=== PATIENT | male | born 1930 | race Caucasian/White ===

== ENCOUNTER 2019-09-17 13:14 | Inpatient (IN) | payer MEDICARE, MEDICAID ==
[~2019-09-17] VITALS: Ht 175.3 cm; Wt 72.9 kg
[2019-09-17] MEDS ORDERED: NS 500 ML IV ONE ×2 (13:30→17:30)
[2019-09-17 13:58] LABS: BASO % 0.1 % (0.0-1.0); EOS % 0.2 % (0.0-3.0); HEMATOCRIT 42.9 % (42.0-52.0); HEMOGLOBIN 14.1 g/dl (13.5-17.5); LYMPH # 0.8 10^3/uL (1.5-5.0); LYMPH % 8.7 % (24.0-44.0); MEAN CORPUSCULAR HEMOGLOBIN 31.3 pg (27.0-33.0); MEAN CORPUSCULAR HGB CONC 32.9 g/dl (32.0-36.5); MEAN CORPUSCULAR VOLUME 95.1 fl (80.0-96.0); MONO # 0.6 10^3/uL (0.0-0.8); MONO % 6.8 % (0.0-5.0); NEUTROPHILS # 7.6 10^3/uL (1.5-8.5); NEUTROPHILS % 83.8 % (36.0-66.0); PLATELET COUNT, AUTOMATED 207 10^3/uL (150-450); RED BLOOD COUNT 4.51 10^6/uL (4.30-6.10); WHITE BLOOD COUNT 9.1 10^3/uL (4.0-10.0)
[2019-09-17 14:28] LABS: OSMOLALITY SERUM 278 MOSM/KG (280-301)
--- NOTE | 2019-09-17 14:34 | REP ---
REASON: Altered mental status. The technique utilized in obtaining the radiograph has magnified the cardiac silhouette and accentuated the interstitial markings. There is cardiomegaly accentuated by technique. The lung pang are clear and the pleural angles are sharp. The osseous structures are within normal limits. IMPRESSION: Cardiomegaly without evidence of acute cardiopulmonary disease. Electronically Signed by Alexandre Ruiz DO 09/17/2019 03:09 P
--- NOTE | 2019-09-17 14:36 | REP ---
REASON: Altered mental status. Possible trauma. AP pelvis shows bilateral SI joint and hip degenerative changes. Two views of the right hip shows no evidence of an acute fracture. Two views of the left hip show no evidence of an acute fracture. IMPRESSION: Chronic changes. Electronically Signed by Alexandre Ruiz DO 09/17/2019 03:10 P
[2019-09-17 14:41] LABS: ACETAMINOPHEN LEVEL < 2.0 UG/ML (10.0-30.0); ALBUMIN 3.2 GM/DL (3.2-5.2); ALT/SGPT 70 U/L (12-78); BILIRUBIN,DIRECT 0.5 MG/DL (0.0-0.2); BILIRUBIN,TOTAL 1.2 MG/DL (0.2-1.0); BLOOD UREA NITROGEN 37 MG/DL (7-18); CALCIUM LEVEL 8.9 MG/DL (8.8-10.2); CARBON DIOXIDE LEVEL 27 MEQ/L (21-32); CHLORIDE LEVEL 106 MEQ/L (98-107); CK-MB VALUE MASS 95.2 NG/ML (<3.6); CPK CREATINE PHOSPHOKINASE 4366 U/L (39-308); CREATININE FOR GFR 1.11 MG/DL (0.70-1.30); ETHYL ALCOHOL (ETHANOL) < 0.003 % (0.000-0.010); GLOMERULAR FILTRATION RATE > 60.0 (>35); GLUCOSE, FASTING 74 MG/DL (70-100); MAGNESIUM LEVEL 1.7 MG/DL (1.8-2.4); MB/CK RELATIVE INDEX 2.18 (< OR =4); NT-PRO BNP 4031 PG/ML (<450); POTASSIUM SERUM 4.2 MEQ/L (3.5-5.1); SALICYLATE LEVEL < 1.7 MG/DL (5.0-30.0); SODIUM LEVEL 139 MEQ/L (136-145); TROPONIN I 0.19 NG/ML (< 0.10)
--- NOTE | 2019-09-17 16:55 | REP ---
CT BRAIN WITHOUT CONTRAST: CT brain performed without IV contrast. Coronal reconstruction images are performed. There is moderate atrophy. There is no midline shift or mass effect. Moderate periventricular small vessel ischemic changes are likely chronic in nature. There is no acute hemorrhage. There is no extra-axial fluid collection. There are vascular calcifications of the carotid siphons. There is mild fluid in the right maxillary sinus as well as mild mucosal thickening compatible with sinusitis. IMPRESSION: Atrophy and periventricular small vessel ischemic changes likely chronic in nature. No acute hemorrhage, midline shift or mass effect. Mild right maxillary sinusitis. Electronically Signed by Javi Barfield MD 09/17/2019 06:23 P
--- NOTE | 2019-09-17 17:23 | REP ---
CT CHEST WITHOUT IV CONTRAST: CT chest performed without IV contrast. Sagittal and coronal reconstruction images are performed. Scattered fibrotic changes are seen in both lungs. There is no acute infiltrate or pneumothorax. I see no evidence of axillary or mediastinal adenopathy. There is moderate cardiomegaly. There is no pleural or pericardial effusion. There is atherosclerotic calcification of the thoracic aorta without aneurysm. There is diffuse degenerative changes of the thoracic spine without compression deformity. No rib fracture is visualized. Visualized upper abdominal structures are grossly unremarkable. IMPRESSION: Fibroatelectatic changes of the lungs with no acute infiltrate or pneumothorax. No pleural effusion. No evidence of fracture of the visualized osseous structures. Electronically Signed by Javi Barfield MD 09/17/2019 06:23 P
[2019-09-17] MEDS ORDERED: MOM 30ML SUSPENSION UDC PO PRN (17:30)
[2019-09-17] MEDS ORDERED: amLODIPine 10 MG TAB PO ONE (17:30)
[2019-09-17] MEDS ORDERED: MAG SULF 1GM/100ML (MAG RUN) 1 GM in IV 1 EA IV ONE (17:45)
[2019-09-17] MEDS ORDERED: VITA50005 PO (18:02)
[2019-09-17] MEDS ORDERED: ASPI-1 PO (18:02)
[2019-09-17] MEDS ORDERED: ATEN50TA2 PO (18:02)
[2019-09-17] MEDS ORDERED: LISI40TA PO (18:02)
[2019-09-17] MEDS ORDERED: OMEG10002 PO (18:02)
[2019-09-17] MEDS ORDERED: AMLO10TA5 PO (18:02)
[2019-09-17] MEDS ORDERED: SYNT25TA PO (18:02)
[2019-09-17] MEDS ORDERED: COMMENTS (18:03)
[2019-09-17 19:32] VITALS: BP 132/95
[2019-09-17] MEDS: NS 1,000 ML IV SCH (20:12)
[2019-09-17] MEDS: atenoloL 50 MG TAB PO SCH (20:21)
[2019-09-17] MEDS: OMEGA-3 1000MG CAPSULE PO SCH (20:21)
[2019-09-17] MEDS: ACETAMINOPHEN TAB 650MG DOSE (2X325MG) PO PRN (20:22)
--- NOTE | 2019-09-17 20:44 | HPE ---
DATE OF ADMISSION: 09/17/2019 CHIEF COMPLAINT: Confusion and hypothermia with a temperature of 92 on arrival. HISTORY OF PRESENT ILLNESS: This is an 89-year-old male who lives alone, has a sister who calls him three to four times a day, was brought to the emergency room after being found down on the floor, unsure for how many days, by welfare check that was prompted by the niece who was unable to reach him. The patient was brought into the emergency room confused, disoriented, only able to state his name. His blood pressure was 183 systolic, recheck was 206 systolic but he was severely hypothermic and unable to provide much of a history. His temperature on arrival was 92.8, with Allan hugger up to 96.1 with improvement in mentation. The patient denies any abdominal pain, dysuria, urgency, frequency. He said that he has been feeling very weak, unable to get up and has not eaten in [address] of the head showed no acute CVA. Chest CT showed no acute infiltrate, fibroatelectasis was found, no pleural effusion. The patient had normal white count. He was found to have acute rhabdomyolysis with total CK of 4366, negative urinalysis for infection and abnormal liver function tests with total bilirubin of 1.2, direct bilirubin 0.5 and elevated AST at 228. Denied any history of alcohol abuse in the past. The patient is admitted to the hospitalist service for evaluation of acute encephalopathy, hypothermia, rule out sepsis and acute encephalopathy. The patient also complained of increased urinary frequency and severe weakness, unable to get up and pain from the back of his neck and all the way down to his legs with history of spinal stenosis. [place] Coma Scale was 15. He was disoriented, but answering commands. THe patient's niece is Miriam Cooley, . PAST MEDICAL HISTORY: 1. Prostate cancer, status post radiation in 2001. 2. Hypertension. 3. Vitamin D deficiency. 4. Hypercholesterolemia. 5. Hypothyroidism. PAST SURGICAL HISTORY: Unknown as the patient is confused. SOCIAL HISTORY: Lives alone. Smoked pipes for several years. No history of alcohol abuse. No recreational drug use. 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 Has a sister and a niece. FAMILY HISTORY: Unknown. REVIEW OF SYSTEMS: Could not be completed as the patient has periods of disorientation. PHYSICAL EXAMINATION: VITAL SIGNS: 92.8 rectally, pulse 83, respiratory rate 19, blood pressure 170/77, 100% on 2 liters nasal cannula. GENERAL: The patient is awake, alert and oriented to himself and location. Able to stay that he is at the [facility] [place]. He has garbled speech, disheveled, face is symmetric. Tongue is midline, very dry. He is edentulous with chapped lips. No jugular venous distention (JVD). No thyromegaly. He appears his stated age. Follows commands. Rambling about the service and being a . No respiratory distress. The patient has multiple excoriations on bilateral hands and lower extremities, as well as some erythema on bilateral knuckles, swelling of the bilateral upper and lower extremities, nonpitting edema. LUNGS: Clear to auscultation. No wheezing or rales. HEART: S1, S2. Sinus rhythm. ABDOMEN: Soft, nontender, nondistended. Positive bowel sounds times four quadrants. No rebound or guarding. No hepatosplenomegaly. No abdominal bruits. EXTREMITIES: No cyanosis or clubbing. Cool to touch. [place] in color. LABORATORY DATA: White count 9.1, hemoglobin 14, hematocrit 42, platelet count 207, 83% neutrophils, 8% lymphocytes, no bandemia, sed rate is 13, C-reactive protein is 6.4, sodium 139, potassium 4.2, chloride 103, bicarbonate 27, BUN 37, creatinine 1.11, glucose 74, lactic acid 1.4, magnesium 1.7, total bilirubin 1.2, direct bilirubin 0.5, AST 228, total CK 4366, MB fraction 95.2, troponin 0.19, C-reactive protein 6.4, BNP 4831, total protein 6.1, albumin 3.2, TSH 2.82, procalcitonin is pending. Lactic acid is 1.4. Urinalysis showed 1+ bacteria, 1 WBC, negative leukocyte esterase, 3+ blood, 1+ ketones, 1+ protein. Urine salicylate less than 1.7, acetaminophen less than 2, ethyl alcohol less than 0.003. Respiratory panel negative. Blood culture pending. IMAGING STUDIES: CT of the head showed atrophy, chronic in nature, with chronic small vessel ischemic disease, no acute hemorrhage, midline shift or mass effect. Hip x-ray showed chronic changes. No evidence of acute fracture. Chest x-ray showed cardiomegaly without cardiopulmonary disease. Chest CT showed fibroatelectasis. No infiltrate, pneumothorax or effusion, evidence of fracture of visualized osseous structures. No adenopathy. ASSESSMENT AND PLAN: 89-year-old male with a history of prostate cancer, status post radiation, hypertension, hyperlipidemia, vitamin D deficiency, who presents to the emergency room with acute encephalopathy after being found down, unsure for how many days, along with severe hypothermia. IMPRESSION: 1. Acute hypothermia, rule out sepsis. UA, chest x-ray and CT of the chest are all negative. The patient has abnormal liver function tests. We will check an ultrasound of the abdomen in the morning. Nothing by mouth after midnight. The patient will be given empiric antibiotics with Zosyn renally dosed this evening. Discontinue if negative clinical findings in the morning, along with negative ultrasound for acute cholecystitis. The patient has been warmed with the Allan hugger, currently stable and improvement in mental status. 2. Acute encephalopathy due to severe hypothermia. TSH level within normal. THe patient is being empirically treated with antibiotics with Zosyn for intraabdominal possible sepsis, however, only C-reactive protein is elevated. Discontinue antibiotics in the morning if negative findings on ultrasound. UA appears to be negative and chest x-ray is also negative. The patient has been warmed to 96 degrees with a Allan hugger. Continue with standard of care, vitals for monitoring. Continue on telemetry. 3. Uncontrolled hypertension. The patient may be resumed back on his home dose of Lisinopril, Norvasc and beta blockers. 4. Vitamin D deficiency. Continue on vitamin D. 5. Generalized malaise. The patient's respiratory panel was negative. Infectious workup so far has been unrevealing. We will consult acute rehabilitation unit in the morning. Activity as tolerated. Fall precautions. 6. Acute rhabdomyolysis due to a fall and unable to get up. The patient is currently on fall precautions. He is on intravenous fluids to monitor for any respiratory distress overnight. 7. Cardiomegaly. Obtain a 2-D echocardiogram due to a fall with questionable syncopal episode. The patient has no recollection of the events. Telemetry to rule out arrhythmia as cause for the patient's fall. 8. Back pain status post fall. The patient apparently had a history of prostate cancer and questionable history of spinal stenosis. He complains of severe pain in the back, but due to mental status we will only give acetaminophen. We will obtain MRI of the lumbar spine regarding pain in the back and MRI of the brain to rule out cerebellar CVA due to a fall and loss of memory. For possible syncope, 2-D echo will also be added. 9. abnormal card carcamo. most likely due to recent traumatic injury from fall. no acute ischemic symptoms. continue tele, echo, and cycle serial card carcamo. already on ASA, beta matt. Deep vein thrombosis (DVT) prophylaxis with compression stockings. DISPOSITION: Acute rehabilitation unit, potential screening. MTDD
[2019-09-17] MEDS ORDERED: lisinopriL 40 MG TAB PO SCH (21:00)
[2019-09-17] MEDS: PIPERACILLIN/TAZOBACTAM SOD 2.25 GM in D5W MINI-BAG PLUS 50 ML IV SCH (22:46)
[2019-09-18 00:59] LABS: CK-MB VALUE MASS 56.1 NG/ML (<3.6); MB/CK RELATIVE INDEX 1.86 (< OR =4); TROPONIN I 0.28 NG/ML (< 0.10)
--- NOTE | 2019-09-18 01:16 | ECGEPIP ---
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
[2019-09-18] MEDS: PIPERACILLIN/TAZOBACTAM SOD 2.25 GM in D5W MINI-BAG PLUS 50 ML IV SCH ×3 (02:34→15:19)
[2019-09-18] MEDS: LEVOTHYROXINE 25MCG TABLET (0.025MG) PO SCH (05:27)
[2019-09-18 06:00] VITALS: BP 119/66
[2019-09-18 06:04] LABS: BASO % 0.1 % (0.0-1.0); EOS # 0.1 10^3/uL (0.0-0.5); EOS % 1.1 % (0.0-3.0); HEMATOCRIT 37.5 % (42.0-52.0); HEMOGLOBIN 12.4 g/dl (13.5-17.5); LYMPH # 1.2 10^3/uL (1.5-5.0); LYMPH % 16.2 % (24.0-44.0); MEAN CORPUSCULAR HEMOGLOBIN 31.2 pg (27.0-33.0); MEAN CORPUSCULAR HGB CONC 33.1 g/dl (32.0-36.5); MEAN CORPUSCULAR VOLUME 94.5 fl (80.0-96.0); MONO # 0.6 10^3/uL (0.0-0.8); MONO % 8.6 % (0.0-5.0); NEUTROPHILS # 5.5 10^3/uL (1.5-8.5); NEUTROPHILS % 73.6 % (36.0-66.0); PLATELET COUNT, AUTOMATED 208 10^3/uL (150-450); RED BLOOD COUNT 3.97 10^6/uL (4.30-6.10); WHITE BLOOD COUNT 7.4 10^3/uL (4.0-10.0)
[2019-09-18 06:41] LABS: ALBUMIN 2.6 GM/DL (3.2-5.2); CALCIUM LEVEL 8.2 MG/DL (8.8-10.2); CK-MB VALUE MASS 36.4 NG/ML (<3.6); CREATININE FOR GFR 1.3 MG/DL (0.70-1.30); GLOMERULAR FILTRATION RATE 55.3 (>35); MAGNESIUM LEVEL 1.9 MG/DL (1.8-2.4); MB/CK RELATIVE INDEX 1.41 (< OR =4); POTASSIUM SERUM 4.1 MEQ/L (3.5-5.1); TOTAL PROTEIN 5.8 GM/DL (6.4-8.2); TROPONIN I 0.76 NG/ML (< 0.10)
--- NOTE | 2019-09-18 08:20 | IPN ---
DATE: 09/18/2019 The patient continues to be confused and disoriented. The patient denies any nausea or vomiting. He says that he had a little bit of pain on the right upper quadrant after eating yesterday, but liver functions are improving. The patient denies any chest pain, pressure, tightness, or shortness of breath. No fevers overnight. After Allan hugger, the patient has been with normal temperature. Sed rate is normal. C-reactive protein is slightly elevated 6.4. Troponin is 0.76 from 0.19 yesterday. Still with no complaints of chest pain. PHYSICAL EXAMINATION: VITAL SIGNS: Temperature 98.1, pulse 66, respiratory rate 18, blood pressure 119/66, 99% on room air. GENERAL: The patient looks older than his stated age. Disheveled appearing. Confused. He is currently babbling at the bedside with garbled speech. Edentulous. No jugular venous distention (JVD) or thyromegaly. Anicteric without jaundice. LUNGS: Clear to auscultation. No wheezing, rales or rhonchi. HEART: S1, S2. Sinus tachycardia. ABDOMEN: Soft, slightly tender in the right upper quadrant without rebound or guarding. Positive bowel sounds. EXTREMITIES: No pitting edema in the lower extremities. The patient has abrasions in the upper and lower extremities from recent fall. LABORATORY DATA: White count 7.4, hemoglobin 12.4, hematocrit 37, platelet count 208. Sodium 141, potassium 4.1, chloride 109, bicarbonate 24, BUN 43, creatinine 1.3, glucose 77. Troponin 0.76, increased from 0.8. Total CK 2586, AST 193, ALT 68, total bilirubin 1.9, direct bilirubin 1. C-reactive protein yesterday was 6.4. Respiratory panel was negative. Blood cultures pending. Chest CT on 09/17/2019 showed fibroatelectasis. No acute infiltrate or pneumothorax. No pleural effusion. No evidence of fracture of the visualized osseous structures. CT of the head showed chronic small vessel ischemic disease. No acute CVA. Atrophy. No acute hemorrhage, midline shift or mass effect. Right maxillary sinusitis. ASSESSMENT AND PLAN: This is an 89-year-old male who lives alone who was brought in after a well check that the niece had called since the patient could not be reached. The patient was found to be severely hypothermic with a temperature of 92. He had fallen and had been on the ground for 2 days. According to the patient, he has not been eating due to severe fatigue. After the fall, he was unable to get up. He was admitted for acute rhabdomyolysis and workup for hypothermia. CURRENT ISSUES: 1. Hypothermia, resolved. No signs of acute infectious process. THe patient is sent to ultrasound to rule out acute cholecystitis due to complaints of pain in the right upper quadrant and abnormal liver function tests. He is currently nothing by mouth, we will resume a diet if negative, and we will discontinue empiric antibiotics with Zosyn. 2. Acute encephalopathy. No acute infectious process at this time. May be in the background of chronic dementia. Awaiting MRI of the brain. Family will need to be contacted for the MRI checklist to make sure that he does not have any metal implants. 3. History of prostate cancer. No signs of metastases in the brain. The patient had a complete treatment with radiation in 2001. 4. Hemodilutional anemia secondary to intravenous fluids given yesterday. 5. Acute rhabdomyolysis secondary to fall. The patient's total CK is 2586, creatinine is still within normal limits. Continue with IV fluid hydration for now. Avoid nephrotoxins. We will need to hold the patient's Lisinopril if worsening creatinine. Continue with fluid hydration. 6. Abnormal cardiac markers, currently without any acute ischemic symptoms. Most likely secondary to traumatic fall. We will continue to cycle the patient's cardiac markers and obtain a 2-D echo, as well as an EKG. He is currently on aspirin 325 mg daily and atenolol 50 mg twice a day. 7. Hypothyroidism. Continue on Levothyroxine 25 mcg daily. 8. Atrial Fibrillation, new onset. Echo pending. pt started on renally dosed eliquis. on atenolol with hold parameters. Tele: sánchez in 50's at times. pt may have sick sinus syndrome and may need pacer . Patient and family services (PFS) consulted for placement, as the patient lives alone and is unable to manage at this time. Acute rehabilitation unit has also been consulted. FROYLAN
--- NOTE | 2019-09-18 08:20 | REP ---
Right upper quadrant sonography: History: Abnormal liver function studies. Comparison study: No comparison study. Findings: Can quality was inhibited slightly by patient's inability to breath hold and position decubitus. Scanning through the right upper quadrant of the abdomen demonstrates a normal sized, thin-walled gallbladder without evidence of stone or polyp. Common bile duct is normal measuring 0.4 cm in greatest diameter. There is a 2.2 x 1.5 x 1.6 cm hyperechoic area in the left lobe of the liver which may reflect a small hemangioma. This is not visible on noncontrast CT study from the previous day. No other focal liver lesion is seen. Liver size is normal. No pancreatic abnormality is observed. No right renal abnormality is seen. There is no evidence of ascites. The right kidney measures 10.2 x 5.2 x 5.1 cm. Impression: Small left lobe hepatic hemangioma noted incidentally. Otherwise negative right upper quadrant sonography. Electronically Signed by Thony Wilson MD 09/18/2019 08:12 A
[2019-09-18] MEDS: ASPIRIN 325 MG TAB PO SCH (08:29)
[2019-09-18] MEDS: OMEGA-3 1000MG CAPSULE PO SCH ×3 (08:30→20:11)
[2019-09-18] MEDS: atenoloL 50 MG TAB PO SCH ×2 (08:32→20:15)
[2019-09-18] MEDS: amLODIPine 10 MG TAB PO SCH (08:33)
[2019-09-18] MEDS ORDERED: VITAMIN D 50,000 UNITS CAPSULE (ERGOCALCIFEROL 1.25MG) PO SCH (09:00)
[2019-09-18] MEDS: APIXABAN 5 MG TAB (ELIQUIS) PO SCH ×2 (10:41→20:11)
[2019-09-18 11:56] LABS: HEPATITIS A ANTIBODY IGM NEGATIVE (NEGATIVE); HEPATITIS B CORE ANTIBODY IGM NEGATIVE (NEGATIVE); HEPATITIS B SURFACE ANTIGEN NEGATIVE (NEGATIVE); HEPATITIS C VIRUS ABY INDEX 0.1 INDEX (<0.8)
[2019-09-18 12:57] LABS: CK-MB VALUE MASS 23.7 NG/ML (<3.6); MB/CK RELATIVE INDEX 1.12 (< OR =4); TROPONIN I 0.66 NG/ML (< 0.10)
--- NOTE | 2019-09-18 14:29 | ECGEPIP ---
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
--- NOTE | 2019-09-18 14:37 | ECGEPIP ---
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
[2019-09-18] MEDS: NS 1,000 ML IV SCH (15:19)
[2019-09-18] MEDS ORDERED: PROHANCE 279.3MG/ML 5ML VIAL (A9576) As Ordered ONE (16:35)
--- NOTE | 2019-09-18 17:31 | REPVR ---
PROCEDURE INFORMATION: Exam: MR Lumbar Spine Without and With Contrast. Exam date and time: 09/18/2019 4:55 PM Age: 89 years old Clinical indication: Patient HX: H/o prostate CA current unbalanced gait, frequent falls, low back pain, PT was AMS but has since subsided; Additional info: H/o prostate CA. Gait imbalance back pain TECHNIQUE: Imaging protocol: Multiplanar magnetic resonance images of the lumbar spine without and with intravenous contrast. Contrast material: PROHANCE; Contrast volume: 8 ml; Contrast route: 20G; COMPARISON: SR - CT Chest without contrast 09/17/2019 3:52:41 PM FINDINGS: Vertebrae: The lowest full sized lumbar vertebral body is labeled as L5 for the purposes of this dictation. The lumbar vertebral bodies are normal in height, without abnormal subluxation. Mild anterolisthesis of T12 on L1. Mild heterogeneous signal intensity of the visualized bone marrow of the lumbar spine, without a well-defined enhancing osseous mass. Spinal cord: The distal end of the conus medullaris ends at L2, which is low lying. Multilevel findings: Degenerative disc disease is noted diffusely within the lumbar and visualized lower thoracic spine, with a decrease in the T2 signal intensity of the discs as well as disc bulge/osteophyte complexes. A diffuse decrease in lumbar disc height is identified, most significant at L1-L2, L3-L4, L4-L5, and L5-S1. T12-L1: At T12-L1, there is moderate narrowing of the thecal sac. Disc bulging identified. Mild left and severe right neural foraminal narrowing. L1-L2: A broad-based disc bulge is identified, with mild narrowing of the thecal sac. Bilateral facet arthropathy with hypertrophy of the ligamentum flavum. There is narrowing of the left lateral recess. Mild left neural foraminal narrowing. No significant narrowing of the right neural foramen. L2-L3: Bilateral facet arthropathy with hypertrophy of the ligamentum flavum. Disc bulging visualized, without significant narrowing of the thecal sac. Moderate left neural foraminal narrowing. Mild right neural foraminal narrowing. L3-L4: Bilateral facet arthropathy with hypertrophy of the ligamentum flavum. A broad-based disc bulge is identified, with severe narrowing of the thecal sac. The AP dimension of the thecal sac measures 0.7 cm. There is narrowing of both lateral recesses. Severe left and [id number] right neural foraminal narrowing. L4-L5: Bilateral facet arthropathy with hypertrophy of the ligamentum flavum. There is a broad-based disc bulge with central protrusion causing moderate narrowing of the thecal sac. Narrowing of both lateral recesses identified. Moderate left and severe right neural foraminal narrowing identified, with encroachment on the exiting right L4 nerve root. L5-S1: Bilateral facet arthropathy with hypertrophy of the ligamentum flavum. There is a central protrusion with mild narrowing of the thecal sac. Narrowing of both lateral recesses identified. Severe left and moderate right neural foraminal narrowing identified. Soft tissues: Soft tissue swelling identified posterior to the lumbosacral spine. Impression IMPRESSION: 1. Mild anterolisthesis of T12 on L1. 2. Degenerative changes are noted diffusely within the lumbar and visualized lower thoracic spine, as described above. 3. At L4-L5, there is a broad-based disc bulge with central protrusion causing moderate narrowing of the thecal sac. 4. A central protrusion at L5-S1 is visualized, with mild narrowing of the thecal sac. 5. Severe narrowing of the thecal sac at L3-L4, with mild narrowing of the thecal sac at L1-L2. 6. Neural foraminal narrowing identified diffusely within the lumbar spine, as detailed above. 7. Mild heterogeneous signal intensity of the visualized bone marrow of the lumbar spine, without a well-defined enhancing osseous mass. Electronically signed by: Anup Wood On 09/18/2019 17:30:47 PM
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
[2019-09-18 18:46] LABS: CK-MB VALUE MASS 16.5 NG/ML (<3.6); MB/CK RELATIVE INDEX 0.98 (< OR =4); TROPONIN I 0.5 NG/ML (< 0.10)
[2019-09-18 22:00] VITALS: BP 144/73
[2019-09-19 00:58] LABS: CK-MB VALUE MASS 12.8 NG/ML (<3.6); MB/CK RELATIVE INDEX 0.85 (< OR =4); TROPONIN I 0.43 NG/ML (< 0.10)
[2019-09-19] MEDS: NS 1,000 ML IV SCH (04:24)
[2019-09-19] MEDS: LEVOTHYROXINE 25MCG TABLET (0.025MG) PO SCH (05:37)
[2019-09-19 05:47] LABS: BASO % 0.4 % (0.0-1.0); EOS # 0.2 10^3/uL (0.0-0.5); EOS % 2.3 % (0.0-3.0); HEMATOCRIT 36.8 % (42.0-52.0); LYMPH # 1.7 10^3/uL (1.5-5.0); LYMPH % 23.9 % (24.0-44.0); MEAN CORPUSCULAR HEMOGLOBIN 31.3 pg (27.0-33.0); MEAN CORPUSCULAR HGB CONC 32.6 g/dl (32.0-36.5); MEAN CORPUSCULAR VOLUME 95.8 fl (80.0-96.0); MONO # 0.6 10^3/uL (0.0-0.8); NEUTROPHILS # 4.5 10^3/uL (1.5-8.5); NEUTROPHILS % 64.1 % (36.0-66.0); PLATELET COUNT, AUTOMATED 178 10^3/uL (150-450); RED BLOOD COUNT 3.84 10^6/uL (4.30-6.10)
[2019-09-19 06:00] VITALS: BP 156/72
[2019-09-19 06:18] LABS: ALBUMIN 2.7 GM/DL (3.2-5.2); ALT/SGPT 66 U/L (12-78); BILIRUBIN,TOTAL 1.1 MG/DL (0.2-1.0); BLOOD UREA NITROGEN 31 MG/DL (7-18); CALCIUM LEVEL 8.3 MG/DL (8.8-10.2); CARBON DIOXIDE LEVEL 26 MEQ/L (21-32); CHLORIDE LEVEL 109 MEQ/L (98-107); GLOMERULAR FILTRATION RATE > 60.0 (>35); GLUCOSE, FASTING 69 MG/DL (70-100); LIPASE 84 U/L (73-393); MAGNESIUM LEVEL 1.8 MG/DL (1.8-2.4); POTASSIUM SERUM 4.1 MEQ/L (3.5-5.1); SODIUM LEVEL 140 MEQ/L (136-145); TOTAL PROTEIN 5.3 GM/DL (6.4-8.2)
[2019-09-19] MEDS ORDERED: D5W/0.45% SODIUM CHLORIDE 1,000 ML IV SCH (08:00)
[2019-09-19] MEDS: ASPIRIN 325 MG TAB PO SCH (08:05)
[2019-09-19] MEDS: atenoloL 50 MG TAB PO SCH ×2 (08:05→21:02)
[2019-09-19] MEDS: amLODIPine 10 MG TAB PO SCH (08:05)
[2019-09-19] MEDS: APIXABAN 5 MG TAB (ELIQUIS) PO SCH ×2 (08:06→21:01)
[2019-09-19] MEDS: OMEGA-3 1000MG CAPSULE PO SCH ×3 (08:06→21:01)
[2019-09-19 08:44] LABS: CK-MB VALUE MASS 9.9 NG/ML (<3.6); MB/CK RELATIVE INDEX 0.85 (< OR =4); TROPONIN I 0.35 NG/ML (< 0.10)
--- NOTE | 2019-09-19 09:35 | IPN ---
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 He says that he just wants to go home. He otherwise denies any back pain. He says that he is very weak, unable to get up from a sitting position on a chair and requires a lot of help, "I was doing okay on my own." No other issues per nursing overnight. The patient's mentation is improving. PHYSICAL EXAMINATION: VITAL SIGNS: Temperature 98.6, pulse 64, respiratory rate 18, blood pressure 156/72, 96% on room air. GENERAL: Awake, alert, oriented to himself. Answers questions appropriately with directed inquiry, however, the patient does ramble on about the war and appears to have garbled speech, at times difficult to understand. No respiratory distress. Speaks in full sentences. Face is symmetric. Tongue is midline. Edentulous. Dry mucous membranes with chapped lips. No jugular venous distention (JVD) or thyromegaly. No cervical lymphadenopathy. LUNGS: Clear to auscultation. No wheezing, rales or rhonchi. HEART: S1, S2. Irregularly irregular. ABDOMEN: Soft, nontender, nondistended. EXTREMITIES: No cyanosis or clubbing. LABORATORY DATA: Imaging studies have been reviewed. Notable for MRI showing old bilateral small cerebellar infarct, old lacunar infarct, right parietal lobe, no acute intracranial abnormality. Lumbar spine MRI shows disc bulging of L4-L5, central protrusion of L5-S1, severe narrowing at L1-L2. ASSESSMENT AND PLAN: 89-year-old FULL CODE, lives alone, no children, no . He has two sisters who are younger than him and a niece that are helping him manage at home. He was brought in after a welfare check prompted by the niece who was unable to reach him for 2 days, starting Monday. The patient was found to be hypothermic with a temperature of 92 and had been on the ground for 2 days and has not eaten since Monday. The patient was unable to get up due to severe fatigue. The patient was admitted for acute rhabdomyolysis and evaluation for hypothermia to rule out acute infection. ACTIVE ISSUES: 1. Rhabdomyolysis, improving on intravenous fluids. Encouraged to drink orally but per nursing barely drinks two cups of liquids daily. 2. Hypothermia. The patient has had no acute infectious process. UA and CT of the chest are both negative. Ultrasound of the liver due to abnormal liver function tests is negative for acute cholecystitis. Zosyn has been discontinued. 3. Acute metabolic encephalopathy secondary to severe hyponatremia and rhabdomyolysis, resolved. 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 4. Lumbar disc bulges limiting his ability to ambulate. 5. History of prostate cancer, no metastatic lesions on MRI. THe patient completed radiation treatment in 2001. 6. Hemodilutional anemia, no acute indication for transfusion. 7. Abnormal cardiac markers. No acute ischemic symptoms. Most likely secondary to recent traumatic fall. Echo is pending official report. 8. 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 no new infarct on MRI Brain. already on asa, statin for AFib. ARU screen. 9. AFib, new onset. on eliquis renally dosed, and rate controlled on beta matt. episodes of bradycardia while sleeping without hemodynamic compromise 55-58 bpm. may need to adjust dose of beta matt if hr<50. discussed with pt's sister yesterday that if the pt demonstrates recurrent falls, he is at increased risk ICH. DISPOSITION: The patient will need continued rehabilitation, jail placement. Sister agrees that the patient cannot live alone anymore. MTDD
[2019-09-19 14:00] VITALS: BP 152/80
--- NOTE | 2019-09-19 17:03 | ECHO ---
DATE OF PROCEDURE: 09/18/2019 REFERRING PHYSICIAN: Dr. Linda Rdz INDICATION: Syncope. HEIGHT: 175 cm WEIGHT: 82 kg 2D MEASUREMENTS: Aortic root: 3.6 cm Aortic annulus: 2.2 cm Left atrium: 4.1 cm Ventricular septum: 1.22 cm Posterior wall: 1.21 cm Left ventricle diastole: 4.7 cm Inferior vena cava: 2.0 cm DOPPLER MEASUREMENTS: Mild aortic stenosis. Moderate aortic regurgitation. Aortic regurgitation pressure half time: 334 ms Peak aortic valve velocity: 269 cm/s Aortic valve VTI: 57.5 cm Peak aortic valve gradient: 29 mmHg Mean aortic valve gradient: 16 mmHg LVOT velocity: 106 cm/s LVOT VTI: 20.6 cm Moderate mitral regurgitation. No mitral stenosis. Mitral E velocity: 76.5 cm/s Mitral A velocity: 99.7 cm/s Mitral deceleration time: 275 ms Mild tricuspid regurgitation. Estimated right ventricle systolic pressure: 34 mmHg assuming a pressure of 5 mmHg. No pulmonic regurgitation. Pulmonary artery systolic pressure: 33 mmHg. MITRAL ANNULAR TISSUE DOPPLER: E prime septal: 5.2 cm/s E prime lateral: 6.1 cm/s DESCRIPTION: Rhythm was sinus. This was a moderately technically difficult echocardiogram. This was a 2D, M-mode, color flow Doppler and pulse wave Doppler examination and included mitral annular tissue Doppler. CONCLUSIONS: 1. Very mild concentric left ventricle hypertrophy. Normal regional left ventricular (LV) wall motion and wall thickening. Normal LV systolic function. Left ventricular ejection fraction (LVEF) 60% by visual estimate. Grade 1 LV diastolic dysfunction (impaired relaxation filling pattern). 2. Severe focal thickening and focal calcific deposits of a 3-cusp aortic valve. Mild reduction in aortic cusp mobility. Mild aortic stenosis. Moderate aortic regurgitation. 3. Severe mitral annular calcification. Moderate mitral regurgitation. No mitral stenosis. 4. Suggestive of mild elevation of pulmonary artery systolic pressure and estimated right ventricle systolic pressure. Mild tricuspid regurgitation. 5. No pericardial effusion.
[2019-09-19] MEDS: ACETAMINOPHEN TAB 650MG DOSE (2X325MG) PO PRN (17:43)
[2019-09-19 22:00] VITALS: BP 147/86
[2019-09-20 05:31] LABS: BASO % 0.1 % (0.0-1.0); EOS # 0.2 10^3/uL (0.0-0.5); EOS % 2.3 % (0.0-3.0); HEMATOCRIT 36.3 % (42.0-52.0); LYMPH # 1.8 10^3/uL (1.5-5.0); LYMPH % 24.2 % (24.0-44.0); MEAN CORPUSCULAR HEMOGLOBIN 31.7 pg (27.0-33.0); MEAN CORPUSCULAR HGB CONC 33.1 g/dl (32.0-36.5); MONO # 0.6 10^3/uL (0.0-0.8); MONO % 8.8 % (0.0-5.0); NEUTROPHILS # 4.7 10^3/uL (1.5-8.5); NEUTROPHILS % 64.2 % (36.0-66.0); PLATELET COUNT, AUTOMATED 179 10^3/uL (150-450); RED BLOOD COUNT 3.78 10^6/uL (4.30-6.10); WHITE BLOOD COUNT 7.3 10^3/uL (4.0-10.0)
[2019-09-20 05:48] LABS: ALBUMIN 2.5 GM/DL (3.2-5.2); ALT/SGPT 64 U/L (12-78); BILIRUBIN,TOTAL 0.6 MG/DL (0.2-1.0); BLOOD UREA NITROGEN 30 MG/DL (7-18); CALCIUM LEVEL 7.9 MG/DL (8.8-10.2); CARBON DIOXIDE LEVEL 28 MEQ/L (21-32); CHLORIDE LEVEL 108 MEQ/L (98-107); CREATININE FOR GFR 1.05 MG/DL (0.70-1.30); GLOMERULAR FILTRATION RATE > 60.0 (>35); GLUCOSE, FASTING 115 MG/DL (70-100); LIPASE 112 U/L (73-393); MAGNESIUM LEVEL 1.6 MG/DL (1.8-2.4); POTASSIUM SERUM 4.2 MEQ/L (3.5-5.1); SODIUM LEVEL 141 MEQ/L (136-145); TOTAL PROTEIN 5.3 GM/DL (6.4-8.2)
[2019-09-20] MEDS: LEVOTHYROXINE 25MCG TABLET (0.025MG) PO SCH (05:49)
[2019-09-20 06:00] VITALS: BP 134/55
[2019-09-20] MEDS: amLODIPine 10 MG TAB PO SCH (08:39)
[2019-09-20 08:41] VITALS: BP 134/55
[2019-09-20] MEDS: APIXABAN 5 MG TAB (ELIQUIS) PO SCH (08:41)
[2019-09-20] MEDS: ASPIRIN 325 MG TAB PO SCH (08:41)
[2019-09-20] MEDS: OMEGA-3 1000MG CAPSULE PO SCH (08:41)
[2019-09-20] MEDS: ACETAMINOPHEN TAB 650MG DOSE (2X325MG) PO PRN (08:41)
[2019-09-20] MEDS: atenoloL 50 MG TAB PO SCH (08:41)
[2019-09-20] MEDS ORDERED: ELIQ5TAB PO (10:02)
[2019-09-20] MEDS ORDERED: MAGNESIUM OXIDE 400 MG TAB (MAG-OX) PO ONE (11:00)
--- NOTE | 2019-09-20 11:50 | DSES ---
DATE OF ADMISSION: 09/17/2019 DATE OF DISCHARGE: 09/20/2019 PRIMARY DISCHARGE DIAGNOSES: 1. Acute rhabdomyolysis secondary to mechanical fall. 2. Old cerebellar CVA and lacunar infarct. No new infarct on MRI. 3. New onset atrial fibrillation. 4. Hypothermia secondary to inability to ambulate and a fall. 5. Acute metabolic encephalopathy. 6. Lumbar disc bulges, chronic. 7. History of prostate cancer. 8. Hemodilutional anemia. 9. Abnormal troponin most likely secondary to recent traumatic fall. 10. Grade 1 left ventricular diastolic dysfunction. 11. Moderate aortic regurgitation. 12. Moderate mitral regurgitation. 13. Mild tricuspid regurgitation. DISCHARGE MEDICATIONS: - apixaban 5 mg twice a day - Norvasc 10 mg daily - aspirin 325 mg daily - atenolol 50 mg twice a day - vitamin D 50,000 units daily - levothyroxine 25 mcg daily - omega 3 fish oil one capsule three times a day HISTORY OF PRESENT ILLNESS: This is an 89-year-old male who lives alone, FULL CODE, has a sister who calls him 3-4 times a day, was brought into the emergency room after a welfare check was initiated by the niece who was unable to talk to him for the past two days. According to the sister who lives in [place], they last spoke on Monday and she could not reach him on Monday and Monday. The patient had no recollection of the events. He was found down at home and has not been eating for two days and was unable to get up. He complained of pain from head to toe, unable to get up with severe weakness and fatigue. He was found to be severely hypothermic with a temperature of 92.8. He was given a Allan Hugger with temperature in the ER going up to 96.1. CBC, metabolic panel were within normal. Total bilirubin was slightly elevated at 1.2 and there was a troponin leak. The patient was admitted for empiric antibiotics with Zosyn until ultrasound of the gallbladder cold be performed the following day, which was negative for acute cholecystitis. The patient's Hensley coma scale was [address] of the head was negative for acute hemorrhage. Chest x-ray was negative. Chest CT showed fibroatelectasis, no acute fracture, infiltrate or pneumothorax. The patient's mentation improved over the next two days after antibiotics and IV fluids were given. He did not have any aspiration, everything was resumed, on a 2 gram sodium diet. Liver ultrasound was negative for acute cholecystitis. Due to severe weakness of the lower extremities and confusion, the patient was kept on telemetry to rule out arrhythmias as the cause for his fall and an MRI of the brain was done. Patient was found to have new onset atrial fibrillation on telemetry with his heart rate reaching 120. He was subsequently given apixaban with fall precautions, renally dosed at 5 mg twice a day and kept on his atenolol 50 mg twice a day with episodes of bradycardia with heart rate of 56, therefore holding parameters were kept with heart rate less than 60, atenolol is to beheld. Patient remained afebrile. Infectious workup was negative. Respiratory panel and blood cultures were negative. Zosyn was discontinued. Patient failed a home safety evaluation, was not a good candidate to be discharged home alone. The family was in agreement. Patient is therefore transferred the skilled nursing facility at [facility]. PHYSICAL EXAMINATION ON DISCHARGE: Temperature 99.3, pulse 56, respiratory rate 17, blood pressure 134/55, 97% on room air. Generally, patient is awake, alert and oriented to himself. He has garbled speech. He does answer appropriately and follow commands. He is edentulous, appears his stated age. No JVD, thyromegaly or lymphadenopathy. Lungs are clear to auscultation. No wheezing, rales or rhonchi. Heart S1, S2 irregularly irregular. Episodes of bradycardia. Abdomen is soft, nontender, nondistended. Positive bowel sounds time four quadrants. Extremities no cyanosis or clubbing. Positive 1+ edema. LABORATORY DATA: White count 7.3, hemoglobin 12, hematocrit 36, platelet count 179, sodium 141, potassium 42, chloride 108, bicarb 28, BUN 30, creatinine 1.05, glucose of 115, magnesium was 1.6. Microbiology: 09/16 blood culture negative after 48 hours. Respiratory panel negative. IMAGING STUDIES: Lumbar spine MRI central canal stenosis and disc bulging with T12 on L1 mild anterolisthesis, degenerative disc disease within the lumbar and lower thoracic spine, L4-L5 disc bulge with central protrusion causing moderate narrowing of the thecal sac, central protrusion of L5-S1 with mild narrowing of the thecal sac. Severe narrowing of the thecal sac at L3-L4 with mild narrowing of the thecal sac at L1-L2. Brain MRI shows old bilateral small cerebellar infarct, extensive small vessel changes. Old lacunar infarct in the right parietal lobe. Periventricular white matter no acute intracranial abnormality. Time spent on discharge 30 minutes. MTDD
== END 2019-09-20 11:23 | DRG 947 ==
LOC: M ED 13:14 → EDBD 13:14 → M ED INP 17:22 → ENRESERV 17:55 → M MSPAV 19:58
PROVIDERS: ADMIT General Practice; ATTEND General Practice
DX: R68.0 Hypothermia, not associated with low environmental temperature (principal); G93.41 Metabolic encephalopathy; M62.82 Rhabdomyolysis; R35.0 Frequency of micturition; R53.1 Weakness; I10 Essential (primary) hypertension; E55.9 Vitamin D deficiency, unspecified; E78.00 Pure hypercholesterolemia, unspecified; E03.9 Hypothyroidism, unspecified; I08.3 Combined rheumatic disorders of mitral, aortic and tricuspid valves; I48.91 Unspecified atrial fibrillation; D64.9 Anemia, unspecified; R53.81 Other malaise; Z86.73 Personal history of transient ischemic attack (TIA), and cerebral infarction without residual deficits; M48.061 Spinal stenosis, lumbar region without neurogenic claudication; M51.26 Other intervertebral disc displacement, lumbar region; Z92.3 Personal history of irradiation; Z87.891 Personal history of nicotine dependence; Z85.46 Personal history of malignant neoplasm of prostate

== ENCOUNTER → 2019-09-25 | Outpatient (REF) ==
[~2019-09-25] MED LIST: AMLO10TA5 PO; ASPI-1 PO; ATEN50TA2 PO; COMMENTS; ELIQ5TAB PO; LISI40TA PO; OMEG10002 PO; SYNT25TA PO; VITA50005 PO
[2019-09-25 13:20] LABS: HEMATOCRIT 40.8 % (42.0-52.0); MEAN CORPUSCULAR HEMOGLOBIN 31.2 pg (27.0-33.0); MEAN CORPUSCULAR HGB CONC 31.9 g/dl (32.0-36.5); MEAN CORPUSCULAR VOLUME 97.8 fl (80.0-96.0); PLATELET COUNT, AUTOMATED 328 10^3/uL (150-450); RED BLOOD COUNT 4.17 10^6/uL (4.30-6.10); WHITE BLOOD COUNT 8.2 10^3/uL (4.0-10.0)
[2019-09-25 13:53] LABS: CALCIUM LEVEL 8.8 MG/DL (8.8-10.2); CREATININE FOR GFR 1.22 MG/DL (0.70-1.30); GLOMERULAR FILTRATION RATE 59.5 (>35); POTASSIUM SERUM 5.2 MEQ/L (3.5-5.1)
== END ==
PROVIDERS: ATTEND Internal Medicine
DX: I10 Essential (primary) hypertension (principal)

== ENCOUNTER → 2019-09-26 | Outpatient (REF) ==
[~2019-09-26] MED LIST changes: +ACET-908 PO; +ACET1TAB55 PO; +BISA10SU4 PR; +CEFT1INJ5 IM; +CYMB1CAP5 PO; +DULC5TAB PO; +ENEMENE4 PR; +ENSU1LIQ50 PO; +MAGN1TAB26 PO; +MILKSUS3 PO; +PROC5TA PO; +THERTAB52 PO; +VALS80TA PO; +VITAD1000T PO
[2019-09-26 13:15] LABS: HEMATOCRIT 37.4 % (42.0-52.0); HEMOGLOBIN 12.1 g/dl (13.5-17.5); MEAN CORPUSCULAR HEMOGLOBIN 31.2 pg (27.0-33.0); MEAN CORPUSCULAR HGB CONC 32.4 g/dl (32.0-36.5); MEAN CORPUSCULAR VOLUME 96.4 fl (80.0-96.0); PLATELET COUNT, AUTOMATED 237 10^3/uL (150-450); RED BLOOD COUNT 3.88 10^6/uL (4.30-6.10); WHITE BLOOD COUNT 10.6 10^3/uL (4.0-10.0)
[2019-09-26 13:43] LABS: CALCIUM LEVEL 8.7 MG/DL (8.8-10.2); CREATININE FOR GFR 1.53 MG/DL (0.70-1.30); GLOMERULAR FILTRATION RATE 45.9 (>35); POTASSIUM SERUM 5.2 MEQ/L (3.5-5.1)
[2019-09-26 14:58] LABS: APPEARANCE, URINE HAZY (CLEAR); BACTERIA, URINE AUTO 1+ (NEGATIVE); BILIRUBIN, URINE AUTO NEGATIVE (NEGATIVE); BLOOD, URINE BLOOD 2+ (NEGATIVE); COLOR, URINE YELLOW (YELLOW); GLUCOSE, URINE (UA) AUTO NEGATIVE (NEGATIVE); KETONE, URINE AUTO NEGATIVE (NEGATIVE); LEUKOCYTE ESTERASE, URINE AUTO 1+ (NEGATIVE); NITRITE, URINE AUTO NEGATIVE (NEGATIVE); PROTEIN, URINE AUTO NEGATIVE (NEGATIVE); RBC, URINE AUTO 9 /HPF (0-3); SPECIFIC GRAVITY URINE AUTO 1.013 (1.002-1.035); SQUAMOUS EPITHELIAL CELL UR AU 0 /HPF (0-6); UROBILINOGEN, URINE AUTO 0.2 mg/dL (0.0-2.0); WBC, URINE AUTO 42 /HPF (0-3)
== END ==
PROVIDERS: ATTEND Internal Medicine
DX: R50.9 Fever, unspecified (principal)

== ENCOUNTER 2019-09-27 15:33 | Inpatient (IN) | payer MEDICARE, MEDICAID ==
[~2019-09-27] VITALS: Ht 172.7 cm; Wt 81.8 kg
[~2019-09-27 15:33] MED LIST changes: -ACET-908 PO; -ACET1TAB55 PO; -BISA10SU4 PR; -CEFT1INJ5 IM; -CYMB1CAP5 PO; -DULC5TAB PO; -ENEMENE4 PR; -ENSU1LIQ50 PO; -MAGN1TAB26 PO; -MILKSUS3 PO; -PROC5TA PO; -THERTAB52 PO; -VALS80TA PO; -VITAD1000T PO
[2019-09-27 16:15] LABS: ABG BASE EXCESS 1.5 (-2.0-2.0); ABG HCO3 24.6 MEQ/L (22.0-26.0); ABG PARTIAL PRESSURE CO2 33.3 mmHg (35.0-45.0); ABG PARTIAL PRESSURE O2 102.7 mmHg (75.0-100.0); ABG STANDARD HCO3 25.9 MEQ/L (22.0-26.0); ABG TOTAL CO2 25.6 MEQ/L (23.0-31.0); ABG pH (ARTERIAL) 7.486 UNITS (7.350-7.450)
[2019-09-27 16:33] LABS: HEMATOCRIT 32.9 % (42.0-52.0); HEMOGLOBIN 10.7 g/dl (13.5-17.5); MEAN CORPUSCULAR HEMOGLOBIN 30.9 pg (27.0-33.0); MEAN CORPUSCULAR HGB CONC 32.5 g/dl (32.0-36.5); MEAN CORPUSCULAR VOLUME 95.1 fl (80.0-96.0); PLATELET COUNT, AUTOMATED 205 10^3/uL (150-450); RED BLOOD COUNT 3.46 10^6/uL (4.30-6.10); WHITE BLOOD COUNT 25.5 10^3/uL (4.0-10.0)
[2019-09-27 16:47] LABS: EOSINOPHILS 1 % (0-3); LYMPHOCYTES 6 % (16-44); METAMYELOCYTES 6 % (0-0); MONOCYTES 7 % (0-5); NEUTROPHILS 72 % (28-66)
[2019-09-27 16:50] LABS: PLATELET ESTIMATE NORMAL (NORMAL); TOXIC VACUOLATION 2+
[2019-09-27 16:56] LABS: ALBUMIN 2.2 GM/DL (3.2-5.2); BILIRUBIN,DIRECT 0.2 MG/DL (0.0-0.2); BILIRUBIN,TOTAL 0.6 MG/DL (0.2-1.0); CALCIUM LEVEL 8.1 MG/DL (8.8-10.2); CREATININE FOR GFR 1.57 MG/DL (0.70-1.30); GLOMERULAR FILTRATION RATE 44.5 (>35); POTASSIUM SERUM 4.4 MEQ/L (3.5-5.1); TOTAL PROTEIN 5.8 GM/DL (6.4-8.2)
[2019-09-27] MEDS ORDERED: VALS80TA PO (17:04)
[2019-09-27] MEDS ORDERED: ACET1TAB55 PO (17:04)
[2019-09-27] MEDS ORDERED: ACET-908 PO (17:04)
[2019-09-27] MEDS ORDERED: DULC5TAB PO (17:04)
[2019-09-27] MEDS ORDERED: BISA10SU4 PR (17:04)
[2019-09-27] MEDS ORDERED: CEFT1INJ5 IM (17:04)
[2019-09-27] MEDS ORDERED: PROC5TA PO (17:04)
[2019-09-27] MEDS ORDERED: ENSU1LIQ50 PO (17:04)
[2019-09-27] MEDS ORDERED: ELIQ5TAB PO (17:04)
[2019-09-27] MEDS ORDERED: MILKSUS3 PO (17:04)
--- NOTE | 2019-09-27 17:06 | REP ---
HISTORY: Fever. COMPARISON: The latest prior for comparison 09/17/2019. The technique utilized in obtaining the radiograph has magnified the cardiac silhouette and accentuated the interstitial markings. Once again, there is cardiomegaly accentuated by technique. The lung pang are clear and stable. There is no change in the osseous structures. IMPRESSION: Cardiomegaly without evidence of acute cardiopulmonary disease or significant change compared to the prior exam, other than technique. Electronically Signed by Alexandre Ruiz DO 09/27/2019 05:24 P
[2019-09-27] MEDS ORDERED: ENEMENE4 PR (17:07)
[2019-09-27] MEDS ORDERED: CYMB1CAP5 PO (17:07)
[2019-09-27] MEDS ORDERED: THERTAB52 PO (17:07)
[2019-09-27] MEDS ORDERED: MAGN1TAB26 PO (17:07)
[2019-09-27] MEDS ORDERED: VITAD1000T PO (17:13)
[2019-09-27] MEDS: NS 1,000 ML IV SCH ×2 (17:29→21:29)
[2019-09-27] MEDS ORDERED: PROCHLORPERAZINE 5 MG TAB (S0183) PO PRN (17:30)
[2019-09-27] MEDS ORDERED: BISACODYL 10 MG SUPP PR PRN (17:30)
[2019-09-27] MEDS ORDERED: MOM 30ML SUSPENSION UDC PO PRN (17:30)
--- NOTE | 2019-09-27 17:44 | HPEPDOC ---
[facility] Medical History & Physical Date of Admission Sep 27, 2019 Date of Service: Sep 27, 2019 Attending Physician: RANJIT FERNANDO MD History and Physical CHIEF COMPLAINT: Sent to the hospital for positive blood cultures HISTORY OF PRESENT ILLNESS: 89-year-old male with past medical history of CVA, atrial fibrillation, prostate cancer, aortic regurgitation and hypertension was sent from [facility] for bacteremia. Patient had blood cultures drawn yesterday as he was febrile, which are preliminarily growing gram-negative rods. Patient is comfortable in bed, without any complaints at this time, other than fatigue, which she reports is chronic in nature. He denies any short of br eath, chest pain, nausea, vomiting, abdominal pain, diarrhea or constipation. He does report mild dysuria. Patient is overall a poor historian. 10 point review of system is negative except for above PAST MEDICAL HISTORY: 1. CVA. 2. Atrial fibrillation. 3. Prostate cancer. 4. Hypertension. 5. Aortic regurgitation PAST SURGICAL HISTORY: 1. Reports that he has had no surgeries. SOCIAL HISTORY: Previous smoker. Denies alcohol use. Denies drug use FAMILY HISTORY: Positive for heart disease ALLERGIES: Please see below. PHYSICAL EXAMINATION: VITAL SIGNS: Please see below. GENERAL: No distress HEENT: Normocephalic, atraumatic, moist mucous membranes NECK: Supple CARDIOVASCULAR EXAMINATION: Irregular, bradycardic RESPIRATORY EXAMINATION: Scattered rhonchi, no wheezing ABDOMINAL EXAMINATION: Soft, nontender, nondistended, positive bowel sounds EXTREMITIES: Trace lower extremity edema NEUROLOGICAL EXAMINATION: Alert and oriented 3, minimal strength in bilateral lower extremities (2/5), diminished strength in the upper extremities (4/5), no sensory deficits appreciated PSYCHIATRIC EXAMINATION: Calm and cooperative HOME MEDICATIONS: Please see below. LABORATORY DATA: See below. IMAGING: Chest x-ray without acute pathology MICROBIOLOGY: Please see below. ASSESSMENT: 89-year-old male with multiple medical comorbidities, is being admitted for gram-negative bacteremia. PLAN: 1. Bacteremia. Cultures drawn yesterday are preliminarily growing gram-negative rods, empiric cefepime, unknown etiology, possible urinary source, UA/CS pending. 2. Atrial fibrillation. continue Eliquis & Atenolol with hold parameters. 3. Hypertension Continue atenolol, hydrochlorothiazide and valsartan 4. Acute kidney injury. Normal saline 100 ml/hour, will monitor. 5. Hypothyroidism. Continue levothyroxine DVT prophylaxis: Eliquis GI prophylaxis: not needed Vital Signs Vital Signs Date Time Temp Pulse Resp B/P (MAP) Pulse Ox O2 Delivery O2 Flow Rate FiO2 09/27/19 15:36 18 Room Air Laboratory Data Labs 24H Laboratory Tests 2 09/27/19 15:54: Blood Gas Bicarbonate Standard 25.9, Arterial Blood pH 7.486H, Arterial Blood Partial Pressure CO2 33.3L, Arterial Blood Partial Pressure O2 102.7H, Arterial Blood Total CO2 25.6, Arterial Blood HCO3 24.6, Arterial Blood Base Excess 1.5, Arterial Blood Oxygen Saturation 98.0 09/27/19 16:19: Immature Granulocyte % (Auto) , Neutrophils (%) (Auto) , Nucleated Red Blood Cells % (auto) 0.0, Neutrophils 72H, Band Neutrophils 8, Lymphocytes (Manual) 6L, Monocytes (Manual) 7H, Eosinophils (Manual) 1, Metamyelocytes 6H, Toxic Vacuolation 2+, Platelet Estimate NORMAL, Anion Gap 4L, Glomerular Filtration Ra te 44.5, Lactic Acid Level 1.2, Calcium Level 8.1L, Total Bilirubin 0.6, Direct Bilirubin 0.2, Aspartate Amino Transf (AST/SGOT) 77H, Alanine Aminotransferase (ALT/SGPT) 87H, Alkaline Phosphatase 117, Total Protein 5.8L, Albumin 2.2L, Albumin/Globulin Ratio 0.61L CBC/BMP Laboratory Tests 09/27/19 16:19 Home Medications Scheduled Acetaminophen (Acetaminophen) 325 Mg Tablet, 650 MG PO Q4H Apixaban (Eliquis) 5 Mg Tablet, 5 MG PO BID Aspirin (Aspirin) 325 Mg Tablet, 325 MG PO DAILY Atenolol (Atenolol) 50 Mg Tablet, 50 MG PO BID Ceftriaxone Sodium (Ceftriaxone) 1 Gm Vial, 1 GM IM DAILY started 09/26/19 for 7 days Duloxetine Hcl (Cymbalta) 30 Mg Capsule.dr, 30 MG PO QHS Ergocalciferol (Vitamin D2) (Vitamin D2) 50,000 Units Cap, 50,000 UNITS PO DAILY Levothyroxine Sodium (Synthroid) 25 Mcg Tablet, 25 MCG PO DAILY Magnesium Oxide (Magnesium Oxide) 400 Mg Tablet, 400 MG PO QHS Multivitamin,Therapeutic (Thera-Tabs) 1 Each Tablet, 1 TAB PO DAILY Nut.tx.impaired Digest Fxn (Ensure Clear) 237 Ml Liquid, 237 ML PO TID [place]-3/Dha/Epa/Fish Oil (Fish Oil 1,000 mg Softgel) 1 Each Capsule, 1 CAP PO TID Valsartan/Hydrochlorothiazide (Valsartan-Hctz 80-12.5 mg Tab) 1 Each Tablet, 1 TAB PO QPM Scheduled PRN Acetaminophen (Acetaminophen) 325 Mg Tablet, 650 MG PO Q4H PRN for PAIN / FEVER Bisacodyl (Bisacodyl) 10 Mg Supp.rect, 10 MG WI DAILY PRN for CONSTIPATION Magnesium Hydroxide (Milk of Magnesia) 400 Mg/5 Ml Oral.susp, 30 ML PO DAILY PRN for CONSTIPATION Prochlorperazine (Prochlorperazine Maleate) 5 Mg Tablet, 5 MG PO Q6H PRN for NAUSEA OR VOMITING Sodium Phosphate,Latimer-Dibasic (Enema Mjfxr-Xx-Pdl) 399 Ml Enema, 1 JOO WI DAILY PRN for CONSTIPATION Allergies Coded Allergies: prednisone (Verified Allergy, Intermediate, rash, 09/17/19) A-FIB/CHADSVASC A-FIB History Current/History of A-Fib/PAF?: Yes Current PO Anticoag Therapy: Yes RANJIT FERNANDO MD Sep 27, 2019 17:44
[2019-09-27] MEDS ORDERED: APIXABAN 5 MG TAB (ELIQUIS) PO SCH (21:00)
[2019-09-27] MEDS: atenoloL 50 MG TAB PO SCH (21:00)
[2019-09-27] MEDS: ACETAMINOPHEN TAB 650MG DOSE (2X325MG) PO SCH (21:18)
[2019-09-27] MEDS: CEFEPIME HCL 1 GM in D5W MINI-BAG PLUS 50 ML IV SCH (21:18)
[2019-09-27] MEDS: OMEGA-3 1000MG CAPSULE PO SCH (21:19)
[2019-09-27] MEDS: DULoxetine 30 MG CAP (CYMBALTA) PO SCH (21:30)
[2019-09-27] MEDS: APIXABAN 2.5 MG TAB (ELIQUIS) PO SCH (21:30)
[2019-09-27 21:31] VITALS: BP 94/56
[2019-09-28] MEDS: ACETAMINOPHEN TAB 650MG DOSE (2X325MG) PO SCH ×3 (01:00→08:11)
[2019-09-28 06:00] VITALS: BP 124/62
[2019-09-28 06:12] LABS: ALBUMIN 2.2 GM/DL (3.2-5.2); BILIRUBIN,TOTAL 0.6 MG/DL (0.2-1.0); CALCIUM LEVEL 7.9 MG/DL (8.8-10.2); CREATININE FOR GFR 1.35 MG/DL (0.70-1.30); MAGNESIUM LEVEL 1.8 MG/DL (1.8-2.4); POTASSIUM SERUM 4.4 MEQ/L (3.5-5.1); TOTAL PROTEIN 5.1 GM/DL (6.4-8.2)
[2019-09-28] MEDS: CEFEPIME HCL 1 GM in D5W MINI-BAG PLUS 50 ML IV SCH (06:31)
[2019-09-28] MEDS: LEVOTHYROXINE 25MCG TABLET (0.025MG) PO SCH (06:31)
[2019-09-28 08:00] VITALS: BP 138/62
[2019-09-28] MEDS: OMEGA-3 1000MG CAPSULE PO SCH ×3 (08:09→20:40)
[2019-09-28] MEDS: ASPIRIN 81 MG CHEW TABLET PO SCH (08:09)
[2019-09-28] MEDS: VITAMIN D 1,000 INTERNATIONAL UNITS TABLET PO SCH (08:09)
[2019-09-28] MEDS: APIXABAN 2.5 MG TAB (ELIQUIS) PO SCH ×2 (08:09→20:40)
[2019-09-28] MEDS: VALSARTAN 80 MG TAB (DIOVAN) PO SCH (08:11)
[2019-09-28] MEDS: atenoloL 50 MG TAB PO SCH ×2 (08:11→20:40)
[2019-09-28] MEDS ORDERED: hydroCHLOROthiazide 12.5 MG CAPSULE PO SCH (09:00)
[2019-09-28 09:10] LABS: HEMATOCRIT 32.3 % (42.0-52.0); HEMOGLOBIN 10.8 g/dl (13.5-17.5); MEAN CORPUSCULAR HEMOGLOBIN 31.8 pg (27.0-33.0); MEAN CORPUSCULAR HGB CONC 33.4 g/dl (32.0-36.5); PLATELET COUNT, AUTOMATED 194 10^3/uL (150-450); WHITE BLOOD COUNT 22.6 10^3/uL (4.0-10.0)
[2019-09-28 12:00] VITALS: BP 110/62
[2019-09-28] MEDS: NS 1,000 ML IV SCH ×2 (14:55→20:48)
--- NOTE | 2019-09-28 15:32 | IPNPDOC ---
Date Seen The patient was seen on 09/28/19. Progress Note SUBJECTIVE: 89-year-old male with past medical history of CVA, atrial fibrillation, prostate cancer, aortic regurgitation and hypertension who was admitted for bacteremia. Source of bacteremia is unknown, cultures are growing pansensitive Escherichia coli, patient comfortable in bed without any complaints at this time. No acute events overnight, denies any shortness of breath, chest pain, nausea, vomiting, abdominal pain or diarrhea. 10 point review of system is negative except for above PHYSICAL EXAMINATION: VITAL SIGNS: Please see below. GENERAL: No distress HEENT: Normocephalic, atraumatic, moist mucous membranes NECK: Supple CARDIOVASCULAR EXAMINATION: Irregular, bradycardic RESPIRATORY EXAMINATION: Scattered rhonchi, no wheezing ABDOMINAL EXAMINATION: Soft, nontender, nondistended, positive bowel sounds EXTREMITIES: Trace lower extremity edema NEUROLOGICAL EXAMINATION: Alert and oriented 3, minimal strength in bilateral lower extremities (2/5), diminished strength in the upper extremities (4/5), no sensory deficits appreciated PSYCHIATRIC EXAMINATION: Calm and cooperative HOME MEDICATIONS: Please see below. LABORATORY DATA: See below. MICROBIOLOGY: Please see below. ASSESSMENT: 89-year-old male with multiple medical comorbidities, is being admitted for gram-negative bacteremia. PLAN: 1. Bacteremia. Grew pansensitive Escherichia coli, source unknown, repeat cultures pending, switch antibiotics to ceftriaxone. Severely elevated pro-calcitonin, will repeat tomorrow to assess the efficacy of antibiotics. 2. Atrial fibrillation. continue Eliquis & Atenolol with hold parameters. 3. Hypertension Continue atenolol, hydrochlorothiazide and valsartan 4. Acute kidney injury. Improving, continue gentle IV hydration. 5. Hypothyroidism. Continue levothyroxine DVT prophylaxis: Eliquis GI prophylaxis: not needed VS, [facility] Sign[facility]/I&O Vital Signs Date Time Temp Pulse Resp B/P (MAP) Pulse Ox O2 Delivery O2 Flow Rate FiO2 09/28/19 12:00 96.7 53 18 110/62 (78) 100 Room Air I&O- Last 24 Hours up to 6 AM 09/28/19 06:00 Intake Total 970 ml Output Total 700 ml Balance 270 ml Laboratory Data 24H LABS Laboratory Tests 2 09/27/19 15:54: Blood Gas Bicarbonate Standard 25.9, Arterial Blood pH 7.486H, Arterial Blood Partial Pressure CO2 33.3L, Arterial Blood Partial Pressure O2 102.7H, Arterial Blood Total CO2 25.6, Arterial Blood HCO3 24.6, Arterial Blood Base Excess 1.5, Arterial Blood Oxygen Saturation 98.0 09/27/19 16:19: Immature Granulocyte % (Auto) , Neutrophils (%) (Auto) , Nucleated Red Blood Cells % (auto) 0.0, Neutrophils 72H, Band Neutrophils 8, Lymphocytes (Manual) 6L, Monocytes (Manual) 7H, Eosinophils (Manual) 1, Metamyelocytes 6H, Toxic Vacuolation 2+, Platelet Estimate NORMAL, Anion Gap 4L, Glomerular Filtration Rate 44.5, Lactic Acid Level 1.2, Calcium Level 8.1L, Total Bilirubin 0.6, Direct Bilirubin 0.2, Aspartate Amino Transf (AST/SGOT) 77H, Alanine Aminotransferase (ALT/SGPT) 87H, Alkaline Phosphatase 117, Total Protein 5.8L, Albumin 2.2L, Albumin/Globulin Ratio 0.61L, Procalcitonin 46.41 09/28/19 05:19: Anion Gap 7L, Glomerular Filtration Rate 53.0, Calcium Level 7.9L, Total Bilirubin 0.6, Aspartate Amino Transf (AST/SGOT) 97H, Alanine Aminotransferase (ALT/SGPT) 81H, Alkaline Phosphatase 108, Total Protein 5.1L, Albumin 2.2L, Albumin/Globulin Ratio 0.76L, Magnesium Level 1.8 09/28/19 08:51: Nucleated Red Blood Cells % (auto) 0.0 CBC/BMP Laboratory Tests 09/27/19 16:19 09/28/19 05:19 09/28/19 08:51 Microbiology Microbiology 09/28/19 Blood Culture, Received Pending 09/28/19 Blood Culture, Received Pending RANJIT FRENANDO MD Sep 28, 2019 15:32
[2019-09-28] MEDS: cefTRIAXone SOD 1 GM in D5W MINI-BAG PLUS 50 ML IV SCH (16:27)
[2019-09-28 17:08] VITALS: BP 155/60
[2019-09-28] MEDS: DULoxetine 30 MG CAP (CYMBALTA) PO SCH (20:40)
[2019-09-28 22:00] VITALS: BP 134/48
[2019-09-29] MEDS: LEVOTHYROXINE 25MCG TABLET (0.025MG) PO SCH (05:32)
[2019-09-29 06:00] VITALS: BP 170/60
[2019-09-29 06:04] LABS: HEMATOCRIT 32.4 % (42.0-52.0); HEMOGLOBIN 10.8 g/dl (13.5-17.5); MEAN CORPUSCULAR HEMOGLOBIN 31.7 pg (27.0-33.0); MEAN CORPUSCULAR HGB CONC 33.3 g/dl (32.0-36.5); PLATELET COUNT, AUTOMATED 198 10^3/uL (150-450); RED BLOOD COUNT 3.41 10^6/uL (4.30-6.10); WHITE BLOOD COUNT 17.6 10^3/uL (4.0-10.0)
[2019-09-29 06:28] LABS: BLOOD UREA NITROGEN 37 MG/DL (7-18); CALCIUM LEVEL 8.3 MG/DL (8.8-10.2); CARBON DIOXIDE LEVEL 27 MEQ/L (21-32); CHLORIDE LEVEL 104 MEQ/L (98-107); CREATININE FOR GFR 1.21 MG/DL (0.70-1.30); GLOMERULAR FILTRATION RATE > 60.0 (>35); GLUCOSE, FASTING 76 MG/DL (70-100); MAGNESIUM LEVEL 1.8 MG/DL (1.8-2.4); PHOSPHORUS LEVEL 2.8 MG/DL (2.5-4.9); POTASSIUM SERUM 4.5 MEQ/L (3.5-5.1); SODIUM LEVEL 136 MEQ/L (136-145)
[2019-09-29] MEDS ORDERED: PREVNAR 13 VACCINE SYRINGE (CPT CODE:90670) IM ONE (09:00)
[2019-09-29] MEDS: atenoloL 50 MG TAB PO SCH ×2 (09:00→21:00)
[2019-09-29] MEDS: OMEGA-3 1000MG CAPSULE PO SCH ×3 (09:06→21:18)
[2019-09-29] MEDS: VITAMIN D 1,000 INTERNATIONAL UNITS TABLET PO SCH (09:06)
[2019-09-29] MEDS: APIXABAN 2.5 MG TAB (ELIQUIS) PO SCH ×2 (09:06→21:18)
[2019-09-29] MEDS: ASPIRIN 81 MG CHEW TABLET PO SCH (09:06)
[2019-09-29] MEDS: VALSARTAN 80 MG TAB (DIOVAN) PO SCH (09:09)
--- NOTE | 2019-09-29 11:33 | ECGEPIP ---
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
[2019-09-29 14:00] VITALS: BP_SYST 142; BP_SYST 154; BP_DIAS 63; BP_DIAS 86
[2019-09-29] MEDS: cefTRIAXone SOD 1 GM in D5W MINI-BAG PLUS 50 ML IV SCH (15:22)
[2019-09-29] MEDS: DULoxetine 30 MG CAP (CYMBALTA) PO SCH (21:18)
[2019-09-29 22:00] VITALS: BP 150/77
--- NOTE | 2019-09-29 22:31 | IPNPDOC ---
Date Seen The patient was seen on 09/29/19. Progress Note SUBJECTIVE: 89-year-old male with past medical history of CVA, atrial fibrillation, prostate cancer, aortic regurgitation and hypertension is admitted for E. coli/Klebsiella bacteremia. He has been clinically stable throughout hospitalization, no complaints at this, comfortable. 10 point review of system is negative except for above PHYSICAL EXAMINATION: VITAL SIGNS: Please see below. GENERAL: No distress HEENT: Normocephalic, atraumatic, moist mucous membranes NECK: Supple CARDIOVASCULAR EXAMINATION: Irregular, bradycardic RESPIRATORY EXAMINATION: Scattered rhonchi, no wheezing ABDOMINAL EXAMINATION: Soft, nontender, nondistended, positive bowel sounds EXTREMITIES: Trace lower extremity edema NEUROLOGICAL EXAMINATION: Alert and oriented 3, minimal strength in bilateral lower extremities (2/5), diminished strength in the upper extremities (4/5), no sensory deficits appreciated PSYCHIATRIC EXAMINATION: Calm and cooperative HOME MEDICATIONS: Please see below. LABORATORY DATA: See below. MICROBIOLOGY: Please see below. ASSESSMENT: 89-year-old male with multiple medical comorbidities, is being admitted for gram-negative bacteremia. PLAN: 1. Bacteremia. Grew alston-sensitive Escherichia coli & Klebsiella, source unknown, repeat cultures negative, continue ceftriaxone. Procalcitonin downtrending, plan for d/c tomorrow. 2. Atrial fibrillation. continue Eliquis & Atenolol with hold parameters. 3. Hypertension Continue atenolol, hydrochlorothiazide and valsartan 4. Acute kidney injury. resolved, discontinue IV fluids 5. Hypothyroidism. Continue levothyroxine DVT prophylaxis: Eliquis GI prophylaxis: not needed VS, I&O, 24H, Fishbone Vital Signs/I&O Vital Signs Date Time Temp Pulse Resp B/P (MAP) Pulse Ox O2 Delivery O2 Flow Rate FiO2 09/29/19 21:00 58 130/78 09/29/19 14:00 98.8 19 94 Room Air I&O- Last 24 Hours up to 6 AM 09/29/19 06:00 Intake Total 2710 ml Output Total 2450 ml Balance 260 ml Laboratory Data 24H LABS Laboratory Tests 2 09/29/19 05:45: Nucleated Red Blood Cells % (auto) 0.0, Anion Gap 5L, Glomerular Filtration Rate > 60.0, Calcium Level 8.3L, Phosphorus Level 2.8, Magnesium Level 1.8, Procalcitonin 17.46 CBC/BMP Laboratory Tests 09/29/19 05:45 Microbiology Microbiology 09/28/19 Blood Culture - Preliminary, Resulted No growth after 24 hours . All specim... 09/28/19 Blood Culture - Preliminary, Resulted No growth after 24 hours . All specim... RANJIT FERNANDO MD Sep 29, 2019 22:31
[2019-09-30] MEDS: LEVOTHYROXINE 25MCG TABLET (0.025MG) PO SCH (05:34)
[2019-09-30 06:00] VITALS: BP_SYST 166; BP_SYST 172; BP_DIAS 60; BP_DIAS 88
[2019-09-30 07:16] LABS: HEMOGLOBIN 11.4 g/dl (13.5-17.5); MEAN CORPUSCULAR HGB CONC 32.6 g/dl (32.0-36.5); MEAN CORPUSCULAR VOLUME 95.1 fl (80.0-96.0); PLATELET COUNT, AUTOMATED 212 10^3/uL (150-450); RED BLOOD COUNT 3.68 10^6/uL (4.30-6.10); WHITE BLOOD COUNT 12.1 10^3/uL (4.0-10.0)
[2019-09-30 07:24] LABS: BLOOD UREA NITROGEN 29 MG/DL (7-18); CALCIUM LEVEL 8.5 MG/DL (8.8-10.2); CARBON DIOXIDE LEVEL 28 MEQ/L (21-32); CHLORIDE LEVEL 104 MEQ/L (98-107); CREATININE FOR GFR 1.13 MG/DL (0.70-1.30); GLOMERULAR FILTRATION RATE > 60.0 (>35); GLUCOSE, FASTING 75 MG/DL (70-100); POTASSIUM SERUM 4.5 MEQ/L (3.5-5.1); SODIUM LEVEL 136 MEQ/L (136-145)
[2019-09-30] MEDS: APIXABAN 2.5 MG TAB (ELIQUIS) PO SCH ×2 (09:57→20:04)
[2019-09-30] MEDS: VITAMIN D 1,000 INTERNATIONAL UNITS TABLET PO SCH (09:57)
[2019-09-30] MEDS: ASPIRIN 81 MG CHEW TABLET PO SCH (09:57)
[2019-09-30] MEDS: atenoloL 50 MG TAB PO SCH ×2 (09:58→20:04)
[2019-09-30] MEDS: VALSARTAN 80 MG TAB (DIOVAN) PO SCH (09:58)
[2019-09-30] MEDS: OMEGA-3 1000MG CAPSULE PO SCH ×3 (09:58→20:03)
[2019-09-30 14:00] VITALS: BP 134/64
[2019-09-30] MEDS: cefTRIAXone SOD 1 GM in D5W MINI-BAG PLUS 50 ML IV SCH (15:08)
[2019-09-30 20:04] VITALS: BP 138/67
[2019-09-30] MEDS: ACETAMINOPHEN TAB 650MG DOSE (2X325MG) PO PRN (20:04)
[2019-09-30] MEDS: DULoxetine 30 MG CAP (CYMBALTA) PO SCH (20:04)
--- NOTE | 2019-09-30 20:47 | IPNPDOC ---
Date Seen The patient was seen on 09/30/19. Progress Note SUBJECTIVE: 89-year-old male with past medical history of CVA, atrial fibrillation, prostate cancer, aortic regurgitation and hypertension is admitted for E. coli/Klebsiella bacteremia. No acute events overnight, no complaints at this time, comfortable, plan for d/c tomorrow. 10 point review of system is negative except for above PHYSICAL EXAMINATION: VITAL SIGNS: Please see below. GENERAL: No distress HEENT: Normocephalic, atraumatic, moist mucous membranes NECK: Supple CARDIOVASCULAR EXAMINATION: Irregular, bradycardic RESPIRATORY EXAMINATION: Scattered rhonchi, no wheezing ABDOMINAL EXAMINATION: Soft, nontender, nondistended, positive bowel sounds EXTREMITIES: Trace lower extremity edema NEUROLOGICAL EXAMINATION: Alert and oriented 3, minimal strength in bilateral lower extremities (2/5), diminished strength in the upper extremities (4/5), no sensory deficits appreciated PSYCHIATRIC EXAMINATION: Calm and cooperative HOME MEDICATIONS: Please see below. LABORATORY DATA: See below. MICROBIOLOGY: Please see below. ASSESSMENT: 89-year-old male with multiple medical comorbidities, is being admitted for gram-negative bacteremia. PLAN: 1. Bacteremia. Grew alston-sensitive Escherichia coli & Klebsiella, source unknown, repeat cultures negative, continue ceftriaxone. Procalcitonin downtrending, plan for d/c tomorrow. 2. Atrial fibrillation. continue Eliquis & Atenolol with hold parameters. 3. Hypertension Continue atenolol, hydrochlorothiazide and valsartan 4. Acute kidney injury. resolved, discontinue IV fluids 5. Hypothyroidism. Continue levothyroxine DVT prophylaxis: Eliquis GI prophylaxis: not needed VS, I&O, 24H, Fishbone Vital Signs/I&O Vital Signs Date Time Temp Pulse Resp B/P (MAP) Pulse Ox O2 Delivery O2 Flow Rate FiO2 09/30/19 20:04 61 138/67 09/30/19 14:00 98.7 16 98 Room Air I&O- Last 24 Hours up to 6 AM 09/30/19 06:00 Intake Total 1110 ml Output Total 1525 ml Balance -415 ml Laboratory Data 24H LABS Laboratory Tests 2 09/30/19 06:16: Nucleated Red Blood Cells % (auto) 0.0, Anion Gap 4L, Glomerular Filtration Rate > 60.0, Calcium Level 8.5L CBC/BMP Laboratory Tests 09/30/19 06:16 Microbiology Microbiology 09/28/19 Blood Culture - Preliminary, Resulted No Growth after 48 hours. All Specime... 09/28/19 Blood Culture - Preliminary, Resulted No Growth after 48 hours. All Specime... RANJIT FERNANDO MD Sep 30, 2019 20:47
[2019-09-30 22:00] VITALS: BP 138/67
[2019-10-01] MEDS: LEVOTHYROXINE 25MCG TABLET (0.025MG) PO SCH (05:45)
[2019-10-01 06:00] VITALS: BP 131/65
[2019-10-01] MEDS: ACETAMINOPHEN TAB 650MG DOSE (2X325MG) PO PRN (06:03)
[2019-10-01] MEDS: APIXABAN 2.5 MG TAB (ELIQUIS) PO SCH (09:29)
[2019-10-01] MEDS: OMEGA-3 1000MG CAPSULE PO SCH (09:29)
[2019-10-01] MEDS: VALSARTAN 80 MG TAB (DIOVAN) PO SCH (09:29)
[2019-10-01] MEDS: atenoloL 50 MG TAB PO SCH (09:29)
[2019-10-01] MEDS: ASPIRIN 81 MG CHEW TABLET PO SCH (09:30)
[2019-10-01] MEDS: VITAMIN D 1,000 INTERNATIONAL UNITS TABLET PO SCH (09:30)
[2019-10-01] MEDS ORDERED: LEVA750T7 PO (11:18)
--- NOTE | 2019-10-01 17:38 | DS.PDOC ---
Discharge Summary General Date of Admission Sep 27, 2019 at 16:56 Date of Discharge 10/01/19 Attending Physician: RANJIT FERNANDO MD Discharge Summary PROCEDURES PERFORMED DURING STAY: None. ADMITTING DIAGNOSES: 1. Klebsiella/Escherichia coli bacteremia. DISCHARGE DIAGNOSES: 1. Klebsiella/Escherichia coli bacteremia. COMPLICATIONS/CHIEF COMPLAINT: AFIB. HISTORY OF PRESENT ILLNESS: 89-year-old male with an extensive past medical history including CVA, atrial fibrillation, hypertension and arthritis, was admitted for Klebsiella/Escherichia coli bacteremia. The etiology of bacteremia has remained unknown, UA/SX are negative, patient asymptomatic, hemodynamically stable throughout hospitalization, no signs of disseminated infection. Escherichia coli/Klebsiella are sensitive to Levaquin, which patient will be discharged on to complete his antibiotic course. Patient has significant only elevated pro-calcitonin at the time of presentation, which has trended down as expected with antibiotics. Patient is hemodynamically stable for discharge and outpatient follow-up at this time. HOSPITAL COURSE: As above. DISCHARGE MEDICATIONS: Please see below. ALLERGIES: Please see below. PHYSICAL EXAMINATION: VITAL SIGNS: Please see below. GENERAL: No distress HEENT: Normocephalic, atraumatic, moist mucous membranes NECK: Supple CARDIOVASCULAR EXAMINATION: Irregular, bradycardic RESPIRATORY EXAMINATION: Scattered rhonchi, no wheezing ABDOMINAL EXAMINATION: Soft, nontender, nondistended, positive bowel sounds EXTREMITIES: Trace lower extremity edema NEUROLOGICAL EXAMINATION: Alert and oriented 3, minimal strength in bilateral lower extremities (2/5), diminished strength in the upper extremities (4/5), no sensory deficits appreciated PSYCHIATRIC EXAMINATION: Calm and cooperative LABORATORY DATA: Please see below. IMAGING: Chest x-ray negative for acute pathology PROGNOSIS: Fair ACTIVITY: As tolerated. DIET: Cardiac DISCHARGE PLAN: Follow with PCP in 1-2 weeks DISPOSITION: 01 Home, Self-Care. DISCHARGE INSTRUCTIONS: 1. As above. DISCHARGE CONDITION: Stable. TIME SPENT ON DISCHARGE: Greater than 32 minutes. Vital Signs/I&Os Vital Signs Date Time Temp Pulse Resp B/P (MAP) Pulse Ox O2 Delivery O2 Flow Rate FiO2 10/01/19 06:00 98.0 64 17 131/65 (87) 97 Room Air I&O- Last 24 Hours up to 6 AM 10/01/19 06:00 Intake Total 1420 ml Output Total 925 ml Balance 495 ml Microbiology Microbiology 09/28/19 Blood Culture - Preliminary, Resulted No Growth after 72 hours. All specime... 09/28/19 Blood Culture - Preliminary, Resulted No Growth after 72 hours. All specime... Discharge Medications Scheduled Apixaban (Eliquis) 5 Mg Tablet, 5 MG PO BID, (Reported) Aspirin (Aspirin) 325 Mg Tablet, 325 MG PO DAILY, (Reported) Atenolol (Atenolol) 50 Mg Tablet, 50 MG PO BID, (Reported) Cholecalciferol (Vitamin D3) (Vitamin D3) 1,000 Unit Tablet, 1,000 UNITS PO DAILY, (Reported) Duloxetine Hcl (Cymbalta) 30 Mg Capsule.dr, 30 MG PO QHS, (Reported) Levofloxacin (Levaquin) 750 Mg Tablet, 1 TAB PO DAILY Levothyroxine Sodium (Synthroid) 25 Mcg Tablet, 25 MCG PO DAILY, (Reported) Magnesium Oxide (Magnesium Oxide) 400 Mg Tablet, 400 MG PO QHS, (Reported) Multivitamin,Therapeutic (Thera-Tabs) 1 Each Tablet, 1 TAB PO DAILY, (Reported) Nut.tx.impaired Digest Fxn (Ensure Clear) 237 Ml Liquid, 237 ML PO TID, (Reported) [place]-3/Dha/Epa/Fish Oil (Fish Oil 1,000 mg Softgel) 1 Each Capsule, 1 CAP PO TID, (Reported) Valsartan/Hydrochlorothiazide (Valsartan-Hctz 80-12.5 mg Tab) 1 Each Tablet, 1 TAB PO QHS, (Reported) Scheduled PRN Acetaminophen (Acetaminophen) 325 Mg Tablet, 650 MG PO Q4H PRN for PAIN / FEVER, (Reported) Bisacodyl (Bisacodyl) 10 Mg Supp.rect, 10 MG [place] DAILY PRN for CONSTIPATION, (Reported) Magnesium Hydroxide (Milk of Magnesia) 400 Mg/5 Ml Oral.susp, 30 ML PO DAILY PRN for CONSTIPATION, (Reported) Prochlorperazine (Prochlorperazine Maleate) 5 Mg Tablet, 5 MG PO Q6H PRN for NAUSEA OR VOMITING, (Reported) Sodium Phosphate,[place]-Dibasic (Enema Dsovr-At-Qea) 399 Ml Enema, 1 JOO [place] DAILY PRN for CONSTIPATION, (Reported) Allergies Coded Allergies: prednisone (Verified Allergy, Intermediate, rash, 09/17/19) RANJIT FERNANDO MD Oct 01, 2019 17:38
== END 2019-10-01 13:05 | DRG 872 ==
LOC: M ED 15:33 → M MSPAV 16:56 → ENRESERV 17:13 → ENRESERVTM 18:18 → ENRESERVDT 18:18 → M PCU 18:18 → M ICU 09-28 13:17 → M MSPAV 09-28 17:05
PROVIDERS: ADMIT Internal Medicine; ATTEND Internal Medicine
DX: R78.81 Bacteremia (principal); N17.9 Acute kidney failure, unspecified; I48.91 Unspecified atrial fibrillation; I35.1 Nonrheumatic aortic (valve) insufficiency; I10 Essential (primary) hypertension; B96.20 Unspecified Escherichia coli [E. coli] as the cause of diseases classified elsewhere; E03.9 Hypothyroidism, unspecified; Z86.73 Personal history of transient ischemic attack (TIA), and cerebral infarction without residual deficits; Z87.891 Personal history of nicotine dependence; Z85.46 Personal history of malignant neoplasm of prostate; Z79.01 Long term (current) use of anticoagulants; Z79.82 Long term (current) use of aspirin; Z79.899 Other long term (current) drug therapy; Z88.8 Allergy status to other drugs, medicaments and biological substances; B96.1 Klebsiella pneumoniae [K. pneumoniae] as the cause of diseases classified elsewhere

== ENCOUNTER → 2019-09-27 | Outpatient (REF) ==
[2019-09-27 12:51] LABS: HEMATOCRIT 33.7 % (42.0-52.0); MEAN CORPUSCULAR HEMOGLOBIN 31.4 pg (27.0-33.0); MEAN CORPUSCULAR HGB CONC 32.6 g/dl (32.0-36.5); MEAN CORPUSCULAR VOLUME 96.3 fl (80.0-96.0); PLATELET COUNT, AUTOMATED 210 10^3/uL (150-450); WHITE BLOOD COUNT 28.1 10^3/uL (4.0-10.0)
[2019-09-27 13:11] LABS: CALCIUM LEVEL 8.1 MG/DL (8.8-10.2); CREATININE FOR GFR 1.46 MG/DL (0.70-1.30); GLOMERULAR FILTRATION RATE 48.4 (>35)
== END ==
PROVIDERS: ATTEND Internal Medicine
DX: R50.9 Fever, unspecified (principal)

== ENCOUNTER → 2019-10-02 | Outpatient (REF) ==
[~2019-10-02] MED LIST changes: +ACET-908 PO; +ACET1TAB55 PO; +BISA10SU4 PR; +CEFT1INJ5 IM; +CYMB1CAP5 PO; +DULC5TAB PO; +ENEMENE4 PR; +ENSU1LIQ50 PO; +LEVA750T7 PO; +MAGN1TAB26 PO; +MILKSUS3 PO; +PROC5TA PO; +THERTAB52 PO; +VALS80TA PO; +VITAD1000T PO
[2019-10-02 12:49] LABS: HEMATOCRIT 38.8 % (42.0-52.0); HEMOGLOBIN 12.4 g/dl (13.5-17.5); MEAN CORPUSCULAR HEMOGLOBIN 30.8 pg (27.0-33.0); MEAN CORPUSCULAR VOLUME 96.3 fl (80.0-96.0); PLATELET COUNT, AUTOMATED 297 10^3/uL (150-450); RED BLOOD COUNT 4.03 10^6/uL (4.30-6.10); WHITE BLOOD COUNT 10.9 10^3/uL (4.0-10.0)
[2019-10-02 13:22] LABS: CALCIUM LEVEL 8.6 MG/DL (8.8-10.2); CREATININE FOR GFR 1.23 MG/DL (0.70-1.30)
== END ==
PROVIDERS: ATTEND Internal Medicine
DX: I10 Essential (primary) hypertension (principal)

== ENCOUNTER → 2019-10-09 | Outpatient (REF) ==
[2019-10-09 11:06] LABS: CALCIUM LEVEL 8.5 MG/DL (8.8-10.2); CREATININE FOR GFR 2.14 MG/DL (0.70-1.30); GLOMERULAR FILTRATION RATE 31.1 (>35); POTASSIUM SERUM 5.3 MEQ/L (3.5-5.1)
[2019-10-09 11:14] LABS: HEMOGLOBIN 12.3 g/dl (13.5-17.5); MEAN CORPUSCULAR HEMOGLOBIN 30.9 pg (27.0-33.0); MEAN CORPUSCULAR HGB CONC 32.4 g/dl (32.0-36.5); MEAN CORPUSCULAR VOLUME 95.5 fl (80.0-96.0); PLATELET COUNT, AUTOMATED 491 10^3/uL (150-450); RED BLOOD COUNT 3.98 10^6/uL (4.30-6.10)
== END ==
PROVIDERS: ATTEND Internal Medicine
DX: I10 Essential (primary) hypertension (principal)

== ENCOUNTER → 2019-10-11 | Outpatient (REF) | payer MEDICARE, MEDICAID ==
[2019-10-11 10:20] LABS: HEMATOCRIT 33.7 % (42.0-52.0); HEMOGLOBIN 10.7 g/dl (13.5-17.5); MEAN CORPUSCULAR HEMOGLOBIN 30.5 pg (27.0-33.0); MEAN CORPUSCULAR HGB CONC 31.8 g/dl (32.0-36.5); PLATELET COUNT, AUTOMATED 414 10^3/uL (150-450); RED BLOOD COUNT 3.51 10^6/uL (4.30-6.10); WHITE BLOOD COUNT 7.5 10^3/uL (4.0-10.0)
[2019-10-11 10:48] LABS: CALCIUM LEVEL 8.5 MG/DL (8.8-10.2); CREATININE FOR GFR 1.57 MG/DL (0.70-1.30); GLOMERULAR FILTRATION RATE 44.5 (>35)
== END ==
PROVIDERS: ATTEND Physician Assistant
DX: N18.9 Chronic kidney disease, unspecified (principal)

== ENCOUNTER → 2019-10-14 | Outpatient (REF) ==
[2019-10-14 17:36] LABS: HEMATOCRIT 37.7 % (42.0-52.0); MEAN CORPUSCULAR HEMOGLOBIN 30.7 pg (27.0-33.0); MEAN CORPUSCULAR HGB CONC 31.8 g/dl (32.0-36.5); MEAN CORPUSCULAR VOLUME 96.4 fl (80.0-96.0); PLATELET COUNT, AUTOMATED 474 10^3/uL (150-450); RED BLOOD COUNT 3.91 10^6/uL (4.30-6.10); WHITE BLOOD COUNT 8.8 10^3/uL (4.0-10.0)
[2019-10-14 18:03] LABS: CALCIUM LEVEL 8.6 MG/DL (8.8-10.2); CREATININE FOR GFR 1.49 MG/DL (0.70-1.30); GLOMERULAR FILTRATION RATE 47.3 (>35); POTASSIUM SERUM 5.5 MEQ/L (3.5-5.1)
== END ==
PROVIDERS: ATTEND Internal Medicine
DX: I10 Essential (primary) hypertension (principal)

== ENCOUNTER → 2019-10-17 | Outpatient (REF) ==
[2019-10-17 11:24] LABS: POTASSIUM SERUM 5.2 MEQ/L (3.5-5.1); THYROID STIMULATING HORMONE 9.64 uIU/ML (0.358-3.740)
[2019-10-18 09:03] LABS: CA19-9 TUMOR MARKER,CARBOHYDRA 11.6 U/ML (<35.0)
== END ==
PROVIDERS: ATTEND Internal Medicine
DX: E87.5 Hyperkalemia (principal)

== ENCOUNTER → 2019-11-04 | Outpatient (REF) | PROVIDERS: ATTEND Internal Medicine | DX: Z03.818 Encounter for observation for suspected exposure to other biological agents ruled out (principal) ==

== ENCOUNTER → 2019-11-12 | Outpatient (REF) ==
[2019-11-12 12:02] LABS: HEMATOCRIT 39.2 % (42.0-52.0); HEMOGLOBIN 12.3 g/dl (13.5-17.5); MEAN CORPUSCULAR HEMOGLOBIN 31.3 pg (27.0-33.0); MEAN CORPUSCULAR HGB CONC 31.4 g/dl (32.0-36.5); MEAN CORPUSCULAR VOLUME 99.7 fl (80.0-96.0); PLATELET COUNT, AUTOMATED 268 10^3/uL (150-450); RED BLOOD COUNT 3.93 10^6/uL (4.30-6.10); WHITE BLOOD COUNT 7.6 10^3/uL (4.0-10.0)
[2019-11-12 12:33] LABS: BLOOD UREA NITROGEN 46 MG/DL (7-18); CALCIUM LEVEL 8.5 MG/DL (8.8-10.2); CARBON DIOXIDE LEVEL 30 MEQ/L (21-32); CHLORIDE LEVEL 102 MEQ/L (98-107); CREATININE FOR GFR 1.05 MG/DL (0.70-1.30); GLOMERULAR FILTRATION RATE > 60.0 (>35); GLUCOSE, FASTING 113 MG/DL (70-100); POTASSIUM SERUM 4.6 MEQ/L (3.5-5.1); SODIUM LEVEL 137 MEQ/L (136-145)
== END ==
PROVIDERS: ATTEND Internal Medicine
DX: I10 Essential (primary) hypertension (principal)

== ENCOUNTER → 2019-11-27 | Outpatient (CLI) | payer MEDICARE, MEDICAID ==
--- NOTE | 2019-11-27 12:38 | REP ---
LEFT LOWER EXTREMITY DUPLEX DOPPLER ARTERIAL ULTRASOUND: Real-time sonographic evaluation and duplex Doppler interrogation of the left lower extremity arterial system is performed. Moderate plaquing is seen throughout the common femoral, superficial femoral, and popliteal arteries. There is marked calcific plaque throughout the calf arteries. Anterior tibial artery is occluded. Triphasic waveforms are seen in the common femoral artery and profunda, biphasic waveforms in the proximal to mid superficial femoral artery, with mild phasic waveforms more distally. There are normal flow velocities. Right Peak Systolic Velocity Common femoral artery 81 cm/s Profunda 82 cm/s Proximal SFA 73 cm/s Mid SFA 61 cm/s Distal SFA 113 cm/s Popliteal 41 cm/s Tibial peroneal trunk 35 cm/s Proximal SHEET METAL SUPERINTENDENT 84 cm/s Distal SHEET METAL SUPERINTENDENT 68 cm/s Distal ALEJANDRO occluded Electronically Signed by Javi Barfield MD 11/28/2019 11:17 A
== END ==
LOC: M RAD 10:48
PROVIDERS: ATTEND Physician Assistant
DX: L89.623 Pressure ulcer of left heel, stage 3 (principal); I70.244 Atherosclerosis of native arteries of left leg with ulceration of heel and midfoot

== ENCOUNTER → 2019-12-03 | Outpatient (POV) | payer MEDICARE, MEDICAID ==
--- NOTE | 2019-12-04 11:22 | IRCOV ---
[facility] IR Consult Office Visit IR Consult Office Visit DATE: Dec 03, 2019 Consent was obtained from patient for this telephone call. Length of call was 20 minutes. REASON FOR CONSULTATION/CHIEF COMPLAINT: Non healing left lower extremity wounds and pain HISTORY OF PRESENT ILLNESS: 89 year old non diabetic male with long history of left lower extremity pain, which he states, keeps him up at night. He reports getting up at night multiple time and walking around to get pain relief. He does not walk much. He is referred by wound care for two non healing ulcers on his left foot, one on the dorsum of his foot and and one on the left heel. He states it is exquisitely tender when he puts pressure on his left heel. He complains of left leg swelling. Denies chest pain, shortness of breath, orthopnea or paroxysmal noctural dyspnea. No prior MA or stroke. ALLERGIES: Please see below. HOME MEDICATIONS: Please see below. PAST MEDICAL HISTORY: Anxiety OA Afib CKD Hypothyroid Vit D defficiency hyperlipidemia spinal stenosis prostate neoplasm PAST SURGICAL HISTORY: none FAMILY HISTORY: none contributory SOCIAL HISTORY: Ex smoker, denies alcohol or drugs. REVIEW OF SYSTEMS: Otherwise negative PHYSICAL EXAMINATION: no video on patient side LABORATORY DATA: 11/12/19 Hgb 12.3 HCT 39.2 WBC 7.6 PLT 268 Na 137 K 4.6 BUN 46 Creatinine 1.05 FSG 113 Imaging: I personally reviewed the US arterial study of the left lower extremity performed 11/27/19. There is diffuse atherosclerotic disease with SFA narrowing and below knee AT occlusion. ASSESSMENT/PLAN: 89 non diabetic ex smoker male with left lower extremity rest pain and now non healing wounds. A left lower extremity angiogram and intervention as necessary is therefore indicated. We discussed the risks and benefits of the procedure and patient wishes to discuss this with his family. I discussed the plan with the caregiver at the home and patient/family will call us to schedule the procedure if they decide to have it. I spent 20 minutes in consultation with the patient. Thank you for this referral. cc Aby Gonsales Allergies Coded Allergies: prednisone (Verified Allergy, Intermediate, rash, 09/17/19) Home Medications Scheduled Apixaban (Eliquis), 5 MG PO BID, (Reported) Aspirin (Aspirin), 325 MG PO DAILY, (Reported) Atenolol (Atenolol), 50 MG PO BID, (Reported) Cholecalciferol (Vitamin D3) (Vitamin D3), 1,000 UNITS PO DAILY, (Reported) Duloxetine Hcl (Cymbalta), 30 MG PO QHS, (Reported) Levofloxacin (Levaquin), 1 TAB PO DAILY Levothyroxine Sodium (Synthroid), 25 MCG PO DAILY, (Reported) Magnesium Oxide (Magnesium Oxide), 400 MG PO QHS, (Reported) Multivitamin,Therapeutic (Thera-Tabs), 1 TAB PO DAILY, (Reported) Nut.tx.impaired Digest Fxn (Ensure Clear), 237 ML PO TID, (Reported) [place]-3/Dha/Epa/Fish Oil (Fish Oil 1,000 mg Softgel), 1 CAP PO TID, (Reported) Valsartan/Hydrochlorothiazide (Valsartan-Hctz 80-12.5 mg Tab), 1 TAB PO QHS, (Reported) Scheduled PRN Acetaminophen (Acetaminophen), 650 MG PO Q4H PRN for PAIN / FEVER, (Reported) Bisacodyl (Bisacodyl), 10 MG [place] DAILY PRN for CONSTIPATION, (Reported) Magnesium Hydroxide (Milk of Magnesia), 30 ML PO DAILY PRN for CONSTIPATION, (Reported) Prochlorperazine (Prochlorperazine Maleate), 5 MG PO Q6H PRN for NAUSEA OR VOMITING, (Reported) Sodium Phosphate,[place]-Dibasic (Enema Sutjg-Bb-Hyj), 1 JOO [place] DAILY PRN for CONSTIPATION, (Reported) OSVALDO CROW MD Dec 04, 2019 11:22
== END ==
LOC: M TMIRPOV 09:55
PROVIDERS: ATTEND Radiology Diagnostic Radiology
DX: I70.222 Atherosclerosis of native arteries of extremities with rest pain, left leg (principal); I70.249 Atherosclerosis of native arteries of left leg with ulceration of unspecified site; Z79.82 Long term (current) use of aspirin; Z79.899 Other long term (current) drug therapy

== ENCOUNTER → 2019-12-11 | Outpatient (REF) ==
[~2019-12-11] MED LIST changes: +ACET-907 PO; +ACET650T15 PO; -AMLO10TA5 PO; +AMLO1TAB25 PO; +ASPI1CHW3 PO; +ASPI81TAEC PO; +ATEN25TA PO; +AUGM500T34 PO; +BACITAB PO; +BUSP5TA PO; +CEFA2SOL IV; +CEPH500C PO; +CHLO1.4S2 PO; +COLC0.6T47 PO; +D31000TA2 PO; +DOXY100C PO; +ELIQ2.5T PO; +ICYCRE EXT; +ICYOIN TOP; +JUVEPOW3 PO; +LEVO-86 PO; -LISI40TA PO; +LISI40TA4 PO; +METO25TA PO; +OXYC1TAB23 PO; +PRAM118L3 TOP; -PROC5TA PO; +PROC5TAB57 PO; +TRIA1OI TOP; -VITAD1000T PO; +VITMTA PO
[2019-12-11 11:24] LABS: HEMATOCRIT 35.5 % (42.0-52.0); HEMOGLOBIN 11.4 g/dl (13.5-17.5); MEAN CORPUSCULAR HEMOGLOBIN 31.3 pg (27.0-33.0); MEAN CORPUSCULAR HGB CONC 32.1 g/dl (32.0-36.5); MEAN CORPUSCULAR VOLUME 97.5 fl (80.0-96.0); PLATELET COUNT, AUTOMATED 213 10^3/uL (150-450); RED BLOOD COUNT 3.64 10^6/uL (4.30-6.10); WHITE BLOOD COUNT 7.2 10^3/uL (4.0-10.0)
[2019-12-11 12:01] LABS: CALCIUM LEVEL 8.9 MG/DL (8.8-10.2); CREATININE FOR GFR 1.27 MG/DL (0.70-1.30); GLOMERULAR FILTRATION RATE 56.8 (>35); POTASSIUM SERUM 4.5 MEQ/L (3.5-5.1)
== END ==
PROVIDERS: ATTEND Internal Medicine
DX: E03.9 Hypothyroidism, unspecified (principal)

== ENCOUNTER → 2019-12-12 | Outpatient (REF) ==
[2019-12-12 10:34] LABS: HEMATOCRIT 37.9 % (42.0-52.0); HEMOGLOBIN 11.8 g/dl (13.5-17.5); MEAN CORPUSCULAR HEMOGLOBIN 30.4 pg (27.0-33.0); MEAN CORPUSCULAR HGB CONC 31.1 g/dl (32.0-36.5); MEAN CORPUSCULAR VOLUME 97.7 fl (80.0-96.0); PLATELET COUNT, AUTOMATED 231 10^3/uL (150-450); RED BLOOD COUNT 3.88 10^6/uL (4.30-6.10)
[2019-12-12 10:59] LABS: BLOOD UREA NITROGEN 44 MG/DL (7-18); CARBON DIOXIDE LEVEL 30 MEQ/L (21-32); CHLORIDE LEVEL 104 MEQ/L (98-107); CREATININE FOR GFR 1.11 MG/DL (0.70-1.30); GLOMERULAR FILTRATION RATE > 60.0 (>35); GLUCOSE, FASTING 74 MG/DL (70-100); NT-PRO BNP 2528 PG/ML (<450); POTASSIUM SERUM 4.7 MEQ/L (3.5-5.1); SODIUM LEVEL 139 MEQ/L (136-145)
== END ==
PROVIDERS: ATTEND Internal Medicine
DX: R22.42 Localized swelling, mass and lump, left lower limb (principal); R63.5 Abnormal weight gain

== ENCOUNTER → 2019-12-18 | Outpatient (REF) ==
[~2019-12-18] MED LIST changes: -ACET-907 PO; -ACET650T15 PO; +AMLO10TA5 PO; -AMLO1TAB25 PO; -ASPI1CHW3 PO; -ASPI81TAEC PO; -ATEN25TA PO; -AUGM500T34 PO; -BACITAB PO; -BUSP5TA PO; -CEFA2SOL IV; -CEPH500C PO; -CHLO1.4S2 PO; -COLC0.6T47 PO; -D31000TA2 PO; -DOXY100C PO; -ELIQ2.5T PO; -ICYCRE EXT; -ICYOIN TOP; -JUVEPOW3 PO; -LEVO-86 PO; +LISI40TA PO; -LISI40TA4 PO; -METO25TA PO; -OXYC1TAB23 PO; -PRAM118L3 TOP; +PROC5TA PO; -PROC5TAB57 PO; -TRIA1OI TOP; +VITAD1000T PO; -VITMTA PO
[2019-12-18 10:02] LABS: HEMATOCRIT 39.7 % (42.0-52.0); HEMOGLOBIN 12.4 g/dl (13.5-17.5); MEAN CORPUSCULAR HEMOGLOBIN 30.1 pg (27.0-33.0); MEAN CORPUSCULAR HGB CONC 31.2 g/dl (32.0-36.5); MEAN CORPUSCULAR VOLUME 96.4 fl (80.0-96.0); PLATELET COUNT, AUTOMATED 243 10^3/uL (150-450); RED BLOOD COUNT 4.12 10^6/uL (4.30-6.10); WHITE BLOOD COUNT 8.2 10^3/uL (4.0-10.0)
[2019-12-18 10:31] LABS: CALCIUM LEVEL 9.2 MG/DL (8.8-10.2); CREATININE FOR GFR 1.46 MG/DL (0.70-1.30); GLOMERULAR FILTRATION RATE 48.4 (>35); THYROID STIMULATING HORMONE 5.46 uIU/ML (0.358-3.740)
== END ==
PROVIDERS: ATTEND Internal Medicine
DX: R60.9 Edema, unspecified (principal)

== ENCOUNTER → 2019-12-24 | Outpatient (REF) ==
[2019-12-24 16:59] LABS: CALCIUM LEVEL 8.9 MG/DL (8.8-10.2); CREATININE FOR GFR 1.63 MG/DL (0.70-1.30); GLOMERULAR FILTRATION RATE 42.6 (>35)
== END ==
PROVIDERS: ATTEND Physician Assistant
DX: R60.9 Edema, unspecified (principal)

== ENCOUNTER → 2019-12-26 | Outpatient (REF) ==
[2019-12-26 10:22] LABS: CREATININE FOR GFR 1.56 MG/DL (0.70-1.30); GLOMERULAR FILTRATION RATE 44.8 (>35); POTASSIUM SERUM 3.7 MEQ/L (3.5-5.1)
== END ==
PROVIDERS: ATTEND Internal Medicine
DX: I10 Essential (primary) hypertension (principal)

== ENCOUNTER → 2019-12-30 | Outpatient (REF) ==
[2019-12-30 09:30] LABS: CREATININE FOR GFR 1.24 MG/DL (0.70-1.30); GLOMERULAR FILTRATION RATE 58.4 (>35); POTASSIUM SERUM 3.9 MEQ/L (3.5-5.1)
== END ==
PROVIDERS: ATTEND Internal Medicine
DX: R60.9 Edema, unspecified (principal)

== ENCOUNTER → 2020-01-03 | Outpatient (CLI) | payer MEDICARE, MEDICAID ==
[~2020-01-03] MED LIST changes: -AMLO10TA5 PO; +AMLO1TAB25 PO; +BUSP5TA PO; +D31000TA2 PO; +ISOVUE-300 61% 50ML VIAL As Ordered ONE; +LEVO-86 PO; +LIDOCAINE 1% MDV 20ML VIAL As Ordered ONE; +METO25TA PO; +MIDAZOLAM INJ 2MG/2ML VIAL (J2250 PER 1MG) As Ordered ONE; -PROC5TA PO; +PROC5TAB57 PO; +PROMETHAZINE INJ 25 MG/ML VIAL (J2550) As Ordered ONE; -VITAD1000T PO; +diphenhydrAMINE 50MG/ML VIAL (J1200) As Ordered ONE; +fentaNYL 100 MCG/2 ML INJECTION (J3010) As Ordered ONE
--- NOTE | 2020-01-03 12:30 | IRHP ---
[facility] IR Pre-Procedure H & P General Date of Service: Jan 03, 2020 Procedure: Same Day Surgery Interval History and Physical I have seen the patient and reviewed last H & P performed within 30 days. There is no significant interval change. History of Present Illness Chief Complaint The patient is a 89-year-old male admitted with a reason for visit of PAD. PRE-PROCEDURE DIAGNOSIS:PAD HEART: normal rate. LUNGS: normal breathing at rest. ASA Classification ASA Classification: III-Severe systemic dis. Mallampati Score: II NPO: Yes Problems with prior sedation: No Obstructive Sleep Apnea: No Plan moderate sedation Allergies Coded Allergies: prednisone (Verified Allergy, Intermediate, rash, 09/17/19) Home Medications Scheduled Apixaban (Eliquis), 5 MG PO BID, (Reported) Aspirin (Aspirin), 325 MG PO DAILY, (Reported) Atenolol (Atenolol), 50 MG PO BID, (Reported) Buspirone HCl (Buspirone HCl), 5 MG PO BID, (Reported) Cholecalciferol (Vitamin D3) (Vitamin D3), 1,000 UNITS PO DAILY, (Reported) Duloxetine Hcl (Cymbalta), 30 MG PO QHS, (Reported) Levothyroxine Sodium (Levo-T), 75 MCG PO DAILY, (Reported) Magnesium Oxide (Magnesium Oxide), 400 MG PO QHS, (Reported) Metolazone (Metolazone), 2.5 MG PO DAILY, (Reported) Multivitamin,Therapeutic (Thera-Tabs), 1 TAB PO DAILY, (Reported) Nut.tx.impaired Digest Fxn (Ensure Clear), 237 ML PO TID, (Reported) [place]-3/Dha/Epa/Fish Oil (Fish Oil 1,000 mg Softgel), 1 CAP PO TID, (Reported) Scheduled PRN Acetaminophen (Acetaminophen), 650 MG PO Q4H PRN for PAIN / FEVER, (Reported) Bisacodyl (Bisacodyl), 10 MG [place] DAILY PRN for CONSTIPATION, (Reported) Magnesium Hydroxide (Milk of Magnesia), 30 ML PO DAILY PRN for CONSTIPATION, (Reported) Prochlorperazine (Prochlorperazine Maleate), 5 MG PO Q6H PRN for NAUSEA OR VOMITING, (Reported) Sodium Phosphate,[place]-Dibasic (Enema Jyidt-Fy-Zmx), 1 JOO [place] DAILY PRN for CONSTIPATION, (Reported) Discontinued Medications Levofloxacin (Levaquin), 1 TAB PO DAILY Discontinued Reason: Pt states not taking Levothyroxine Sodium (Synthroid), 25 MCG PO DAILY, (Reported) Discontinued Reason: Pt states not taking Valsartan/Hydrochlorothiazide (Valsartan-Hctz 80-12.5 mg Tab), 1 TAB PO QHS, (Reported) Discontinued Reason: Pt states not taking VS, I&O, 24H, Fishbone Vital Signs/I&O Vital Signs Date Time Temp Pulse Resp B/P (MAP) Pulse Ox O2 Delivery O2 Flow Rate FiO2 01/03/20 12:10 66 18 100 Nasal Cannula 2 01/03/20 08:49 97.9 OSVALDO CROW MD Jan 03, 2020 12:30
--- NOTE | 2020-01-03 12:33 | POST-OPPD ---
Postoperative Procedure Note Date Of Procedure: Jan 03, 2020 Time Of Procedure: 12:30 PREOPERATIVE DIAGNOSIS: PAd POSTOPERATIVE DIAGNOSIS: same FINDINGS: left lower extremity run off disease with severe , multifocal stenosis and occlusion of peroneal and posterior tibial artery. compete occlusion of anterior tibial artery PROCEDURE: leg leg angiogram, posterior tibial and peroneal angioplasty with improved 2 vessel run off to the left foot. SURGEON: Ajay ANESTHESIA: mod sed ESTIMATED BLOOD LOSS: < 5 ml COMPLICATIONS: none POSTOPERATIVE CONDITION: stable OSVALDO CROW MD Jan 03, 2020 12:33
[2020-01-03 16:30] VITALS: BP 159/77
--- NOTE | 2020-01-08 11:55 | REP ---
IR Left leg angiogram. IR Selective left iliac artery catheterization. IR Selective left common femoral artery catheterization. IR Super selective below-knee arterial catheterization. IR Posterior tibial artery catheterization, arteriogram and angioplasty. IR Peroneal artery catheterization, arteriogram and angioplasty. IR Ultrasound guided right common femoral artery access. IR Moderate sedation. Clinical Information: Left lower extremity rest pain. Physician: Dr Moss.Procedure: The patient was advised of the benefits, risks, and alternatives of the procedure and informed consent was obtained.A time out was performed with verification of the patient's name, MRN, site of procedure, and type of procedure to be performed. The patient was positioned in the supine position on the angiographic table. The site was prepped and draped in the usual sterile fashion.Moderate sedation was performed by the physician including the presence of an independent trained observer who assisted in monitoring the patient's level of consciousness and physiological status. Following the administration of Fentanyl and Versed, the physician spent 120 minutes of continuous [id number] time with the patient. The right common femoral artery was accessed with a micropuncture kit, under ultrasound guidance. A Pumpic wire was advanced into the aorta. The micropuncture sheath was exchanged over the wire for a a 6-Uzbek vascular sheath. A flush catheter was advanced over the wire and used to catheterize the abdominal aorta. A pelvic arteriogram was performed. This demonstrates patent left common iliac, external iliac, internal iliac and common femoral arteries. Patent proximal superficial femoral and profunda femoris. A Glidewire was advanced through the flush catheter and under fluoroscopy guidance was used to gain up and over access into the left common iliac artery. The flush catheter was exchanged over the wire for a glide cath. The glide cath in conjunction with a Glidewire was used to catheterize the left superficial femoral artery. A left leg angiogram was performed from this location. This demonstrates patent left superficial femoral artery. Reflux into patent branch of the profunda femoris. There is atherosclerotic disease within the superficial femoral artery without areas of greater than 50% stenosis. Angiography further down the leg demonstrates patent mid and distal superficial femoral artery. Patent popliteal artery. A below-knee runoff arteriogram was performed and this demonstrates below-knee arterial disease with complete occlusion of the anterior tibial artery and multifocal stenosis within the posterior tibial and peroneal artery. A Glidewire in conjunction with the catheter was used under fluoroscopy guidance to catheterize the popliteal artery. A below-knee runoff arteriogram was performed from this location and this demonstrates occlusion of the anterior tibial artery. Atherosclerotic disease of the tibioperoneal trunk. Multifocal segmental stenosis in the posterior tibial artery and peroneal artery. The catheter in conjunction with a wire was used under fluoroscopy guidance to sub selectively catheterize the posterior tibial artery. Injection of contrast confirmed intraluminal location. A 3 x 200 mm Sterling angioplasty balloon was used to angioplasty the tibioperoneal trunk, proximal and mid posterior tibial artery. Heparin was administered. The balloon was deflated and removed over the wire. A 2.5 x 200 mm angioplasty balloon was then advanced over the wire, under fluoroscopy guidance and positioned in the distal posterior tibial artery. This was used to angioplasty the distal left posterior tibial artery. A follow-up left foot arteriogram was performed from the distal left posterior tibial artery which demonstrates good forward flow in the calcaneal and plantar branches of the left posterior tibial artery. The catheter was retracted and an arteriogram was performed. This demonstrates good forward flow in the proximal, mid and distal left posterior tibial artery with no residual areas of focal stenosis. No extravasation or distal emboli. The catheter in conjunction with a wire was used to catheterize the peroneal artery. An arteriogram was performed and this demonstrates multifocal stenosis in the peroneal artery. The catheter in conjunction with a wire was used to catheterize the distal peroneal artery. Injection of contrast confirms intraluminal location. A 3 x 200 mm Sterling balloon was then advanced over the wire and used to angioplasty the peroneal artery. The balloon was deflated. The catheter was retracted and a follow-up arteriogram was performed. This demonstrates good forward flow in the distal peroneal artery without distal emboli or vessel cutoff. The catheter was retracted back further in the proximal peroneal artery and an arteriogram was performed. This demonstrates good forward flow in the proximal, mid and distal peroneal artery with no distal emboli. A final runoff angiogram to the left foot was performed and this demonstrates patent peroneal artery and patent left posterior tibial artery, coursing into the foot, supplying calcaneal and plantar branches. The catheter was removed. A 6-Uzbek Mynx device was used to close the groin arteriotomy and the sheath was removed. Hemostasis achieved. A sterile dressing was applied to the site. Patient tolerated the procedure well and was transferred to [facility] in stable condition. Complications: None. Estimated blood loss: Less than 5 ml. Impression: 1. Left leg angiogram demonstrates patent inflow but below-knee arterial disease with complete occlusion of the anterior tibial artery and multifocal segmental stenosis in the posterior tibial artery and peroneal artery. 2. Successful posterior tibial artery and peroneal artery angioplasty with two-vessel runoff to the left foot. Thank you for this referral. CC Aby Gonsales Electronically Signed by Antoinette Moss MD 01/08/2020 11:54 A
== END ==
LOC: M IRPRO 08:27
PROVIDERS: ATTEND Radiology Diagnostic Radiology
DX: I70.222 Atherosclerosis of native arteries of extremities with rest pain, left leg (principal); I70.92 Chronic total occlusion of artery of the extremities; Z79.899 Other long term (current) drug therapy; Z88.8 Allergy status to other drugs, medicaments and biological substances
CPT/HCPCS: 37228; 37232; 75710; 75774; 99152; 99153; C1725; C1729; C1760; C1769; C1887; C1894; J1200; J1644; J2250; J3010; Q9967

== ENCOUNTER → 2020-01-08 | Outpatient (REF) ==
[~2020-01-08] MED LIST changes: -ISOVUE-300 61% 50ML VIAL As Ordered ONE; -LIDOCAINE 1% MDV 20ML VIAL As Ordered ONE; -MIDAZOLAM INJ 2MG/2ML VIAL (J2250 PER 1MG) As Ordered ONE; -PROMETHAZINE INJ 25 MG/ML VIAL (J2550) As Ordered ONE; -diphenhydrAMINE 50MG/ML VIAL (J1200) As Ordered ONE; -fentaNYL 100 MCG/2 ML INJECTION (J3010) As Ordered ONE
[2020-01-08 10:29] LABS: CALCIUM LEVEL 8.7 MG/DL (8.8-10.2); CREATININE FOR GFR 1.28 MG/DL (0.70-1.30); GLOMERULAR FILTRATION RATE 56.3 (>35); POTASSIUM SERUM 4.3 MEQ/L (3.5-5.1)
== END ==
PROVIDERS: ATTEND Internal Medicine
DX: R60.9 Edema, unspecified (principal)

== ENCOUNTER → 2020-01-14 | Outpatient (REF) | payer MEDICARE, MEDICAID ==
[2020-02-29 19:44] LABS: CALCIUM LEVEL 8.7 MG/DL (8.8-10.2); CREATININE FOR GFR 1.4 MG/DL (0.70-1.30); GLOMERULAR FILTRATION RATE 50.8 (>35); POTASSIUM SERUM 3.9 MEQ/L (3.5-5.1)
[2020-02-29 20:20] LABS: HEMATOCRIT 38.5 % (42.0-52.0); HEMOGLOBIN 12.2 g/dl (13.5-17.5); MEAN CORPUSCULAR HEMOGLOBIN 30.7 pg (27.0-33.0); MEAN CORPUSCULAR HGB CONC 31.7 g/dl (32.0-36.5); MEAN CORPUSCULAR VOLUME 96.7 fl (80.0-96.0); PLATELET COUNT, AUTOMATED 284 10^3/uL (150-450); RED BLOOD COUNT 3.98 10^6/uL (4.30-6.10); WHITE BLOOD COUNT 8.7 10^3/uL (4.0-10.0)
== END ==
PROVIDERS: ATTEND Internal Medicine
DX: I10 Essential (primary) hypertension (principal)

== ENCOUNTER → 2020-01-23 | Outpatient (REF) | payer MEDICARE, MEDICAID ==
[2020-04-13 16:16] LABS: CREATININE FOR GFR 1.43 MG/DL (0.70-1.30); GLOMERULAR FILTRATION RATE 49.6 (>35)
== END ==
PROVIDERS: ATTEND Internal Medicine
DX: R60.9 Edema, unspecified (principal)

== ENCOUNTER → 2020-02-10 | Outpatient (REF) ==
[2020-02-10 14:26] LABS: HEMATOCRIT 41.8 % (42.0-52.0); HEMOGLOBIN 12.9 g/dl (13.5-17.5); MEAN CORPUSCULAR HEMOGLOBIN 30.2 pg (27.0-33.0); MEAN CORPUSCULAR HGB CONC 30.9 g/dl (32.0-36.5); MEAN CORPUSCULAR VOLUME 97.9 fl (80.0-96.0); PLATELET COUNT, AUTOMATED 261 10^3/uL (150-450); RED BLOOD COUNT 4.27 10^6/uL (4.30-6.10); WHITE BLOOD COUNT 9.1 10^3/uL (4.0-10.0)
[2020-02-10 15:04] LABS: CALCIUM LEVEL 9.3 MG/DL (8.8-10.2); CREATININE FOR GFR 1.45 MG/DL (0.70-1.30); GLOMERULAR FILTRATION RATE 48.8 (>35); POTASSIUM SERUM 3.9 MEQ/L (3.5-5.1); THYROID STIMULATING HORMONE 4.46 uIU/ML (0.358-3.740)
== END ==
PROVIDERS: ATTEND Internal Medicine
DX: R60.9 Edema, unspecified (principal)

== ENCOUNTER → 2020-03-05 | Outpatient (REF) ==
[2020-03-05 17:09] LABS: HEMOGLOBIN 12.6 g/dl (13.5-17.5); MEAN CORPUSCULAR HEMOGLOBIN 30.7 pg (27.0-33.0); MEAN CORPUSCULAR HGB CONC 32.3 g/dl (32.0-36.5); MEAN CORPUSCULAR VOLUME 94.9 fl (80.0-96.0); PLATELET COUNT, AUTOMATED 272 10^3/uL (150-450); RED BLOOD COUNT 4.11 10^6/uL (4.30-6.10); WHITE BLOOD COUNT 7.4 10^3/uL (4.0-10.0)
[2020-03-05 17:39] LABS: ALBUMIN 3.2 GM/DL (3.2-5.2); BILIRUBIN,DIRECT 0.2 MG/DL (0.0-0.2); BILIRUBIN,TOTAL 0.5 MG/DL (0.2-1.0); CALCIUM LEVEL 8.8 MG/DL (8.8-10.2); CREATININE FOR GFR 1.61 MG/DL (0.70-1.30); GLOMERULAR FILTRATION RATE 43.2 (>35); MAGNESIUM LEVEL 2.2 MG/DL (1.8-2.4); POTASSIUM SERUM 4.1 MEQ/L (3.5-5.1); THYROID STIMULATING HORMONE 3.86 uIU/ML (0.358-3.740)
[2020-03-06 05:20] LABS: APPEARANCE, URINE TURBID (CLEAR); BACTERIA, URINE AUTO 1+ (NEGATIVE); BILIRUBIN, URINE AUTO NEGATIVE (NEGATIVE); BLOOD, URINE BLOOD NEGATIVE (NEGATIVE); COLOR, URINE YELLOW (YELLOW); GLUCOSE, URINE (UA) AUTO NEGATIVE (NEGATIVE); KETONE, URINE AUTO NEGATIVE (NEGATIVE); LEUKOCYTE ESTERASE, URINE AUTO 3+ (NEGATIVE); NITRITE, URINE AUTO NEGATIVE (NEGATIVE); PROTEIN, URINE AUTO NEGATIVE (NEGATIVE); RBC, URINE AUTO 16 /HPF (0-3); SPECIFIC GRAVITY URINE AUTO 1.016 (1.002-1.035); SQUAMOUS EPITHELIAL CELL UR AU 1 /HPF (0-6); UROBILINOGEN, URINE AUTO 0.2 mg/dL (0.0-2.0); WBC, URINE AUTO TNTC /HPF (0-3)
== END ==
PROVIDERS: ATTEND Physician Assistant
DX: R44.3 Hallucinations, unspecified (principal)

== ENCOUNTER → 2020-03-12 | Outpatient (REF) ==
[2020-03-12 10:47] LABS: HEMATOCRIT 40.7 % (42.0-52.0); HEMOGLOBIN 12.9 g/dl (13.5-17.5); MEAN CORPUSCULAR HEMOGLOBIN 29.9 pg (27.0-33.0); MEAN CORPUSCULAR HGB CONC 31.7 g/dl (32.0-36.5); MEAN CORPUSCULAR VOLUME 94.4 fl (80.0-96.0); PLATELET COUNT, AUTOMATED 285 10^3/uL (150-450); RED BLOOD COUNT 4.31 10^6/uL (4.30-6.10); WHITE BLOOD COUNT 8.8 10^3/uL (4.0-10.0)
[2020-03-12 11:06] LABS: CALCIUM LEVEL 9.1 MG/DL (8.8-10.2); CREATININE FOR GFR 1.62 MG/DL (0.70-1.30); GLOMERULAR FILTRATION RATE 42.9 (>35)
[2020-03-12 11:50] LABS: MAGNESIUM LEVEL 2.4 MG/DL (1.8-2.4); THYROID STIMULATING HORMONE 4.84 uIU/ML (0.358-3.740)
== END ==
PROVIDERS: ATTEND Internal Medicine
DX: R60.9 Edema, unspecified (principal)

== ENCOUNTER → 2020-03-17 | Outpatient (REF) | payer MEDICARE, MEDICAID ==
[2020-03-17 10:47] LABS: HEMATOCRIT 40.5 % (42.0-52.0); HEMOGLOBIN 12.8 g/dl (13.5-17.5); MEAN CORPUSCULAR HGB CONC 31.6 g/dl (32.0-36.5); MEAN CORPUSCULAR VOLUME 95.1 fl (80.0-96.0); PLATELET COUNT, AUTOMATED 280 10^3/uL (150-450); RED BLOOD COUNT 4.26 10^6/uL (4.30-6.10); WHITE BLOOD COUNT 9.2 10^3/uL (4.0-10.0)
[2020-03-17 10:59] LABS: CALCIUM LEVEL 8.8 MG/DL (8.8-10.2); CREATININE FOR GFR 1.4 MG/DL (0.70-1.30); GLOMERULAR FILTRATION RATE 50.8 (>35); POTASSIUM SERUM 4.1 MEQ/L (3.5-5.1)
== END ==
PROVIDERS: ATTEND Internal Medicine
DX: R60.9 Edema, unspecified (principal)

== ENCOUNTER → 2020-04-15 | Outpatient (REF) ==
[2020-04-15 10:07] LABS: HEMATOCRIT 38.1 % (42.0-52.0); HEMOGLOBIN 11.9 g/dl (13.5-17.5); MEAN CORPUSCULAR HEMOGLOBIN 30.1 pg (27.0-33.0); MEAN CORPUSCULAR HGB CONC 31.2 g/dl (32.0-36.5); MEAN CORPUSCULAR VOLUME 96.2 fl (80.0-96.0); PLATELET COUNT, AUTOMATED 273 10^3/uL (150-450); RED BLOOD COUNT 3.96 10^6/uL (4.30-6.10); WHITE BLOOD COUNT 8.8 10^3/uL (4.0-10.0)
[2020-04-15 10:26] LABS: CALCIUM LEVEL 8.6 MG/DL (8.8-10.2); CREATININE FOR GFR 1.53 MG/DL (0.70-1.30); GLOMERULAR FILTRATION RATE 45.9 (>35); POTASSIUM SERUM 4.3 MEQ/L (3.5-5.1)
== END ==
PROVIDERS: ATTEND Internal Medicine
DX: I10 Essential (primary) hypertension (principal)

== ENCOUNTER → 2020-04-30 | Outpatient (REF) | PROVIDERS: ATTEND Internal Medicine | DX: Z20.828 Contact with and (suspected) exposure to other viral communicable diseases (principal) ==

== ENCOUNTER → 2020-05-07 | Outpatient (REF) ==
[~2020-05-07] MED LIST changes: +ACET-907 PO; +ACET650T15 PO; +CHLO1.4S2 PO; +ELIQ2.5T PO; +ICYCRE EXT; +JUVEPOW3 PO; +PRAM118L3 TOP; +VITMTA PO
== END ==
PROVIDERS: ATTEND Physician Assistant
DX: J02.9 Acute pharyngitis, unspecified (principal)

== ENCOUNTER → 2020-05-07 | Outpatient (REF) | payer MEDICARE, MEDICAID ==
[~2020-05-07] MED LIST changes: +ASPI1CHW3 PO; +ASPI81TAEC PO; +CEFA2SOL IV; +COLC0.6T47 PO; +OXYC1TAB23 PO
== END ==
LOC: EDSTATUS 06-16 12:56
PROVIDERS: ATTEND Internal Medicine
DX: Z20.828 Contact with and (suspected) exposure to other viral communicable diseases (principal)

== ENCOUNTER 2020-05-08 04:07 | Inpatient (IN) | payer MEDICARE, MEDICAID ==
[~2020-05-08] VITALS: Ht 172.7 cm; Wt 85.5 kg
[~2020-05-08 04:07] MED LIST changes: -ACET-907 PO; -ACET650T15 PO; -ASPI1CHW3 PO; -ASPI81TAEC PO; -CEFA2SOL IV; -CHLO1.4S2 PO; -COLC0.6T47 PO; -ELIQ2.5T PO; -ICYCRE EXT; -JUVEPOW3 PO; -OXYC1TAB23 PO; -PRAM118L3 TOP; -VITMTA PO
[2020-05-08] MEDS ORDERED: COMBIVENT RESPIMAT 100-20MCG INHALER 4GM INH ONE (05:00)
[2020-05-08 06:09] LABS: HEMATOCRIT 35.1 % (42.0-52.0); HEMOGLOBIN 11.2 g/dl (13.5-17.5); MEAN CORPUSCULAR HEMOGLOBIN 29.9 pg (27.0-33.0); MEAN CORPUSCULAR HGB CONC 31.9 g/dl (32.0-36.5); MEAN CORPUSCULAR VOLUME 93.6 fl (80.0-96.0); PLATELET COUNT, AUTOMATED 274 10^3/uL (150-450); RED BLOOD COUNT 3.75 10^6/uL (4.30-6.10); WHITE BLOOD COUNT 25.2 10^3/uL (4.0-10.0)
[2020-05-08 06:26] LABS: LYMPHOCYTES 4 % (16-44); METAMYELOCYTES 2 % (0-0); MONOCYTES 4 % (0-5); MYELOCYTES 1 % (0-0); NEUTROPHILS 85 % (28-66)
[2020-05-08 06:27] LABS: PLATELET ESTIMATE NORMAL (NORMAL)
[2020-05-08 06:44] LABS: ALBUMIN 2.5 GM/DL (3.2-5.2); BILIRUBIN,DIRECT 0.3 MG/DL (0.0-0.2); BILIRUBIN,TOTAL 0.8 MG/DL (0.2-1.0); CALCIUM LEVEL 8.6 MG/DL (8.8-10.2); CK-MB VALUE MASS 2.7 NG/ML (<3.6); CREATININE FOR GFR 1.5 MG/DL (0.70-1.30); GLOMERULAR FILTRATION RATE 46.9 (>35); MB/CK RELATIVE INDEX 2.14 (< OR =4); POTASSIUM SERUM 3.9 MEQ/L (3.5-5.1); TOTAL PROTEIN 6.5 GM/DL (6.4-8.2); TROPONIN I 0.47 NG/ML (< 0.10)
[2020-05-08] MEDS ORDERED: PRAM118L3 TOP (06:46)
--- NOTE | 2020-05-08 06:56 | REPVR ---
PROCEDURE INFORMATION: Exam: XR Chest, 1 View Exam date and time: 05/08/2020 6:50 AM Age: 89 years old Clinical indication: Other: Cough; Additional info: Dyspnea/cough TECHNIQUE: Imaging protocol: XR of the chest Views: 1 view. COMPARISON: [place] Chest, 1 view 09/27/2019 4:18 PM FINDINGS: Lungs: Unremarkable. No consolidation. Pleural space: Unremarkable. No pleural effusion. No pneumothorax. Heart/Mediastinum: The heart is enlarged. Vasculature: The thoracic aorta is tortuous/unfolded. Bones/joints: There are bilateral shoulder joints DJD. IMPRESSION: No focal lung consolidation. Electronically signed by: Jose L Jerez On 05/08/2020 06:55:58 AM
[2020-05-08] MEDS ORDERED: FUROSEMIDE 40MG/4ML VIAL (J1940) IV ONE (07:00)
[2020-05-08] MEDS ORDERED: CHLO1.4S2 PO (07:02)
[2020-05-08] MEDS ORDERED: JUVEPOW3 PO (07:02)
[2020-05-08] MEDS ORDERED: METO25TA PO (07:02)
[2020-05-08] MEDS ORDERED: ACET-907 PO (07:02)
[2020-05-08] MEDS ORDERED: ACET650T15 PO (07:02)
[2020-05-08] MEDS ORDERED: ELIQ2.5T PO (07:02)
[2020-05-08] MEDS ORDERED: VITMTA PO (07:02)
[2020-05-08] MEDS ORDERED: ICYCRE EXT (07:02)
--- NOTE | 2020-05-08 08:05 | REPVR ---
PROCEDURE INFORMATION: Exam: CT Chest Without Contrast; Diagnostic Exam date and time: 05/08/2020 7:12 AM Age: 89 years old Clinical indication: Shortness of breath; Additional info: Hypoxia/sob/leukocytosis TECHNIQUE: Imaging protocol: Diagnostic computed tomography of the chest without contrast. 3D rendering (Not supervised by radiologist): MIP and/or 3D reconstructed images were created by the technologist. Radiation optimization: All CT scans at this facility use at least one of these dose optimization techniques: automated exposure control; mA and/or kV adjustment per patient size (includes targeted exams where dose is matched to clinical indication); or iterative reconstruction. COMPARISON: CT Chest without contrast 09/17/2019 3:52 PM FINDINGS: Lungs: The lung apices are not included on this exam. There is bilateral posterior and basilar atelectatic changes. There is a nonspecific opacity in the right upper lobe measuring around 1.4 cm on axial images 3-6. Pleural space: Unremarkable. No pneumothorax. No pleural effusion. Heart: The heart is enlarged. There is severe coronary vascular calcifications versus stent. There is coarse calcification of the mitral annulus and aortic root. There is no pericardial effusion. Pulmonary arteries: Pulmonary trunk is dilated at 3.7 centimetres. Aorta: See "Heart" finding. Lymph nodes: Unremarkable. No enlarged lymph nodes. Bones/joints: There is diffuse thoracic spine anterior osteophytosis. Soft tissues: Unremarkable. IMPRESSION: 1. No focal lung consolidation. 2. Nonspecific bilateral posterior dependent and basilar atelectatic changes. 3. Dilated pulmonary trunk suggestive of an element of pulmonary hypertension. 4. Cardiomegaly with severe coronary vascular calcifications versus stent in addition to calcification of the mitral annulus and aortic root. PROCEDURE INFORMATION: Exam: CT Abdomen Without Contrast Exam date and time: 05/08/2020 7:12 AM Age: 89 years old Clinical indication: Shortness of breath; Additional info: Hypoxia/sob/leukocytosis TECHNIQUE: Imaging protocol: Computed tomography images of the abdomen without contrast. COMPARISON: CT Chest without contrast 09/17/2019 3:52 PM FINDINGS: Liver: Normal. No mass. Gallbladder and bile ducts: Normal. No calcified stones. No ductal dilation. Pancreas: Normal. No ductal dilation. Spleen: Normal. No splenomegaly. Adrenals: Normal. No mass. Kidneys and ureters: There is bilateral renal caliceal fullness with perinephric stranding and haziness. Stomach and bowel: Visualized stomach and bowel are unremarkable. No obstruction. No mucosal thickening. Intraperitoneal space: Unremarkable. No free air. No significant fluid collection. Lymph nodes: Unremarkable. No enlarged lymph nodes. Vasculature: There is moderate aortic mural calcifications. There is significant calcification of the branches the celiac trunk. No abdominal aortic aneurysm. Bones/joints: There is bulky anterior lumbar spine osteophytosis. Soft tissues: Unremarkable. IMPRESSION: Bilateral renal caliceal fullness /mildly hydronephrosis with perinephric stranding and edema. Correlate clinically for bladder outlet obstruction. Ultrasound of the kidneys and urinary bladder may be obtained for further evaluation. Electronically signed by: Jose L Jerez On 05/08/2020 08:05:13 AM
[2020-05-08] MEDS ORDERED: ACETAMINOPHEN 650 MG SUPP PR ONE ×2 (08:30→12:30)
[2020-05-08] MEDS ORDERED: cefTRIAXone SOD 2 GM in D5W MINI-BAG PLUS 50 ML IV ONE (08:30)
[2020-05-08 08:47] LABS: INR 1.3; PROTHROMBIN TIME 16.5 SECONDS (12.5-14.3)
[2020-05-08] MEDS ORDERED: NITROGLYCERIN 2% OINT 1 GM *U/D* PKT TOP ONE (10:45)
[2020-05-08] MEDS: COMBIVENT RESPIMAT 100-20MCG INHALER 4GM INH SCH ×3 (11:00→11:45)
--- NOTE | 2020-05-08 11:44 | REP ---
INDICATION: shortness of breath. COMPARISON: Portable exam the same day 6:51 a.m.. TECHNIQUE: SINGLE PORTABLE AP VIEW OF THE CHEST WAS PERFORMED. FINDINGS: Cardiomegaly is again noted. There is mild calcification and tortuosity of thoracic aorta. There is mild bibasilar fibro atelectatic change without consolidative infiltrate. There are degenerative changes of the spine. IMPRESSION: Cardiomegaly with mild bibasilar fibro atelectatic change. <Electronically signed by Javi Barfield > 05/08/20 [id number]
[2020-05-08] MEDS ORDERED: NS 500 ML IV ONE (11:45)
[2020-05-08] MEDS ORDERED: VANCOMYCIN HCL 1,000 MG, VIAL MATE ADAPTER 1 EACH in D5W 250 ML IV ONE (13:00)
[2020-05-08 13:10] LABS: CK-MB VALUE MASS 3.3 NG/ML (<3.6); MB/CK RELATIVE INDEX 2.21 (< OR =4); TROPONIN I 0.59 NG/ML (< 0.10)
[2020-05-08] MEDS ORDERED: LEVALBUTEROL 1.25 MG/0.5 ML CONCENTRATE NEB NEB PRN (13:15)
[2020-05-08] MEDS ORDERED: ACETAMINOPHEN 650 MG SUPP PR PRN (13:15)
--- NOTE | 2020-05-08 13:49 | REP ---
INDICATION: ? OSTEO/NECROTIC 2ND TOE ON LEFT FOOT. COMPARISON: None. TECHNIQUE: Four portable views FINDINGS: The technologist has indicated in the patient's power jacket that the images provided for interpretation with the best obtainable. This limited exam shows marked superimposition of all digital osseous structures. This is to such a degree that a fracture cannot be ruled out. Degenerative changes are seen throughout the foot and imaged portion of the ankle. This limited examination shows no evidence of a gross fracture. There is a large plantar calcaneal heel spur and a small retrocalcaneal heel spur. IMPRESSION: Chronic changes and limitations as described above. This examination cannot rule out osteomyelitis. Plain radiographic evaluation is insensitive in detecting acute osteomyelitis compared to MRI. <Electronically signed by Alexandre Ruiz > 05/08/20 [id number]
[2020-05-08] MEDS ORDERED: HEPARIN SOD (PORCINE) 5000UNITS/ML 1ML VIAL/SYRINGE SC SCH (14:00)
--- NOTE | 2020-05-08 14:00 | HPEPDOC ---
[facility] Medical History & Physical Date of Admission May 08, 2020 Date of Service: May 08, 2020 Attending Physician: Sonam Dutton MD History and Physical CHIEF COMPLAINT: Increased shortness of breath HISTORY OF PRESENT ILLNESS: Yasir is an 89 y/o M with PMH of atrial fibrillation, CVA, HTN, aortic regurgitation, CKD, hypomagnesemia, hypothyroidism, mild cognitive impairment/dementia presented from [facility] with the chief complaint of increased illness of breath and sore throat for the past 24 hours. Patient was an unreliable historian due to his mod-severe respiratory distress. According to notes there was no documented chest pain, fevers, chills, nausea, vomiting, change in medications, sick contacts, abdominal pain, decreased appetite at the shelter. The patient was brought to the emergency room for further evaluation. In the ER the patient was found to be in mildmoderate respiratory distress. BNP was elevated at 17,846, troponin 0.47. ECG showed atrial fibrillation with no ST or T-wave changes. He was given a dose of Lasix as he was thought to be in heart failure. Chest x-ray was unremarkable, CT of the chest: 1. No focal lung consolidation, 2. Nonspecific bilateral posterior dependent and basilar atelectatic changes., 3. Dilated pulmonary trunk suggestive of an element of pulmonary hypertension., 4. Cardiomegaly with severe coronary vascular ca lcifications versus stent in addition to calcification of the mitral annulus and aortic root. CTA was unable to be done due to Cr elevated at 1.5. Patient appeared dry. Lactic acid was originally normal; however, on repeat, this increased to 2.6. WBC 25.2, patient was febrile with temp 101.5. UA neg, BCx x 2 sets were drawn. COVID neg. He was given Ceftriaxone and later Vancomycin for empiric abx coverage. Patient's left second toe appeared blue/purple, poorly perfused and slightly cool. The rest of the foot appeared well perfused and warm. XR of the foot done at bedside could not r/o fx. ABG showed: pH 7.45/pO2 57/pCO2 35.9 --> later pH 7.396/pO2 95/pCO2 43.5. Dr. Gonzalez, pulmonary was con sulted. Patient was started on HiFlow Vapotherm and decision was made to admit to the ICU for acute hypoxic respiratory failure, acute on chronic HFpEF with exacerbation, SIRS + with no identifiable infection cause as of yet. Patient did not complain of chest pain, nausea, chills, abdominal pain but he was an unreliable source due to his respiratory distress. REVIEW OF SYSTEMS: Unable to provide due to respiratory distress PAST MEDICAL HISTORY: CVA. Atrial fibrillation. Prostate cancer. Hypertension. Aortic regurgitation Hypomagnesemia Hypothyroidism Mild cognitive impairment Hx of E. coli/Klebsiella bacteremia 09/2019 Anxiety HTN CKD PAST SURGICAL HISTORY: Unable to provide due to respiratory distress FAMILY HISTORY: Unable to provide due to respiratory distress SOCIAL HISTORY: Unable to provide due to respiratory distress ALLERGIES: Please see below. HOME MEDICATIONS: Please see below. PHYSICAL EXAMINATION: VS: atrial fib with RVR at 121, BP 188/78, RR 44-45, HiFlow Vapotherm FiO2 40% CONSTITUTIONAL: Lethargic, Mod respiratory distress, laying in bed, AAO x 2 EYES: PERRLA, EOM intact HENT, MOUTH: Normocephalic, atraumatic, dry mucous membranes, NC in place NECK: SUPPLE, no JVD, no lymphadenopathy, no carotid bruit CV: irregularly irregular rhythm, S1S2 normal, no murmurs/rubs/gallops RESPIRATORY: Rhonchi bilaterally, no rales/wheezing GI: BS positive in 4 quadrants, soft, nontender, nondistended, no rebound or guarding, no organomegaly : Deferred MUSCULOSKELETAL: Normal ROM. No cyanosis, clubbing, swelling, joint deformity, extremity edema INTEGUMENTARY: Left calcaneal Stage III ulcer appears clean, nonsuppurative. Left second foot digit is blue in color, ulcerated on the inside next to the large toe, slightly cooler to touch.Multiple scabs on the bilateral lower ext, non look infected NEUROLOGIC: Cranial Nerves II-XII are intact, no focal deficits PSYCHIATRIC: Mood and affect are normal LABORATORY DATA: Please see below MICROBIOLOGY: BCx x 2 sets :pending UA: neg Resp panel: NEG, including for COVID IMAGING: CT chest: No focal lung consolidation. Nonspecific bilateral posterior dependent and basilar atelectatic changes. Dilated pulmonary trunk suggestive of an element of pulmonary hypertension. Cardiomegaly with severe coronary vascular calcifications versus stent in addition to calcification of the mitral annulus and aortic root. Bilateral renal caliceal fullness /mildly hydronephrosis with perinephric stranding and edema. Correlate clinically for bladder outlet obstruction. Ultrasound of the kidneys and urinary bladder may be obtained for further evaluation. XR left foot: This limited exam shows marked superimposition of all digital osseous structures. This is to such a degree that a fracture cannot be ruled out. Degenerative changes are seen throughout the foot and imaged portion of the ankl e. This limited examination shows no evidence of a gross fracture. There is a large plantar calcaneal heel spur and a small retrocalcaneal heel spur. Last echo 09/2019: 1. Very mild concentric left ventricle hypertrophy. Normal regional left ventricular (LV) wall motion and wall thickening. Normal LV systolic function. Left ventricular ejection fraction (LVEF) 60% by visual estimate. Grade 1 LV diastolic dysfunction (impaired relaxation filling pattern). 2. Severe focal thickening and focal calcific deposits of a 3-cusp aortic valve. Mild reduction in aortic cusp mobility. Mild aortic stenosis. Moderate aortic regurgitation. 3. Severe mitral annular calcification. Moderate mitral regurgitation. No mitral stenosis. 4. Suggestive of mild elevation of pulmonary artery systolic pressure and estimated right ventricle systolic pressure. Mild tricuspid regurgitation. 5. No pericardial effusion. ASSESSMENT: 89 y/o M with PMH atrial fibrilliation, CVA, HTN, AR, CKD, hypomagnesemia, hypothyroidism, mild cognitive impairment/dementia PLAN: #Acute hypoxic respiratory failure 2/2 to unknown cause -Currently HiFlow FiO2 40-50%, saturating 94%, RR 44-45 -ABG mentioned above -CT chest above. -Cannot r/o PE with elevated Cr. -Micro above -Levalbuterol ATC, PRN, c/w HiFlow O2. May want to consider methylprednisolone but would need to see what "prednisone" allergy is -Pulmonary consulted #SIRS -WBC 25K, LA elevated at 2.6, RR 44-45, HR 120 -Micro above -Cannot r/o abdominal pathology- do CT abdomen when patient is stable enough to go there for it -Cannot also r/o 2nd left toe as necrotic/possible source of infection for sepsis. Consider podiatry consult -Holding off on aggressive fluid hydration due to heart failure exacerbation. Hydrate intermittently or if BP drops -Started on Cefepime, Vancomycin, tylenol PRN -F/u repeat LA, labs #Acute on chronic HFpEF with exacerbation / pulmonary HTN -BNP 17K, chronically elevated at 4361-2043. -No s/s of pulmonary congestion/edema on CT chest;however. -LE edema is chronic -Discussed case with Dr. Ricketts, Cardiology: Due to concomitant diagnosis of SIRS, with unknown source of infection, do not diurese. He received dose of lasix in ER earlier today. Recommending supportive therapy with oxygen, Tx of SIRS above. -At this point hold off on new echocardiogram per cardiology. Prior from 09/2019 above. -Overall poor prognosis per cardiology #Ischemic demand likely 2/2 to sepsis, r/o ACS -ECG did not show T wave, ST changes -Troponin incr from 0.47 --> 0.59. Will f/u third set in 4 hours -Discussed case with Cardiology, Dr. Ricketts. At this time, trend troponin but this patient would not be candidate for intervention in his current state. -Monitor on tele #Atrial fibrillation with RVR likely 2/2 to SIRS -HR 120 -c/w treatment above for infection -Lopressor PRN for rate control, Lovenox 80 MG BID -Consider official cardiology consult if this becomes uncontrolled # HTN -Uncontrolled in the ER, systolic ER -Holding all PO meds, not on IVFs -Hydralazine PRN #CKD Stage III -Baseline Cr 1.2-1.6 -Current Cr within this range -Monitor with daily labs #CVA -No new focal deficits -Resume ASA, statin when taking PO #Hypothyroidism -F/u TSH -Holding PO meds # Hypomagnesemia -F/u mag level -Replace PRN # GI px -PPI IV # DVT px -Required therapeutic dosing, lovenox 80 mg PO BID DISPOSITION: Currently admitted to ICU for further treatment. Contacted patient's sister Tiara and updated her. Prognosis guarded. TOTAL AMOUNT OF ICU TIME SPENT CARING FOR PATIENT (not procedural) 65 mins Vital Signs Vital Signs Date Time Temp Pulse Resp B/P (MAP) Pulse Ox O2 Delivery O2 Flow Rate FiO2 05/08/20 13:35 101.4 45 25.0 05/08/20 13:32 94 HVNI-Vapotherm 40 05/08/20 13:07 121 05/08/20 12:45 188/78 (114) Laboratory Data Labs 24H Laboratory Tests 2 05/08/20 04:57: Neutrophils (%) (Auto) , Nucleated Red Blood Cells % (auto) 0.0, Neutrophils 85H, Band Neutrophils 4, Lymphocytes (Manual) 4L, Monocytes (Manual) 4, Metamyelocytes 2H, Myelocytes 1H, Red Blood Cell Morphology NORMAL, Platelet Estimate NORMAL, Anion Gap 8, Glomerular Filtration Rate 46.9, Lactic Acid Level 1.7, Calcium Level 8.6L, Total Bilirubin 0.8, Direct Bilirubin 0.3H, Aspartate A solo Transf (AST/SGOT) 24, Alanine Aminotransferase (ALT/SGPT) 19, Alkaline Phosphatase 91, Total Creatine Kinase 126, Creatine Kinase MB 2.7, Creatine Kinase MB Relative Index 2.14, Troponin I 0.47H, WT-Pap-S-Type Natriuretic Peptide 02292D, Total Protein 6.5, Albumin 2.5L, Albumin/Globulin Ratio 0.6 05/08/20 05:21: POC pH (Misc Panel) 7.429, POC Base Excess (Misc Panel) 3.0, POC Saturated Percent O2 (Misc) 99H, POC pO2 (Misc Panel) 116.0H, POC pCO2 (Misc Panel) 40.7, POC HCO3 (Misc Panel) 26.9H, POC Total CO2 (Misc Panel) 28.0H 05/08/20 05:55: Prothrombin Time 16.5H, Prothromb Time International Ratio 1.30, Activated Partial Thromboplast Time 52.0H 05/08/20 08:25: Urine Color YELLOW, Urine Appearance CLEAR, Urine pH 5.0, Urine Specific [place] 1.011, Urine Protein NEGATIVE, Urine Glucose (UA) NEGATIVE, Urine Ketones NEGA TIVE, Urine Blood NEGATIVE, Urine Nitrite NEGATIVE, Urine Bilirubin NEGATIVE, Urine Urobilinogen 0.2, Urine Leukocyte Esterase NEGATIVE, Urine WBC (Auto) 1, Urine RBC (Auto) 0, Urine Hyaline Casts (Auto) 0, Urine Bacteria (Auto) 1+H, Urine Squamous Epithelial Cells 0, Urine Mucus (Auto) SMALL, Urine Sperm (Auto) 05/08/20 11:00: POC pH (Misc Panel) 7.459H, POC Base Excess (Misc Panel) 2.0, POC Saturated Percent O2 (Misc) 91L, POC pO2 (Misc Panel) 57.0L, POC pCO2 (Misc Panel) 35.9, POC HCO3 (Misc Panel) 25.5, POC Total CO2 (Misc Panel) 27.0 05/08/20 12:09: Lactic Acid Level 2.6*H, Total Creatine Kinase 149, Creatine Kinase MB 3.3, Creatine Kinase MB Relative Index 2.21, Troponin I 0.59#H 05/08/20 12:59: POC pH (Misc Panel) 7.396, POC Base Excess (Misc Panel) 2.0, POC Saturated Percent O2 (Misc) 95, POC pO2 (Misc Panel) 75.0L, POC pCO2 (Misc Panel) 43.5, POC HCO3 (Misc Panel) 26.7H, POC Total CO2 (Misc Panel) 28.0H CBC/BMP Laboratory Tests 05/08/20 04:57 Microbiology Microbiology 05/08/20 Blood Culture, Received Pending 05/08/20 Respiratory Virus Panel (PCR) (LINA) - Final, Complete 05/08/20 Blood Culture, Received Pending Home Medications Scheduled Acetaminophen (Acetaminophen ER) 650 Mg Tablet.er, 650 MG PO Q8H 0600, 1400, 2200 Apixaban (Eliquis) 2.5 Mg Tablet, 2.5 MG PO BID Arginine/Glutamine/Calcium Bmb (Justice Packet) 1 Each Powd.pack, 1 POW PO BID WITH 8OZ OF LIQUID Aspirin (Aspirin) 325 Mg Tablet, 325 MG PO DAILY Atenolol (Atenolol) 50 Mg Tablet, 50 MG PO BID Duloxetine Hcl (Cymbalta) 30 Mg Capsule.dr, 30 MG PO QHS Levothyroxine Sodium (Levo-T) 75 Mcg Tablet, 75 MCG PO DAILY Magnesium Oxide (Magnesium Oxide) 400 Mg Tablet, 400 MG PO QHS Metolazone (Metolazone) 2.5 Mg Tablet, 2.5 MG PO 3XW MONDAY, MONDAY AND MONDAY AT 0800 Multivitamins (Thera M Plus Tablet) 1 Each Tablet, 1 TAB PO DAILY Grant-3/Dha/Epa/Fish Oil (Fish Oil 1,000 mg Softgel) 1 Each Capsule, 1 CAP PO TID 0800, 1300, 1900 Phenol (Chloraseptic) 20 Ml [place], 2 SPRAYS PO TID 0900, 1300, 1900 Pramoxine HCl/Calamine (Aveeno Anti-Itch Lotion) 118 Ml Lotion, 1 DOSE TOP BID APPLY TO BOTH LEGS Scheduled PRN Acetaminophen (Tylenol) 325 Mg Tablet, 650 MG PO Q4H PRN for PAIN / FEVER Bisacodyl (Bisacodyl) 10 Mg Supp.rect, 10 MG OH DAILY PRN for CONSTIPATION Magnesium Hydroxide (Milk of Magnesia) 400 Mg/5 Ml Oral.susp, 30 ML PO DAILY PRN for CONSTIPATION Methyl Salicylate/Menthol (Icy Hot Cream) 35.4 Gm Cream..g., 1 DOSE EXT BID PRN for PAIN APPLY TO LEFT SHOULDER Sodium Phosphate,[place]-Dibasic (Enema Wrltu-Bm-Czp) 399 Ml Enema, 1 JOO [place] DAILY PRN for CONSTIPATION Allergies Coded Allergies: prednisone (Verified Allergy, Intermediate, rash, 09/17/19) A-FIB/CHADSVASC A-FIB History Current/History of A-Fib/PAF?: Yes Current PO Anticoag Therapy: Yes Age/Risk Factor Scoring CHADSVASC: CHADSVASC Response (Comments) Value Age Risk Factor Age >/= 75 years old 2 Gender Risk Factor Male 0 Hx of CHF Yes 1 Hx of HTN Yes 1 Hx of Stroke/TIA/or VTE Yes 2 Hx of Diabetes No 0 Hx of Vascular Disease Yes 1 Total 7 Treatment Treatment ordered: Other Other anticoagulant ordered: Sonam Ragland MD May 08, 2020 14:00
[2020-05-08 15:05] VITALS: BP 130/64
[2020-05-08] MEDS: LEVALBUTEROL 1.25 MG/0.5 ML CONCENTRATE NEB NEB SCH ×2 (15:16→19:34)
[2020-05-08 16:00] VITALS: BP 139/77
[2020-05-08] MEDS: PANTOPRAZOLE 40MG VIAL (C9113 PER 1) IV SCH (16:53)
[2020-05-08] MEDS: CEFEPIME HCL 2 GM in D5W MINI-BAG PLUS 50 ML IV SCH (17:28)
[2020-05-08] MEDS: NS 1,000 ML IV SCH (18:00)
[2020-05-08 20:00] VITALS: BP 127/58
[2020-05-08] MEDS: CHLORHEXIDINE GLUCONATE 0.12 % 15ML UDC (PERIDEX ORAL RINSE) MT SCH (21:23)
[2020-05-08] MEDS: ENOXAPARIN 80MG/0.8ML SYRINGE (J1650 PER 10MG) SC SCH (21:24)
[2020-05-08] MEDS: ACETAMINOPHEN 650 MG SUPP PR PRN (21:31)
--- NOTE | 2020-05-08 21:36 | ECGEPIP ---
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
[2020-05-08 22:00] VITALS: BP 100/55
[2020-05-09] VITALS (10 sets, daily range): BP systolic 85–110; BP diastolic 50–77
[2020-05-09] MEDS: LEVALBUTEROL 1.25 MG/0.5 ML CONCENTRATE NEB NEB SCH ×7 (00:01→23:58)
[2020-05-09] MEDS: NS 1,000 ML IV SCH ×3 (04:35→23:35)
[2020-05-09 05:09] LABS: HEMATOCRIT 35.6 % (42.0-52.0); HEMOGLOBIN 11.1 g/dl (13.5-17.5); MEAN CORPUSCULAR HGB CONC 31.2 g/dl (32.0-36.5); PLATELET COUNT, AUTOMATED 243 10^3/uL (150-450); RED BLOOD COUNT 3.83 10^6/uL (4.30-6.10); WHITE BLOOD COUNT 21.1 10^3/uL (4.0-10.0)
[2020-05-09 05:50] LABS: ABG BASE EXCESS 2.4 (-2.0-2.0); ABG HCO3 26.1 MEQ/L (22.0-26.0); ABG O2 SATURATION 98.9 % (95.0-99.0); ABG PARTIAL PRESSURE CO2 37.6 mmHg (35.0-45.0); ABG PARTIAL PRESSURE O2 143.5 mmHg (75.0-100.0); ABG STANDARD HCO3 26.6 MEQ/L (22.0-26.0); ABG TOTAL CO2 27.3 MEQ/L (23.0-31.0)
[2020-05-09 05:51] LABS: BILIRUBIN,TOTAL 0.5 MG/DL (0.2-1.0); CALCIUM LEVEL 8.3 MG/DL (8.8-10.2); CREATININE FOR GFR 1.73 MG/DL (0.70-1.30); GLOMERULAR FILTRATION RATE 39.8 (>35); POTASSIUM SERUM 3.9 MEQ/L (3.5-5.1); TOTAL PROTEIN 5.6 GM/DL (6.4-8.2)
[2020-05-09] MEDS: CEFEPIME HCL 2 GM in D5W MINI-BAG PLUS 50 ML IV SCH ×2 (06:25→17:26)
--- NOTE | 2020-05-09 08:15 | REP ---
INDICATION: r/o infiltrate, hypoxemia COMPARISON: 05/08/2020 TECHNIQUE: Portable AP view of the chest FINDINGS: The mediastinum and cardiac silhouette are stable and grossly within normal limits for portable technique. Left lower lobe/retrocardiac atelectasis has increased from prior examination. No further consolidation, obvious effusion, or pneumothorax. Skeletal structures demonstrate stable degenerative changes. IMPRESSION: Increasing retrocardiac left lower lobe atelectasis <Electronically signed by Erik Mckenna > 05/09/20 0812
[2020-05-09] MEDS: PANTOPRAZOLE 40MG VIAL (C9113 PER 1) IV SCH (08:39)
[2020-05-09] MEDS: CHLORHEXIDINE GLUCONATE 0.12 % 15ML UDC (PERIDEX ORAL RINSE) MT SCH ×2 (08:39→20:31)
[2020-05-09] MEDS: ENOXAPARIN 80MG/0.8ML SYRINGE (J1650 PER 10MG) SC SCH ×2 (08:40→20:30)
[2020-05-09] MEDS ORDERED: VANCOMYCIN HCL 1,000 MG, VIAL MATE ADAPTER 1 EACH in D5W 250 ML IV SCH (09:00)
[2020-05-09] MEDS ORDERED: NS 500 ML IV SCH (10:30)
--- NOTE | 2020-05-09 12:44 | IPNPDOC ---
Date Seen The patient was seen on 05/09/20. Progress Note SUBJECTIVE: Hypotensive overnight and this AM, poor U/O despite beginning IVFs last evening. Given small bolus, will continue to monitor I&O's closely. Appears more awake and alert this AM. RR improved, Still on Vapotherm FiO2 40%. Denies increased SOB, chest pain, n/v/d, fevers or chills OBJECTIVE: PHYSICAL EXAMINATION: VS: atrial fib with RVR at 121, BP 188/78, RR 44-45, HiFlow Vapotherm FiO2 40% CONSTITUTIONAL: More awake and alert today, laying in bed, O x 2- not to what brought him in. Very difficult to understand EYES: PERRLA, EOM intact HENT, MOUTH: Normocephalic, atraumatic, moist mucous membranes, cannula in place NECK: SUPPLE, no JVD, no lymphadenopathy, no carotid bruit CV: irregularly irregular rhythm, S1S2 normal, no murmurs/rubs/gallops RESPIRATORY: Rhonchi bilaterally, no rales/wheezing GI: BS positive in 4 quadrants, soft, nontender, nondistended, no rebound or guarding, no organomegaly : Deferred MUSCULOSKELETAL: Normal ROM. No cyanosis, clubbing, swelling, joint deformity, extremity edema INTEGUMENTARY: Left calcaneal Stage III ulcer appears clean, nonsuppurative. Left second foot digit is blue in color, ulcerated on the inside next to the large toe, slightly cooler to touch. Multiple scabs on the bilateral lower ext, non look infected NEUROLOGIC: Cranial Nerves II-XII are intact, no focal deficits PSYCHIATRIC: Mood and affect are normal LABORATORY DATA: Please see below MICROBIOLOGY: BCx x 2 sets : Gram pos cocci 4/4 bottles, sensitivities pending UA: neg Resp panel: NEG, including for COVID Sputum Cx: pending IMAGING: Repeat CXR 05/10/20: Increasing retrocardiac left lower lobe atelectasis CT chest: No focal lung consolidation. Nonspecific bilateral posterior dependent and basilar atelectatic changes. Dilated pulmonary trunk suggestive of an element of pulmonary hypertension. Cardiomegaly with severe coronary vascular calcifications versus stent in addition to calcification of the mitral annulus and aortic root. Bilateral renal caliceal fullness /mildly hydronephrosis with perinephric stranding and edema. Correlate clinically for bladder outlet obstruction. Ultrasound of the kidneys and urinary bladder may be obtained for further evaluation. XR left foot: This limited exam shows marked superimposition of all digital osseous structures. This is to such a degree that a fracture cannot be ruled out. Degenerative changes are seen throughout the foot and imaged portion of the ankle. This limited examination shows no evidence of a gross fracture. There is a large plantar calcaneal heel spur and a small retrocalcaneal heel spur. Last echo 09/2019: 1. Very mild concentric left ventricle hypertrophy. Normal regional left ventricular (LV) wall motion and wall thickening. Normal LV systolic function. Left ventricular ejection fraction (LVEF) 60% by visual estimate. Grade 1 LV diastolic dysfunction (impaired relaxation filling pattern). 2. Severe focal thickening and focal calcific deposits of a 3-cusp aortic valve. Mild reduction in aortic cusp mobility. Mild aortic stenosis. Moderate aortic regurgitation. 3. Severe mitral annular calcification. Moderate mitral regurgitation. No mitral stenosis. 4. Suggestive of mild elevation of pulmonary artery systolic pressure and estimated right ventricle systolic pressure. Mild tricuspid regurgitation. 5. No pericardial effusion. 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 PLAN: #Acute hypoxic respiratory failure 2/2 to unknown cause -Remains on HiFlow Vapotherm FiO2 40%, saturating 97%, RR 44-45 on admission --> 22-26 this AM -ABG this AM: primary respiratory alkalosis, chronic with secondary metabolic alkalosis. Causes could be/can't r/o: PE, atelectasis, hyperventilation. Received diuretics in ER yesterday (possible cause of met alkalosis?) -Repeat CXR above, no infiltrate but possible atelectasis worsened. -Cannot r/o PE with elevated Cr. Consider V/Q scan -Sputum cx pending. -Added Incentive spirometer Q2H while awake, Levalbuterol ATC, PRN, O2 support -Pulmonary following #Gram pos cocci bacteremia, sepsis. R/o endocarditis. Source: possibly LLE wound? -WBC 25K--> 21K, afebrile, tachycardia and RR improved slightly -4/4 bottles of BCx + for gram pos cocci in clusters -Echo: prelim from bedside, suspicious for endocarditis. F/u official reading -F/u official blood culture sensitivities -On Vancomycin IV, cefepime ( stop if only gram pos cocci isolated on final cultures) -Daily labs, tylenol PRN #Right second carpometacarpal joint tenderness/swelling -Warm to touch, tender -If concern for endocarditis continues with existing bacteremia, cannot r/o septic joint at this time. -Ruling out gout with uric acid, esr, crp -Outlining this joint to see if erythema increases, watch for similar swelling of joints on body -If gout, can consider colchicine, methylprednisolone- but will need to check what allergy to prednisone was/is to see if can tolerated. Preferably not start NSAIDs with CKD. #Hypotension likely 2/2 to dehydration vs. developing septic shock with Gram + cocci bacteremia -Hx of HTN -On NSS at 100 cc/hr, given 500 mL bolus this AM for poor U/o -100/70 after bolus, access is two 18G IV -C/w NSS at 100 cc/hr, can bolus again if needed. Central line would be helpful to measure CVP -C/w treatment for Gram + cocci bacteremia, ? endocarditis #2nd left toe necrosis. -Per podiatry, not likely cause of sepsis -Podiatry to follow over next several days to see if needs to be amputated -C/w abx, tylenol PRN -F/u repeat LA, labs #Acute on chronic HFpEF with exacerbation / pulmonary HTN -BNP 17K, chronically elevated at 9821-1599. -No s/s of pulmonary congestion/edema on CT chest -LE edema is chronic -Discussed case with Dr. Ricketts, Cardiology: Due to concomitant diagnosis of sepsis, with unknown source of infection, do not diurese at this time if can help. He received dose of lasix in ER earlier today. Recommending supportive therapy with oxygen, Tx of sepsis above. -F/u echo -Overall poor prognosis per cardiology #Ischemic demand likely 2/2 to sepsis -Tele overnight, no new events -ECG did not show T wave, ST changes -Troponin peaked at 0.96. -Discussed case with Cardiology, Dr. Ricketts. At this time, trend troponin but this patient would not be candidate for intervention in his current state. -Monitor on tele #Atrial fibrillation with RVR likely 2/2 to sepsis -HR 90's, slightly improved -C/w treatment above for infection -Hold off on lopressor due to hypotension, Lovenox 80 MG BID #CKD Stage III -Baseline Cr 1.2-1.6, currently 1.75 -C/w hydration continuous and intermittently if needed -Monitor with daily labs #CVA -No new focal deficits -Resume ASA, statin when taking PO #Hypothyroidism -F/u TSH -Holding PO meds # Hypomagnesemia -F/u mag level -Replace PRN # GI px -PPI IV # DVT px -Lovenox 80 mg PO BID DISPOSITION: Currently admitted to ICU for further treatment. Prognosis guarded. Podiatry, Pulmonary consulted and following. TOTAL AMOUNT OF ICU TIME SPENT CARING FOR PATIENT (not procedural) 65 mins VS, I&O, 24H, Fishbone Vital Signs/I&O Vital Signs Date Time Temp Pulse Resp B/P (MAP) Pulse Ox O2 Delivery O2 Flow Rate FiO2 05/09/20 12:00 99.3 101 35 96/53 (67) 98 HVNI-Vapotherm 16.0 40 I&O- Last 24 Hours up to 6 AM 05/09/20 06:00 Intake Total 2080 ml Output Total 1555 ml Balance 525 ml Laboratory Data 24H LABS Laboratory Tests 2 05/08/20 12:59: POC pH (Misc Panel) 7.396, POC Base Excess (Misc Panel) 2.0, POC Saturated Percent O2 (Misc) 95, POC pO2 (Misc Panel) 75.0L, POC pCO2 (Misc Panel) 43.5, POC HCO3 (Misc Panel) 26.7H, POC Total CO2 (Misc Panel) 28.0H 05/08/20 15:10: Methicillin-Resist S.aureus DNA PCR NOT DETECTED 05/08/20 16:03: Troponin I 0.74#H 05/08/20 16:24: Lactic Acid Followup at 4 Hours 3.1*H 05/08/20 22:27: Lactic Acid Level 3.0*H, Troponin I 0.96#H 05/09/20 02:43: Lactic Acid Followup at 4 Hours 2.1*H 05/09/20 04:59: Troponin I 0.88H, Nucleated Red Blood Cells % (auto) 0.0, Anion Gap 10, Glomerular Filtration Rate 39.8, Calcium Level 8.3L, Total Bilirubin 0.5, Aspartate Amino Transf (AST/SGOT) 50H, Alanine Aminotransferase (ALT/SGPT) 20, Alkaline Phosphatase 77, Total Protein 5.6L, Albumin 2.0L, Albumin/Globulin Ratio 0.6 05/09/20 05:43: Blood Gas Bicarbonate Standard 26.6H, Arterial Blood pH 7.460H, Arterial Blood Partial Pressure CO2 37.6, Arterial Blood Partial Pressure O2 143.5H, Arterial Blood Total CO2 27.3, Arterial Blood HCO3 26.1H, Arterial Blood Base Excess 2.4H, Arterial Blood Oxygen Saturation 98.9 CBC/BMP Laboratory Tests 05/09/20 04:59 Microbiology Microbiology 05/08/20 Gram Stain, Received Pending 05/08/20 Sputum Culture, Received Pending 05/08/20 Blood Culture - Preliminary, Resulted 05/08/20 Respiratory Virus Panel (PCR) ([facility]) - Final, Complete 05/08/20 Blood Culture - Preliminary, Resulted Current Medications Current Medications Medications (Trade) Dose Ordered Sig/Isac Route PRN Reason Start Time Stop Time Status Last Admin Dose Admin Acetaminophen (Tylenol Suppository) 650 mg Q4HP PRN [place] PAIN / FEVER 05/08/20 14:00 05/08/20 21:31 Acetaminophen (Tylenol Suppository) 650 mg Q6HP PRN [place] PAIN / FEVER 05/08/20 13:15 05/08/20 13:59 DC Albuterol/ Ipratropium (Combivent Respimat 100-20mcg) 4 puff Q20M INH 05/08/20 10:45 05/08/20 11:26 DC 05/08/20 11:45 Cefepime HCl 2 gm/ Dextrose 50 ml @ 100 mls/hr Q12H IV 05/08/20 18:00 05/09/20 06:25 Chlorhexidine Gluconate (Peridex Oral Rinse) SWAB/BRUSH ORAL CAVITY BID MT 05/08/20 21:00 05/09/20 08:39 Enoxaparin Sodium (Lovenox) 80 mg Q12H SC 05/08/20 21:00 05/09/20 08:40 Heparin Sodium (Porcine) (Heparin) 5,000 units Q8H SC 05/08/20 14:00 05/08/20 15:11 DC Home Med (Med Rec Complete!) ASDIRECTED XX 05/08/20 07:15 05/08/20 07:08 DC Levalbuterol HCl (Xopenex Neb) 1.25 mg Q2HP PRN NEB SOB/WHEEZING 05/08/20 13:15 Levalbuterol HCl (Xopenex Neb) 1.25 mg RQ4H NEB 05/08/20 16:00 05/09/20 11:24 Pantoprazole Sodium (Protonix) 40 mg DAILY IV 05/08/20 09:00 05/09/20 08:39 Sodium Chloride 500 ml @ 250 mls/hr Q2H IV 05/09/20 10:30 05/09/20 12:29 DC 05/09/20 10:42 Sodium Chloride 1,000 ml @ 100 mls/hr Q10H IV 05/08/20 18:00 05/09/20 12:42 Vancomycin HCl 1000 mg/IV Miscellaneous Supplies 1 each/ Dextrose 270 ml @ 270 mls/hr Q18H IV 05/09/20 09:00 05/09/20 11:47 DC 05/09/20 08:43 Vancomycin HCl 1000 mg/IV Miscellaneous Supplies 1 each/ Dextrose 270 ml @ 270 mls/hr Q24H IV 05/10/20 09:00 Allergies Coded Allergies: prednisone (Verified Allergy, Intermediate, rash, 09/17/19) Sonam Dutton MD May 09, 2020 12:44
[2020-05-09 14:23] LABS: MAGNESIUM LEVEL 1.9 MG/DL (1.8-2.4); THYROID STIMULATING HORMONE 3.14 uIU/ML (0.358-3.740); URIC ACID 8.7 MG/DL (3.5-7.2)
[2020-05-09 18:24] LABS: ALBUMIN 1.9 GM/DL (3.2-5.2); CALCIUM LEVEL 7.7 MG/DL (8.8-10.2); CREATININE FOR GFR 1.73 MG/DL (0.70-1.30); GLOMERULAR FILTRATION RATE 39.8 (>35); PHOSPHORUS LEVEL 2.7 MG/DL (2.5-4.9); POTASSIUM SERUM 3.9 MEQ/L (3.5-5.1)
[2020-05-10] VITALS (13 sets, daily range): BP systolic 101–141; BP diastolic 55–75; O2SAT 95–98
[2020-05-10] MEDS: ACETAMINOPHEN 650 MG SUPP PR PRN (00:07)
[2020-05-10] MEDS: LEVALBUTEROL 1.25 MG/0.5 ML CONCENTRATE NEB NEB SCH ×5 (04:10→20:07)
[2020-05-10] MEDS: CEFEPIME HCL 2 GM in D5W MINI-BAG PLUS 50 ML IV SCH ×2 (06:20→17:05)
[2020-05-10] MEDS: PANTOPRAZOLE 40MG VIAL (C9113 PER 1) IV SCH (08:01)
[2020-05-10] MEDS: CHLORHEXIDINE GLUCONATE 0.12 % 15ML UDC (PERIDEX ORAL RINSE) MT SCH ×2 (08:01→20:17)
[2020-05-10] MEDS: ENOXAPARIN 80MG/0.8ML SYRINGE (J1650 PER 10MG) SC SCH ×2 (08:01→20:16)
[2020-05-10 08:28] LABS: HEMATOCRIT 31.6 % (42.0-52.0); HEMOGLOBIN 10.2 g/dl (13.5-17.5); MEAN CORPUSCULAR HEMOGLOBIN 29.9 pg (27.0-33.0); MEAN CORPUSCULAR HGB CONC 32.3 g/dl (32.0-36.5); MEAN CORPUSCULAR VOLUME 92.7 fl (80.0-96.0); PLATELET COUNT, AUTOMATED 221 10^3/uL (150-450); RED BLOOD COUNT 3.41 10^6/uL (4.30-6.10); WHITE BLOOD COUNT 19.8 10^3/uL (4.0-10.0)
[2020-05-10 08:52] LABS: ALBUMIN 1.8 GM/DL (3.2-5.2); BILIRUBIN,TOTAL 0.6 MG/DL (0.2-1.0); CREATININE FOR GFR 1.56 MG/DL (0.70-1.30); GLOMERULAR FILTRATION RATE 44.8 (>35); POTASSIUM SERUM 3.2 MEQ/L (3.5-5.1); TOTAL PROTEIN 5.1 GM/DL (6.4-8.2); VANCOMYCIN LEVEL TROUGH 9.8 UG/ML (10.0-20.0)
[2020-05-10] MEDS ORDERED: VANCOMYCIN HCL 1,000 MG, VIAL MATE ADAPTER 1 EACH in D5W 250 ML IV SCH ×2 (09:00→21:00)
[2020-05-10] MEDS: NS 1,000 ML IV SCH (09:02)
--- NOTE | 2020-05-10 10:41 | REP ---
INDICATION: pain, tenderness COMPARISON: None. TECHNIQUE: AP, lateral views of the left forearm. FINDINGS: Age-related degenerative changes at the wrist and elbow joint noted. No obvious acute fracture or dislocation. No subcutaneous emphysema or foreign body. Vascular calcifications noted. IMPRESSION: Significant degenerative changes at the wrist and elbow. No acute fracture or dislocation appreciated. <Electronically signed by Erik Mckenna > 05/10/20 1037
[2020-05-10] MEDS ORDERED: ACETAMINOPHEN 650 MG SUPP PR PRN (10:45)
[2020-05-10 10:47] LABS: C REACTIVE PROTEIN QUANTITATIV 30.4 MG/DL (0.00-0.30)
[2020-05-10] MEDS: methylPREDNISolone 40MG 1ML VIAL IV SCH (10:48)
--- NOTE | 2020-05-10 10:48 | REP ---
INDICATION: pain, tenderness COMPARISON: None. TECHNIQUE: AP, lateral views of the left humerus. FINDINGS: Osteopenia and age-related degenerative changes to the shoulder and elbow. No obvious acute fracture or dislocation. No subcutaneous emphysema or foreign body. IMPRESSION: Degenerative changes.. No acute fracture or dislocation. <Electronically signed by Erik Mckenna > 05/10/20 1042
[2020-05-10] MEDS: MORPHINE 2 MG/ML 1ML VIAL (J2270) IV PRN ×2 (10:49→21:34)
[2020-05-10 10:54] LABS: ERYTHROCYTE SEDIMENTATION RATE 106 mm/hr (0-20)
--- NOTE | 2020-05-10 10:58 | REP ---
INDICATION: pain, tenderness COMPARISON: None. TECHNIQUE: Single neutral view of the left shoulder. FINDINGS: Age-related osteopenia and moderate to significant arthritic degenerative changes are appreciated. No obvious acute fracture or dislocation. IMPRESSION: Osteopenia and degenerative changes.. No acute fracture or dislocation. <Electronically signed by Erik Mckenna > 05/10/20 1050
--- NOTE | 2020-05-10 11:00 | REP ---
INDICATION: pain, tenderness COMPARISON: None. TECHNIQUE: AP, lateral, bilateral oblique views left hand. FINDINGS: Advanced osteopenia and osteoarthritic degenerative changes through the hand and wrist noted. No obvious acute fracture or dislocation identified. 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 No obvious acute fracture or dislocation. <Electronically signed by Erik Mckenna > 05/10/20 1050
[2020-05-10] MEDS ORDERED: LORazepam 2 MG/ML VIAL IV ONE (11:45)
--- NOTE | 2020-05-10 12:24 | IPNPDOC ---
Date Seen The patient was seen on 05/10/20. Progress Note SUBJECTIVE: Decreased O2 need overnight, currently on 2 L NC saturating at 98%. Swallowing evaluation this AM and hoping to advance diet. Right second joint on hand appears increasingly erythematous- uric acid, crp and ESR all high. Starting methylprednisolone daily, monitoring for rash due to prednisone allergy. BP still soft, required extra fluid overnight per nursing. More awake and alert this AM but also tearful at times, in pain. Xrays for LUE neg for acute issues. Hypotensive overnight and this AM, poor U/O despite beginning IVFs last evening. Given small bolus, will continue to monitor I&O's closely. Denies chest pain, n/v/d, fevers or chills. OBJECTIVE: PHYSICAL EXAMINATION: VS: Please see below CONSTITUTIONAL: More awake and alert today, laying in bed, difficult to un derstand and tearful EYES: PERRLA, EOM intact HENT, MOUTH: Normocephalic, atraumatic, dry mucous membranes, cannula in place NECK: SUPPLE, no JVD, no lymphadenopathy, no carotid bruit CV: irregularly irregular rhythm, rate controlled, S1S2 normal, no murmurs/rubs/gallops RESPIRATORY: Rhonchi bilaterally in the upper airway only- sounds improved, no rales/wheezing GI: BS positive in 4 quadrants, soft, nontender, nondistended, no rebound or guarding, no organomegaly : Deferred MUSCULOSKELETAL: Normal ROM. No cyanosis, clubbing, swelling, joint deformity, extremity edema. Decreased ROM of left and right hand, cannot close or completely open to fist. Decreased ROM of left shoulder, left elbow. INTEGUMENTARY: Left calcaneal Stage III ulcer appears clean, nonsuppurative. Left second foot digit is blue in color, ulcerated on the inside next to the large toe. Multiple scabs on the bilateral lower ext, trunk and upper ext b/l, non look infected . Right hand second carpometacarpal joint tenderness/swelling appears worse today with extending erythema and tenderness past marked area from 05/09/20. NEUROLOGIC: Cranial Nerves II-XII are intact, no focal deficits PSYCHIATRIC: Depressed mood LABORATORY DATA: Please see below MICROBIOLOGY: BCx x 2 sets : Staph aureus, strep pyogenes UA: neg Resp panel: NEG, including for COVID Sputum Cx: pending IMAGING: Pending XR of left shoulder, left forearm, left elbow, left hand Repeat CXR 05/10/20: Increasing retrocardiac left lower lobe atelectasis CT chest: No focal lung consolidation. Nonspecific bilateral posterior dependent and basilar atelectatic changes. Dilated pulmonary trunk suggestive of an element of pulmonary hypertension. Cardiomegaly with severe coronary vascular calcifications versus stent in addition to calcification of the mitral annulus and aortic root. Bilateral renal caliceal fullness /mildly hydronephrosis with perinephric stranding and edema. Correlate clinically for bladder outlet obstruction. Ultrasound of the kidneys and urinary bladder may be obtained for further evaluation. XR left foot: This limited exam shows marked superimposition of all digital osseous structures. This is to such a degree that a fracture cannot be ruled out. Degenerative changes are seen throughout the foot and imaged portion of the ankle. This limited examination shows no evidence of a gross fracture. There is a large plantar calcaneal heel spur and a small retrocalcaneal heel spur. Last echo 09/2019: 1. Very mild concentric left ventricle hypertrophy. Normal regional left ventricular (LV) wall motion and wall thickening. Normal LV systolic function. Left ventricular ejection fraction (LVEF) 60% by visual estimate. Grade 1 LV diastolic dysfunction (impaired relaxation filling pattern). 2. Severe focal thickening and focal calcific deposits of a 3-cusp aortic valve. Mild reduction in aortic cusp mobility. Mild aortic stenosis. Moderate aortic regurgitation. 3. Severe mitral annular calcification. Moderate mitral regurgitation. No mitral stenosis. 4. Suggestive of mild elevation of pulmonary artery systolic pressure and estimated right ventricle systolic pressure. Mild tricuspid regurgitation. 5. No pericardial effusion. 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 PLAN: #Acute hypoxic respiratory failure 2/2 to unknown cause- improving greatly -Transitioned from HiFlow Vapotherm --> NC currently saturating 98% on 2 L NC -Causes that could not be/can't r/o: PE, atelectasis, hyperventilation. Received diuretics in ER yesterday (possible cause of met alkalosis?) -Repeat CXR above, no infiltrate but possible atelectasis worsened. Incentive spirometer added 05/09/29 -Sputum cx pending. -C/w Levalbuterol ATC, PRN, O2 support -Pulmonary following #Gram pos cocci bacteremia, sepsis. R/o endocarditis. Source: possibly LLE wound?, ? septic arthritis -WBC 21K--> 19K, afebrile. tachycardia and RR improved slightly -4/4 bottles of BCx + for staph aureus, strep pyogenes -Echo: prelim from bedside, suspicious for endocarditis. F/u official reading -F/u official blood culture sensitivities -On Vancomycin IV, cefepime (stop if only gram pos cocci isolated on final cultures) -Daily labs, tylenol PRN -Will consult Infectious disease in the AM #Right second carpometacarpal joint tenderness/swelling, r/o gout flare vs. septic arthritis -Erythema, swelling and tenderness -Uric acid, ESR, CRP -Starting methylprednisolone 40 mg IV daily, patient has allergy to prednisone that is "rash" so will watch for reactions closely. Avoiding NSAIDS due to [place] -Morphine IV PRN for pain, watch with lower than normal BP present -Consider consult for orthopedic surgery to evaluate. #Hypotension likely 2/2 to dehydration vs. ? septic shock with Gram + cocci bacteremia- improving -Hx of HTN -On NSS at 100 cc/hr, given additional fluid overnight. -141/68 this AM, fluctuates -C/w NSS at 100 cc/hr -C/w treatment for Gram + cocci bacteremia, ? endocarditis, ? septic arthritis #2nd left toe necrosis. -Per podiatry, not likely cause of sepsis -Podiatry to follow over next several days to see if needs to be amputated -C/w abx, tylenol PRN -F/u repeat LA, labs #Left upper extremity pain -No noted trauma, XR of LUE neg for acute fracture or dislocation. -Will discuss with orthopedic surgery #Acute on chronic HFpEF with exacerbation / pulmonary HTN -BNP 17K, chronically elevated at [id number]. Awaiting repeat today -No s/s of pulmonary congestion/edema on CT chest -LE edema is chronic -Discussed case with Dr. Ricketts, Cardiology: Due to concomitant diagnosis of sepsis, with unknown source of infection, do not diurese at this time if can help. He received dose of lasix in ER earlier today. Recommending supportive therapy with oxygen, Tx of sepsis above. -F/u echo, tele #Ischemic demand likely 2/2 to sepsis -Tele overnight, no new events -ECG did not show T wave, ST changes -Troponin peaked at 0.96. and trended down -Discussed case with Cardiology, Dr. Ricketts. At this time, trend troponin but this patient would not be candidate for intervention in his current state. -Monitor on tele #Atrial fibrillation with RVR likely 2/2 to sepsis- resolved -HR improved, remains in atrial fib -C/w treatment above for infection -Hold off on lopressor due to hypotension, Lovenox 80 MG BID #CKD Stage III -Baseline Cr 1.2-1.6, currently 1.56 -C/w hydration continuous and intermittently if needed -Monitor with daily labs #CVA -No new focal deficits -Resume ASA, statin when taking PO #Hypothyroidism -F/u TSH -Holding PO meds # Hypomagnesemia -Mag wnl -Replace PRN # GI px -PPI IV # DVT px -Lovenox 80 mg PO BID DISPOSITION: Currently admitted to ICU for further treatment. Prognosis guarded. Podiatry, Pulmonary consulted and following. Consulting orthopedic surgery to evaluate TOTAL AMOUNT OF ICU TIME SPENT CARING FOR PATIENT (not procedural) 60 mins VS, I&O, 24H, Fishbone Vital Signs/I&O Vital Signs Date Time Temp Pulse Resp B/P (MAP) Pulse Ox O2 Delivery O2 Flow Rate FiO2 05/10/20 10:59 27 05/10/20 10:49 98 Nasal Cannula 2.0 05/10/20 10:00 98.8 05/10/20 08:00 89 141/68 (92) 05/09/20 19:19 21 I&O- Last 24 Hours up to 6 AM 05/10/20 06:00 Intake Total 2850 ml Output Total 880 ml Balance 1970 ml Laboratory Data 24H LABS Laboratory Tests 2 05/09/20 13:28: Lactic Acid Level 2.0 05/09/20 13:29: Uric Acid 8.7H, Magnesium Level 1.9, Thyroid Stimulating Hormone (TSH) 3.140 05/09/20 17:48: Anion Gap 7L, Glomerular Filtration Rate 39.8, Calcium Level 7.7L, Phosphorus Level 2.7, Albumin 1.9L 05/10/20 08:07: Anion Gap 8, Glomerular Filtration Rate 44.8, Calcium Level 8.0L, Albumin 1.8L, Nucleated Red Blood Cells % (auto) 0.0, Erythrocyte Sedimentation Rate 106H, Total Bilirubin 0.6, Aspartate Amino Transf (AST/SGOT) 46H, Alanine Aminotransferase (ALT/SGPT) 24, Alkaline Phosphatase 65, C-Reactive Protein, Quantitative 30.40H, Total Protein 5.1L, Albumin/Globulin Ratio 0.5, Vancomycin Level Trough 9.8L CBC/BMP Laboratory Tests 05/09/20 17:48 05/10/20 08:07 Microbiology Microbiology 05/08/20 Gram Stain - Final, Resulted 05/08/20 Sputum Culture, Resulted Pending 05/08/20 Blood Culture - Preliminary, Resulted Staphylococcus Aureus Streptococcus Pyogenes Grp A 05/08/20 Respiratory Virus Panel (PCR) ([facility]) - Final, Complete 05/08/20 Blood Culture - Preliminary, Resulted Staphylococcus Aureus Current Medications Current Medications Medications (Trade) Dose Ordered Sig/Isac Route PRN Reason Start Time Stop Time Status Last Admin Dose Admin Acetaminophen (Tylenol Suppository) 650 mg Q4HP PRN [place] PAIN / FEVER 05/08/20 14:00 05/10/20 10:38 DC 05/10/20 00:07 Acetaminophen (Tylenol Suppository) 650 mg Q4HP PRN [place] FEVER, MILD TO MODERATE PAIN 05/10/20 10:45 Acetaminophen (Tylenol Suppository) 650 mg Q6HP PRN [place] PAIN / FEVER 05/08/20 13:15 05/08/20 13:59 DC Albuterol/ Ipratropium (Combivent Respimat 100-20mcg) 4 puff Q20M INH 05/08/20 10:45 05/08/20 11:26 DC 05/08/20 11:45 Cefepime HCl 2 gm/ Dextrose 50 ml @ 100 mls/hr Q12H IV 05/08/20 18:00 05/10/20 06:20 Chlorhexidine Gluconate (Peridex Oral Rinse) SWAB/BRUSH ORAL CAVITY BID MT 05/08/20 21:00 05/10/20 08:01 Enoxaparin Sodium (Lovenox) 80 mg Q12H SC 05/08/20 21:00 05/10/20 08:01 Heparin Sodium (Porcine) (Heparin) 5,000 units Q8H SC 05/08/20 14:00 05/08/20 15:11 DC Home Med (Med Rec Complete!) ASDIRECTED XX 05/08/20 07:15 05/08/20 07:08 DC Levalbuterol HCl (Xopenex Neb) 1.25 mg Q2HP PRN NEB SOB/WHEEZING 05/08/20 13:15 Levalbuterol HCl (Xopenex Neb) 1.25 mg RQ4H NEB 05/08/20 16:00 05/10/20 11:19 Methylprednisolone (SOLU medrol) 40 mg Q24H IV 05/10/20 10:00 05/10/20 10:48 Morphine Sulfate (Morphine Sulfate Inj) 1 mg Q6HP PRN IV SEVERE PAIN (PS 8-10) 05/10/20 10:15 05/10/20 10:49 Pantoprazole Sodium (Protonix) 40 mg DAILY IV 05/08/20 09:00 05/10/20 08:01 Sodium Chloride 500 ml @ 250 mls/hr Q2H IV 05/09/20 10:30 05/09/20 12:29 DC 05/09/20 10:42 Sodium Chloride 1,000 ml @ 100 mls/hr Q10H IV 05/08/20 18:00 05/10/20 09:02 Vancomycin HCl 1000 mg/IV Miscellaneous Supplies 1 each/ Dextrose 270 ml @ 270 mls/hr Q18H IV 05/09/20 09:00 05/09/20 11:47 DC 05/09/20 08:43 Vancomycin HCl 1000 mg/IV Miscellaneous Supplies 1 each/ Dextrose 270 ml @ 270 mls/hr Q18H IV 05/10/20 21:00 Vancomycin HCl 1000 mg/IV Miscellaneous Supplies 1 each/ Dextrose 270 ml @ 270 mls/hr Q24H IV 05/10/20 09:00 05/10/20 09:24 DC 05/10/20 09:02 Allergies Coded Allergies: prednisone (Verified Allergy, Intermediate, rash, 09/17/19) Sonam Dutton MD May 10, 2020 12:24
[2020-05-10] MEDS: D5W/0.9% SODIUM CHLORIDE 1,000 ML IV SCH (17:05)
[2020-05-10] MEDS: KCL 10MEQ/100ML SWI (KRUN) 10 MEQ in IV 1 EA IV SCH ×5 (17:05→21:34)
[2020-05-11] VITALS (9 sets, daily range): BP systolic 114–193; BP diastolic 63–147
[2020-05-11] MEDS: LEVALBUTEROL 1.25 MG/0.5 ML CONCENTRATE NEB NEB SCH ×6 (00:21→19:44)
[2020-05-11] MEDS: MORPHINE 2 MG/ML 1ML VIAL (J2270) IV PRN ×6 (01:45→23:09)
[2020-05-11] MEDS: D5W/0.9% SODIUM CHLORIDE 1,000 ML IV SCH ×3 (03:30→18:24)
[2020-05-11] MEDS: CEFEPIME HCL 2 GM in D5W MINI-BAG PLUS 50 ML IV SCH (06:01)
[2020-05-11 08:05] LABS: HEMATOCRIT 32.5 % (42.0-52.0); HEMOGLOBIN 10.6 g/dl (13.5-17.5); MEAN CORPUSCULAR HEMOGLOBIN 29.8 pg (27.0-33.0); MEAN CORPUSCULAR HGB CONC 32.6 g/dl (32.0-36.5); MEAN CORPUSCULAR VOLUME 91.3 fl (80.0-96.0); PLATELET COUNT, AUTOMATED 206 10^3/uL (150-450); RED BLOOD COUNT 3.56 10^6/uL (4.30-6.10); WHITE BLOOD COUNT 16.8 10^3/uL (4.0-10.0)
[2020-05-11 09:15] LABS: ERYTHROCYTE SEDIMENTATION RATE 106 mm/hr (0-20)
[2020-05-11 09:22] LABS: ALBUMIN 1.8 GM/DL (3.2-5.2); BILIRUBIN,TOTAL 0.6 MG/DL (0.2-1.0); C REACTIVE PROTEIN QUANTITATIV 24.4 MG/DL (0.00-0.30); CALCIUM LEVEL 8.4 MG/DL (8.8-10.2); CREATININE FOR GFR 1.35 MG/DL (0.70-1.30); POTASSIUM SERUM 3.7 MEQ/L (3.5-5.1); TOTAL PROTEIN 5.5 GM/DL (6.4-8.2)
[2020-05-11] MEDS: PANTOPRAZOLE 40MG VIAL (C9113 PER 1) IV SCH (09:29)
[2020-05-11] MEDS: methylPREDNISolone 40MG 1ML VIAL IV SCH (09:29)
[2020-05-11] MEDS: CHLORHEXIDINE GLUCONATE 0.12 % 15ML UDC (PERIDEX ORAL RINSE) MT SCH ×2 (09:29→20:05)
[2020-05-11] MEDS: ENOXAPARIN 80MG/0.8ML SYRINGE (J1650 PER 10MG) SC SCH ×2 (09:29→20:06)
[2020-05-11] MEDS: LIDOCAINE 5% (LIDODERM) PATCH TD SCH (09:30)
[2020-05-11] MEDS: ceFAZolin SOD 2 GM in IV 1 EA IV SCH ×2 (09:30→18:04)
--- NOTE | 2020-05-11 09:46 | CR ---
DATE OF CONSULTATION: 05/08/2020 I was called to see this 89-year-old male in the intensive care unit (ICU) with hypoxemia. He presented with increasing dyspnea from [facility]. In the emergency department he was tachypneic. Diagnostic studies were conflicting. He has had extensive past medical history of atrial fibrillation, aortic regurgitation, hypertension, cerebrovascular accidents, chronic kidney disease, prostate cancer. He has been at the [facility] in extended care for some time. At bedside, he is ill appearing. His temperature is 106 maximum temperature, for the past several hours 101.5. Pulse rate is 100. Monitoring showing atrial fibrillation. Respiratory rate is about 30. Blood pressure 130/64. HEENT: He does respond to voice. He is very [id number]. His pupils are midplane. They do appear to react to light. Extraocular motions intact. Mucosa is very dry. His neck is somewhat rigid. Jugular veins are full. There are large airway sounds over the upper airway. Secretion clearance is impaired. His heart sound are irregularly irregular. Breath sounds are difficult to assess. He has scattered large airway rhonchi throughout. Abdomen is soft with bowel sounds appreciable in the right lower quadrant. There is no palpable mass. Extremities show pressure ulcers. There is an ischemic left toe. It appears necrotic. DIAGNOSTIC STUDIES: His white cell count is 25.2, hemoglobin 11.2, hematocrit 35.1, platelet count 274,000. Differential white cell count shows 85% neutrophils and 4 bands. His electrolytes are sodium 137, potassium 3.9, chloride 101, CO2 of 28, BUN 67, creatinine 1.5, glucose 102. The lactic acid was 1.7 and is now up to 2.6. Calcium 8.6. The AST is 24, ALT 19. CPK 126. The troponin is 0.47. ProBNP 69140. Albumin 2.5. Repeat troponin is slightly further elevated at 0.59. Coagulation studies show a PT of 16, PTT of 52. Chest imaging shows no obvious infiltrate. There is some hazy atelectasis in the bases. The primary problem requiring critical attention is acute hypoxic respiratory failure. We will change his oxygen delivery device to VapoTherm to match is minute ventilation and follow arterial blood gases. Sepsis, systemic inflammatory response syndrome (SIRS). The source of infection is unclear, probably related to soft tissue, possibly his necrotic toe. I agree with broad-spectrum antibiotics, and I understand he is to be seen by podiatry shortly. Fluid volume. The patient appears to be dehydrated at this point from physical exam. Cautious intravenous (IV) fluid hydration would seem appropriate. Deep venous thrombosis (DVT) prophylaxis is being addressed with Lovenox. Ulcer prophylaxis is being addressed with Protonix. The patient's condition is critical. Prognosis is quite guarded. Intensive care unit (ICU) care is appropriate. One hour and 24 minutes was spent in the provision of bedside critical care and coordination, excluding procedure time. FROYLAN
--- NOTE | 2020-05-11 09:48 | CCN ---
DATE: 05/09/2020 The patient is seen in the intensive care unit. This is hospital day #2, intensive care unit (ICU) day #2. He is in less respiratory distress this morning. His temperature is 99.8. Maximum temperature for the past 24 hours 100.7. Pulse rate 97, respirations 26, blood pressure 92/50. Intake and output for past 24 hours: 970 in, 1225 out, since midnight 1160 in, 330 out. At bedside he is ill appearing, somnolent. His mucosae are dry. Jugular veins are not clearly distended. Carotid upstrokes sluggish. Heart sounds are regular at the moment. Monitor shows sinus rhythm, intermittent atrial fibrillation. Breath sounds are coarse with large airway sounds. No rales. Abdomen is soft. Bowel sounds are appreciated in the right lower quadrant. Extremities are cool. The index finger of the right hand is swollen, and the toe on the left foot is quite necrotic. There are multiple skin lesions and decubitus ulcers. DIAGNOSTIC STUDIES: Sodium is 140, potassium 3.9, chloride 103, CO2 of 27, BUN 79, creatinine up to 1.73, glucose 73. White cell count is down to 21.1, hemoglobin 11.1, hematocrit 35.4, platelet count 243,000. Arterial blood gases show a pH of 7.46, pCO2 of 37, pO2 of 143. Imaging studies were reviewed, and his chest x-ray shows good inflation bilaterally. I see no clear evidence of infiltrate. Blood cultures are showing gram-positive cocci. On medications review, this is day #2 of cefepime, day #2 of vancomycin, dose adjusted. The primary problem requiring critical attention is hypoxemia. His oxygen requirement has improved slightly. Will continue with comfort-flow oxygen via nasal cannula. The patient is septic with gram-positive cocci in the blood. I suspect a skin and soft tissue infection. He is responding to cefepime and vancomycin. Cultures are pending. I agree with obtaining an echocardiogram to rule out valvular involvement. Swollen right index finger, proximal interphalangeal joint. I agree with checking uric acid. Could be related to the sepsis. The patient's fluid volume appears to be intravascularly dry. I will discuss the addition of a fluid bolus. Deep venous thrombosis (DVT) prophylaxis is being addressed with Eliquis. Ulcer prophylaxis is being addressed with Protonix. One hour and 12 minutes was spent in the provision of bedside critical care and coordination, exclusive of any procedure time. FROYLAN
--- NOTE | 2020-05-11 09:54 | CCN ---
DATE: 05/10/2020 SUBJECTIVE: The patient is seen in the Intensive Care Unit hypoxemic. This is hospital day number three, ICU day number two. He is complaining of pain intermittently but overall appears a bit more comfortable today. He is receiving Morphine as needed. OBJECTIVE: Temperature 98.8, maximum temperature (T-max) for the past 24 hours 101.1, pulse rate 90, respirations 25, blood pressure 141/68, saturation 98%. Input and output for the past 24 hours 3360 in, 850 out, since midnight 600 in, 635 out. At bedside he is ill-appearing and cachectic. His mucosa remains dry. Neck is supple. No jugular venous distention. Heart sounds are irregularly irregular at this point. Monitor showing atrial fibrillation. Breath sounds coarse, mildly diminished in the left base. No dullness. Scattered rhonchi but less so than yesterday. Abdomen is soft. Extremities show necrotic left toe, multiple skin soft tissue pressure ulcers and swelling of the proximal interphalangeal joint of his right hand. DIAGNOSTIC STUDIES: His sodium is 142, potassium 3.2, chloride 108, CO2 26, BUN 86, creatinine 1.56, glucose 83, white cell count is down to 19.8, hemoglobin is down to 10.2, hematocrit 31.6, platelet count 221,000. The sed rate was 106, CRP 30.4. Uric acid level was 8.7, AST 46, ALT 24, albumin 1.8. In review of diagnostic imaging studies, his chest x-ray shows some atelectasis in the left base, little change from yesterday. Formal report is pending. X- rays of his hands, upper and lower arm and shoulder were all showing arthritis but otherwise negative. A verbal report from echocardiography showed vegetation on the heart valves. Microbiology studies were reviewed. His blood cultures are showing Staph aureus and Strep pyogenes on two cultures. The sensitivities are pending. Nasal swab for methicillin-resistant Staphylococcus aureus was negative. MEDICATIONS: On medications review, this is day number three of cefepime, day number three of Vancomycin. He is receiving Solu-Medrol 40 mg every 12 hours, Lovenox and Protonix. ASSESSMENT AND PLAN: 1. The primary problem requiring critical attention is hypoxemia. The patient's saturation has improved and we will continue to wean his oxygen so long as his saturations are acceptable. Respiratory status does appear to be responding. 2. Sepsis based on cultures. I suspect a skin and soft tissue infection. He is growing gram-positive cocci. I would continue broad spectrum antibiotics pending formal culture and sensitivity results. 3. 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 I would consider placing a PICC line to facilitate long-term IV antibiotic therapy. 4. Swollen proximal interphalangeal joint of the right hand likely secondary to infection as well. 5. Fluid volume status is better today. His creatinine is down. He does respond to hydration. 6. Case was discussed with the hospitalist service. They will attempt to initiate some nutritional support today and we have discussed possible transfer of the patient out of ICU. I believe his condition is stable sufficiently for transfer to the step-down unit. Forty seven minutes were spent in the provision of bedside critical care and coordination excluding any procedure time. FROYLAN
--- NOTE | 2020-05-11 11:04 | CR ---
REASON FOR CONSULTATION: Toe ulcerations. Hiren Taylor is an 89-year-old male who is admitted with shortness of breath. He is currently in the intensive care unit (ICU) under respiratory distress. He is unable to answer any questions. He has history of ulcerations per chart review he has been going to the wound care center for. MEDICAL HISTORY: 1. Cerebrovascular accident (CVA). 2. Atrial fibrillation. 3. Prostate cancer. 4. Hypertension. 5. Aortic regurgitation. 6. Hypomagnesemia. 7. Hypotension. 8. Cognitive impairment. 9. Anxiety. 10. Hypertension. 11. Chronic kidney disease. Surgical history, family history, social history unable to obtain due to respiratory distress. ALLERGIES: PREDNISONE. Vital signs: Maximum temperature is 100.6. Labs are reviewed. White blood cell count is 25.2, hemoglobin is 11.2. Lactic acid 2.6. X-rays were taken, which did not show soft tissue air or other obvious pathology. Lower extremity examination: Pedal pulses are nonpalpable and tracely Dopplerable. On the left foot there is a gangrenous toe. There are gangrenous changes similar to the medial hallux. There is no erythema more proximally. There is no malodor. There is no soft tissue crepitus appreciated. The gangrene appears to be vascular in nature. There is an ulceration on the heel with some necrotic tissue but largely a granular base. ASSESSMENT: An 89-year-old male with peripheral vascular disease and toe ulcerations. PLAN: It does not appear that these ulcers are the primary source of his infection. Start Betadine dressings to them. Offload the heel. If further gangrenous changes, may plan amputation of the toe if no other obvious source of infection can be identified. Will follow. [facility] HOSPITALCandelario
--- NOTE | 2020-05-11 12:01 | ECHO ---
DATE OF PROCEDURE: 05/09/2020 Age: 89 Gender: Male Height: 173 cm Weight: 87 kg REFERRING PHYSICIAN: Dr. Sonam Dutton. INDICATION: Endocarditis, bacteremia. MEASUREMENTS: 2D Measurements: Left atrium 3.1 cm Aortic root 3.7 cm Intraventricular septum 1.34 cm Posterior wall 1.23 cm Left ventricle diastole 4.9 cm Aortic annulus 1.9 cm Proximal ascending aorta 3.6 cm Inferior vena cava 1.9 cm Doppler Measurements: Mild aortic stenosis Mild aortic regurgitation Peak aortic valve velocity 268 cm/s Peak aortic valve gradient 29 mmHg Mean aortic valve gradient 18 mmHg Aortic valve VTI 41.5 cm Aortic valve velocity 99.9 cm/s LVOT VTI 16.1 cm Very mild mitral regurgitation No mitral stenosis Mild tricuspid regurgitation Estimated right ventricle systolic pressure 35-40 mmHg No pulmonic regurgitation Pulmonary artery acceleration time 98 msec DESCRIPTION: Rhythm appeared to be atrial fibrillation with mildly rapid ventricular response. Image quality was fair. This was a 2D, M-mode, color flow Doppler, and pulsed wave Doppler examination including mitral annular tissue Doppler. CONCLUSIONS: 1. Severe focal thickening and focal calcific deposits of a 3-cuspid aortic valve. Mild aortic stenosis. Mild aortic regurgitation. 2. Large vegetation involving the right aortic cusp, which measured 1.8 cm x 0.5 cm. 3. Severe mitral annular calcification. Very mild mitral regurgitation. No mitral stenosis. 4. Mild concentric left ventricular hypertrophy. Normal regional left ventricular (LV) wall motion and wall thickening. Normal left ventricular (LV) systolic function. Left ventricular ejection fraction (LVEF) 65% by visual estimate. 5. Suggestive of mild elevation of estimated right ventricle systolic pressure. 6. Trace amount of pericardial effusion. MTDD
--- NOTE | 2020-05-11 12:18 | IPNPDOC ---
Date Seen The patient was seen on 05/11/20. Progress Note SUBJECTIVE: Echo showing large vegetation involving the right aortic cusp, ID consulted and abx changed. Saturating well on RA. On D5W0.9 NS, swallowing eval to be done today to see if can start diet. Right hand swelling appears slightly improved; however, patient still having significant left arm pain. Consulted ortho for their input. BP stable. Downgrading to PCU today. No complaints of chest pain, n/v/d, fevers or chills. OBJECTIVE: PHYSICAL EXAMINATION: VS: Please see below CONSTITUTIONAL: Awake and alert today, laying in bed, difficult to understand and in pain at times EYES: PERRLA, EOM intact HENT, MOUTH: Normocephalic, atraumatic, dry mucous membranes, cannula in place NECK: SUPPLE, no JVD, no lymphadenopathy, no carotid bruit CV: irregularly irregular rhythm, rate controlled, S1S2 normal, no murmurs/rubs/gallops RESPIRATORY: Rhonchi bilaterally in the upper airway only- sounds improved, no rales/wheezing GI: BS positive in 4 quadrants, soft, nontender, nondistended, no rebound or guarding, no organomegaly : Deferred MUSCULOSKELETAL: No cyanosis, clubbing, swelling, joint deformity, extremity edema. Decreased ROM of left and right hand, cannot close or completely open to fist. Decreased ROM of left shoulder, left elbow with pain on palpation of anywhere on the left arm. INTEGUMENTARY: Left calcaneal Stage III ulcer appears clean, nonsuppurative. Left second foot digit is black/purp.e in color, ulcerated on the inside next to the large toe. Many scabs on the bilateral lower ext, trunk and upper ext b/l, non look infected- appear to be bug bites? . Right hand second carpometacarpal joint tenderness/swelling appears less swollen, less erythematous. NEUROLOGIC: Cranial Nerves II-XII are intact, no focal deficits PSYCHIATRIC: Depressed mood LABORATORY DATA: Please see below MICROBIOLOGY: BCx x 2 sets : Staph aureus, strep pyogenes UA: neg Resp panel: NEG, including for COVID Sputum Cx: Staph aureus Wound Cx: pending IMAGING: Echocardiogram: 1. Severe focal thickening and focal calcific deposits of a 3-cuspid aortic valve. Mild aortic stenosis. Mild aortic regurgitation. 2. Large vegetation involving the right aortic cusp, which measured 1.8 cm x 0.5 cm. 3. Severe mitral annular calcification. Very mild mitral regurgitation. No mitral stenosis. 4. Mild concentric left ventricular hypertrophy. Normal regional left ventricular (LV) wall motion and wall thickening. Normal left ventricular (LV) systolic function. Left ventricular ejection fraction (LVEF) 65% by visual estimate. 5. Suggestive of mild elevation of estimated right ventricle systolic pressure. 6. Trace amount of pericardial effusion. XR of left shoulder, left forearm, left elbow, left hand- neg for fracture, acute findings Repeat CXR 05/10/20: Increasing retrocardiac left lower lobe atelectasis CT chest: No focal lung consolidation. Nonspecific bilateral posterior dependent and basilar atelectatic changes. Dilated pulmonary trunk suggestive of an element of pulmonary hypertension. Cardiomegaly with severe coronary vascular calcifications versus stent in addition to calcification of the mitral annulus and aortic root. Bilateral renal caliceal fullness /mildly hydronephrosis with perinephric stranding and edema. Correlate clinically for bladder outlet obstruction. Ultrasound of the kidneys and urinary bladder may be obtained for further evaluation. XR left foot: This limited exam shows marked superimposition of all digital osseous structures. This is to such a degree that a fracture cannot be ruled out. Degenerative changes are seen throughout the foot and imaged portion of the ankle. This limited examination shows no evidence of a gross fracture. There is a large plantar calcaneal heel spur and a small retrocalcaneal heel spur. Last echo 09/2019: 1. Very mild concentric left ventricle hypertrophy. Normal regional left ventricular (LV) wall motion and wall thickening. Normal LV systolic function. Left ventricular ejection fraction (LVEF) 60% by visual estimate. Grade 1 LV diastolic dysfunction (impaired relaxation filling pattern). 2. Severe focal thickening and focal calcific deposits of a 3-cusp aortic valve. Mild reduction in aortic cusp mobility. Mild aortic stenosis. Moderate aortic regurgitation. 3. Severe mitral annular calcification. Moderate mitral regurgitation. No mitral stenosis. 4. Suggestive of mild elevation of pulmonary artery systolic pressure and estimated right ventricle systolic pressure. Mild tricuspid regurgitation. 5. No pericardial effusion. 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 PLAN: #MSSA bacteremia, aortic valve endocarditis. Cannot r/o septic arthritis or PNA as source as well. Resolved sepsis. -WBC 19-->16K, afebrile. -4/4 bottles of BCx + for MSSA, strep pyogenes -Echo: above -D/davon Vancomycin IV, started on cefazolin IV. -Daily labs, tylenol PRN -Repeat BCx today -ID consulted #Left upper extremity pain -No noted trauma, XR of LUE neg for acute fracture or dislocation. -No incr swelling of LUE >RUE -Lidocaine patch ordered for left shoulder -Ortho consulted and appreciate input #Right second carpometacarpal joint tenderness/swelling 2/2 to gout flare but cannot r/o septic arthritis also. -Erythema, swelling and tenderness -Uric acid, ESR, CRP incr. -C/w methylprednisolone 40 mg IV daily, patient has allergy to prednisone that is "rash" so will watch for reactions closely. Avoiding NSAIDS due to [place] -Morphine IV PRN for pain -Ortho consulted #2nd left toe necrosis. -Per podiatry, not likely cause of sepsis -Podiatry (Dr. Deal) to follow to see if needs to be amputated -C/w abx, tylenol PRN #Acute on chronic HFpEF with exacerbation / pulmonary HTN -BNP 17K on admission, repeat has not increased by much. Chronically elevated at [id number]. -No s/s of pulmonary congestion/edema on CT chest so not believed to have respiratory distress on admission. -LE edema is chronic -Discussed case with Dr. Ricketts, Cardiology: Due to recent diagnosis of sepsis with hypotension, do not diurese at this time if can help. Recommending supportive therapy , tx of infection above -Echo above -Will hold off on duresis and BB due to patient not eating, being first day blo od pressures have remained high. Reincorporate when able. #Acute hypoxic respiratory failure 2/2 to unknown cause, ? PNA- improved -Currently saturating well on RA -No PNA on any imaging but isolated staph aureus from sputum -Repeat CXR above, no infiltrate but possible atelectasis worsened. Incentive spirometer added 05/09/29 -C/w Levalbuterol ATC, PRN, cefazolin -Pulmonary following #Ischemic demand likely 2/2 to sepsis- resolved -Tele overnight, no new events -ECG did not show T wave, ST changes -Troponin peaked at 0.96. and trended down -Discussed case with Cardiology, Dr. Ricketts. At this time, patient would not be candidate for intervention in his current state. #Atrial fibrillation, new onset -HR controlled -C/w treatment above for infection -Hold off on lopressor due to recent hypotension, Lovenox 80 MG BID for now. #? dysphagia -Swallowing evaluation to be done today -On D5 0.9 NS at 100 cc/hr -Holding all PO meds until passes #CKD Stage III -Baseline Cr 1.2-1.6, currently 1.35 -C/w hydration continuous and intermittently if needed -Monitor with daily labs #CVA -No new focal deficits -Resume ASA, statin when taking PO #Hypothyroidism -TSH wnl -Holding PO meds # GI px -PPI IV # DVT px -Lovenox 80 mg PO BID Resolved issues: #Hypotension likely 2/2 to dehydration vs. septic shock # Hypomagnesemia DISPOSITION: Downgrading from ICU to PCU today. Ortho, ID and Pulmonary consulted. Plan is likely return to [facility] at discharge. TOTAL AMOUNT OF ICU TIME SPENT CARING FOR PATIENT (not procedural) 50 mins VS, I&O, 24H, Fishbone Vital Signs/I&O Vital Signs Date Time Temp Pulse Resp B/P (MAP) Pulse Ox O2 Delivery O2 Flow Rate FiO2 05/11/20 09:43 20 05/11/20 06:00 84 136/76 (96) 92 Room Air 05/11/20 00:00 97.7 05/10/20 20:00 2.0 05/09/20 19:19 21 I&O- Last 24 Hours up to 6 AM 05/11/20 06:00 Intake Total 3090 ml Output Total 1535 ml Balance 1555 ml Laboratory Data 24H LABS Laboratory Tests 2 05/10/20 17:42: Bedside Glucose (Misc Panel) 92 05/10/20 23:59: Bedside Glucose (Misc Panel) 144H 05/11/20 07:38: Nucleated Red Blood Cells % (auto) 0.0, Erythrocyte Sedimentation Rate 106H, Anion Gap 7L, Glomerular Filtration Rate 53.0, Calcium Level 8.4L, Total Bilirubin 0.6, Aspartate Amino Transf (AST/SGOT) 32, Alanine Aminotransferase (ALT/SGPT) 28, Alkaline Phosphatase 69, C-Reactive Protein, Quantitative 24.40H, Total Protein 5.5L, Albumin 1.8L, Albumin/Globulin Ratio 0.5 CBC/BMP Laboratory Tests 05/11/20 07:38 Microbiology Microbiology 05/11/20 Blood Culture, Received Pending 05/11/20 Gram Stain - Final, Resulted 05/11/20 Wound Culture, Resulted Pending 05/08/20 Gram Stain - Final, Complete 05/08/20 Sputum Culture - Final, Complete Staphylococcus Aureus 05/08/20 Blood Culture - Final, Complete Staphylococcus Aureus Streptococcus Pyogenes Grp A 05/08/20 Respiratory Virus Panel (PCR) (LINA) - Final, Complete 05/08/20 Blood Culture - Final, Complete Staphylococcus Aureus Current Medications Current Medications Medications (Trade) Dose Ordered Sig/Isac Route PRN Reason Start Time Stop Time Status Last Admin Dose Admin Acetaminophen (Tylenol Suppository) 650 mg Q4HP PRN AR PAIN / FEVER 05/08/20 14:00 05/10/20 10:38 DC 05/10/20 00:07 Acetaminophen (Tylenol Suppository) 650 mg Q4HP PRN AR FEVER, MILD TO MODERATE PAIN 05/10/20 10:45 05/11/20 01:45 Acetaminophen (Tylenol Suppository) 650 mg Q6HP PRN AR PAIN / FEVER 05/08/20 13:15 05/08/20 13:59 DC Albuterol/ Ipratropium (Combivent Respimat 100-20mcg) 4 puff Q20M INH 05/08/20 10:45 05/08/20 11:26 DC 05/08/20 11:45 Cefazolin Sodium/ Dextrose 2 gm/IV Miscellaneous Supplies 50 ml @ 75 mls/hr Q8H IV 05/11/20 09:00 05/11/20 09:30 Cefepime HCl 2 gm/ Dextrose 50 ml @ 100 mls/hr Q12H IV 05/08/20 18:00 05/11/20 07:33 DC 05/11/20 06:01 Chlorhexidine Gluconate (Peridex Oral Rinse) SWAB/BRUSH ORAL CAVITY BID MT 05/08/20 21:00 05/11/20 09:29 Dextrose/Sodium Chloride 1,000 ml @ 100 mls/hr Q10H IV 05/10/20 17:00 05/11/20 03:30 Enoxaparin Sodium (Lovenox) 80 mg Q12H SC 05/08/20 21:00 05/11/20 09:29 Heparin Sodium (Porcine) (Heparin) 5,000 units Q8H SC 05/08/20 14:00 05/08/20 15:11 DC Home Med (Med Rec Complete!) ASDIRECTED XX 05/08/20 07:15 05/08/20 07:08 DC Levalbuterol HCl (Xopenex Neb) 1.25 mg Q2HP PRN NEB SOB/WHEEZING 05/08/20 13:15 Levalbuterol HCl (Xopenex Neb) 1.25 mg RQ4H NEB 05/08/20 16:00 05/11/20 07:13 Lidocaine (Lidoderm Patch) 1 patch DAILY TD 05/11/20 09:00 05/11/20 09:30 Methylprednisolone (SOLU medrol) 40 mg Q24H IV 05/10/20 10:00 05/11/20 09:29 Morphine Sulfate (Morphine Sulfate Inj) 1 mg Q6HP PRN IV SEVERE PAIN (PS 8-10) 05/10/20 10:15 05/11/20 01:33 DC 05/10/20 21:34 Morphine Sulfate (Morphine Sulfate Inj) 2 mg Q3HP PRN IV PAIN 05/11/20 01:45 05/11/20 09:43 Non-Formulary Medication ( See Comment Field Below ) 12 hours on REMOVE LIDOD... DAILY@2100 XX 05/11/20 21:00 Pantoprazole Sodium (Protonix) 40 mg DAILY IV 05/08/20 09:00 05/11/20 09:29 Potassium Chloride 10 meq/ IV Miscellaneous Supplies 100 ml @ 100 mls/hr Q1H IV 05/10/20 17:00 05/10/20 21:59 DC 05/10/20 21:34 Sodium Chloride 500 ml @ 250 mls/hr Q2H IV 05/09/20 10:30 05/09/20 12:29 DC 05/09/20 10:42 Sodium Chloride 1,000 ml @ 100 mls/hr Q10H IV 05/08/20 18:00 05/10/20 16:24 DC 05/10/20 09:02 Vancomycin HCl 1000 mg/IV Miscellaneous Supplies 1 each/ Dextrose 270 ml @ 270 mls/hr Q18H IV 05/09/20 09:00 05/09/20 11:47 DC 05/09/20 08:43 Vancomycin HCl 1000 mg/IV Miscellaneous Supplies 1 each/ Dextrose 270 ml @ 270 mls/hr Q18H IV 05/10/20 21:00 05/11/20 07:41 DC 05/10/20 21:24 Vancomycin HCl 1000 mg/IV Miscellaneous Supplies 1 each/ Dextrose 270 ml @ 270 mls/hr Q24H IV 05/10/20 09:00 05/10/20 09:24 DC 05/10/20 09:02 Allergies Coded Allergies: prednisone (Verified Allergy, Intermediate, rash, 09/17/19) Sonam Dutton MD May 11, 2020 12:18
--- NOTE | 2020-05-11 14:41 | REPVR ---
PROCEDURE INFORMATION: Exam: CT Head Without Contrast Exam date and time: 05/11/2020 2:31 PM Age: 89 years old Clinical indication: Other: Dysphagia; Additional info: Dysphagia, R/O CVA TECHNIQUE: Imaging protocol: Computed tomography of the head without contrast. Radiation optimization: All CT scans at this facility use at least one of these dose optimization techniques: automated exposure control; mA and/or kV adjustment per patient size (includes targeted exams where dose is matched to clinical indication); or iterative reconstruction. COMPARISON: CT Head without contrast 09/17/2019 3:52 PM FINDINGS: Brain: There is no acute intracranial hemorrhage, cerebral edema, or midline shift. Chronic microvascular ischemic changes are seen in the periventricular white matter. Age-related cerebral and cerebellar volume loss is present. Small areas of chronic encephalomalacia are noted in both cerebellar hemispheres. Cerebral ventricles: Moderate ex vacuo dilation of the lateral and third ventricles is noted. Bones/joints: No acute fracture. Paranasal sinuses: There is no acute sinusitis. Mastoid air cells: The mastoid air cells are clear. Orbital cavity: The included orbital structures are unremarkable. Vasculature: Atherosclerotic calcifications are seen involving the cavernous carotid arteries. Soft tissues: Unremarkable. IMPRESSION: 1. No acute intracranial abnormality. 2. Atrophy and chronic deep white matter ischemic changes. 3. Tyra Stroke Program Early CT Score (ASPECTS) = 10 Electronically signed by: Rodrigo Colunga On 05/11/2020 14:41:43 PM
[2020-05-11] MEDS: diphenhydrAMINE CREAM 30GM TOP PRN ×2 (15:11→20:12)
[2020-05-11] MEDS ORDERED: LORazepam 2 MG/ML VIAL IV ONE (17:15)
[2020-05-11] MEDS: **NOTE PATIENT COMMENT** MISC XX SCH (20:12)
[2020-05-12] VITALS: BP 134/87
[2020-05-12] MEDS ORDERED: diphenhydrAMINE 50MG/ML VIAL (J1200) IV ONE (00:15)
[2020-05-12] MEDS: ceFAZolin SOD 2 GM in IV 1 EA IV SCH ×3 (00:43→17:27)
[2020-05-12] MEDS: MORPHINE 2 MG/ML 1ML VIAL (J2270) IV PRN ×4 (02:09→20:59)
[2020-05-12 04:00] VITALS: BP 144/105
[2020-05-12] MEDS: LEVALBUTEROL 1.25 MG/0.5 ML CONCENTRATE NEB NEB SCH ×6 (04:00→19:32)
[2020-05-12 05:01] LABS: HEMOGLOBIN 10.7 g/dl (13.5-17.5); MEAN CORPUSCULAR HEMOGLOBIN 29.6 pg (27.0-33.0); MEAN CORPUSCULAR HGB CONC 32.4 g/dl (32.0-36.5); MEAN CORPUSCULAR VOLUME 91.4 fl (80.0-96.0); PLATELET COUNT, AUTOMATED 209 10^3/uL (150-450); RED BLOOD COUNT 3.61 10^6/uL (4.30-6.10); WHITE BLOOD COUNT 11.9 10^3/uL (4.0-10.0)
[2020-05-12 05:22] LABS: ERYTHROCYTE SEDIMENTATION RATE 89 mm/hr (0-20)
[2020-05-12 05:23] LABS: ALBUMIN 1.7 GM/DL (3.2-5.2); BILIRUBIN,TOTAL 0.4 MG/DL (0.2-1.0); C REACTIVE PROTEIN QUANTITATIV 13.4 MG/DL (0.00-0.30); CALCIUM LEVEL 8.1 MG/DL (8.8-10.2); CREATININE FOR GFR 1.42 MG/DL (0.70-1.30); POTASSIUM SERUM 3.7 MEQ/L (3.5-5.1); TOTAL PROTEIN 5.7 GM/DL (6.4-8.2)
[2020-05-12] MEDS: CHLORHEXIDINE GLUCONATE 0.12 % 15ML UDC (PERIDEX ORAL RINSE) MT SCH ×2 (08:03→20:14)
[2020-05-12] MEDS: ENOXAPARIN 80MG/0.8ML SYRINGE (J1650 PER 10MG) SC SCH ×2 (08:04→20:13)
[2020-05-12] MEDS: D5W/0.9% SODIUM CHLORIDE 1,000 ML IV SCH (08:04)
[2020-05-12] MEDS: LIDOCAINE 5% (LIDODERM) PATCH TD SCH (08:04)
[2020-05-12] MEDS: PANTOPRAZOLE 40MG VIAL (C9113 PER 1) IV SCH (08:04)
[2020-05-12] MEDS: D5W/0.45% SODIUM CHLORIDE 1,000 ML IV SCH ×2 (08:16→20:59)
[2020-05-12 08:24] VITALS: BP 154/75
[2020-05-12] MEDS: methylPREDNISolone 40MG 1ML VIAL IV SCH (09:58)
--- NOTE | 2020-05-12 13:44 | CR ---
DATE OF CONSULTATION: 05/10/2020 REASON FOR CONSULTATION: Asked to see Mr. Jara at the request of the hospitalist. CHIEF COMPLAINT: Shoulder pain, right hand swelling at the second metacarpophalangeal joint, history of bacteremia. HISTORY OF PRESENT ILLNESS: This 89-year-old has been having trouble with bacteremia. He is non-participatory in terms of his history and physical. He was noted to have pain with any motion of the left shoulder and swelling over the right hand. He has been bacteremic. He has cardiac vegetations. He is being managed for that. He has a pending infectious disease consultation. I reviewed his medical record and written reports within the chart according to hospitalists note. CLINICAL EXAMINATION: He is confused. Left shoulder: He has some discomfort and guarding with manipulation of the left shoulder in the room today; it is not dislocated however. There does not seem to be erythema or swelling or effusion of the left shoulder. Left upper extremity no edema. Right upper extremity: There is some swelling at the second metacarpophalangeal joint. I do not believe there is a drainable fluid collection there. The patient was not short of breath. His abdomen is not distended. IMPRESSION: Second metacarpophalangeal joint pain, left shoulder pain, history of bacteremia. RECOMENDATIONS: Additional clarification of whether or not there could be a joint effusion in the left shoulder to be accomplished with an MRI of the left shoulder. Continue antibiotics. Recommend infectious disease consult. [facility] CENTERCandelario
[2020-05-12 14:19] VITALS: BP 169/82
[2020-05-12] MEDS ORDERED: LORazepam 2 MG/ML VIAL IV ONE (14:45)
[2020-05-12] MEDS ORDERED: LORazepam 2 MG/ML VIAL As Ordered ONE (14:47)
--- NOTE | 2020-05-12 14:56 | IPN ---
DATE: 05/11/2020 SUBJECTIVE: The patient is seen and examined. He appears more alert compared to three days ago. He is currently working with nursing with swallowing. Vitals are reviewed. He has remained afebrile for 48 hours. Current temperature is 97.7. LABS: White blood cell count is trending down 16.8, ESR 106. CRP is 24.4 which is improved. PHYSICAL EXAMINATION: Lower extremity examination: Some further dysvascular changes of the second toe. No purulence or necrosis. No malodor or extending erythema from this wound or other wounds from the feet. ASSESSMENT: This is an 89-year-old male with peripheral vascular disease, toe gangrene and pressure ulcerations. PLAN: No urgent amputation of this toe is necessary, this could be done once he is more stable or even on an outpatient basis. Wound care orders were written. He was seen as an outpatient by Dr. Escobedo, may benefit from teleconsult with him once he is further stabilized. FROYLAN
--- NOTE | 2020-05-12 16:30 | REP ---
INDICATION: follow up. COMPARISON: None. TECHNIQUE: Coronal oblique T1, T2 fat sat, sagittal oblique T2 fat sat, axial T2 fat sat, gradient echo. Study is limited due to patient motion. FINDINGS: Rotator cuff: There are complete tears of the supraspinatus and infraspinatus tendons with retraction and atrophy. There is a fairly high-grade partial tear of the subscapularis tendon. Teres minor appears intact. Acromioclavicular joint: There are moderate hypertrophic degenerative changes of the acromioclavicular joint with mild fluid in the joint. Acromion: Type 1 Biceps Tendon: Biceps tendon is within the bicipital groove with scattered somewhat increased signal T2 weighted images suggesting tendinitis, with an apparent complete tear more proximally.. Hill Sach's deformity: None. Deltoid muscle: No abnormal signal. Biceps labral complex: The biceps does not insert onto the superior labrum. Labrum: Diffuse slap tear is noted. There is a diffuse posterior labral tear. There is diffuse fraying of the anterior and inferior labrum. Cartilage: There is diffuse moderate chondromalacia at the glenohumeral joint. Bone marrow: Mild subcortical cystic changes seen in the humeral head. There is no occult fracture. Joint fluid: There is a moderate to large joint effusion, with diffuse fluid and edema in the surrounding soft tissues and subacromial/subdeltoid bursae. IMPRESSION: Complete tears of supraspinatus and infraspinatus tendons. High-grade partial tear subscapularis tendon. Moderate hypertrophic degenerative changes acromioclavicular joint. Moderate chondromalacia of the glenohumeral joint. The proximal biceps tendon appears completely torn and does not insert onto the superior labrum. There is diffuse SLAP tear. There is diffuse posterior labral tear. There is diffuse fraying of the anterior and inferior labrum. Moderate to large joint effusion, with diffuse fluid and edema in the surrounding soft tissues and subacromial /subdeltoid bursae. <Electronically signed by Javi Barfield > 05/12/20 [id number]
--- NOTE | 2020-05-12 16:37 | IPNPDOC ---
Date Seen The patient was seen on 05/12/20. Progress Note Progress Note SUBJECTIVE: -No acute events overnight. -Now on room air -pending swallow eval OBJECTIVE: PHYSICAL EXAMINATION: VS: HDS, afebrile, see below for details CONSTITUTIONAL: Awake and alert, NAD EYES: PERRLA, EOMI, anicteric, no injection HENT, MOUTH: Normocephalic, atraumatic, on room air, MMM NECK: SUPPLE, no JVD, no palpable lymphadenopathy CV: irregularly irregular rhythm, normal rate, S1S2 normal, systolic murmur RESPIRATORY: some scattered rhonchi, no crackles or wheezing GI: Normoactive bowel sounds in 4 quadrants, soft, nontender, nondistended, no rebound or guarding, no organomegaly EXTREMITIES: No cyanosis, clubbing, swelling, joint deformity, extremity edema. Decreased ROM of left and right hand without complete closure of fists as previously noted. Decreased ROM of left shoulder, left elbow with pain on palpation as previously noted SKIN: Left calcaneal Stage III ulcer appears clean, no purulent drainage. Left second foot digit is black in color, ulcerated next to great toe. Numerous scabs on bilateral lower ext, trunk and upper ext b/l Right hand second carpometacarpal joint with mild tenderness. NEUROLOGIC: Cranial Nerves II-XII are intact, no focal deficits LABORATORY DATA: reviewed. Please see below MICROBIOLOGY: BCx x 2 sets : MSSA, strep pyogenes UA: neg Resp panel: NEG, including for COVID Sputum Cx: Staph aureus Wound Cx: pending IMAGING: Echocardiogram: 1. Severe focal thickening and focal calcific deposits of a 3-cuspid aortic valve. Mild aortic stenosis. Mild aortic regurgitation. 2. Large vegetation involving the right aortic cusp, which measured 1.8 cm x 0.5 cm. 3. Severe mitral annular calcification. Very mild mitral regurgitation. No mitral stenosis. 4. Mild concentric left ventricular hypertrophy. Normal regional left ventricular (LV) wall motion and wall thickening. Normal left ventricular (LV) systolic function. Left ventricular ejection fraction (LVEF) 65% by visual estimate. 5. Suggestive of mild elevation of estimated right ventricle systolic pressure. 6. Trace amount of pericardial effusion. XR of left shoulder, left forearm, left elbow, left hand- neg for fracture, acute findings Repeat CXR 05/10/20: Increasing retrocardiac left lower lobe atelectasis CT chest: No focal lung consolidation. Nonspecific bilateral posterior dependent and basilar atelectatic changes. Dilated pulmonary trunk suggestive of an element of pulmonary hypertension. Cardiomegaly with severe coronary vascular calcifications versus stent in addition to calcification of the mitral annulus and aortic root. Bilateral renal caliceal fullness /mildly hydronephrosis with perinephric stranding and edema. Correlate clinically for bladder outlet obstruction. Ultrasound of the kidneys and urinary bladder may be obtained for further evaluation. XR left foot: This limited exam shows marked superimposition of all digital osseous structures. This is to such a degree that a fracture cannot be ruled out. Degenerative changes are seen throughout the foot and imaged portion of the ankle. This limited examination shows no evidence of a gross fracture. There is a large plantar calcaneal heel spur and a small retrocalcaneal heel spur. Last echo 09/2019: 1. Very mild concentric left ventricle hypertrophy. Normal regional left ventricular (LV) wall motion and wall thickening. Normal LV systolic function. Left ventricular ejection fraction (LVEF) 60% by visual estimate. Grade 1 LV diastolic dysfunction (impaired relaxation filling pattern). 2. Severe focal thickening and focal calcific deposits of a 3-cusp aortic valve. Mild reduction in aortic cusp mobility. Mild aortic stenosis. Moderate aortic regurgitation. 3. Severe mitral annular calcification. Moderate mitral regurgitation. No mitral stenosis. 4. Suggestive of mild elevation of pulmonary artery systolic pressure and estima veronica right ventricle systolic pressure. Mild tricuspid regurgitation. 5. No pericardial effusion. 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 PLAN: #Sepsis with MSSA and GAS bacteremia, aortic valve endocarditis. Cannot r/o septic arthritis with painful L shoulder with pending joint MRI. Resolved sepsis. -09/20 bottles of BCx + for MSSA, strep pyogenes -Echo: with aortic valve veg -Previously on Vancomycin, day 2 of cefazolin IV, per ID consult -Acetaminophen PRN -f/u repeat blood cultures #Left upper extremity pain -Cannot r/o septic arthritis with painful L shoulder with pending joint MRI. -No noted trauma, XR of LUE neg for acute fracture or dislocation. -No incr swelling of LUE >RUE -Lidocaine patch ordered for left shoulder -Ortho consulted with pending imaging and recs #Right second carpometacarpal joint tenderness/swelling 2/2 to gout flare but cannot r/o septic arthritis also. -Erythema, swelling and tenderness, reportedly improved. -Uric acid, ESR, CRP elevated -C/w methylprednisolone 40 mg IV daily, patient has allergy to prednisone that is "rash" so will watch for reactions closely. Avoiding NSAIDS due to DAK[place] -Morphine IV PRN for pain -Ortho consulted as mentioned above #2nd left toe necrosis. -Per podiatry, not likely cause of sepsis -Podiatry (Dr. Deal) to follow to see if needs to be amputated -C/w abx, tylenol PRN #Acute on chronic HFpEF with exacerbation and pulmonary HTN -BNP 17K on admission, chronically elevated at 2986-3434. -Has chronic LE edema, otherwise now on room air -IM discussed case with Dr. Ricketts, Cardiology: No diuresis given recent sepsis. -Echo as noted above -Will hold off on duresis and BB. Will restart as hemodynamics improve #Acute hypoxic respiratory failure 2/2 sepsis with suspicion of PNA on admission. Resolved -Now saturating well on RA -No PNA on any imaging but isolated staph aureus from sputum -Repeat CXR above, no infiltrate but possible atelectasis worsened. Incentive spirometer added 05/09/29 -C/w Levalbuterol ATC, PRN, cefazolin -Pulmonary consulted #Type 2 NSTEMI with troponinemia 2/2 demand in the setting of sepsis - resolved -Tele has been stable without new events -ECG did not show T wave, ST changes -Troponin peaked at 0.96. and trended down -Discussed case with Cardiology, Dr. Ricketts. Patient would not be candidate for intervention in his current state and most likely type 2. #Atrial fibrillation, new onset in the setting of aortic valve endocarditis and sepsis -HR controlled -C/w treatment above for infection -Hold off on BB due to recent hypotension -Lovenox 80 MG BID for now. #? dysphagia -Swallowing evaluation to be done today -Switched to D5 0.45 NS at 75 cc/hr -Holding all PO meds until swallow eval #Acute DAKOTA on CKD Stage III 2/2 sepsis. Improved. -Baseline Cr 1.2-1.6 -C/w hydration until he can take PO -Monitor with daily labs #CVA -No new focal deficits -Resume ASA, statin when taking PO #Hypothyroidism -TSH wnl -Holding PO meds # GI px -PPI IV # DVT px -Lovenox 80 mg PO BID Resolved issues: #Hypotension likely 2/2 to dehydration and septic shock # Hypomagnesemia DISPOSITION: PCU. Plan is likely return to [facility] at discharge. Ongoing PT/OT VS, I&O, 24H, Fishbone Vital Signs/I&O Vital Signs Date Time Temp Pulse Resp B/P (MAP) Pulse Ox O2 Delivery O2 Flow Rate FiO2 05/12/20 05:30 20 Room Air 05/12/20 04:00 98.2 85 144/105 (118) 99 05/10/20 20:00 2.0 05/09/20 19:19 21 I&O- Last 24 Hours up to 6 AM 05/12/20 06:00 Intake Total 1766 ml Output Total 1375 ml Balance 391 ml Laboratory Data 24H LABS Laboratory Tests 2 05/11/20 12:46: Bedside Glucose (Misc Panel) 165H 05/11/20 12:49: Lab Scanned Report Miscellaneous Lab 05/11/20 17:56: Bedside Glucose (Misc Panel) 204H 05/12/20 04:44: Nucleated Red Blood Cells % (auto) 0.2H, Erythrocyte Sedimentation Rate 89H, Anion Gap 6L, Glomerular Filtration Rate 50.0, Calcium Level 8.1L, Total Bilirubin 0.4, Aspartate Amino Transf (AST/SGOT) 18, Alanine Aminotransferase (ALT/SGPT) 21, Alkaline Phosphatase 65, C-Reactive Protein, Quantitative 13.40H, Total Protein 5.7L, Albumin 1.7L, Albumin/Globulin Ratio 0.4 05/12/20 05:24: Bedside Glucose (Misc Panel) 146H CBC/BMP Laboratory Tests 05/12/20 04:44 Microbiology Microbiology 05/12/20 Blood Culture, Received Pending 05/11/20 Blood Culture - Preliminary, Resulted No growth after 24 hours . All specim... 05/11/20 Gram Stain - Final, Resulted 05/11/20 Wound Culture, Resulted Pending 05/08/20 Gram Stain - Final, Complete 05/08/20 Sputum Culture - Final, Complete Staphylococcus Aureus 05/08/20 Blood Culture - Final, Complete Staphylococcus Aureus Streptococcus Pyogenes Grp A 05/08/20 Respiratory Virus Panel (PCR) ([facility]) - Final, Complete 05/08/20 Blood Culture - Final, Complete Staphylococcus Aureus VIJI DE LEON MD May 12, 2020 08:28
[2020-05-12 17:00] VITALS: BP 143/77
[2020-05-12 20:00] VITALS: BP 157/90
[2020-05-12] MEDS: **NOTE PATIENT COMMENT** MISC XX SCH (20:14)
[2020-05-12] MEDS: diphenhydrAMINE CREAM 30GM TOP PRN (20:15)
[2020-05-13] VITALS (7 sets, daily range): BP systolic 161–190; BP diastolic 72–97
[2020-05-13] MEDS: MORPHINE 2 MG/ML 1ML VIAL (J2270) IV PRN ×4 (00:30→20:08)
[2020-05-13] MEDS: ceFAZolin SOD 2 GM in IV 1 EA IV SCH ×3 (00:31→17:15)
[2020-05-13] MEDS ORDERED: MORPHINE 2 MG/ML 1ML VIAL (J2270) IV ONE ×2 (01:45→15:00)
[2020-05-13] MEDS: LEVALBUTEROL 1.25 MG/0.5 ML CONCENTRATE NEB NEB SCH ×7 (04:00→23:49)
[2020-05-13 05:00] LABS: HEMATOCRIT 33.2 % (42.0-52.0); HEMOGLOBIN 10.7 g/dl (13.5-17.5); MEAN CORPUSCULAR HEMOGLOBIN 29.9 pg (27.0-33.0); MEAN CORPUSCULAR HGB CONC 32.2 g/dl (32.0-36.5); MEAN CORPUSCULAR VOLUME 92.7 fl (80.0-96.0); PLATELET COUNT, AUTOMATED 223 10^3/uL (150-450); RED BLOOD COUNT 3.58 10^6/uL (4.30-6.10); WHITE BLOOD COUNT 10.5 10^3/uL (4.0-10.0)
[2020-05-13] MEDS ORDERED: LORazepam 2 MG/ML VIAL IM STA (05:08)
[2020-05-13 05:19] LABS: ERYTHROCYTE SEDIMENTATION RATE 106 mm/hr (0-20)
[2020-05-13 05:31] LABS: C REACTIVE PROTEIN QUANTITATIV 8.47 MG/DL (0.00-0.30); CALCIUM LEVEL 8.2 MG/DL (8.8-10.2); CREATININE FOR GFR 1.45 MG/DL (0.70-1.30); GLOMERULAR FILTRATION RATE 48.8 (>35); POTASSIUM SERUM 4.3 MEQ/L (3.5-5.1)
[2020-05-13 08:37] LABS: ABG HCO3 23.2 MEQ/L (22.0-26.0); ABG O2 SATURATION 95.3 % (95.0-99.0); ABG PARTIAL PRESSURE CO2 41.4 mmHg (35.0-45.0); ABG PARTIAL PRESSURE O2 80.5 mmHg (75.0-100.0); ABG STANDARD HCO3 22.8 MEQ/L (22.0-26.0); ABG TOTAL CO2 24.5 MEQ/L (23.0-31.0); ABG pH (ARTERIAL) 7.367 UNITS (7.350-7.450)
[2020-05-13] MEDS: CHLORHEXIDINE GLUCONATE 0.12 % 15ML UDC (PERIDEX ORAL RINSE) MT SCH ×2 (09:11→21:55)
[2020-05-13] MEDS: methylPREDNISolone 40MG 1ML VIAL IV SCH (09:12)
[2020-05-13] MEDS: PANTOPRAZOLE 40MG VIAL (C9113 PER 1) IV SCH (09:12)
[2020-05-13] MEDS: LIDOCAINE 5% (LIDODERM) PATCH TD SCH (09:12)
[2020-05-13] MEDS: ENOXAPARIN 80MG/0.8ML SYRINGE (J1650 PER 10MG) SC SCH ×2 (09:12→20:08)
[2020-05-13] MEDS: D5W/0.45% SODIUM CHLORIDE 1,000 ML IV SCH (09:16)
--- NOTE | 2020-05-13 09:20 | IPN ---
DATE: 05/12/2020 HISTORY OF PRESENT ILLNESS: The patient had the MRI of the left shoulder. MRI of the left shoulder reflects chronic changes including severe AP joint arthritis, chronic appearing rotator cuff and biceps tendon tears, chronic appearing effusion, cannot rule out septic joint based on this MRI. The patient continues to have some irritability of the shoulder consistent with this injury. 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 RECOMMENDATIONS: Would recommend interventional radiology/ultrasound guided aspiration of the left shoulder and microbiology cultures to evaluate for septic joint. FROYLAN
[2020-05-13] MEDS ORDERED: SODIUM BICARBONATE 8.4% INJ 50MEQ 50 ML VIAL As Ordered ONE (10:51)
[2020-05-13] MEDS ORDERED: LIDOCAINE 1% MDV 20ML VIAL As Ordered ONE (10:51)
--- NOTE | 2020-05-13 18:03 | IPNPDOC ---
Text Note Date of Service The patient was seen on 05/13/20. NOTE Progress Note SUBJECTIVE: -Had significant L shoulder pain overnight for which he received morphine and later ativan--> this morning he was obtunded with a normal ABG and saturating well on room air and was placed on 2L NC for comfort. OBJECTIVE: PHYSICAL EXAMINATION: VS: HDS, afebrile, see below for details CONSTITUTIONAL: NAD, asleep, difficult to arouse EYES: PERRLA, EOMI, anicteric, no injection HENT, MOUTH: Normocephalic, atraumatic, on room air, MMM NECK: SUPPLE, no JVD, no palpable lymphadenopathy CV: irregularly irregular rhythm, normal rate, S1S2 normal, systolic murmur RESPIRATORY: some scattered rhonchi anteriorly, no crackles or wheezing GI: Normoactive bowel sounds in 4 quadrants, soft, nontender, nondistended, no rebound or guarding, no organomegaly EXTREMITIES: No cyanosis, clubbing, swelling, joint deformity, extremity edema. Decreased ROM of left and right hand without complete closure of fists as previously noted. Decreased ROM of left shoulder, left elbow with pain on palpation as previously noted SKIN: Left calcaneal Stage III ulcer appears clean, no purulent drainage. Left second foot digit is black in color, ulcerated next to great toe. Numerous scabs on bilateral lower ext, trunk and upper ext b/l Right hand second carpome tacarpal joint with mild tenderness. NEUROLOGIC: Cranial Nerves II-XII are intact, no focal deficits LABORATORY DATA: reviewed. Stable ABG - 7.36//80 Please see below MICROBIOLOGY: BCx x 2 sets : MSSA, strep pyogenes UA: neg Resp panel: NEG, including for COVID Sputum Cx: Staph aureus Wound Cx: pending IMAGING: Echocardiogram: 1. Severe focal thickening and focal calcific deposits of a 3-cuspid aortic valve. Mild aortic stenosis. Mild aortic regurgitation. 2. Large vegetation involving the right aortic cusp, which measured 1.8 cm x 0.5 cm. 3. Severe mitral annular calcification. Very mild mitral regurgitation. No mitral stenosis. 4. Mild concentric left ventricular hypertrophy. Normal regional left ventricular (LV) wall motion and wall thickening. Normal left ventricular (LV) systolic function. Left ventricular ejection fraction (LVEF) 65% by visual estimate. 5. Suggestive of mild elevation of estimated right ventricle systolic pressure. 6. Trace amount of pericardial effusion. XR of left shoulder, left forearm, left elbow, left hand- neg for fracture, acut e findings Repeat CXR 05/10/20: Increasing retrocardiac left lower lobe atelectasis CT chest: No focal lung consolidation. Nonspecific bilateral posterior dependent and basilar atelectatic changes. Dilated pulmonary trunk suggestive of an element of pulmonary hypertension. Cardiomegaly with severe coronary vascular calcifications versus stent in addition to calcification of the mitral annulus and aortic root. Bilateral renal caliceal fullness /mildly hydronephrosis with perinephric stranding and edema. Correlate clinically for bladder outlet obstruction. Ultrasound of the kidneys and urinary bladder may be obtained for further evaluation. XR left foot: This limited exam shows marked superimposition of all digital osseous structures. This is to such a degree that a fracture cannot be ruled out. Degenerative changes are seen throughout the foot and imaged portion of the an kle. This limited examination shows no evidence of a gross fracture. There is a large plantar calcaneal heel spur and a small retrocalcaneal heel spur. Last echo 09/2019: 1. Very mild concentric left ventricle hypertrophy. Normal regional left ventricular (LV) wall motion and wall thickening. Normal LV systolic function. Left ventricular ejection fraction (LVEF) 60% by visual estimate. Grade 1 LV diastolic dysfunction (impaired relaxation filling pattern). 2. Severe focal thickening and focal calcific deposits of a 3-cusp aortic valve. Mild reduction in aortic cusp mobility. Mild aortic stenosis. Moderate aortic regurgitation. 3. Severe mitral annular calcification. Moderate mitral regurgitation. No mitral stenosis. 4. Suggestive of mild elevation of pulmonary artery systolic pressure and estimated right ventricle systolic pressure. Mild tricuspid regurgitation. 5. No pericardial effusion. L shoulder MRI: Rotator cuff: There are complete tears of the supraspinatus and infraspinatus tendons with retraction and atrophy. There is a fairly high-grade partial tear of the subscapularis tendon. Teres minor appears intact. Acromioclavicular joint: There are moderate hypertrophic degenerative changes of the acromioclavicular joint with mild fluid in the joint. Acromion: Type 1 Biceps Tendon: Biceps tendon is within the bicipital groove with scattered somewhat increased signal T2 weighted images suggesting tendinitis, with an apparent complete tear more proximally.. Hill Sach's deformity: None. Deltoid muscle: No abnormal signal. Biceps labral complex: The biceps does not insert onto the superior labrum. Labrum: Diffuse slap tear is noted. There is a diffuse posterior labral tear. There is diffuse fraying of the anterior and inferior labrum. Cartilage: There is diffuse moderate chondromalacia at the glenohumeral joint. Bone marrow: Mild subcortical cystic changes seen in the humeral head. There is no occult fracture. Joint fluid: There is a moderate to large joint effusion, with diffuse fluid and edema in the surrounding soft tissues and subacromial/subdeltoid bursae. IMPRESSION: Complete tears of supraspinatus and infraspinatus tendons. High-grade partial tear subscapularis tendon. Moderate hypertrophic degenerative changes acromioclavicular joint. Moderate chondromalacia of the glenohumeral joint. The proximal biceps tendon appears completely torn and does not insert onto the superior labrum. There is diffuse SLAP tear. There is diffuse posterior labral tear. There is diffuse fraying of the anterior and inferior labrum. Moderate to large joint effusion, with diffuse fluid and edema in the surrounding soft tissues and subacromial /subdeltoid bursae. 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 PLAN: #Sepsis with MSSA and GAS bacteremia, aortic valve endocarditis. Cannot r/o septic arthritis with painful L shoulder with pending joint MRI. Resolved sepsis. -4/4 bottles of BCx + for MSSA, strep pyogenes -Echo: with aortic valve veg -Previously on Vancomycin, day 3 of cefazolin IV, per ID consult -Acetaminophen PRN -f/u repeat blood cultures #Left upper extremity pain with torn rotator cuff -Cannot r/o septic arthritis with effusion though possibly trauma reaction -No noted trauma, XR of LUE neg for acute fracture or dislocation. -No incr swelling of LUE >RUE -Lidocaine patch ordered for left shoulder -Ortho consulted, plan is for tapping the L shoulder effusion this afternoon. #Right second carpometacarpal joint tenderness/swelling 2/2 to gout flare but cannot r/o septic arthritis also. -Erythema, swelling and tenderness, improved. -Uric acid, ESR, CRP elevated -C/w methylprednisolone 40 mg IV daily, patient has allergy to prednisone that is "rash" so will watch for reactions closely. Avoiding NSAIDS due to [place] -Morphine IV PRN for pain -Ortho consulted as mentioned above #2nd left toe necrosis. -Per podiatry, not likely cause of sepsis -Podiatry (Dr. Deal) to follow to see if needs to be amputated -C/w abx, tylenol PRN #Acute on chronic HFpEF with exacerbation and pulmonary HTN -BNP 17K on admission, chronically elevated at 0190-9062. -Has chronic LE edema, otherwise now on room air -IM discussed case with Dr. Ricketts, Cardiology: No diuresis given recent sepsis. -Echo as noted above -Will hold off on duresis and BB. Will restart as hemodynamics improve #Acute hypoxic respiratory failure 2/2 sepsis with suspicion of PNA on admission. Resolved -Now saturating well, was on 2L this morning, but without true evidence of hypoxemia -No PNA on any imaging but isolated staph aureus from sputum -Repeat CXR above, no infiltrate but possible atelectasis worsened. Incentive spirometer added 05/09/29 -C/w Levalbuterol ATC, PRN, cefazolin -Pulmonary consulted #Type 2 NSTEMI with troponinemia 2/2 demand in the setting of sepsis - resolved -Tele has been stable without new events -ECG did not show T wave, ST changes -Troponin peaked at 0.96. and trended down -Discussed case with Cardiology, Dr. Ricketts. Patient would not be candidate for intervention in his current state and most likely type 2. #Atrial fibrillation, new onset in the setting of aortic valve endocarditis and sepsis -HR controlled -C/w treatment above for infection -Hold off on BB due to recent hypotension -Lovenox 80 MG BID for now. #? dysphagia -Swallowing evaluation completed, NPO for now with poor mental status currently -Continue D5 0.45 NS at 75 cc/hr -Holding all PO meds until swallow eval #Acute DAK[place] on CKD Stage III 2/2 sepsis. Improved. -Baseline Cr 1.2-1.6 -C/w hydration until he can take PO -Monitor with daily labs #CVA -No new focal deficits -Resume ASA, statin when taking PO #Hypothyroidism -TSH wnl -Holding PO meds # GI px -PPI IV # DVT px -Lovenox 80 mg PO BID Resolved issues: #Hypotension likely 2/2 to dehydration and septic shock # Hypomagnesemia DISPOSITION: PCU status in the ICU. Updated his sister. PT/OT consulted but mental status has complicated getting started. VS,Fishbone, I+O VS, Fishbone, I+O Laboratory Tests 05/13/20 04:45 Vital Signs Date Time Temp Pulse Resp B/P (MAP) Pulse Ox O2 Delivery O2 Flow Rate FiO2 05/13/20 08:00 97.3 70 18 167/78 (107) 96 Room Air 05/13/20 00:00 0.5 05/09/20 19:19 21 I&O- Last 24 Hours up to 6 AM 05/13/20 05:59 Intake Total 425 ml Output Total 1530 ml Balance -1105 ml VIJI DE LEON MD May 13, 2020 09:20
[2020-05-13] MEDS: **NOTE PATIENT COMMENT** MISC XX SCH (20:09)
[2020-05-14] VITALS (10 sets, daily range): BP systolic 134–206; BP diastolic 60–100
[2020-05-14] MEDS: ceFAZolin SOD 2 GM in IV 1 EA IV SCH ×3 (00:35→16:33)
[2020-05-14] MEDS: D5W/0.45% SODIUM CHLORIDE 1,000 ML IV SCH ×2 (00:35→15:12)
[2020-05-14] MEDS: MORPHINE 2 MG/ML 1ML VIAL (J2270) IV PRN ×5 (02:23→20:08)
[2020-05-14] MEDS ORDERED: SALIVA SUBSTITUTE(MOUTHKOTE) BTL MT PRN (03:00)
[2020-05-14] MEDS ORDERED: LORazepam 2 MG/ML VIAL IM STA (03:04)
[2020-05-14] MEDS ORDERED: LORazepam 2 MG/ML VIAL IV STA (03:13)
[2020-05-14] MEDS: LEVALBUTEROL 1.25 MG/0.5 ML CONCENTRATE NEB NEB SCH ×5 (04:00→19:13)
[2020-05-14 04:22] LABS: HEMATOCRIT 30.8 % (42.0-52.0); HEMOGLOBIN 9.5 g/dl (13.5-17.5); MEAN CORPUSCULAR HEMOGLOBIN 28.6 pg (27.0-33.0); MEAN CORPUSCULAR HGB CONC 30.8 g/dl (32.0-36.5); MEAN CORPUSCULAR VOLUME 92.8 fl (80.0-96.0); PLATELET COUNT, AUTOMATED 216 10^3/uL (150-450); RED BLOOD COUNT 3.32 10^6/uL (4.30-6.10)
[2020-05-14 04:42] LABS: C REACTIVE PROTEIN QUANTITATIV 4.95 MG/DL (0.00-0.30); CALCIUM LEVEL 7.9 MG/DL (8.8-10.2); CREATININE FOR GFR 1.32 MG/DL (0.70-1.30); GLOMERULAR FILTRATION RATE 54.4 (>35); POTASSIUM SERUM 3.7 MEQ/L (3.5-5.1)
[2020-05-14 04:47] LABS: ERYTHROCYTE SEDIMENTATION RATE 70 mm/hr (0-20)
[2020-05-14] MEDS: ENOXAPARIN 80MG/0.8ML SYRINGE (J1650 PER 10MG) SC SCH ×2 (09:24→20:08)
[2020-05-14] MEDS: methylPREDNISolone 40MG 1ML VIAL IV SCH (09:24)
[2020-05-14] MEDS: CHLORHEXIDINE GLUCONATE 0.12 % 15ML UDC (PERIDEX ORAL RINSE) MT SCH ×2 (09:25→20:09)
[2020-05-14] MEDS: PANTOPRAZOLE 40MG VIAL (C9113 PER 1) IV SCH (09:25)
[2020-05-14] MEDS: LIDOCAINE 5% (LIDODERM) PATCH TD SCH (09:25)
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
[2020-05-14] MEDS: LABETALOL 100MG/20ML VIAL IV SCH ×2 (11:42→18:05)
[2020-05-14] MEDS ORDERED: LABETALOL 100MG/20ML VIAL IV STA (13:33)
[2020-05-14] MEDS ORDERED: hydrALAZINE 20MG/ML 1ML VIAL (J0360 PER 20MG) IV STA (14:35)
[2020-05-14] MEDS: **NOTE PATIENT COMMENT** MISC XX SCH (21:00)
[2020-05-15] VITALS: BP 150/90
[2020-05-15] MEDS: LABETALOL 100MG/20ML VIAL IV SCH ×2 (00:16→05:04)
[2020-05-15] MEDS: MORPHINE 2 MG/ML 1ML VIAL (J2270) IV PRN ×2 (00:16→17:31)
[2020-05-15] MEDS: ceFAZolin SOD 2 GM in IV 1 EA IV SCH ×3 (03:00→17:31)
[2020-05-15 04:00] VITALS: BP 160/80
[2020-05-15] MEDS: LEVALBUTEROL 1.25 MG/0.5 ML CONCENTRATE NEB NEB SCH ×6 (04:00→19:53)
[2020-05-15] MEDS: D5W/0.45% SODIUM CHLORIDE 1,000 ML IV SCH ×2 (05:04→17:35)
[2020-05-15 05:21] LABS: HEMATOCRIT 32.8 % (42.0-52.0); HEMOGLOBIN 10.3 g/dl (13.5-17.5); MEAN CORPUSCULAR HEMOGLOBIN 29.4 pg (27.0-33.0); MEAN CORPUSCULAR HGB CONC 31.4 g/dl (32.0-36.5); MEAN CORPUSCULAR VOLUME 93.7 fl (80.0-96.0); PLATELET COUNT, AUTOMATED 225 10^3/uL (150-450); WHITE BLOOD COUNT 11.6 10^3/uL (4.0-10.0)
[2020-05-15 05:54] LABS: BLOOD UREA NITROGEN 23 MG/DL (7-18); CALCIUM LEVEL 7.7 MG/DL (8.8-10.2); CARBON DIOXIDE LEVEL 28 MEQ/L (21-32); CHLORIDE LEVEL 116 MEQ/L (98-107); CREATININE FOR GFR 1.08 MG/DL (0.70-1.30); GLOMERULAR FILTRATION RATE > 60.0 (>35); GLUCOSE, FASTING 103 MG/DL (70-100); POTASSIUM SERUM 3.8 MEQ/L (3.5-5.1); SODIUM LEVEL 149 MEQ/L (136-145)
[2020-05-15 08:00] VITALS: BP 162/72
[2020-05-15] MEDS: PANTOPRAZOLE 40MG VIAL (C9113 PER 1) IV SCH (09:36)
[2020-05-15] MEDS: methylPREDNISolone 40MG 1ML VIAL IV SCH (09:37)
[2020-05-15] MEDS: ENOXAPARIN 80MG/0.8ML SYRINGE (J1650 PER 10MG) SC SCH (09:37)
[2020-05-15] MEDS: CHLORHEXIDINE GLUCONATE 0.12 % 15ML UDC (PERIDEX ORAL RINSE) MT SCH ×2 (09:37→21:06)
[2020-05-15] MEDS: LIDOCAINE 5% (LIDODERM) PATCH TD SCH (09:37)
[2020-05-15 11:55] VITALS: BP 143/71
[2020-05-15] MEDS: ASPIRIN 325 MG TAB PO SCH (13:15)
[2020-05-15] MEDS: atenoloL 50 MG TAB PO SCH ×2 (13:16→21:08)
[2020-05-15] MEDS: APIXABAN 2.5 MG TAB (ELIQUIS) PO SCH ×2 (13:16→21:06)
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
[2020-05-15] MEDS ORDERED: hydrALAZINE 20MG/ML 1ML VIAL (J0360 PER 20MG) IV SCH (14:00)
[2020-05-15 16:00] VITALS: BP 146/77
[2020-05-15 20:00] VITALS: BP 142/64
[2020-05-15] MEDS: DULoxetine 30 MG CAP (CYMBALTA) PO SCH (21:06)
[2020-05-15] MEDS: **NOTE PATIENT COMMENT** MISC XX SCH (21:08)
[2020-05-16] VITALS (8 sets, daily range): BP systolic 140–192; BP diastolic 66–90
[2020-05-16] MEDS: ceFAZolin SOD 2 GM in IV 1 EA IV SCH ×3 (00:08→17:34)
[2020-05-16] MEDS: LEVALBUTEROL 1.25 MG/0.5 ML CONCENTRATE NEB NEB SCH ×6 (04:00→20:27)
[2020-05-16 04:32] LABS: HEMATOCRIT 34.8 % (42.0-52.0); HEMOGLOBIN 10.8 g/dl (13.5-17.5); MEAN CORPUSCULAR VOLUME 93.3 fl (80.0-96.0); PLATELET COUNT, AUTOMATED 244 10^3/uL (150-450); RED BLOOD COUNT 3.73 10^6/uL (4.30-6.10); WHITE BLOOD COUNT 13.6 10^3/uL (4.0-10.0)
[2020-05-16] MEDS: atenoloL 50 MG TAB PO SCH ×2 (04:41→09:30)
[2020-05-16 04:56] LABS: BLOOD UREA NITROGEN 39 MG/DL (7-18); CALCIUM LEVEL 7.8 MG/DL (8.8-10.2); CARBON DIOXIDE LEVEL 27 MEQ/L (21-32); CHLORIDE LEVEL 115 MEQ/L (98-107); CREATININE FOR GFR 1.01 MG/DL (0.70-1.30); GLOMERULAR FILTRATION RATE > 60.0 (>35); GLUCOSE, FASTING 120 MG/DL (70-100); POTASSIUM SERUM 3.6 MEQ/L (3.5-5.1); SODIUM LEVEL 147 MEQ/L (136-145)
[2020-05-16] MEDS: LEVOTHYROXINE 75MCG TABLET (0.075MG) PO SCH (05:12)
[2020-05-16] MEDS: D5W/0.45% SODIUM CHLORIDE 1,000 ML IV SCH ×2 (05:25→18:45)
[2020-05-16] MEDS: CHLORHEXIDINE GLUCONATE 0.12 % 15ML UDC (PERIDEX ORAL RINSE) MT SCH ×2 (09:00→20:42)
[2020-05-16] MEDS: methylPREDNISolone 40MG 1ML VIAL IV SCH (09:29)
[2020-05-16] MEDS: PANTOPRAZOLE 40MG VIAL (C9113 PER 1) IV SCH (09:29)
[2020-05-16] MEDS: APIXABAN 2.5 MG TAB (ELIQUIS) PO SCH ×2 (09:30→20:41)
[2020-05-16] MEDS: ASPIRIN 325 MG TAB PO SCH (09:30)
[2020-05-16] MEDS: LIDOCAINE 5% (LIDODERM) PATCH TD SCH (09:31)
--- NOTE | 2020-05-16 13:44 | IPNPDOC ---
Text Note Date of Service The patient was seen on 05/16/20. NOTE SUBJECTIVE: -No acute issues overnight OBJECTIVE: PHYSICAL EXAMINATION: VS: Hypertensive to [id number] this morning, afebrile, see below for details CONSTITUTIONAL: NAD, ill appearing, awake EYES: PERRLA, EOMI, anicteric, no injection HENT, MOUTH: Normocephalic, atraumatic, on room air, MMM NECK: SUPPLE, no JVD, no palpable lymphadenopathy CV: irregularly irregular rhythm, normal rate, S1S2 normal, systolic murmur RESPIRATORY: CTAB with some scattered rhonchi, no crackles and no wheezing GI: Normoactive bowel sounds in 4 quadrants, soft, nontender, nondistended, no rebound or guarding, no organomegaly EXTREMITIES: R hand remains with swollen joint, slightly better. Decreased ROM of left shoulder, left elbow, limited by pain. Otherwise no LE edema SKIN: Left calcaneal Stage III ulcer appears clean, no purulent drainage. Left second foot digit is black in color, ulcerated on border with great toe. Numerous scabs on bilateral lower ext, trunk and upper ext b/l Right hand second carpometacarpal joint with mild tenderness. NEUROLOGIC: Cranial Nerves II-XII are intact, no focal deficits LABORATORY DATA: reviewed. WBC 13.6 hgb 10.8 platelets 244 na 147 K 3.6 Cr 1.01 MICROBIOLOGY: BCx x 2 sets : MSSA, strep pyogenes UA: neg Resp panel: NEG, including for COVID Sputum Cx: Staph aureus Wound Cx: pending IMAGING: Echocardiogram: 1. Severe focal thickening and focal calcific deposits of a 3-cuspid aortic valve. Mild aortic stenosis. Mild aortic regurgitation. 2. Large vegetation involving the right aortic cusp, which measured 1.8 cm x 0.5 cm. 3. Severe mitral annular calcification. Very mild mitral regurgitation. No mitral stenosis. 4. Mild concentric left ventricular hypertrophy. Normal regional left ventricular (LV) wall motion and wall thickening. Normal left ventricular (LV) systolic function. Left ventricular ejection fraction (LVEF) 65% by visual estimate. 5. Suggestive of mild elevation of estimated right ventricle systolic pressure. 6. Trace amount of pericardial effusion. XR of left shoulder, left forearm, left elbow, left hand- neg for fracture, acute findings Repeat CXR 05/10/20: Increasing retrocardiac left lower lobe atelectasis CT chest: No focal lung consolidation. Nonspecific bilateral posterior dependent and basilar atelectatic changes. Dilated pulmonary trunk suggestive of an element of pulmonary hypertension. Cardiomegaly with severe coronary vascular calcifications versus stent in addition to calcification of the mitral annulus and aortic root. Bilateral renal caliceal fullness /mildly hydronephrosis with perinephric stranding and edema. Correlate clinically for bladder outlet obstruction. Ultrasound of the kidneys and urinary bladder may be obtained for further evaluation. XR left foot: This limited exam shows marked superimposition of all digital osseous structures. This is to such a degree that a fracture cannot be ruled out. Degenerative changes are seen throughout the foot and imaged portion of the ankle. This limited examination shows no evidence of a gross fracture. There is a large plantar calcaneal heel spur and a small retrocalcaneal heel spur. Last echo 09/2019: 1. Very mild concentric left ventricle hypertrophy. Normal regional left ventricular (LV) wall motion and wall thickening. Normal LV systolic function. Left ventricular ejection fraction (LVEF) 60% by visual estimate. Grade 1 LV diastolic dysfunction (impaired relaxation filling pattern). 2. Severe focal thickening and focal calcific deposits of a 3-cusp aortic valve. Mild reduction in aortic cusp mobility. Mild aortic stenosis. Moderate aortic regurgitation. 3. Severe mitral annular calcification. Moderate mitral regurgitation. No mitral stenosis. 4. Suggestive of mild elevation of pulmonary artery systolic pressure and estimated right ventricle systolic pressure. Mild tricuspid regurgitation. 5. No pericardial effusion. L shoulder MRI: Rotator cuff: There are complete tears of the supraspinatus and infraspinatus tendons with retraction and atrophy. There is a fairly high-grade partial tear of the subscapularis tendon. Teres minor appears intact. Acromioclavicular joint: There are moderate hypertrophic degenerative changes of the acromioclavicular joint with mild fluid in the joint. Acromion: Type 1 Biceps Tendon: Biceps tendon is within the bicipital groove with scattered somewhat increased signal T2 weighted images suggesting tendinitis, with an apparent complete tear more proximally.. Hill Sach's deformity: None. Deltoid muscle: No abnormal signal. Biceps labral complex: The biceps does not insert onto the superior labrum. Labrum: Diffuse slap tear is noted. There is a diffuse posterior labral tear. There is diffuse fraying of the anterior and inferior labrum. Cartilage: There is diffuse moderate chondromalacia at the glenohumeral joint. Bone marrow: Mild subcortical cystic changes seen in the humeral head. There is no occult fracture. Joint fluid: There is a moderate to large joint effusion, with diffuse fluid and edema in the surrounding soft tissues and subacromial/subdeltoid bursae. IMPRESSION: Complete tears of supraspinatus and infraspinatus tendons. High-grade partial tear subscapularis tendon. Moderate hypertrophic degenerative changes acromioclavicular joint. Moderate chondromalacia of the glenohumeral joint. The proximal biceps tendon appears completely torn and does not insert onto the superior labrum. There is diffuse SLAP tear. There is diffuse posterior labral tear. There is diffuse fraying of the anterior and inferior labrum. Moderate to large joint effusion, with diffuse fluid and edema in the surroundin g soft tissues and subacromial /subdeltoid bursae. 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 PLAN: #Sepsis with MSSA and GAS bacteremia, aortic valve endocarditis. Cannot r/o septic arthritis with painful L shoulder with pending joint MRI. Resolved sep sis. -4/4 bottles of BCx + for MSSA, strep pyogenes -Echo: with aortic valve veg -Previously on Vancomycin, day 6 of cefazolin IV, per ID consult -Acetaminophen PRN -repeat BC NGTD #Left upper extremity pain with torn rotator cuff -Spoke with PFS and my PD about the degree of trauma and damage of his shoulder in an elderly gentleman who is bed bound without much known physical activity. I am concerned about how and when this injury occurred. Will investigate recent record of trauma. For now, the sister did tell me about a fall in August. -No noted trauma, XR of LUE neg for acute fracture or dislocation. -No incr swelling of LUE >RUE -Lidocaine patch ordered for left shoulder -Ortho consulted, s/p arthrocentesis. -morphine PRN for severe pain #Right second carpometacarpal joint tenderness/swelling 2/2 to gout flare -Erythema, swelling and tenderness, mildly improved. -Uric acid, ESR, CRP elevated -Continue methylprednisolone 40 mg IV daily, will dc after today's dose and monitor -Morphine IV PRN for pain #2nd left toe necrosis. -Per podiatry, not likely cause of sepsis -Podiatry (Dr. Deal) to follow to see if needs to be amputated. -C/w abx, tylenol PRN #Acute on chronic HFpEF with exacerbation and pulmonary HTN -BNP 17K on admission, chronically elevated at [id number]. -Has chronic LE edema, otherwise now on room air -IM discussed case with Dr. Ricketts, Cardiology: No diuresis given recent sepsis. -Echo as noted above #Acute hypoxic respiratory failure 2/2 sepsis with suspicion of PNA on admission. Resolved -on room air -No PNA on any imaging but isolated staph aureus from sputum -Repeat CXR above, no infiltrate but possible atelectasis worsened. Incentive s pirometer added 05/09/29 -C/w Levalbuterol ATC, PRN, cefazolin -Pulmonary consulted at presentation, appreciate recs #Type 2 NSTEMI with troponinemia 2/2 demand in the setting of sepsis - resolved -Tele has been stable without new events -ECG did not show T wave, ST changes -Troponin peaked at 0.96. and trended down -Discussed case with Cardiology, Dr. Ricketts. Patient would not be candidate for intervention in his current state and most likely type 2. #Atrial fibrillation, new onset in the setting of aortic valve endocarditis and sepsis -HR controlled -C/w treatment above for infection -c/w2.5mg eliquis BID #? dysphagia -Swallowing evaluation completed, now advanced to pureed diet -Continue D5 0.45 NS at 75 cc/hr until taking diet well, then DC #Acute DAK[place] on CKD Stage III 2/2 sepsis. Resolved. -Baseline Cr 1.2-1.6 -C/w hydration until he can take PO -Monitor with daily labs #CVA -No new focal deficits -Resume ASA, statin when taking PO #Hypothyroidism -TSH wnl -Holding PO meds # GI px -PPI IV # DVT px -c/w 2.5mg eliquis Resolved issues: #Hypotension likely 2/2 to dehydration and septic shock # Hypomagnesemia DISPOSITION: PT/OT consulted. PFS consulted. Updated his sister on 05/13. VS,Melissa, I+O VS, Caseybone, I+O Laboratory Tests 05/16/20 04:11 Vital Signs Date Time Temp Pulse Resp B/P (MAP) Pulse Ox O2 Delivery O2 Flow Rate FiO2 05/16/20 07:32 96.9 70 18 166/70 (102) 100 Room Air 05/15/20 00:26 0.5 21 I&O- Last 24 Hours up to 6 AM 05/16/20 06:00 Intake Total 1250 ml Output Total 1850 ml Balance -600 ml VIJI DE LEON MD May 16, 2020 07:51
[2020-05-16] MEDS ORDERED: hydrALAZINE 20MG/ML 1ML VIAL (J0360 PER 20MG) IV ONE (14:00)
[2020-05-16] MEDS: amLODIPine 10 MG TAB PO SCH (14:08)
[2020-05-16] MEDS: DULoxetine 30 MG CAP (CYMBALTA) PO SCH (20:41)
[2020-05-16] MEDS: **NOTE PATIENT COMMENT** MISC XX SCH (21:00)
[2020-05-17] VITALS: BP 138/76
[2020-05-17] MEDS: ceFAZolin SOD 2 GM in IV 1 EA IV SCH ×3 (00:38→17:50)
[2020-05-17] MEDS: LEVALBUTEROL 1.25 MG/0.5 ML CONCENTRATE NEB NEB SCH ×7 (01:34→23:04)
[2020-05-17 04:00] VITALS: BP 120/64
[2020-05-17 05:19] LABS: HEMATOCRIT 34.6 % (42.0-52.0); MEAN CORPUSCULAR HEMOGLOBIN 29.3 pg (27.0-33.0); MEAN CORPUSCULAR HGB CONC 31.8 g/dl (32.0-36.5); MEAN CORPUSCULAR VOLUME 92.3 fl (80.0-96.0); PLATELET COUNT, AUTOMATED 283 10^3/uL (150-450); RED BLOOD COUNT 3.75 10^6/uL (4.30-6.10); WHITE BLOOD COUNT 16.1 10^3/uL (4.0-10.0)
[2020-05-17] MEDS: LEVOTHYROXINE 75MCG TABLET (0.075MG) PO SCH ×2 (05:36→06:00)
[2020-05-17 05:39] LABS: BLOOD UREA NITROGEN 32 MG/DL (7-18); CALCIUM LEVEL 7.3 MG/DL (8.8-10.2); CARBON DIOXIDE LEVEL 24 MEQ/L (21-32); CHLORIDE LEVEL 112 MEQ/L (98-107); CREATININE FOR GFR 0.93 MG/DL (0.70-1.30); GLOMERULAR FILTRATION RATE > 60.0 (>35); GLUCOSE, FASTING 111 MG/DL (70-100); POTASSIUM SERUM 3.7 MEQ/L (3.5-5.1); SODIUM LEVEL 142 MEQ/L (136-145)
[2020-05-17 07:54] VITALS: BP 140/77
[2020-05-17] MEDS: CHLORHEXIDINE GLUCONATE 0.12 % 15ML UDC (PERIDEX ORAL RINSE) MT SCH ×2 (09:00→20:59)
[2020-05-17] MEDS: APIXABAN 2.5 MG TAB (ELIQUIS) PO SCH ×2 (09:02→20:59)
[2020-05-17] MEDS: LIDOCAINE 5% (LIDODERM) PATCH TD SCH (09:02)
[2020-05-17] MEDS: ASPIRIN 325 MG TAB PO SCH (09:02)
[2020-05-17] MEDS: atenoloL 50 MG TAB PO SCH ×2 (09:03→20:58)
[2020-05-17] MEDS: amLODIPine 10 MG TAB PO SCH (09:03)
[2020-05-17] MEDS: PANTOPRAZOLE 40MG TAB (PROTONIX) PO SCH (09:30)
--- NOTE | 2020-05-17 10:48 | IPNPDOC ---
Text Note Date of Service The patient was seen on 05/17/20. NOTE SUBJECTIVE: -No acute issues overnight OBJECTIVE: PHYSICAL EXAMINATION: VS: Hypertensive to [id number] this morning, afebrile, see below for details CONSTITUTIONAL: NAD, ill appearing, awake EYES: PERRLA, EOMI, anicteric, no injection HENT, MOUTH: Normocephalic, atraumatic, on room air, MMM NECK: SUPPLE, no JVD, no palpable lymphadenopathy CV: irregularly irregular rhythm, normal rate, S1S2 normal, systolic murmur RESPIRATORY: CTAB with some scattered rhonchi, no crackles and no wheezing GI: Normoactive bowel sounds in 4 quadrants, soft, nontender, nondistended, no rebound or guarding, no organomegaly EXTREMITIES: R hand remains with swollen joint, slightly better. Decreased ROM of left shoulder, left elbow, limited by pain. Otherwise no LE edema SKIN: Left calcaneal Stage III ulcer appears clean, no purulent drainage. Left second foot digit is black in color, ulcerated on border with great toe. Numerous scabs on bilateral lower ext, trunk and upper ext b/l Right hand second carpometacarpal joint with mild tenderness. NEUROLOGIC: Cranial Nerves II-XII are intact, no focal deficits LABORATORY DATA: reviewed. WBC 16.1 hgb 11 platelets 283 na 142 K 3.7 Cr 0.93 MICROBIOLOGY: BCx x 2 sets : MSSA, strep pyogenes UA: neg Resp panel: NEG, including for COVID Sputum Cx: Staph aureus Wound Cx: pending IMAGING: Echocardiogram: 1. Severe focal thickening and focal calcific deposits of a 3-cuspid aortic valve. Mild aortic stenosis. Mild aortic regurgitation. 2. Large vegetation involving the right aortic cusp, which measured 1.8 cm x 0.5 cm. 3. Severe mitral annular calcification. Very mild mitral regurgitation. No mitral stenosis. 4. Mild concentric left ventricular hypertrophy. Normal regional left ventricular (LV) wall motion and wall thickening. Normal left ventricular (LV) systolic function. Left ventricular ejection fraction (LVEF) 65% by visual estimate. 5. Suggestive of mild elevation of estimated right ventricle systolic pressure. 6. Trace amount of pericardial effusion. XR of left shoulder, left forearm, left elbow, left hand- neg for fracture, acute findings Repeat CXR 05/10/20: Increasing retrocardiac left lower lobe atelectasis CT chest: No focal lung consolidation. Nonspecific bilateral posterior dependent and basilar atelectatic changes. Dilated pulmonary trunk suggestive of an element of pulmonary hypertension. Cardiomegaly with severe coronary vascular calcifications versus stent in addition to calcification of the mitral annulus and aortic root. Bilateral renal caliceal fullness /mildly hydronephrosis with perinephric stranding and edema. Correlate clinically for bladder outlet obstruction. Ultrasound of the kidneys and urinary bladder may be obtained for further evaluation. XR left foot: This limited exam shows marked superimposition of all digital osseous structures. This is to such a degree that a fracture cannot be ruled out. Degenerative changes are seen throughout the foot and imaged portion of the ankle. This limited examination shows no evidence of a gross fracture. There is a large plantar calcaneal heel spur and a small retrocalcaneal heel spur. Last echo 09/2019: 1. Very mild concentric left ventricle hypertrophy. Normal regional left ventricular (LV) wall motion and wall thickening. Normal LV systolic function. Left ventricular ejection fraction (LVEF) 60% by visual estimate. Grade 1 LV diastolic dysfunction (impaired relaxation filling pattern). 2. Severe focal thickening and focal calcific deposits of a 3-cusp aortic valve. Mild reduction in aortic cusp mobility. Mild aortic stenosis. Moderate aortic regurgitation. 3. Severe mitral annular calcification. Moderate mitral regurgitation. No mitral stenosis. 4. Suggestive of mild elevation of pulmonary artery systolic pressure and estimated right ventricle systolic pressure. Mild tricuspid regurgitation. 5. No pericardial effusion. L shoulder MRI: Rotator cuff: There are complete tears of the supraspinatus and infraspinatus tendons with retraction and atrophy. There is a fairly high-grade partial tear of the subscapularis tendon. Teres minor appears intact. Acromioclavicular joint: There are moderate hypertrophic degenerative changes of the acromioclavicular joint with mild fluid in the joint. Acromion: Type 1 Biceps Tendon: Biceps tendon is within the bicipital groove with scattered somewhat increased signal T2 weighted images suggesting tendinitis, with an apparent complete tear more proximally.. Hill Sach's deformity: None. Deltoid muscle: No abnormal signal. Biceps labral complex: The biceps does not insert onto the superior labrum. Labrum: Diffuse slap tear is noted. There is a diffuse posterior labral tear. There is diffuse fraying of the anterior and inferior labrum. Cartilage: There is diffuse moderate chondromalacia at the glenohumeral joint. Bone marrow: Mild subcortical cystic changes seen in the humeral head. There is no occult fracture. Joint fluid: There is a moderate to large joint effusion, with diffuse fluid and edema in the surrounding soft tissues and subacromial/subdeltoid bursae. IMPRESSION: Complete tears of supraspinatus and infraspinatus tendons. High-grade partial tear subscapularis tendon. Moderate hypertrophic degenerative changes acromioclavicular joint. Moderate chondromalacia of the glenohumeral joint. The proximal biceps tendon appears completely torn and does not insert onto the superior labrum. There is diffuse SLAP tear. There is diffuse posterior labral tear. There is diffuse fraying of the anterior and inferior labrum. Moderate to large joint effusion, with diffuse fluid and edema in the surrounding soft tissues and subacromial /subdeltoid bursae. 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 PLAN: #Sepsis with MSSA and GAS bacteremia, aortic valve endocarditis. Cannot r/o septic arthritis with painful L shoulder with pending joint MRI. Resolved seps is. -4/4 bottles of BCx + for MSSA, strep pyogenes -Echo: with aortic valve veg -Previously on Vancomycin, day 7 of cefazolin IV, per ID consult -Acetaminophen PRN -repeat BC NGTD #Left upper extremity pain with torn rotator cuff -Spoke with PFS and my PD about the degree of trauma and damage of his shoulder in an elderly gentleman who is bed bound without much known physical activity. I am concerned about how and when this injury occurred. Will investigate recent record of trauma. For now, the sister did tell me about a fall in August. -No noted trauma, XR of LUE neg for acute fracture or dislocation. -No incr swelling of LUE >RUE -Lidocaine patch ordered for left shoulder -Ortho consulted, s/p arthrocentesis. -morphine PRN for severe pain #Right second carpometacarpal joint tenderness/swelling 2/2 to gout flare -Erythema, swelling and tenderness, mildly improved. -Uric acid, ESR, CRP elevated -s/p methylprednisolone 40 mg IV daily for a total 7d -Morphine IV PRN for pain #2nd left toe necrosis. -Per podiatry, not likely cause of sepsis -Podiatry (Dr. Deal) to follow to see if needs to be amputated. -C/w abx, tylenol PRN #Acute on chronic HFpEF with exacerbation and pulmonary HTN -BNP 17K on admission, chronically elevated at [id number]. -Has chronic LE edema, otherwise now on room air -IM discussed case with Dr. Ricketts, Cardiology: No diuresis given recent sepsis. -Echo as noted above #Acute hypoxic respiratory failure 2/2 sepsis with suspicion of PNA on admiss ion. Resolved -on room air -No PNA on any imaging but isolated staph aureus from sputum -Repeat CXR above, no infiltrate but possible atelectasis worsened. Incentive spirometer added 05/09/29 -C/w Levalbuterol ATC, PRN, cefazolin -Pulmonary consulted at presentation, appreciate recs #Type 2 NSTEMI with troponinemia 2/2 demand in the setting of sepsis - resolved -Tele has been stable without new events -ECG did not show T wave, ST changes -Troponin peaked at 0.96. and trended down -Discussed case with Cardiology, Dr. Ricketts. Patient would not be candidate for intervention in his current state and most likely type 2. #Atrial fibrillation, new onset in the setting of aortic valve endocarditis and sepsis -HR controlled -C/w treatment above for infection -c/w2.5mg eliquis BID #? dysphagia -Swallowing evaluation completed, now advanced to pureed diet -DC fluids #Acute [place] on CKD Stage III 2/2 sepsis. Resolved. -Baseline Cr 1.2-1.6 -Monitor with daily labs #CVA -No new focal deficits -Resume ASA, statin when taking PO #Hypothyroidism -TSH wnl -restart synthroid # GI px -PPI # DVT px -c/w 2.5mg eliquis Resolved issues: #Hypotension likely 2/2 to dehydration and septic shock # Hypomagnesemia Hypertensive urgency: resolved -restarted home atenolol and added amlodipine 10mg daily DISPOSITION: PT/OT consulted. PFS consulted. Updated his sister on 05/13. VS,Ivone, I+O VS, Fishbone, I+O Laboratory Tests 05/17/20 05:05 Vital Signs Date Time Temp Pulse Resp B/P (MAP) Pulse Ox O2 Delivery O2 Flow Rate FiO2 05/17/20 07:54 98.9 66 24 140/77 (98) 90 Room Air 05/15/20 00:26 0.5 21 I&O- Last 24 Hours up to 6 AM 05/17/20 06:00 Intake Total 1800 ml Output Total 1200 ml Balance 600 ml VIJI DE LEON MD May 17, 2020 08:46
[2020-05-17 13:35] VITALS: BP 144/66
[2020-05-17] MEDS: DULoxetine 30 MG CAP (CYMBALTA) PO SCH (20:59)
[2020-05-17] MEDS: **NOTE PATIENT COMMENT** MISC XX SCH (21:00)
[2020-05-17 22:00] VITALS: BP 134/76
[2020-05-18] MEDS: ceFAZolin SOD 2 GM in IV 1 EA IV SCH ×3 (01:19→16:59)
[2020-05-18] MEDS: LEVALBUTEROL 1.25 MG/0.5 ML CONCENTRATE NEB NEB SCH ×5 (04:00→19:20)
[2020-05-18] MEDS: LEVOTHYROXINE 75MCG TABLET (0.075MG) PO SCH (05:24)
[2020-05-18 06:00] VITALS: BP 129/61
[2020-05-18 08:40] LABS: HEMATOCRIT 33.4 % (42.0-52.0); HEMOGLOBIN 10.5 g/dl (13.5-17.5); MEAN CORPUSCULAR HEMOGLOBIN 29.3 pg (27.0-33.0); MEAN CORPUSCULAR HGB CONC 31.4 g/dl (32.0-36.5); MEAN CORPUSCULAR VOLUME 93.3 fl (80.0-96.0); PLATELET COUNT, AUTOMATED 277 10^3/uL (150-450); RED BLOOD COUNT 3.58 10^6/uL (4.30-6.10); WHITE BLOOD COUNT 13.3 10^3/uL (4.0-10.0)
[2020-05-18] MEDS: PANTOPRAZOLE 40MG TAB (PROTONIX) PO SCH ×2 (09:00→09:13)
[2020-05-18 09:05] LABS: BLOOD UREA NITROGEN 31 MG/DL (7-18); CALCIUM LEVEL 7.5 MG/DL (8.8-10.2); CARBON DIOXIDE LEVEL 24 MEQ/L (21-32); CHLORIDE LEVEL 114 MEQ/L (98-107); GLOMERULAR FILTRATION RATE > 60.0 (>35); GLUCOSE, FASTING 59 MG/DL (70-100); POTASSIUM SERUM 3.6 MEQ/L (3.5-5.1); SODIUM LEVEL 144 MEQ/L (136-145)
[2020-05-18] MEDS: ASPIRIN 325 MG TAB PO SCH (09:13)
[2020-05-18] MEDS: amLODIPine 10 MG TAB PO SCH (09:13)
[2020-05-18] MEDS: APIXABAN 2.5 MG TAB (ELIQUIS) PO SCH ×2 (09:13→21:20)
[2020-05-18] MEDS: atenoloL 50 MG TAB PO SCH ×2 (09:14→21:21)
[2020-05-18] MEDS: LIDOCAINE 5% (LIDODERM) PATCH TD SCH (09:14)
[2020-05-18] MEDS: CHLORHEXIDINE GLUCONATE 0.12 % 15ML UDC (PERIDEX ORAL RINSE) MT SCH ×2 (10:21→21:00)
[2020-05-18] MEDS ORDERED: DEXTROSE 50% 50 ML SYRINGE IV STA (12:18)
--- NOTE | 2020-05-18 12:22 | IPNPDOC ---
Text Note Date of Service The patient was seen on 05/18/20. NOTE SUBJECTIVE: -No acute issues overnight OBJECTIVE: PHYSICAL EXAMINATION: VS: Normotensive, afebrile, rate controlled, on room air, see below for details CONSTITUTIONAL: NAD, ill appearing, awake EYES: PERRLA, EOMI, anicteric, no injection HENT, MOUTH: Normocephalic, atraumatic, on room air, MMM NECK: SUPPLE, no JVD, no palpable lymphadenopathy CV: irregularly irregular rhythm, normal rate, S1S2 normal, systolic murmur RESPIRATORY: CTAB with some scattered rhonchi, no crackles and no wheezing GI: Normoactive bowel sounds in 4 quadrants, soft, nontender, nondistended, no rebound or guarding, no organomegaly EXTREMITIES: R hand remains with swollen joint, no change since stopping steroids. Left shoulder, left elbow, movement limited by pain. Otherwise trace LE edema SKIN: Left calcaneal Stage III ulcer appears clean, no purulent drainage. Left second foot digit is black in color, ulcerated on border with great toe. Numerous scabs on bilateral lower ext, trunk and upper ext b/l Right hand second carpometacarpal joint with mild tenderness. NEUROLOGIC: Cranial Nerves II-XII are intact, no focal deficits LABORATORY DATA: reviewed. Pending AM labs 05/17 labs WBC 16.1 hgb 11 platelets 283 na 142 K 3.7 Cr 0.93 MICROBIOLOGY: BCx x 2 sets : MSSA, strep pyogenes UA: neg Resp panel: NEG, including for COVID Sputum Cx: Staph aureus Wound Cx: pending IMAGING: Echocardiogram: 1. Severe focal thickening and focal calcific deposits of a 3-cuspid aortic valve. Mild aortic stenosis. Mild aortic regurgitation. 2. Large vegetation involving the right aortic cusp, which measured 1.8 cm x 0.5 cm. 3. Severe mitral annular calcification. Very mild mitral regurgitation. No mitral stenosis. 4. Mild concentric left ventricular hypertrophy. Normal regional left ventricul ar (LV) wall motion and wall thickening. Normal left ventricular (LV) systolic function. Left ventricular ejection fraction (LVEF) 65% by visual estimate. 5. Suggestive of mild elevation of estimated right ventricle systolic pressure. 6. Trace amount of pericardial effusion. XR of left shoulder, left forearm, left elbow, left hand- neg for fracture, acute findings Repeat CXR 05/10/20: Increasing retrocardiac left lower lobe atelectasis CT chest: No focal lung consolidation. Nonspecific bilateral posterior dependent and basilar atelectatic changes. Dilated pulmonary trunk suggestive of an element of pulmonary hypertension. Cardiomegaly with severe coronary vascular calcifications versus stent in addition to calcification of the mitral annulus and aortic root. Bilateral renal caliceal fullness /mildly hydronephrosis with perinephric stranding and edema. Correlate clinically for bladder outlet obstruction. Ultrasound of the kidneys and urinary bladder may be obtained for further evaluation. XR left foot: This limited exam shows marked superimposition of all digital osseous structures. This is to such a degree that a fracture cannot be ruled out. Degenerative changes are seen throughout the foot and imaged portion of the ankle. This limited examination shows no evidence of a gross fracture. There is a large plantar calcaneal heel spur and a small retrocalcaneal heel spur. Last echo 09/2019: 1. Very mild concentric left ventricle hypertrophy. Normal regional left ventricular (LV) wall motion and wall thickening. Normal LV systolic function. Left ventricular ejection fraction (LVEF) 60% by visual estimate. Grade 1 LV di astolic dysfunction (impaired relaxation filling pattern). 2. Severe focal thickening and focal calcific deposits of a 3-cusp aortic valve. Mild reduction in aortic cusp mobility. Mild aortic stenosis. Moderate aortic regurgitation. 3. Severe mitral annular calcification. Moderate mitral regurgitation. No mitral stenosis. 4. Suggestive of mild elevation of pulmonary artery systolic pressure and estimated right ventricle systolic pressure. Mild tricuspid regurgitation. 5. No pericardial effusion. L shoulder MRI: Rotator cuff: There are complete tears of the supraspinatus and infraspinatus tendons with retraction and atrophy. There is a fairly high-grade partial tear of the subscapularis tendon. Teres minor appears intact. Acromioclavicular joint: There are moderate hypertrophic degenerative changes of the acromioclavicular joint with mild fluid in the joint. Acromion: Type 1 Biceps Tendon: Biceps tendon is within the bicipital groove with scattered somewhat increased signal T2 weighted images suggesting tendinitis, with an apparent complete tear more proximally.. Hill Sach's deformity: None. Deltoid muscle: No abnormal signal. Biceps labral complex: The biceps does not insert onto the superior labrum. Labrum: Diffuse slap tear is noted. There is a diffuse posterior labral tear. There is diffuse fraying of the anterior and inferior labrum. Cartilage: There is diffuse moderate chondromalacia at the glenohumeral joint. Bone marrow: Mild subcortical cystic changes seen in the humeral head. There is no occult fracture. Joint fluid: There is a moderate to large joint effusion, with diffuse fluid and edema in the surrounding soft tissues and subacromial/subdeltoid bursae. IMPRESSION: Complete tears of supraspinatus and infraspinatus tendons. High-grade partial tear subscapularis tendon. Moderate hypertrophic degenerative changes acromioclavicular joint. Moderate chondromalacia of the glenohumeral joint. The proximal biceps tendon appears completely torn and does not insert onto the superior labrum. There is diffuse SLAP tear. There is diffuse posterior labral tear. There is diffuse fraying of the anterior and inferior labrum. Moderate to large joint effusion, with diffuse fluid and edema in the surrounding soft tissues and subacromial /subdeltoid bursae. 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 PLAN: #Sepsis with MSSA and GAS bacteremia, aortic valve endocarditis. Cannot r/o septic arthritis with painful L shoulder with pending joint MRI. Resolved sepsis. -4/4 bottles of BCx + for MSSA, strep pyogenes -Echo: with aortic valve veg -Previously on Vancomycin, day 8 of cefazolin IV, per ID consult -Acetaminophen PRN -repeat BC NGTD #Left upper extremity pain with torn rotator cuff -Spoke with PFS and my PD about the degree of trauma and damage of his shoulder in an elderly gentleman who is bed bound without much known physical activity. I am concerned about how and when this injury occurred. Will investigate recent record of trauma. For now, the sister did tell me about a fall in August. -No noted trauma, XR of LUE neg for acute fracture or dislocation. -Lidocaine patch ordered for left shoulder -Ortho consulted, s/p arthrocentesis. -morphine PRN for severe pain #Right second carpometacarpal joint tenderness/swelling 2/2 to gout flare -Erythema, swelling and tenderness, mildly improved. -Uric acid, ESR, CRP elevated -s/p methylprednisolone 40 mg IV daily for a total 7d -Morphine IV PRN for pain #2nd left toe necrosis. -Per podiatry, not likely cause of sepsis -Podiatry (Dr. Deal) to follow to see if needs to be amputated. -C/w abx, tylenol PRN #Acute on chronic HFpEF with exacerbation and pulmonary HTN -BNP 17K on admission, chronically elevated at [id number]. -Has chronic LE edema, otherwise now on room air -IM discussed case with Dr. Ricketts, Cardiology: No diuresis given recent sepsis. -Echo as noted above #Acute hypoxic respiratory failure 2/2 sepsis with suspicion of PNA on admission. Resolved -on room air -No PNA on any imaging but isolated staph aureus from sputum -Repeat CXR above, no infiltrate but possible atelectasis worsened. Incentive spirometer added 05/09/29 -C/w Levalbuterol ATC, PRN, cefazolin -Pulmonary consulted at presentation, appreciate recs #Type 2 NSTEMI with troponinemia 2/2 demand in the setting of sepsis - resolved -Tele has been stable without new events -ECG did not show T wave, ST changes -Troponin peaked at 0.96. and trended down -Discussed case with Cardiology, Dr. Ricketts. Patient would not be candidate for intervention in his current state and most likely type 2. #Atrial fibrillation, new onset in the setting of aortic valve endocarditis and sepsis -HR controlled -C/w treatment above for infection -c/w2.5mg eliquis BID #? dysphagia -Swallowing evaluation completed, now advanced to pureed diet -DC fluids #Acute DAKOTA on CKD Stage III 2/2 sepsis. Resolved. -Baseline Cr 1.2-1.6 -Monitor with daily labs #CVA -No new focal deficits -Resume ASA, statin when taking PO #Hypothyroidism -TSH wnl -restart synthroid # GI px -PPI # DVT px -c/w 2.5mg eliquis Resolved issues: #Hypotension likely 2/2 to dehydration and septic shock # Hypomagnesemia Hypertensive urgency: resolved -restarted home atenolol and added amlodipine 10mg daily DISPOSITION: PT/OT consulted. PFS consulted. Updated his sister on 05/13. VS,Fishbone, I+O VS, Fishbone, I+O Vital Signs Date Time Temp Pulse Resp B/P (MAP) Pulse Ox O2 Delivery O2 Flow Rate FiO2 05/18/20 06:00 97.9 63 16 129/61 (83) 97 Room Air 05/15/20 00:26 0.5 21 I&O- Last 24 Hours up to 6 AM 05/18/20 06:00 Intake Total 220 ml Output Total 1550 ml Balance -1330 ml VIJI DE LEON MD May 18, 2020 07:49
[2020-05-18] MEDS ORDERED: GLUCOSE 4GM CHEW TABLET PO PRN (12:30)
[2020-05-18] MEDS ORDERED: DEXTROSE 50% 50 ML SYRINGE IV PRN (12:30)
[2020-05-18] MEDS ORDERED: GLUCAGON INJ 1MG VIAL SC PRN (12:30)
[2020-05-18] MEDS: LANSOPRAZOLE SUSPENSION 30 MG/10 ML ORAL SYRINGE (FIRST-LANSOPRAZOLE) PO SCH (14:58)
--- NOTE | 2020-05-18 19:57 | CR ---
INFECTIOUS DISEASE CONSULTATION REQUESTING PHYSICIAN: Dr. Veronica Andres REASON FOR CONSULTATION: Evaluation of staph aureus and Group A streptococcal bacteremia. HISTORY OF PRESENT ILLNESS: Mr. Jara is an 81-year-old gentleman who presented from [facility] with complaints of shortness of breath, fever and sore throat. The patient is not a good historian. He was in moderate respiratory distress. Eventually he was intubated. He was found to have positive blood cultures with MSSA and Group A strep coinfection. He had a temperature of 101.5. He was having pain in his left shoulder, right metacarpophalangeal joint and left second toe which was necrotic with black eschar. The patient was seen in consultation by Dr. Deal, who did not feel that the second toe needed emergent surgery and was unlikely to be the source of this severe sepsis and it was more of a tri gangrene. He was seen in consultation by Dr. Maguire, Orthopedic Surgery for evaluation of his left shoulder pain and effusion, who recommended that Interventional Radiology drain the joint to see it was infected or it was just a tendon tear. There was an attempt done by Interventional Radiology to drain the joint effusion, but there was not enough fluid. He was treated for right second metacarpophalangeal joint inflammation and swelling with redness with IV Solu-Medrol 40 mg IV Q12 hours 05/10-05/17 with no improvement for possible gout/ pseudogout. The right metacarpophalangeal joint is still very swollen and red. He was also treated for congestive heart failure with Lasix. He has a Mejia catheter which was placed on admission to the ICU. COVID-19 was negative. Initially he was treated with Ceftriaxone and Vancomycin and then switched to Cefazolin, currently at a dose of 2 grams IV q. 8 hours. Blood cultures on 05/11 and 05/12 were both negative. 05/08 blood cultures were positive for MSSA and Group A strep. The patient had temperatures of 101.5 for a couple of dayson admission, he has not had any fever for over 8 days. Echocardiogram showed a right aortic cusp vegetation 1.5 by 0.5 cm, ejection fraction of 65%. PAST MEDICAL HISTORY: The patient's past medical history is significant for: 1. CVA. 2. Atrial fibrillation. 3. Prostate cancer. 4. Hypertension. 5. History of aortic regurgitation. 6. Hypothyroidism. 7. Mild cognitive impairment. 8. History of E-coli and Klebsiella bacteremia 09/2019. 9. Anxiety. 10. Hypertension. 11. Chronic kidney disease. PAST SURGICAL HISTORY: The patient's past surgical history is significant for: 1. Left knee surgery. 2. Left leg angiogram. 3. Posterior tibial and perineal angioplasty with improved 2-vessel runoff of the left foot done by Dr. Moss on 01/03/20. ALLERGIES: Prednisone. MEDICATIONS: 1. Lansoprazole 30 mg p.o. daily. 2. Amlodipine 10 mg p.o. daily. 3. Levothyroxine 75 mcg daily. 4. Cymbalta 30 mg p.o. q. h.s. 5. Eliquis 2.5 mg p.o. twice daily. 6. Aspirin 325 mg daily. 7. Atenolol 50 mg twice daily. 8. Stelara substitute p.r.n. 9. Cefazolin 2 grams IV q. 8 hours. 10. Morphine 2 mg IV q. 3 p.r.n. 11. Tylenol 650 mg q. 4 p.r.n. 12. Xopenex 1.25 q. 2 p.r.n. LABORATORY DATA: White count 13.3, hemoglobin 10.5, hematocrit 33.4, platelets 277, ESR was 70 on 05/14, down from 106 on 05/10. Sodium 144, potassium 3.6, chloride 114, bicarbonate 24, BUN 31, creatinine 0.9, glucose 59, calcium 7.5, CRP 4.95. MRSA screen was not detected. Labs 05/07: COVID-19 was negative. Blood culture 05/08 MSSA and Group A strep. Sputum culture on 05/08 had MSSA. Left foot culture has Group A strep with staph coag negative. Foot cultures on 05/11 and 05/12 no growth after 5 days. IMAGING DATA: Shoulder MRI shows a left large joint effusion with diffuse swelling, moderate hypertrophic degenerative changes, moderate chondromalacia, complete tears of supraspinatus and infraspinatus tendons and partial tears of subscapularis tendon. IR Attempted drainage of the joint effusion failed by Radiology as there was not enough fluid. Head CT showed no acute intracranial abnormality. Hand x-ray 05/10 showed advanced osteoarthritic changes with no obvious fracture or dislocation. Chest CT 05/08 no focal bronchial consolidation, nonspecific bilateral dependent atelectasis, pulmonary hypertension and cardiomegaly. Echocardiogram shows a large vegetation compared to 09/18/2019 which measures 1.8 by 0.5 cm, severe mitral annular calcification, mild mitral regurgitation, mild aortic regurgitation. PHYSICAL EXAMINATION: GENERAL APPEARANCE: A pleasant, elderly gentleman, confused but in no acute distress. VITAL SIGNS: Temperature is 97.9, pulse 63, respirations 18, blood pressure 129/61, O2 sat 97% on room air. HEART: Normal, S1, S2 with a systolic ejection murmur 2/6 best heard at the left upper sternal border. LUNGS: Clear. No rales, rhonchi or wheezes. ABDOMEN: Soft, nontender, no hepatosplenomegaly. BACK: No CVA or lumbosacral tenderness. EXTREMITIES: Trace edema. No clubbing or cyanosis. Left second toe is necrotic, black, painful to touch with serosanguinous discharge. He has a left heel decubitus ulcer on the left side with a mild black necrotic eschar measuring about 2 cm. The ulcer measures about 4 cm. MUSCULOSKELETAL : Right metacarpophalangeal joint swollen, red, tender touch with limited range of motion of the second finger. Left elbow has a pressure ulcer. Right shoulder normal range of motion. Left shoulder not able to elevate it due to severe pain. He has peripheral IV in his upper biceps on the right side in his right forearm that are not swollen or tender to touch. SKIN: Diffuse multiple scabs which look like healing papules with scars and eschars. Not sure the etiology of those lesions. There are multiple on his thighs and legs. Left knee healed scar. NEUROLOGIC: The patient moves both lower extremities but states he is not able to walk due to some injury for many years. IMPRESSION: An 89-year-old gentleman with aortic valve endocarditis, bacteremia with Group A strep and MSSA most likely of skin origin. Probably those skin pustules, probably the portal of entry could be the second toe. The patient has also evidence of an metacarpophalangeal joint septic joint on the right hand which has not resolved after a 7-day course of steroids which makes it very unlikely that this is gout or pseudogout and more likely that it is infectious in nature. His left shoulder effusion could be related to a traumatic injury and multiple tendon tears and not massively infectious. States there was an attempt to draining that fluid but that it could not be done in Interventional Radiology by Laura Muse. PLAN: 1. PICC line will be inserted for IV antibiotics. The patient will need 6 weeks of IV Cefazolin, 2 grams every 8 hours from negative cultures. The first negative culture was 05/11 and end of therapy will be June 22, 2020. 2. Discontinue Mejia catheter - The patient had the Mejia catheter inserted in the ICU. He does not need strict I.'s and O.'s at this point. 3. Consider Interventional Radiology aspiration at the metacarpophalangeal joint and if infected, re-consult Surgery. Whether he is a surgical candidate or not is a question. 4. With his large vegetation on his aortic valve, normally this would be a surgical indication but the patient is 89 years old, and this will be discussed with his sister. At this point this is the first couple of days that the patient has been awake enough to make some decisions for his health. Concern is that with the size of his vegetation, he is at very high risk of septic emboli to his brain and other strokes and also he is a very high risk case for surgery. 5. Poor nutrition with decubitus ulcer on his left heel please provide with heel boots, heel flow boots, consult Dr. Escobedo regarding wound care and provide with Ensure, one can twice daily between meals. The case has been discussed at length with Dr. Dmitry Christiansen, Hospitalist on the case, who agrees with the plan. FROYLAN
[2020-05-18] MEDS: **NOTE PATIENT COMMENT** MISC XX SCH (21:00)
[2020-05-18] MEDS: DULoxetine 30 MG CAP (CYMBALTA) PO SCH (21:20)
[2020-05-18 22:00] VITALS: BP 155/69
[2020-05-19] MEDS: ceFAZolin SOD 2 GM in IV 1 EA IV SCH ×3 (00:56→16:49)
[2020-05-19] MEDS: LEVALBUTEROL 1.25 MG/0.5 ML CONCENTRATE NEB NEB SCH ×5 (03:46→15:30)
[2020-05-19] MEDS: LEVOTHYROXINE 75MCG TABLET (0.075MG) PO SCH (05:24)
[2020-05-19] MEDS: MORPHINE 2 MG/ML 1ML VIAL (J2270) IV PRN (05:46)
[2020-05-19 06:00] VITALS: BP 149/77
[2020-05-19 07:14] LABS: HEMATOCRIT 34.8 % (42.0-52.0); HEMOGLOBIN 11.2 g/dl (13.5-17.5); MEAN CORPUSCULAR HEMOGLOBIN 30.2 pg (27.0-33.0); MEAN CORPUSCULAR HGB CONC 32.2 g/dl (32.0-36.5); MEAN CORPUSCULAR VOLUME 93.8 fl (80.0-96.0); PLATELET COUNT, AUTOMATED 282 10^3/uL (150-450); RED BLOOD COUNT 3.71 10^6/uL (4.30-6.10); WHITE BLOOD COUNT 11.5 10^3/uL (4.0-10.0)
[2020-05-19 07:32] LABS: BLOOD UREA NITROGEN 27 MG/DL (7-18); CALCIUM LEVEL 7.4 MG/DL (8.8-10.2); CARBON DIOXIDE LEVEL 26 MEQ/L (21-32); CHLORIDE LEVEL 110 MEQ/L (98-107); CREATININE FOR GFR 0.89 MG/DL (0.70-1.30); GLOMERULAR FILTRATION RATE > 60.0 (>35); GLUCOSE, FASTING 77 MG/DL (70-100); POTASSIUM SERUM 3.6 MEQ/L (3.5-5.1); SODIUM LEVEL 142 MEQ/L (136-145)
[2020-05-19] MEDS: LIDOCAINE 5% (LIDODERM) PATCH TD SCH (09:16)
[2020-05-19] MEDS: LANSOPRAZOLE SUSPENSION 30 MG/10 ML ORAL SYRINGE (FIRST-LANSOPRAZOLE) PO SCH (09:16)
[2020-05-19] MEDS: APIXABAN 2.5 MG TAB (ELIQUIS) PO SCH ×2 (09:17→21:36)
[2020-05-19] MEDS: amLODIPine 10 MG TAB PO SCH (09:17)
[2020-05-19] MEDS: ASPIRIN 325 MG TAB PO SCH (09:17)
[2020-05-19] MEDS: atenoloL 50 MG TAB PO SCH ×2 (09:18→21:38)
[2020-05-19] MEDS ORDERED: LIDOCAINE 1% MDV 20ML VIAL As Ordered ONE ×2 (09:23→09:32)
--- NOTE | 2020-05-19 11:28 | REP ---
INDICATION: SECOND FINGER OF R MCP JOINT EFFUSION TAP. Pre tap imaging. COMPARISON: None. TECHNIQUE: High-resolution scanning at the right 2nd MCP joint. FINDINGS: There is a small complex fluid collection at the dorsal aspect of the right 2nd MCP joint. This measures 1.8 x 0.5 x 1.1 cm. This will be targeted for ultrasound-guided aspiration. IMPRESSION: Small complex joint effusion 2nd MCP joint. <Electronically signed by Faisal Wilson > 05/19/20 1127
[2020-05-19] MEDS: CHLORHEXIDINE GLUCONATE 0.12 % 15ML UDC (PERIDEX ORAL RINSE) MT SCH ×2 (11:50→21:35)
[2020-05-19 12:30] LABS: SOURCE, BODY FLUID OTHER; SYNOVIAL FLUID COLOR RED (YELLOW)
--- NOTE | 2020-05-19 13:58 | IPNPDOC ---
Text Note Date of Service The patient was seen on 05/19/20. NOTE Subjective: No any acute events overnight. Patient alert and awake in the mo rning Objective: GENERAL APPEARANCE: NAD HEENT: no scleral icterus, no JVD, EOMI CARDIOVASCULAR: Irregularly irregular LUNGS: CTA ABDOMEN: soft & not tender w palpitation MUSCULOSKELETAL: Right hand swelling in the area of second carpometacarpal joint, Left calcaneal Stage III ulcer appears clean, no purulent drainage. Left shoulder movement severely limited in abduction and adduction. 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 Mild reduction in aortic cusp mobility. Mild aortic stenosis. Moderate aortic regurgitation. The patient will need 6 weeks of IV antibiotics from negative cultures. The first negative culture was 05/11 and end of therapy will be June 22, 2020. The patient will need IV Cefazolin, 2 grams every 8 hours Left rotator cuff injury Status post arthrocentesis Follow-up with orthopedic team in the outpatient settings Pain management Gout flare Right second carpometacarpal joint tenderness/swelling s/p methylprednisolone 40 mg IV daily for a total 7d Pain management 2nd left toe necrosis. Per podiatry, not likely cause of sepsis Podiatry (Dr. Deal) to follow to see if needs to be amputated. C/w abx, tylenol PRN Acute on chronic HFpEF with exacerbation and pulmonary HTN BNP 17K on admission, chronically elevated at [id number]. Has chronic LE edema, otherwise now on room air IM discussed case with Dr. Ricketts, Cardiology: No diuresis given recent sepsis. Acute hypoxic respiratory failure 2/2 sepsis with suspicion of PNA on admission. Resolved on room air Type 2 NSTEMI Most likely demand Troponin trended down Secondary to sepsis Discussed case with Cardiology, Dr. Ricketts. Patient would not be candidate for intervention in his current state and most likely type 2 Atrial fibrillation, new onset in the setting of aortic valve endocarditis and sepsis HR controlled c/w2.5mg eliquis BID Oropharyngeal dysfunction -Swallowing evaluation completed, now advanced to pureed diet #Acute DAKOTA on CKD Stage III 2/2 sepsis. Resolved. -Baseline Cr 1.2-1.6 -Monitor with daily labs CVA No new focal deficits Resume ASA, statin when taking PO Hypothyroidism synthroid GI px PPI DVT px -c/w 2.5mg eliquis Resolved issues: Hypotension likely 2/2 to dehydration and septic shock Hypomagnesemia Hypertensive urgency: resolved restarted home atenolol and added amlodipine 10mg daily VS,Fishbone, I+O VS, Fishbone, I+O Laboratory Tests 05/19/20 07:00 Vital Signs Date Time Temp Pulse Resp B/P (MAP) Pulse Ox O2 Delivery O2 Flow Rate FiO2 05/19/20 11:10 70 20 96 Room Air 05/19/20 09:45 98.1 05/19/20 09:18 150/77 05/15/20 00:26 0.5 21 I&O- Last 24 Hours up to 6 AM 05/19/20 06:00 Intake Total 590 ml Output Total 900 ml Balance -310 ml KATHY LUI DO May 19, 2020 13:58
[2020-05-19 14:00] VITALS: BP 153/78
[2020-05-19] MEDS ORDERED: POTASSIUM CHLORIDE 10 MEQ SR TABLET PO ONE (14:15)
[2020-05-19] MEDS ORDERED: KCL 10MEQ/100ML SWI (KRUN) 10 MEQ in IV 1 EA IV ONE (14:30)
[2020-05-19] MEDS ORDERED: SODIUM CHLORIDE 0.9% INJ 10 ML SYR IV PRN (14:45)
[2020-05-19 15:41] LABS: C REACTIVE PROTEIN QUANTITATIV 7.96 MG/DL (0.00-0.30)
--- NOTE | 2020-05-19 15:51 | IPN ---
PROGRESS NOTE DATE: 05/19/2020 Patient seen and examined at bedside. He is much more alert compared to previous examinations. He notes that he has pain in his foot, namely in his left heel. He states his toe does not seem to hurt him. Vital signs are reviewed. He remains afebrile. Labs are reviewed. White blood cell count is 11.5. Lower extremity examination: The dorsal and heel wounds are improved with minimal fibrotic tissue and necrotic tissue along the peripheries. The left 2nd toe is fully gangrenous and dry as well as the lateral aspect of the left hallux. ASSESSMENT: An 89-year-old male with heel ulceration, dorsal foot ulcerations, and left 2nd toe gangrene. PLAN: Continue current wound care. Patient specifically states he does not want any surgery at all. It was discussed that the 2nd toe is fully gangrenous without any viability and ultimately will need to be removed. This, however, is not emergent. It could be postponed until need arises. Need would be either further deterioration or infection. For now, I would continue keeping toe dry and clean with Betadine and strict offloading of the heel. Patient does see Dr. Escobedo outpatient. Recommend a telemedicine consultation with him regarding the heel and foot ulceration. FROYLAN
--- NOTE | 2020-05-19 16:38 | IPN ---
PROGRESS NOTE DATE: 05/19/2020 Mr. Jara is doing well. He asked to drink his Ensure and would like some ice chips. He was getting and nebulizer machine, but he has no wheezing. He has a mild cough. No shortness of breath. No fever or chills. He was seen in followup today with Dr. Deal and stated to him that he did not want any surgery on his 2nd toe in spite of it being gangrenous. He has had no fever or chills. He is alert, oriented, doing well. VITAL SIGNS: Temperature is 97.6, pulse 70, respirations 17, blood pressure 153/78, oxygen saturation 97% on room air. HEART: Normal S1, S2 with a holosystolic ejection murmur, 3/6, heard over left upper sternal border, lower sternal border, and apex. LUNGS: Clear. No wheezes, rales, or rhonchi. ABDOMEN: Soft, nontender. No hepatosplenomegaly EXTREMITIES: Trace edema, right big toe, erythematous, swollen. Left 2nd toe gangrenous, necrotic toe. Left heel with a pressure ulcer and small black eschar, about 2 cm over the ulcer. Right hand, 2nd metacarpophalangeal (MCP) joint swollen, erythematous. An attempt to aspiration done, radiology was done. EXTREMITIES: Ultrasound showed a 1.8 x 0.5 x 1.1 cm fluid collection that was sent for culture. Cell count could not be obtained because there was a blood clot. MUSCULOSKELETAL: Limited range of motion of the left shoulder. Patient was to able to move it. No adduction. Right shoulder abduction to 90 degrees. LABORATORY DATA: Sodium 142, potassium 3.6, chloride 110, bicarbonate 26, BUN 27, creatinine 0.89, glucose 77, calcium 7.4, CRP 7.96, increased from last one done 5 days ago, which was 4.95. White count 11.5, hemoglobin 11.2, hematocrit 34.8, platelets 282. 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 Patient needs 6 weeks of antibiotics with end of therapy planned for June 22. Ideally, the patient would need valve surgery, as he has a very large vegetation of 1.8 cm, but he would be a poor surgical candidate is not interested. 2. Right 2nd metacarpophalangeal (MCP) joint swollen, probably infectious in nature and not related to gout or pseudo gout. There was no improvement with Solu-Medrol. Aspiration was obtained. Culture may be negative at this point due to prolonged antibiotics. 3. Swollen right big toe. Probably this is gout. Patient may benefit from colchicine. 4. 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 Patient does not want surgery. 5. Pressure ulcer of the left calcaneus. Please offload and continue with OptiFoam and dressing changes. PLAN: Continue with intravenous (IV) cefazolin, 2 grams every 8 hours. End of therapy 06/22/2020. Monitor complete blood count (CBC), C-reactive protein (CRP), erythrocyte sedimentation rate (ESR), basic profile weekly. Consider followup consultation with Dr. Escobedo regarding pressure ulcer of the left heel. Colchicine 0.6 mg by mouth daily. See if that would help with gout of the right big toe. Discontinue nebulizer treatment. Patient does not have any wheezing and has been receiving levalbuterol every 4 hours around the clock.
[2020-05-19] MEDS: COLCHICINE 0.6 MG TABLET PO SCH (16:48)
[2020-05-19] MEDS: SODIUM CHLORIDE 0.9% INJ 10 ML SYR IV SCH (17:58)
--- NOTE | 2020-05-19 19:02 | REP ---
INDICATION: endocarditis. COMPARISON: None. TECHNIQUE: The procedure was performed under the direct supervision of Dr. Wilson. The risks and benefits of the procedure were explained to the patient and informed consent was obtained. The right basilic vein was localized using ultrasound guidance. The skin was prepped and draped in a sterile fashion. 2% lidocaine was used as a local anesthetic. Using ultrasound guidance the basilic vein was cannulated and a 0.018 guidewire was inserted and advanced to the SVC using fluoroscopic guidance. The needle was removed and a 4.5 [place] dilator and peel-away sheath was inserted over the guide wire. A 4.5 [place] single lumen catheter was cut to length of 42 cm. The dilator was removed and the catheter was inserted over the guide wire with the tip ending in the SVC. The peel-away sheath was removed and the catheter was flushed with heparinized saline as per Hospital protocol. The catheter was affixed to the skin and a sterile dressing was applied. The patient tolerated the procedure well and there were no immediate complications. 0.2 minutes of fluoro time was utilized for this procedure. FINDINGS: None IMPRESSION: Technically successful PICC line insertion right basilic vein. <Electronically signed by Bowen Gray > 05/19/20 [id number] <Electronically signed by Faisal Wilson > 05/19/20 [id number]
--- NOTE | 2020-05-19 19:02 | REP ---
INDICATION: second finger of R MCP joint effusion tap. COMPARISON: None. TECHNIQUE: The procedure was performed under the direct supervision of Dr. Wilson. The risks and benefits of the procedure were explained to the patient and informed consent was obtained. The right 2nd metacarpophalangeal joint was localized using ultrasound guidance. The skin was prepped and draped in a sterile fashion. 1% lidocaine was used as a local anesthetic. Using ultrasound guidance an 18 gauge needle was inserted and a few drops of red/beige colored aspirate was withdrawn and sent to the lab for analysis. The patient tolerated the procedure well and there were no immediate complications. FINDINGS: None IMPRESSION: Technically successful ultrasound guided right 2nd metacarpophalangeal joint aspiration yielding a few drops of red/beige colored aspirate <Electronically signed by Bowen Gray > 05/19/20 [id number] <Electronically signed by Faisal Wilson > 05/19/20 [id number]
[2020-05-19] MEDS: **NOTE PATIENT COMMENT** MISC XX SCH (21:00)
[2020-05-19] MEDS: DULoxetine 30 MG CAP (CYMBALTA) PO SCH (21:36)
[2020-05-19 22:00] VITALS: BP 125/64
[2020-05-20] MEDS: ceFAZolin SOD 2 GM in IV 1 EA IV SCH ×3 (00:34→16:11)
[2020-05-20 06:00] VITALS: BP 149/90
[2020-05-20] MEDS: SODIUM CHLORIDE 0.9% INJ 10 ML SYR IV SCH ×4 (06:00→18:00)
[2020-05-20] MEDS: LEVOTHYROXINE 75MCG TABLET (0.075MG) PO SCH (06:03)
[2020-05-20 07:27] LABS: HEMATOCRIT 37.6 % (42.0-52.0); HEMOGLOBIN 11.8 g/dl (13.5-17.5); MEAN CORPUSCULAR HEMOGLOBIN 29.8 pg (27.0-33.0); MEAN CORPUSCULAR HGB CONC 31.4 g/dl (32.0-36.5); MEAN CORPUSCULAR VOLUME 94.9 fl (80.0-96.0); PLATELET COUNT, AUTOMATED 298 10^3/uL (150-450); RED BLOOD COUNT 3.96 10^6/uL (4.30-6.10); WHITE BLOOD COUNT 9.6 10^3/uL (4.0-10.0)
[2020-05-20 07:47] LABS: BLOOD UREA NITROGEN 23 MG/DL (7-18); CARBON DIOXIDE LEVEL 27 MEQ/L (21-32); CHLORIDE LEVEL 109 MEQ/L (98-107); GLOMERULAR FILTRATION RATE > 60.0 (>35); GLUCOSE, FASTING 77 MG/DL (70-100); POTASSIUM SERUM 3.4 MEQ/L (3.5-5.1); SODIUM LEVEL 139 MEQ/L (136-145)
[2020-05-20] MEDS: LIDOCAINE 5% (LIDODERM) PATCH TD SCH (09:09)
[2020-05-20] MEDS: CHLORHEXIDINE GLUCONATE 0.12 % 15ML UDC (PERIDEX ORAL RINSE) MT SCH ×2 (09:09→21:15)
[2020-05-20] MEDS: APIXABAN 2.5 MG TAB (ELIQUIS) PO SCH ×2 (09:09→21:15)
[2020-05-20] MEDS: LANSOPRAZOLE SUSPENSION 30 MG/10 ML ORAL SYRINGE (FIRST-LANSOPRAZOLE) PO SCH (09:09)
[2020-05-20] MEDS: amLODIPine 10 MG TAB PO SCH (09:09)
[2020-05-20] MEDS: ASPIRIN 81 MG ENTERIC TAB PO SCH (09:10)
[2020-05-20] MEDS: COLCHICINE 0.6 MG TABLET PO SCH (09:10)
[2020-05-20] MEDS: atenoloL 50 MG TAB PO SCH ×2 (09:10→21:19)
--- NOTE | 2020-05-20 11:16 | IPNPDOC ---
Text Note Date of Service The patient was seen on 05/20/20. NOTE Subjective: Patient continues to improve. Patient alert and [facility] Objective: GENERAL APPEARANCE: NAD HEENT: no scleral icterus, no JVD, EOMI CARDIOVASCULAR: Irregularly irregular LUNGS: CTA ABDOMEN: soft & not tender w palpitation MUSCULOSKELETAL: Right hand swelling in the area of second carpometacarpal joint, Left calcaneal Stage III ulcer appears clean, no purulent drainage. Left shoulder movement severely limited in abduction and adduction. 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 Mild reduction in aortic cusp mobility. Mild aortic stenosis. Moderate aortic regurgitation. The patient will need 6 weeks of IV antibiotics from negative cultures. The first negative culture was 05/11 and end of therapy will be June 22, 2020. The patient will need IV Cefazolin, 2 grams every 8 hours Left rotator cuff injury Status post arthrocentesis Follow-up with orthopedic team in the outpatient settings Pain management Gout flare/ Right second carpometacarpal joint tenderness/swelling. Right second carpometacarpal joint tenderness/swelling. Gout flare versus infection. Await fluid aspiration result s/p methylprednisolone 40 mg IV daily for a total 7d Started colchicine 0.6 mg yesterday. Pain management 2nd left toe necrosis. Per podiatry, not likely cause of sepsis Patient denied amputation. Patient specifically states he does not want any surgery at all. It was discussed that the 2nd toe is fully gangrenous without any viability and ultimately will need to be removed. Appreciate/agree with wound care consult C/w abx, tylenol PRN continue keeping toe dry and clean with Betadine and strict offloading of the heel Acute on chronic HFpEF with exacerbation and pulmonary HTN BNP 17K on admission, chronically elevated at [id number]. Has chronic LE edema, otherwise now on room air IM discussed case with Dr. Ricketts, Cardiology: No diuresis given recent sepsis. Acute hypoxic respiratory failure 2/2 sepsis with suspicion of PNA on admission. Resolved on room air Type 2 NSTEMI Most likely demand Troponin trended down Secondary to sepsis Discussed case with Cardiology, Dr. Ricketts. Patient would not be candidate for intervention in his current state and most likely type 2 Atrial fibrillation, new onset in the setting of aortic valve endocarditis and sepsis HR controlled c/w2.5mg eliquis BID Oropharyngeal dysfunction Swallowing evaluation completed, now advanced to pureed diet #Acute [place] on CKD Stage III 2/2 sepsis. Resolved. Baseline Cr 1.2-1.6 Monitor with daily labs CVA No new focal deficits Resume ASA, statin when taking PO Hypothyroidism synthroid GI px PPI DVT px -c/w 2.5mg eliquis Resolved issues: Hypotension likely 2/2 to dehydration and septic shock Hypomagnesemia Hypertensive urgency: resolved restarted home atenolol and added amlodipine 10mg daily VS,Fishbone, I+O VS, Fishbone, I+O Laboratory Tests 05/20/20 07:04 Vital Signs Date Time Temp Pulse Resp B/P (MAP) Pulse Ox O2 Delivery O2 Flow Rate FiO2 05/20/20 09:10 66 162/77 05/20/20 06:00 97.5 18 100 Room Air 05/15/20 00:26 0.5 21 I&O- Last 24 Hours up to 6 AM 05/20/20 06:00 Intake Total 710 ml Output Total 600 ml Balance 110 ml KATHY LUI DO May 20, 2020 11:16
[2020-05-20 13:33] VITALS: BP 156/73
[2020-05-20] MEDS ORDERED: LIDOCAINE 1% MDV 20ML VIAL As Ordered ONE (14:31)
[2020-05-20] MEDS ORDERED: SODIUM CHLORIDE 0.9% INJ 10 ML SYR IV PRN (18:00)
--- NOTE | 2020-05-20 21:05 | REP ---
INDICATION: new PICC; pt pulled out last night. COMPARISON: None. TECHNIQUE: The procedure was performed under the direct supervision of Dr. Wilson. The risks and benefits of the procedure were explained and informed consent was obtained by the healthcare proxy. The right basilic vein was localized using ultrasound guidance. The skin was prepped and draped in a sterile fashion. 2% lidocaine was used as a local anesthetic. Using ultrasound guidance the basilic vein was cannulated and a 0.018 guidewire was inserted and advanced to the SVC using fluoroscopic guidance. The needle was removed and a 4.5 [place] dilator and peel-away sheath was inserted over the guide wire. A 4.5 [place] single lumen catheter was cut to length of 42 cm. The dilator was removed and the catheter was inserted over the guide wire with the tip ending in the SVC. The peel-away sheath was removed and the catheter was flushed with heparinized saline as per Hospital protocol. The catheter was affixed to the skin and a sterile dressing was applied. The patient tolerated the procedure well and there were no immediate complications. 0.5 minutes of fluoro time was utilized for this procedure. FINDINGS: None IMPRESSION: PICC line insertion right basilic vein. <Electronically signed by Bowen Gray > 05/20/20 1701 <Electronically signed by Faisal Wilson > 05/20/20 [id number]
[2020-05-20] MEDS: DULoxetine 30 MG CAP (CYMBALTA) PO SCH (21:15)
[2020-05-20] MEDS: **NOTE PATIENT COMMENT** MISC XX SCH (21:19)
[2020-05-20 22:00] VITALS: BP 152/73
[2020-05-21] MEDS: ceFAZolin SOD 2 GM in IV 1 EA IV SCH ×3 (01:33→17:34)
[2020-05-21] MEDS: LEVOTHYROXINE 75MCG TABLET (0.075MG) PO SCH (05:36)
[2020-05-21] MEDS: SODIUM CHLORIDE 0.9% INJ 10 ML SYR IV SCH ×2 (05:36→17:34)
[2020-05-21 06:00] VITALS: BP 166/84
[2020-05-21 06:03] LABS: HEMATOCRIT 34.7 % (42.0-52.0); HEMOGLOBIN 11.3 g/dl (13.5-17.5); MEAN CORPUSCULAR HEMOGLOBIN 30.6 pg (27.0-33.0); MEAN CORPUSCULAR HGB CONC 32.6 g/dl (32.0-36.5); PLATELET COUNT, AUTOMATED 314 10^3/uL (150-450); RED BLOOD COUNT 3.69 10^6/uL (4.30-6.10); WHITE BLOOD COUNT 8.9 10^3/uL (4.0-10.0)
[2020-05-21 06:27] LABS: BLOOD UREA NITROGEN 21 MG/DL (7-18); CALCIUM LEVEL 7.9 MG/DL (8.8-10.2); CARBON DIOXIDE LEVEL 28 MEQ/L (21-32); CHLORIDE LEVEL 107 MEQ/L (98-107); CREATININE FOR GFR 0.91 MG/DL (0.70-1.30); GLOMERULAR FILTRATION RATE > 60.0 (>35); GLUCOSE, FASTING 93 MG/DL (70-100); POTASSIUM SERUM 4.2 MEQ/L (3.5-5.1); SODIUM LEVEL 140 MEQ/L (136-145)
[2020-05-21] MEDS: LANSOPRAZOLE SUSPENSION 30 MG/10 ML ORAL SYRINGE (FIRST-LANSOPRAZOLE) PO SCH (10:01)
[2020-05-21] MEDS: CHLORHEXIDINE GLUCONATE 0.12 % 15ML UDC (PERIDEX ORAL RINSE) MT SCH ×2 (10:01→20:54)
[2020-05-21] MEDS: APIXABAN 2.5 MG TAB (ELIQUIS) PO SCH ×2 (10:02→20:54)
[2020-05-21] MEDS: LIDOCAINE 5% (LIDODERM) PATCH TD SCH (10:02)
[2020-05-21] MEDS: ASPIRIN 81 MG ENTERIC TAB PO SCH (10:02)
[2020-05-21] MEDS: COLCHICINE 0.6 MG TABLET PO SCH (10:02)
[2020-05-21] MEDS: amLODIPine 10 MG TAB PO SCH (10:11)
[2020-05-21] MEDS: atenoloL 50 MG TAB PO SCH ×2 (10:11→20:54)
--- NOTE | 2020-05-21 13:09 | IPNPDOC ---
Text Note Date of Service The patient was seen on 05/21/20. NOTE Subjective: No any acute events overnight. Patient denies fever, chills, nausea, diarrhea or dysuria Objective: GENERAL APPEARANCE: NAD HEENT: no scleral icterus, no JVD, EOMI CARDIOVASCULAR: Irregularly irregular LUNGS: CTA ABDOMEN: soft & not tender w palpitation MUSCULOSKELETAL: Right hand swelling in the area of second carpometacarpal joint, Left calcaneal Stage III ulcer appears clean, no purulent drainage. Left shoulder movement severely limited in abduction and adduction. 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 Mild reduction in aortic cusp mobility. Mild aortic stenosis. Moderate aortic regurgitation. The patient will need 6 weeks of IV antibiotics from negative cultures. The first negative culture was 05/11 and end of therapy will be June 22, 2020. The patient will need IV Cefazolin, 2 grams every 8 hours Left rotator cuff injury Status post arthrocentesis Follow-up with orthopedic team in the outpatient settings Pain management Gout flare/ Right second carpometacarpal joint tenderness/swelling. Right second carpometacarpal joint tenderness/swelling. Gout flare versus infection. fluid aspiration result negative s/p methylprednisolone 40 mg IV daily for a total 7d Started colchicine 0.6 mg Pain management 2nd left toe necrosis. Per podiatry, not likely cause of sepsis Patient denied amputation. Patient specifically states he does not want any surgery at all. It was discussed that the 2nd toe is fully gangrenous without any viability and ultimately will need to be removed. wound care consult in the outpatient settings C/w abx, tylenol PRN continue keeping toe dry and clean with Betadine and strict offloading of the heel Acute on chronic HFpEF with exacerbation and pulmonary HTN BNP 17K on admission, chronically elevated at [id number]. Has chronic LE edema, otherwise now on room air IM discussed case with Dr. Ricketts, Cardiology: No diuresis given recent sepsis. Acute hypoxic respiratory failure 2/2 sepsis with suspicion of PNA on admission. Resolved on room air Type 2 NSTEMI Most likely demand Troponin trended down Secondary to sepsis Discussed case with Cardiology, Dr. Ricketts. Patient would not be candidate for intervention in his current state and most likely type 2 Atrial fibrillation, new onset in the setting of aortic valve endocarditis and sepsis HR controlled c/w2.5mg eliquis BID Oropharyngeal dysfunction Swallowing evaluation completed, now advanced to pureed diet #Acute [place] on CKD Stage III 2/2 sepsis. Resolved. Baseline Cr 1.2-1.6 Monitor with daily labs CVA No new focal deficits Resume ASA, statin when taking PO Hypothyroidism synthroid GI px PPI DVT px -c/w 2.5mg eliquis Resolved issues: Hypotension likely 2/2 to dehydration and septic shock Hypomagnesemia Hypertensive urgency: resolved restarted home atenolol and added amlodipine 10mg daily VS,Fishbone, I+O VS, Fishbone, I+O Laboratory Tests 05/21/20 05:52 Vital Signs Date Time Temp Pulse Resp B/P (MAP) Pulse Ox O2 Delivery O2 Flow Rate FiO2 05/21/20 10:11 88 142/60 05/21/20 06:00 97.1 18 97 05/20/20 22:00 Room Air 05/15/20 00:26 0.5 21 I&O- Last 24 Hours up to 6 AM 05/21/20 06:00 Intake Total 100 ml Output Total 0 ml Balance 100 ml KATYH LUI DO May 21, 2020 13:09
[2020-05-21 13:28] VITALS: BP 139/65
[2020-05-21 17:32] VITALS: BP 130/79
[2020-05-21] MEDS: **NOTE PATIENT COMMENT** MISC XX SCH (20:54)
[2020-05-21] MEDS: DULoxetine 30 MG CAP (CYMBALTA) PO SCH (20:54)
[2020-05-21 22:00] VITALS: BP 133/70
[2020-05-22] MEDS: ceFAZolin SOD 2 GM in IV 1 EA IV SCH ×2 (01:46→08:13)
[2020-05-22] MEDS: LEVOTHYROXINE 75MCG TABLET (0.075MG) PO SCH (05:35)
[2020-05-22] MEDS: SODIUM CHLORIDE 0.9% INJ 10 ML SYR IV SCH (05:36)
[2020-05-22 06:00] VITALS: BP 155/84
[2020-05-22 06:50] LABS: HEMATOCRIT 34.5 % (42.0-52.0); HEMOGLOBIN 11.1 g/dl (13.5-17.5); MEAN CORPUSCULAR HEMOGLOBIN 30.2 pg (27.0-33.0); MEAN CORPUSCULAR HGB CONC 32.2 g/dl (32.0-36.5); PLATELET COUNT, AUTOMATED 321 10^3/uL (150-450); RED BLOOD COUNT 3.67 10^6/uL (4.30-6.10); WHITE BLOOD COUNT 7.3 10^3/uL (4.0-10.0)
[2020-05-22 07:14] LABS: BLOOD UREA NITROGEN 20 MG/DL (7-18); CALCIUM LEVEL 7.3 MG/DL (8.8-10.2); CARBON DIOXIDE LEVEL 29 MEQ/L (21-32); CHLORIDE LEVEL 105 MEQ/L (98-107); CREATININE FOR GFR 0.82 MG/DL (0.70-1.30); GLOMERULAR FILTRATION RATE > 60.0 (>35); GLUCOSE, FASTING 73 MG/DL (70-100); POTASSIUM SERUM 3.7 MEQ/L (3.5-5.1); SODIUM LEVEL 139 MEQ/L (136-145)
[2020-05-22] MEDS ORDERED: COLC0.6T47 PO (08:02)
[2020-05-22] MEDS ORDERED: ASPI81TAEC PO (08:04)
[2020-05-22 08:13] VITALS: BP 152/83
[2020-05-22] MEDS: ASPIRIN 81 MG ENTERIC TAB PO SCH (08:13)
[2020-05-22] MEDS: amLODIPine 10 MG TAB PO SCH (08:13)
[2020-05-22] MEDS: APIXABAN 2.5 MG TAB (ELIQUIS) PO SCH (08:13)
[2020-05-22] MEDS: atenoloL 50 MG TAB PO SCH (08:13)
[2020-05-22] MEDS: LIDOCAINE 5% (LIDODERM) PATCH TD SCH (08:14)
[2020-05-22] MEDS: CHLORHEXIDINE GLUCONATE 0.12 % 15ML UDC (PERIDEX ORAL RINSE) MT SCH (08:14)
[2020-05-22] MEDS: LANSOPRAZOLE SUSPENSION 30 MG/10 ML ORAL SYRINGE (FIRST-LANSOPRAZOLE) PO SCH (08:14)
[2020-05-22] MEDS: COLCHICINE 0.6 MG TABLET PO SCH (08:14)
[2020-05-22] MEDS ORDERED: ACETAMINOPHEN TAB 650MG DOSE (2X325MG) PO ONE (09:30)
--- NOTE | 2020-05-22 17:21 | DS.PDOC ---
Discharge Summary General Date of Admission May 08, 2020 at 13:04 Date of Discharge 05/22/20 Discharge Summary PROCEDURES PERFORMED DURING STAY: [None]. ADMITTING DIAGNOSES: Sepsis Left rotator cuff injury 2nd left toe necrosis. 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 HISTORY OF PRESENT ILLNESS: 89 y/o M with new onset atrial fibrillation, CVA, HTN, AR, CKD, hypomagnesemia, hypothyroidism, mild cognitive impairment/dementia admitted to the ICU for acute hypoxic respiratory failure and found to have MSSA and GAS bacteremia with aortic valve endocarditis with acute on chronic HFpEF and acute hypoxemic respiratory failure with bacteremia source most likely 2/2 soft tissue infection with gangrenous toe, L shoulder pain with torn cuff with effusion as well on MRI HOSPITAL COURSE: During hospital stay following issues resolved Sepsis Secondary to MSSA and GAS bacteremia, aortic valve endocarditis Blood culture positive for MSSA, strep pyogenes Echo showed Severe focal thickening and focal calcific deposits of a 3-cusp aortic valve. Mild reduction in aortic cusp mobility. Mild aortic stenosis. Moderate aortic regurgitation. The patient will need 6 weeks of IV antibiotics from negative cultures. The first negative culture was 05/11 and end of therapy will be June 22, 2020. The patient will need IV Cefazolin, 2 grams every 8 hours Left rotator cuff injury Status post arthrocentesis Follow-up with orthopedic team in the outpatient settings Pain management Gout flare/ Right second carpometacarpal joint tenderness/swelling. Right second carpometacarpal joint tenderness/swelling. Gout flare versus infection. fluid aspiration result negative s/p methylprednisolone 40 mg IV daily for a total 7d Started colchicine 0.6 mg Pain management 2nd left toe necrosis. Per podiatry, not likely cause of sepsis Patient denied amputation. Patient specifically states he does not want any surgery at all. It was discussed that the 2nd toe is fully gangrenous without any viability and ultimately will need to be removed. wound care consult in the outpatient settings C/w abx, tylenol PRN continue keeping toe dry and clean with Betadine and strict offloading of the heel Acute on chronic HFpEF with exacerbation and pulmonary HTN BNP 17K on admission, chronically elevated at [id number]. Has chronic LE edema, otherwise now on room air IM discussed case with Dr. Ricketts, Cardiology: No diuresis given recent sepsis. Acute hypoxic respiratory failure 2/2 sepsis with suspicion of PNA on admission. Resolved on room air Type 2 NSTEMI Most likely demand Troponin trended down Secondary to sepsis Discussed case with Cardiology, Dr. Ricketts. Patient would not be candidate for intervention in his current state and most likely type 2 Atrial fibrillation, new onset in the setting of aortic valve endocarditis and sepsis HR controlled c/w2.5mg eliquis BID Oropharyngeal dysfunction Swallowing evaluation completed, now advanced to pureed diet #Acute DAKOTA on CKD Stage III 2/2 sepsis. Resolved. Baseline Cr 1.2-1.6 Monitor with daily labs CVA No new focal deficits Resume ASA, statin when taking PO Hypothyroidism synthroid GI px PPI DVT px -c/w 2.5mg eliquis Resolved issues: Hypotension likely 2/2 to dehydration and septic shock Hypomagnesemia Hypertensive urgency: resolved restarted home atenolol and added amlodipine 10mg daily DISCHARGE MEDICATIONS: Please see below. ALLERGIES: Please see below. PHYSICAL EXAMINATION ON DISCHARGE: VITAL SIGNS: Please see below. GENERAL APPEARANCE: NAD HEENT: no scleral icterus, no JVD, EOMI CARDIOVASCULAR: Irregularly irregular LUNGS: CTA ABDOMEN: soft & not tender w palpitation MUSCULOSKELETAL: Right hand swelling in the area of second carpometacarpal joint, Left calcaneal Stage III ulcer appears clean, no purulent drainage. Left shoulder movement severely limited in abduction and adduction. INTEGUMENT: no generalized palor NEUROLOGICAL: cranial nerve function from 2-12 intact intact, follows commands, speech not dysarthric LABORATORY DATA: Please see below. IMAGING: [facility] NAME: CODY GONZALEZ Candelario : 1930 MEDICAL REC #: [id number] ROOM: ICU ACCOUNT: [id number] ORDERING DOCTOR: Sonam Dutton MD PATIENT STATUS: ADM IN DICTATING DOCTOR: Kaden Robles MD [facility] REPORT #: [id number] cc: [~ rep ct ivnm] ECHOCARDIOGRAM-DOPPLER REPORT Printed: [~ rep prt dt last] [~ rep prt tm last] Page 2 of [address] [address] ECHOCARDIOGRAM-DOPPLER REPORT ECHOCARDIOGRAM-DOPPLER REPORT Printed: [~ rep prt dt last] [~ rep prt tm last] Page 1 of 1 Age: 89 Gender: Male Height: 173 cm Weight: 87 kg REFERRING PHYSICIAN: Dr. Sonam Dutton. INDICATION: Endocarditis, bacteremia. MEASUREMENTS: 2D Measurements: Left atrium 3.1 cm Aortic root 3.7 cm Intraventricular septum 1.34 cm Posterior wall 1.23 cm Left ventricle diastole 4.9 cm Aortic annulus 1.9 cm Proximal ascending aorta 3.6 cm Inferior vena cava 1.9 cm Doppler Measurements: Mild aortic stenosis Mild aortic regurgitation Peak aortic valve velocity 268 cm/s Peak aortic valve gradient 29 mmHg Mean aortic valve gradient 18 mmHg Aortic valve VTI 41.5 cm Aortic valve velocity 99.9 cm/s LVOT VTI 16.1 cm Very mild mitral regurgitation No mitral stenosis Mild tricuspid regurgitation Estimated right ventricle systolic pressure 35-40 mmHg No pulmonic regurgitation Pulmonary artery acceleration time 98 msec DESCRIPTION: Rhythm appeared to be atrial fibrillation with mildly rapid ventricular response. Image quality was fair. This was a 2D, M-mode, color flow Doppler, and pulsed wave Doppler examination including mitral annular tissue Doppler. CONCLUSIONS: 1. Severe focal thickening and focal calcific deposits of a 3-cuspid aortic valve. Mild aortic stenosis. Mild aortic regurgitation. 2. Large vegetation involving the right aortic cusp, which measured 1.8 cm x 0.5 cm. 3. Severe mitral annular calcification. Very mild mitral regurgitation. No mitral stenosis. 4. Mild concentric left ventricular hypertrophy. Normal regional left ventricular (LV) wall motion and wall thickening. Normal left ventricular (LV) systolic function. Left ventricular ejection fraction (LVEF) 65% by visual estimate. 5. Suggestive of mild elevation of estimated right ventricle systolic pressure. 6. Trace amount of pericardial effusion. DD: Kaden Robles MD [facility] 05/09/207 DT: ILIANA 05/11/20 0853 DS: ARYA 05/11/20 3721 <Electronically signed by Kaden Robles MD> 05/11/20 4555 DS2: [~ rep ct labl] PROGNOSIS: Poor ACTIVITY: [As tolerated]. DIET: Cardiac DISPOSITION:SNF ITEMS TO FOLLOWUP ON ON OUTPATIENT: Follow-up with PCP and calibration specialist in the outpatient settings DISCHARGE CONDITION: [Stable]. TIME SPENT ON DISCHARGE: Greater than 40 minutes. Vital Signs/I&Os Vital Signs Date Time Temp Pulse Resp B/P (MAP) Pulse Ox O2 Delivery O2 Flow Rate FiO2 05/22/20 08:13 76 152/83 05/22/20 06:00 98.0 20 96 05/21/20 17:32 Room Air I&O- Last 24 Hours up to 6 AM 05/22/20 06:00 Intake Total 450 ml Output Total 500 ml Balance -50 ml Laboratory Data Labs 24H Laboratory Tests 2 05/21/20 17:34: Bedside Glucose (Misc Panel) 70L 05/21/20 20:55: Bedside Glucose (Misc Panel) 79L 05/22/20 06:12: Nucleated Red Blood Cells % (auto) 0.0, Anion Gap 5L, Glomerular Filtration Rate > 60.0, Calcium Level 7.3L CBC/BMP Laboratory Tests 05/22/20 06:12 FSBS Laboratory Tests Test 05/21/20 17:34 05/21/20 20:55 Range/Units Bedside Glucose (Misc Panel) 70 79 83-110 MG/DL Microbiology Microbiology 05/19/20 Abscess Culture - Final, Complete 05/12/20 Blood Culture - Final, Complete NO GROWTH AFTER 5 DAYS Discharge Medications Scheduled Acetaminophen (Acetaminophen ER) 650 Mg Tablet.er, 650 MG PO Q8H, (Reported) 0600, 1400, 2200 Apixaban (Eliquis) 2.5 Mg Tablet, 2.5 MG PO BID, (Reported) Arginine/Glutamine/Calcium Bmb (Justice Packet) 1 Each Powd.pack, 1 POW PO BID, (R eported) WITH 8OZ OF LIQUID Aspirin (Aspirin EC) 81 Mg Tablet.dr, 81 MG PO DAILY Atenolol (Atenolol) 50 Mg Tablet, 50 MG PO BID, (Reported) Colchicine (Colchicine) 0.6 Mg Tablet, 0.6 MG PO DAILY Duloxetine Hcl (Cymbalta) 30 Mg Capsule.dr, 30 MG PO QHS, (Reported) Levothyroxine Sodium (Levo-T) 75 Mcg Tablet, 75 MCG PO DAILY, (Reported) Magnesium Oxide (Magnesium Oxide) 400 Mg Tablet, 400 MG PO QHS, (Reported) Metolazone (Metolazone) 2.5 Mg Tablet, 2.5 MG PO 3XW, (Reported) MONDAY, MONDAY AND MONDAY AT 0800 Multivitamins (Thera M Plus Tablet) 1 Each Tablet, 1 TAB PO DAILY, (Reported) [place]-3/Dha/Epa/Fish Oil (Fish Oil 1,000 mg Softgel) 1 Each Capsule, 1 CAP PO TID, (Reported) 0800, 1300, 1900 Phenol (Chloraseptic) 20 Ml [place], 2 SPRAYS PO TID, (Reported) 0900, 1300, 1900 Pramoxine HCl/Calamine (Aveeno Anti-Itch Lotion) 118 Ml Lotion, 1 DOSE TOP BID, (Reported) APPLY TO BOTH LEGS Scheduled PRN Acetaminophen (Tylenol) 325 Mg Tablet, 650 MG PO Q4H PRN for PAIN / FEVER, (Reported) Bisacodyl (Bisacodyl) 10 Mg Supp.rect, 10 MG [place] DAILY PRN for CONSTIPATION, (Reported) Magnesium Hydroxide (Milk of Magnesia) 400 Mg/5 Ml Oral.susp, 30 ML PO DAILY PRN for CONSTIPATION, (Reported) Methyl Salicylate/Menthol (Icy Hot Cream) 35.4 Gm Cream..g., 1 DOSE EXT BID PRN for PAIN, (Reported) APPLY TO LEFT SHOULDER Sodium Phosphate,[place]-Dibasic (Enema Thpyq-Ym-Fkq) 399 Ml Enema, 1 JOO [place] DAILY PRN for CONSTIPATION, (Reported) Allergies Coded Allergies: prednisone (Verified Allergy, Intermediate, rash, 09/17/19) KATHY LUI DO May 22, 2020 17:21
== END 2020-05-22 10:00 | disposition home or self-care (01) | DRG 871 ==
LOC: M ED 04:07 → M ED INP 13:04 → M ICU 15:13 → M PCU 05-13 16:25 → M MSPAV 05-17 13:35
PROVIDERS: ADMIT Internal Medicine; ATTEND Internal Medicine
PROC: 0R9 Upper Joints, Drainage (ICD-10-PCS; 2020-05-19)
PROC: 02HV33Z Insertion of Infusion Device into Superior Vena Cava, Percutaneous Approach (ICD-10-PCS; principal; 2020-05-19 09:45)
PROC: 02HV33Z Insertion of Infusion Device into Superior Vena Cava, Percutaneous Approach (ICD-10-PCS; 2020-05-20)
DX: A41.1 Sepsis due to other specified staphylococcus (principal); J96.01 Acute respiratory failure with hypoxia; I50.33 Acute on chronic diastolic (congestive) heart failure; I21.A1 Myocardial infarction type 2; I33.0 Acute and subacute infective endocarditis; R65.21 Severe sepsis with septic shock; I13.0 Hypertensive heart and chronic kidney disease with heart failure and stage 1 through stage 4 chronic kidney disease, or unspecified chronic kidney disease; N17.9 Acute kidney failure, unspecified; I70.262 Atherosclerosis of native arteries of extremities with gangrene, left leg; L97.524 Non-pressure chronic ulcer of other part of left foot with necrosis of bone; I27.20 Pulmonary hypertension, unspecified; I48.91 Unspecified atrial fibrillation; I35.1 Nonrheumatic aortic (valve) insufficiency; E83.42 Hypomagnesemia; E03.9 Hypothyroidism, unspecified; I70.244 Atherosclerosis of native arteries of left leg with ulceration of heel and midfoot; G31.84 Mild cognitive impairment of uncertain or unknown etiology; I16.0 Hypertensive urgency; F41.9 Anxiety disorder, unspecified; N18.30 Chronic kidney disease, stage 3 unspecified; Z86.73 Personal history of transient ischemic attack (TIA), and cerebral infarction without residual deficits; Z79.01 Long term (current) use of anticoagulants; Z79.82 Long term (current) use of aspirin; Z79.899 Other long term (current) drug therapy; Z88.8 Allergy status to other drugs, medicaments and biological substances; M25.461 Effusion, right knee; R13.12 Dysphagia, oropharyngeal phase; M75.122 Complete rotator cuff tear or rupture of left shoulder, not specified as traumatic; M25.412 Effusion, left shoulder; Z20.828 Contact with and (suspected) exposure to other viral communicable diseases; Z53.09 Procedure and treatment not carried out because of other contraindication

== ENCOUNTER → 2020-05-26 | Outpatient (REF) ==
[~2020-05-26] MED LIST changes: +ACET-907 PO; +ACET650T15 PO; +ASPI81TAEC PO; +CHLO1.4S2 PO; +COLC0.6T47 PO; +ELIQ2.5T PO; +ICYCRE EXT; +JUVEPOW3 PO; +PRAM118L3 TOP; +VITMTA PO
[2020-05-26 11:18] LABS: HEMATOCRIT 35.4 % (42.0-52.0); MEAN CORPUSCULAR HEMOGLOBIN 29.2 pg (27.0-33.0); MEAN CORPUSCULAR HGB CONC 31.1 g/dl (32.0-36.5); MEAN CORPUSCULAR VOLUME 93.9 fl (80.0-96.0); PLATELET COUNT, AUTOMATED 321 10^3/uL (150-450); RED BLOOD COUNT 3.77 10^6/uL (4.30-6.10); WHITE BLOOD COUNT 5.5 10^3/uL (4.0-10.0)
[2020-05-26 11:43] LABS: BLOOD UREA NITROGEN 32 MG/DL (7-18); C REACTIVE PROTEIN QUANTITATIV 6.52 MG/DL (0.00-0.30); CALCIUM LEVEL 7.8 MG/DL (8.8-10.2); CARBON DIOXIDE LEVEL 28 MEQ/L (21-32); CHLORIDE LEVEL 100 MEQ/L (98-107); CREATININE FOR GFR 1.05 MG/DL (0.70-1.30); GLOMERULAR FILTRATION RATE > 60.0 (>35); GLUCOSE, FASTING 97 MG/DL (70-100); POTASSIUM SERUM 3.8 MEQ/L (3.5-5.1); SODIUM LEVEL 132 MEQ/L (136-145)
[2020-05-26 11:48] LABS: ERYTHROCYTE SEDIMENTATION RATE 54 mm/hr (0-20)
== END ==
PROVIDERS: ATTEND Internal Medicine
DX: I38 Endocarditis, valve unspecified (principal)

== ENCOUNTER → 2020-05-31 | Outpatient (REF) ==
[~2020-05-31] MED LIST changes: +CEFA2SOL IV
== END ==
PROVIDERS: ATTEND Internal Medicine
DX: Z20.828 Contact with and (suspected) exposure to other viral communicable diseases (principal)

== ENCOUNTER → 2020-06-02 | Outpatient (REF) ==
[~2020-06-02] MED LIST changes: +ASPI1CHW3 PO; +OXYC1TAB23 PO
[2020-06-02 11:26] LABS: HEMATOCRIT 36.1 % (42.0-52.0); HEMOGLOBIN 11.3 g/dl (13.5-17.5); MEAN CORPUSCULAR HEMOGLOBIN 29.5 pg (27.0-33.0); MEAN CORPUSCULAR HGB CONC 31.3 g/dl (32.0-36.5); MEAN CORPUSCULAR VOLUME 94.3 fl (80.0-96.0); PLATELET COUNT, AUTOMATED 242 10^3/uL (150-450); RED BLOOD COUNT 3.83 10^6/uL (4.30-6.10); WHITE BLOOD COUNT 5.5 10^3/uL (4.0-10.0)
[2020-06-02 11:53] LABS: ERYTHROCYTE SEDIMENTATION RATE 53 mm/hr (0-20)
[2020-06-02 12:08] LABS: BLOOD UREA NITROGEN 41 MG/DL (7-18); C REACTIVE PROTEIN QUANTITATIV 3.91 MG/DL (0.00-0.30); CALCIUM LEVEL 7.9 MG/DL (8.8-10.2); CARBON DIOXIDE LEVEL 29 MEQ/L (21-32); CHLORIDE LEVEL 99 MEQ/L (98-107); CREATININE FOR GFR 1.21 MG/DL (0.70-1.30); GLOMERULAR FILTRATION RATE > 60.0 (>35); GLUCOSE, FASTING 118 MG/DL (70-100); POTASSIUM SERUM 4.1 MEQ/L (3.5-5.1); SODIUM LEVEL 135 MEQ/L (136-145)
== END ==
PROVIDERS: ATTEND Internal Medicine
DX: I38 Endocarditis, valve unspecified (principal)

== ENCOUNTER → 2020-06-03 | Outpatient (REF) | payer MEDICARE, MEDICAID | LOC: M LAB REF 15:58 | PROVIDERS: ATTEND Physician Assistant | DX: I96 Gangrene, not elsewhere classified (principal) ==

== ENCOUNTER 2020-06-04 04:06 | Emergency (ER) | payer MEDICARE, MEDICAID ==
[~2020-06-04 04:06] MED LIST changes: -ASPI1CHW3 PO; -ATEN25TA PO; -AUGM500T34 PO; -BACITAB PO; -CEFA2SOL IV; -CEPH500C PO; -DOXY100C PO; -ICYOIN TOP; -LISI40TA PO; +LISI40TA4 PO; -OXYC1TAB23 PO; -TRIA1OI TOP
[2020-06-04] MEDS ORDERED: CEFA2SOL IV (04:43)
[2020-06-04 06:33] LABS: RSV AMPLIFICATION NEGATIVE (NEGATIVE)
[2020-06-04] MEDS ORDERED: COLC0.6T47 PO (06:54)
[2020-06-04] MEDS ORDERED: OXYC1TAB23 PO (06:54)
[2020-06-04] MEDS ORDERED: MILKSUS3 PO (06:54)
[2020-06-04] MEDS ORDERED: ASPI1CHW3 PO (06:54)
[2020-06-04] MEDS ORDERED: ACET-907 PO (06:54)
[2020-06-04 14:05] VITALS: BP 179/79
--- NOTE | 2020-06-04 17:38 | REP ---
PROCEDURE NAME: PICC LINE INSERTION W/SITERITE CLINICAL INFORMATION: antibiotics. COMPARISON: None. PROCEDURE DESCRIPTION: The procedure was performed by ALLY Parker, under the direct supervision of Dr. Wilson. The risks and benefits of the procedure were explained to the patient and an informed consent was obtained both verbally and written. Directly prior to the start of the procedure a formal time-out was completed in the procedure room. The right basilic vein was localized using ultrasound guidance. The skin was prepped and draped in sterile fashion. Two mL of 1% lidocaine 10 mg/mL was used as a local anesthetic. Using ultrasound guidance the right basilic vein was cannulated, and a 0.018 guidewire was inserted and advanced to the level of SVC using fluoroscopic guidance. The needle was removed and a 5.5 [place] Islander dilator and peel-away sheath was inserted over the guidewire. A 5.5 [place] dual lumen catheter was cut to a length of 35 cm. The dilator was removed and the catheter was inserted over the guidewire with the tip ending at the level of the SVC. The peel-away sheath was removed and the catheter was flushed with heparinized saline as per hospital protocol. The catheter was affixed to the skin and a sterile dressing was applied. The patient tolerated the procedure well and there were no immediate complications. CONCLUSION: PICC line insertion into the right basilic vein. 0.9 minutes of fluoroscopy time was utilized for this procedure. Some fluoroscopic images are performed with last image hold technology. These images require no additional radiation. <Electronically signed by Laura Saba > 06/04/20 1702 <Electronically signed by Faisal Wilson > 06/04/20 [id number]
== END 2020-06-04 16:04 | disposition home or self-care (01) ==
LOC: M ED 04:06
DX: Z45.2 Encounter for adjustment and management of vascular access device (principal); T82.898A Other specified complication of vascular prosthetic devices, implants and grafts, initial encounter; X58.XXXA Exposure to other specified factors, initial encounter; Y92.89 Other specified places as the place of occurrence of the external cause; F03.90 Unspecified dementia, unspecified severity, without behavioral disturbance, psychotic disturbance, mood disturbance, and anxiety; Z88.8 Allergy status to other drugs, medicaments and biological substances
CPT/HCPCS: 36585; 76937; 87631; 99284; C1751; J1642; J1644

== ENCOUNTER → 2020-06-04 | Outpatient (REF) ==
[~2020-06-04] MED LIST changes: +ATEN25TA PO; +AUGM500T34 PO; +BACITAB PO; +CEPH500C PO; +DOXY100C PO; +ICYOIN TOP; +TRIA1OI TOP
== END ==
PROVIDERS: ATTEND Internal Medicine
DX: Z20.828 Contact with and (suspected) exposure to other viral communicable diseases (principal)

== ENCOUNTER → 2020-06-09 | Outpatient (REF) | payer MEDICARE, MEDICAID ==
[~2020-06-09] MED LIST changes: +ASPI1CHW3 PO; +CEFA2SOL IV; +LISI40TA PO; -LISI40TA4 PO; +OXYC1TAB23 PO
[2020-06-09 11:01] LABS: HEMATOCRIT 35.4 % (42.0-52.0); HEMOGLOBIN 10.9 g/dl (13.5-17.5); MEAN CORPUSCULAR HEMOGLOBIN 29.1 pg (27.0-33.0); MEAN CORPUSCULAR HGB CONC 30.8 g/dl (32.0-36.5); MEAN CORPUSCULAR VOLUME 94.7 fl (80.0-96.0); PLATELET COUNT, AUTOMATED 371 10^3/uL (150-450); RED BLOOD COUNT 3.74 10^6/uL (4.30-6.10); WHITE BLOOD COUNT 7.4 10^3/uL (4.0-10.0)
[2020-06-09 11:22] LABS: C REACTIVE PROTEIN QUANTITATIV 3.41 MG/DL (0.00-0.30); CALCIUM LEVEL 8.1 MG/DL (8.8-10.2); CREATININE FOR GFR 1.3 MG/DL (0.70-1.30); GLOMERULAR FILTRATION RATE 55.3 (>35)
[2020-06-09 11:25] LABS: ERYTHROCYTE SEDIMENTATION RATE 61 mm/hr (0-20)
== END ==
PROVIDERS: ATTEND Internal Medicine
DX: I38 Endocarditis, valve unspecified (principal)

== ENCOUNTER → 2020-06-10 | Outpatient (REF) ==
[~2020-06-10] MED LIST changes: +ATEN25TA PO; +AUGM500T34 PO; +BACITAB PO; +CEPH500C PO; +DOXY100C PO; +ICYOIN TOP; +TRIA1OI TOP
== END ==
PROVIDERS: ATTEND Internal Medicine
DX: Z20.828 Contact with and (suspected) exposure to other viral communicable diseases (principal)

== ENCOUNTER → 2020-06-16 | Outpatient (REF) | payer MEDICARE, MEDICAID ==
[~2020-06-16] MED LIST changes: -ATEN25TA PO; -AUGM500T34 PO; -BACITAB PO; -CEPH500C PO; -DOXY100C PO; -ICYOIN TOP; -TRIA1OI TOP
[2020-06-16 10:30] LABS: HEMATOCRIT 33.7 % (42.0-52.0); HEMOGLOBIN 10.3 g/dl (13.5-17.5); MEAN CORPUSCULAR HEMOGLOBIN 28.9 pg (27.0-33.0); MEAN CORPUSCULAR HGB CONC 30.6 g/dl (32.0-36.5); MEAN CORPUSCULAR VOLUME 94.7 fl (80.0-96.0); PLATELET COUNT, AUTOMATED 371 10^3/uL (150-450); RED BLOOD COUNT 3.56 10^6/uL (4.30-6.10); WHITE BLOOD COUNT 9.3 10^3/uL (4.0-10.0)
[2020-06-16 10:47] LABS: BLOOD UREA NITROGEN 55 MG/DL (7-18); C REACTIVE PROTEIN QUANTITATIV 6.24 MG/DL (0.00-0.30); CALCIUM LEVEL 8.6 MG/DL (8.8-10.2); CARBON DIOXIDE LEVEL 31 MEQ/L (21-32); CHLORIDE LEVEL 99 MEQ/L (98-107); CREATININE FOR GFR 1.14 MG/DL (0.70-1.30); GLOMERULAR FILTRATION RATE > 60.0 (>35); GLUCOSE, FASTING 102 MG/DL (70-100); POTASSIUM SERUM 4.2 MEQ/L (3.5-5.1); SODIUM LEVEL 136 MEQ/L (136-145)
[2020-06-16 10:59] LABS: ERYTHROCYTE SEDIMENTATION RATE 70 mm/hr (0-20)
== END ==
PROVIDERS: ATTEND Internal Medicine
DX: Z20.828 Contact with and (suspected) exposure to other viral communicable diseases (principal); I38 Endocarditis, valve unspecified
CPT/HCPCS: 36415; 80048; 85027; 85652; 86140; U0003

== ENCOUNTER → 2020-06-22 | Outpatient (REF) | payer MEDICARE, MEDICAID ==
[~2020-06-22] MED LIST changes: +ATEN25TA PO; +AUGM500T34 PO; +BACITAB PO; +CEPH500C PO; +DOXY100C PO; +ICYOIN TOP; +TRIA1OI TOP
== END ==
PROVIDERS: ATTEND Internal Medicine
DX: Z20.822 Contact with and (suspected) exposure to COVID-19 (principal)

== ENCOUNTER → 2020-06-23 | Outpatient (CLI) | payer MEDICARE, MEDICAID ==
[~2020-06-23] MED LIST changes: -ATEN25TA PO; -AUGM500T34 PO; -BACITAB PO; -CEPH500C PO; -DOXY100C PO; -ICYOIN TOP; -TRIA1OI TOP
--- NOTE | 2020-06-23 16:20 | REP ---
INDICATION: STAT VENOUS LEFT UPPER EXTREMITY. COMPARISON: None. TECHNIQUE: Real-time compression and duplex Doppler evaluation of left upper extremity deep vein system is performed. FINDINGS: The left jugular, subclavian, axillary and brachial veins are compressible and demonstrate normal internal venous flow and waveforms, with no evidence of intraluminal thrombus. Basilic and cephalic veins could not be visualized. Heterogeneous soft tissue mass in the upper arm is nonspecific, measuring 6.4 x 2.1 x 3.8 cm. IMPRESSION: No evidence of deep vein thrombosis left upper extremity. Non-specific heterogeneous soft tissue mass left upper arm. <Electronically signed by Javi Barfield > 06/23/20 [id number]
== END ==
LOC: M WHC 14:53
PROVIDERS: ATTEND Internal Medicine
DX: M79.622 Pain in left upper arm (principal)

== ENCOUNTER → 2020-06-23 | Outpatient (REF) | payer MEDICARE, MEDICAID | LOC: M PLALAB 16:54 | PROVIDERS: ATTEND Internal Medicine | DX: M79.622 Pain in left upper arm (principal) ==

== ENCOUNTER → 2020-06-24 | Outpatient (REF) | payer MEDICARE, MEDICAID ==
[~2020-06-24] MED LIST changes: +ATEN25TA PO; +AUGM500T34 PO; +BACITAB PO; +CEPH500C PO; +DOXY100C PO; +ICYOIN TOP
[2020-06-24 13:11] LABS: HEMATOCRIT 32.5 % (42.0-52.0); MEAN CORPUSCULAR HEMOGLOBIN 29.2 pg (27.0-33.0); MEAN CORPUSCULAR HGB CONC 30.8 g/dl (32.0-36.5); PLATELET COUNT, AUTOMATED 390 10^3/uL (150-450); RED BLOOD COUNT 3.42 10^6/uL (4.30-6.10); WHITE BLOOD COUNT 8.9 10^3/uL (4.0-10.0)
[2020-06-24 13:27] LABS: BLOOD UREA NITROGEN 47 MG/DL (7-18); C REACTIVE PROTEIN QUANTITATIV 7.66 MG/DL (0.00-0.30); CALCIUM LEVEL 8.8 MG/DL (8.8-10.2); CARBON DIOXIDE LEVEL 32 MEQ/L (21-32); CHLORIDE LEVEL 101 MEQ/L (98-107); CREATININE FOR GFR 1.03 MG/DL (0.70-1.30); GLOMERULAR FILTRATION RATE > 60.0 (>35); GLUCOSE, FASTING 132 MG/DL (70-100); POTASSIUM SERUM 4.3 MEQ/L (3.5-5.1); SODIUM LEVEL 136 MEQ/L (136-145)
[2020-06-24 13:45] LABS: ERYTHROCYTE SEDIMENTATION RATE 92 mm/hr (0-20)
== END ==
PROVIDERS: ATTEND Physician Assistant
DX: M79.622 Pain in left upper arm (principal)

== ENCOUNTER 2020-06-25 12:23 | Inpatient (IN) | payer MEDICARE, MEDICAID ==
[~2020-06-25] VITALS: Ht 172.7 cm; Wt 85.7 kg
[~2020-06-25 12:23] MED LIST changes: -ATEN25TA PO; -AUGM500T34 PO; -BACITAB PO; -CEPH500C PO; -DOXY100C PO; -ICYOIN TOP; -ISOVUE-370 76% 100ML VIAL As Ordered ONE; -LISI40TA PO; +LISI40TA4 PO
[2020-06-25] MEDS ORDERED: DOXY100C PO (13:06)
[2020-06-25] MEDS ORDERED: BACITAB PO (13:06)
[2020-06-25] MEDS ORDERED: AUGM500T34 PO (13:06)
[2020-06-25] MEDS ORDERED: ATEN25TA PO (13:06)
[2020-06-25] MEDS ORDERED: CEPH500C PO (13:06)
[2020-06-25] MEDS ORDERED: ICYOIN TOP (13:16)
[2020-06-25] MEDS ORDERED: ACETAMINOPHEN 325 MG TAB PO ONE (14:15)
[2020-06-25 15:03] LABS: BASO % 0.5 % (0.0-1.0); EOS # 0.7 10^3/uL (0.0-0.5); EOS % 8.6 % (0.0-3.0); HEMATOCRIT 32.2 % (42.0-52.0); HEMOGLOBIN 9.8 g/dl (13.5-17.5); LYMPH # 2.5 10^3/uL (1.5-5.0); LYMPH % 28.7 % (24.0-44.0); MEAN CORPUSCULAR HEMOGLOBIN 29.3 pg (27.0-33.0); MEAN CORPUSCULAR HGB CONC 30.4 g/dl (32.0-36.5); MEAN CORPUSCULAR VOLUME 96.4 fl (80.0-96.0); MONO # 0.8 10^3/uL (0.0-0.8); MONO % 9.2 % (0.0-5.0); NEUTROPHILS # 4.5 10^3/uL (1.5-8.5); NEUTROPHILS % 52.5 % (36.0-66.0); PLATELET COUNT, AUTOMATED 357 10^3/uL (150-450); RED BLOOD COUNT 3.34 10^6/uL (4.30-6.10); WHITE BLOOD COUNT 8.6 10^3/uL (4.0-10.0)
[2020-06-25 15:29] LABS: C REACTIVE PROTEIN QUANTITATIV 6.23 MG/DL (0.00-0.30); CALCIUM LEVEL 8.6 MG/DL (8.8-10.2); CREATININE FOR GFR 1.25 MG/DL (0.70-1.30); GLOMERULAR FILTRATION RATE 57.9 (>35); POTASSIUM SERUM 4.3 MEQ/L (3.5-5.1)
[2020-06-25 15:39] LABS: ERYTHROCYTE SEDIMENTATION RATE > 140 mm/hr (0-20)
[2020-06-25 15:54] LABS: INR 1.11; PROTHROMBIN TIME 14.5 SECONDS (12.5-14.3)
[2020-06-25 15:55] LABS: PARTIAL THROMBOPLASTIN TIME 46.1 SECONDS (24.2-38.5)
[2020-06-25] MEDS ORDERED: VANCOMYCIN HCL 1,500 MG in D5W 250 ML IV SCH (17:00)
[2020-06-25] MEDS ORDERED: LIDOCAINE 1% MDV 20ML VIAL IM ONE (17:00)
[2020-06-25] MEDS ORDERED: MOM 30ML SUSPENSION UDC PO PRN (17:15)
[2020-06-25] MEDS ORDERED: BISACODYL 10 MG SUPP PR PRN (17:15)
[2020-06-25] MEDS ORDERED: FLEET ENEMA PR PRN (17:15)
--- NOTE | 2020-06-25 17:25 | HPEPDOC ---
General Date of Admission 06/25/20 Date of Service: Jun 25, 2020 Chief Complaint The patient is a 89-year-old male admitted with a reason for visit of Arm Pain And Redness. Source: Patient Timing/Duration: Day(s) Severity: Moderate History of Present Illness Patient is 89 years old male with past medical history aortic valve endocar ditis, dementia, MSSA, gangrene of toe of left foot, atrial fibrillation, anxiety presented to the hospital with left shoulder and left elbow pain. Patient stated that he developed left shoulder pain with left elbow swelling and pain for past few days. Of note patient completed 6 weeks course of antibiotic therapy for endocarditis, patient was treated with cefazolin. In ER patient was found to have limited shoulder movement with mild swelling and significant left elbow swelling with surrounding erythema. CT of left extremity showed There is a large subacromial subdeltoid bursal effusion with evidence of synovitis.This is nonspecific. Septic bursitis cannot be excluded. There is myofascial edema and subcutaneous edema in the left upper extremity. No abscess or mass lesion is observed. No evidence of venous thrombosis or arterial occlusive disease seen. Home Medications Scheduled Acetaminophen (Acetaminophen ER) 650 Mg Tablet.er, 650 MG PO Q8H, (Reported) 0500/1300/2100 Amoxicillin/Potassium Clav (Augmentin 500-125 Tablet) 1 Each Tablet, 500 MG PO BID, (Reported) FOR 9 DAYS, START DATE 06/24/20 Apixaban (Eliquis) 2.5 Mg Tablet, 2.5 MG PO BID, (Reported) Arginine/Glutamine/Calcium Bmb (Justice Packet) 1 Each Powd.pack, 1 POW PO BID, (Reported) WITH 8OZ OF LIQUID Aspirin (Aspirin) 81 Mg Tab.chew, 81 MG PO DAILY, (Reported) Atenolol (Atenolol) 50 Mg Tablet, 50 MG PO QPM, (Reported) HOLD IF AP <60 SBP <100 Atenolol (Atenolol) 25 Mg Tablet, 25 MG PO DAILY, (Reported) HOLD IF AP <60 SBP <100 Cephalexin (Cephalexin) 500 Mg Capsule, 500 MG PO QID, (Reported) 0000/0600/1200/1800 Colchicine (Colchicine) 0.6 Mg Tablet, 0.6 MG PO DAILY, (Reported) Doxycycline Hyclate (Doxycycline Hyclate) 100 Mg Capsule, 100 MG PO BID, (Reported) FOR 9 DAYS, START DATE 06/24/20 Duloxetine Hcl (Cymbalta) 30 Mg Capsule.dr, 30 MG PO QPM, (Reported) L.acidoph/L.bulg/B.bif/S.therm (Bacid Caplet) 1 Each Tablet, 1 TAB PO BID, (Reported) Levothyroxine Sodium (Levo-T) 75 Mcg Tablet, 75 MCG PO QAM, (Reported) Magnesium Oxide (Magnesium Oxide) 400 Mg Tablet, 400 MG PO QPM, (Reported) Metolazone (Metolazone) 2.5 Mg Tablet, 2.5 MG PO 3XW, (Reported) MONDAY, MONDAY AND MONDAY AT 0800 Multivitamins (Thera M Plus Tablet) 1 Each Tablet, 1 TAB PO DAILY, (Reported) Scheduled PRN Acetaminophen (Tylenol) 325 Mg Tablet, 650 MG PO Q4H PRN for PAIN / FEVER, (Reported) Bisacodyl (Bisacodyl) 10 Mg Supp.rect, 10 MG [place] DAILY PRN for CONSTIPATION, (Reported) Magnesium Hydroxide (Milk of Magnesia) 400 Mg/5 Ml Oral.susp, 2,400 MG PO DAILY PRN for CONSTIPATION, (Reported) Methyl Salicylate/Menthol (Icy Hot [place]) 99.2 Gm Oint...g., 1 APLCT TOP BID PRN for PAIN, (Reported) APPLY TO LEFT SHOULDER Oxycodone HCl/Acetaminophen (Oxycodone-Acetaminophen 5-325) 1 Each Tablet, 1 TAB PO BID PRN for SEVERE PAIN (PS 8-10), (Reported) Sodium Phosphate,[place]-Dibasic (Enema Raplv-Gm-Sgp) 399 Ml Enema, 1 JOO [place] DAILY PRN for CONSTIPATION, (Reported) Allergies Coded Allergies: prednisone (Verified Allergy, Intermediate, rash, 09/17/19) Past Medical History Medical History ANXIETY DISORDER OSTEOARTHRITIS NICOTINE DEPENDENCE AFIB CKD BACTEREMIA HYPOTHYROIDISM VITAMIN D DEF. HYPERLIPIDEMIA SPINAL STENOSIS HX OF NEOPLASM PROSTATE CONTUSION LEFT FOOT Endocarditis with 2 cm regurgitation of aortic valve, dementia Surgical History NO SURGICAL HISTORY DOCUMENTED. Social History * Smoker: former Smoker Alcohol: Denies Drugs: denies A-FIB/CHADSVASC A-FIB History Current/History of A-Fib/PAF?: Yes Current PO Anticoag Therapy: Yes Review of Systems Constitutional: Reports: Chills Eyes: Denies: Pain, Vision change ENT: Denies: Head Aches Skin: Reports: Lesions, Breakdown Pulmonary: Denies: Dyspnea, Cough Cardiovascular: Denies: Chest Pain, Palpitations Gastrointestinal: Denies: Nausea, Vomiting Genitourinary: Denies: Dysuria Hematologic: Denies: Bruising Endocrine: Denies: Polydipsia, Polyphagia Musculoskeletal: Denies: Neck Pain Neurological: Denies: Weakness Psych: Reports: Mood Normal, Memory Issues Physical Examination General Exam: Positive: Alert, Cooperative Eye Exam: Positive: PERRLA ENT Exam: Positive: Atraumatic Neck Exam: Positive: Supple; Negative: JVD Chest Exam: Positive: Clear to auscultation Heart Exam: Positive: Irregular Rhythm Telemetry: Positive: Atrial fibrillation Abdomen Exam: Positive: Normal bowel sounds Extremity Exam: Positive: Clubbing, Tenderness (left shoulder, left elbow), Swelling (left shoulder and left elbow); Negative: Cyanosis Neuro Exam: Positive: Cranial Nerves 3-12 NL Psych Exam: Positive: Mental status NL Vital Signs Vital Signs Date Time Temp Pulse Resp B/P (MAP) Pulse Ox O2 Delivery O2 Flow Rate FiO2 06/25/20 12:56 97.7 62 20 130/84 (99) 99 Room Air Laboratory Data Labs 24H Laboratory Tests 2 06/25/20 14:47: Immature Granulocyte % (Auto) 0.5, Neutrophils (%) (Auto) 52.5, Lymphocytes (%) (Auto) 28.7, Monocytes (%) (Auto) 9.2H, Eosinophils (%) (Auto) 8.6H, Basophils (%) (Auto) 0.5, Neutrophils # (Auto) 4.5, Lymphocytes # (Auto) 2.5, Monocytes # (Auto) 0.8, Eosinophils # (Auto) 0.7H, Basophils # (Auto) 0.0, Nucleated Red Blood Cells % (auto) 0.0, Erythrocyte Sedimentation Rate > 140H, Prothrombin Time 14.5H, Prothromb Time International Ratio 1.11, Activated Partial Thromboplast Time 46.1H, Anion Gap 2L, Glomerular Filtration Rate 57.9, Calcium Level 8.6L, C-Reactive Protein, Quantitative 6.23H CBC/BMP Laboratory Tests 06/25/20 14:47 Microbiology Microbiology 06/25/20 Respiratory Virus Panel (PCR) ([facility]), Received Pending 06/25/20 Blood Culture, Received Pending 06/25/20 Blood Culture, Received Pending Assessment/Plan Patient is 89 years old male with past medical history aortic valve endocarditis, dementia, MSSA, gangrene of toe of left foot, atrial fibrillation, anxiety presented to the hospital with left shoulder and left elbow pain. Patient stated that he developed left shoulder pain with left elbow swelling and pain for past few days. Of note patient completed 6 weeks course of antibiotic therapy for endocarditis, patient was treated with cefazolin. In ER patient was found to have limited shoulder movement with mild swelling and significant left elbow swelling with surrounding erythema. CT of left extremity showed There is a large subacromial subdeltoid bursal effusion with evidence of synovitis.This is nonspecific. Septic bursitis cannot be excluded. There is myofascial edema and subcutaneous edema in the left upper extremity. No abscess or mass lesion is observed. No evidence of venous thrombosis or arterial occlusive disease seen. Problems (1) Septic joint of left shoulder region Status: Acute Problem Text: CT showed a large subacromial subdeltoid bursal effusion with evidence of synovitis Appreciate/agree with orthopedic team consult for possible aspiration Appreciate agree with ID consult Vancomycin IV, Zosyn IV. Patient has been treated recently with multiple courses of different antibiotics for endocarditis and he was resistant to jail. 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 Carpio Plan / VTE VTE Prophylaxis Ordered?: Yes KATHY LUI DO Jun 25, 2020 17:25
[2020-06-25 18:38] LABS: SOURCE, BODY FLUID LT SHOULDER; SYNOVIAL FLUID COLOR RED (YELLOW)
[2020-06-25 18:40] LABS: SOURCE, BODY FLUID GLUCOSE LT SHOULDER; SOURCE, BODY FLUID URIC ACID LT SHOULDER; URIC ACID, BODY FLUID 6.4 MG/DL (NOT ESTABLISHED)
[2020-06-25 18:41] LABS: SOURCE, BODY FLUID CRYSTALS LT SHOULDER
[2020-06-25] MEDS: NS 1,000 ML IV SCH (18:46)
[2020-06-25 18:49] LABS: CRYSTALS, BODY FLUID NONE SEEN (NONE SEEN)
[2020-06-25 18:55] VITALS: BP 176/79
[2020-06-25 20:00] VITALS: BP 162/72
[2020-06-25] MEDS: atenoloL 50 MG TAB PO SCH (20:31)
[2020-06-25] MEDS: DULoxetine 30 MG CAP (CYMBALTA) PO SCH (20:31)
[2020-06-25] MEDS: PIPERACILLIN/TAZOBACTAM SOD 3.375 GM in D5W MINI-BAG PLUS 50 ML IV SCH (20:34)
[2020-06-25] MEDS ORDERED: VANCOMYCIN HCL 750 MG, VIAL MATE ADAPTER 1 EACH in D5W 250 ML IV ONE ×2 (22:00→23:00)
[2020-06-26] VITALS: BP 155/68
[2020-06-26] MEDS: PIPERACILLIN/TAZOBACTAM SOD 3.375 GM in D5W MINI-BAG PLUS 50 ML IV SCH ×2 (06:18→12:22)
[2020-06-26] MEDS: LEVOTHYROXINE 75MCG TABLET (0.075MG) PO SCH (06:20)
[2020-06-26 06:25] LABS: HEMATOCRIT 29.7 % (42.0-52.0); HEMOGLOBIN 8.8 g/dl (13.5-17.5); MEAN CORPUSCULAR HEMOGLOBIN 28.5 pg (27.0-33.0); MEAN CORPUSCULAR HGB CONC 29.6 g/dl (32.0-36.5); MEAN CORPUSCULAR VOLUME 96.1 fl (80.0-96.0); PLATELET COUNT, AUTOMATED 302 10^3/uL (150-450); RED BLOOD COUNT 3.09 10^6/uL (4.30-6.10); WHITE BLOOD COUNT 8.5 10^3/uL (4.0-10.0)
[2020-06-26 07:00] LABS: ALBUMIN 2.1 GM/DL (3.2-5.2); ALT/SGPT 8 U/L (12-78); BILIRUBIN,TOTAL 0.3 MG/DL (0.2-1.0); BLOOD UREA NITROGEN 38 MG/DL (7-18); CALCIUM LEVEL 7.9 MG/DL (8.8-10.2); CARBON DIOXIDE LEVEL 28 MEQ/L (21-32); CHLORIDE LEVEL 105 MEQ/L (98-107); CREATININE FOR GFR 1.04 MG/DL (0.70-1.30); GLOMERULAR FILTRATION RATE > 60.0 (>35); GLUCOSE, FASTING 73 MG/DL (70-100); MAGNESIUM LEVEL 1.8 MG/DL (1.8-2.4); POTASSIUM SERUM 4.7 MEQ/L (3.5-5.1); SODIUM LEVEL 137 MEQ/L (136-145); TOTAL PROTEIN 6.1 GM/DL (6.4-8.2)
[2020-06-26 08:00] VITALS: BP 150/70
[2020-06-26] MEDS: atenoloL 25 MG TAB PO SCH (08:35)
[2020-06-26] MEDS: MULTIVITAMINS/MINERALS THERAP 1 TAB PO SCH (08:35)
[2020-06-26] MEDS: ASPIRIN 81 MG CHEW TABLET PO SCH (08:36)
[2020-06-26] MEDS: metOLazone 2.5 MG TAB PO SCH (08:36)
[2020-06-26] MEDS: NS 1,000 ML IV SCH (08:37)
[2020-06-26] MEDS: VANCOMYCIN HCL 1,000 MG, VIAL MATE ADAPTER 1 EACH in D5W 250 ML IV SCH (10:32)
[2020-06-26] MEDS: COLCHICINE 0.6 MG TABLET PO SCH (10:32)
[2020-06-26 12:00] VITALS: BP 126/58
--- NOTE | 2020-06-26 13:08 | CR ---
CONSULTATION DATE: 06/25/2020 REASON FOR CONSULTATION: Left arm swelling and redness. HISTORY OF PRESENT ILLNESS: This 89-year-old man was consulted to me by the QNP, as well as the hospitalist service at [facility]. He had left shoulder and elbow pain. This was developing over the last few days. He normally lives in a custodial. He most recently completed an antibiotic course for endocarditis, as well as six weeks of IV antibiotic therapy recently stepped down to p.o. antibiotics. PAST MEDICAL HISTORY: 1. Aortic valve endocarditis. 2. Dementia. His caregiver is Tiara, who I did speak to on the phone. 3. MSSA. 4. Gangrene, left foot. 5. Atrial fibrillation. 6. Anxiety. MEDICATIONS: - acetaminophen - amoxiclav - Eliquis - Justice packet - aspirin - Atenolol - cephalexin - cholchicine - doxycycline - duloxetine - levothyroxine - magnesium oxide - metolazone - multivitamins ALLERGIES: PREDNISONE. SOCIAL HISTORY: Former smoker. His caregiver is Tiara. He has fdc dementia. PHYSICAL EXAMINATION: GENERAL APPEARANCE: This 89-year-old man appears to follow commands. Appears thin and unkempt overall. VITAL SIGNS: Reveal a temperature of 97.7, pulse rate 62, blood pressure 130/84, pulse ox 99% on room air, respiratory rate 20. EXTREMITIES: There is some mild warmth to his right shoulder. Active and passive range of motion 0-30 degrees with pain to the shoulder. He has moderate redness and warmth about the medial aspect of the elbow, but no pain at the elbow with range of motion testing. No pain at the shoulder with internal and external rotation of the shoulder. He has pain to current palpation, but the shoulder has no obvious overlying redness or drainage. Hand is warm and well-perfused with a strong radial pulses. LABORATORY DATA: Revealed WBC 8.6. Neutrophil percentage 52. ESR over 140. INR 1.11, aPTT 46, PT 14.5. CRP 6.23. DIAGNOSTIC STUDIES: There is a recent ultrasound of the upper extremity from 06/23/2020, that demonstrates no evidence of DVT. Nonspecific heterogeneous soft tissue mass left upper arm. There is also a CT from 06/25/2020. I agree with the radiologist interpretation. Subacromial/subdeltoid bursal effusion with evidence of synovitis, nonspecific. Septic bursitis cannot be ruled out. There is myofascial edema and subcutaneous edema in the left upper extremity. No obvious mass lesion observed. No evidence of venous thrombosis or arterial occlusive disease seen. ASSESSMENT AND PLAN: This 89-year-old man cannot be ruled out for septic bursitis of his left shoulder. He does appear to have cellulitis of the medial aspect of his left elbow. However, given the CT findings and pain, most seemingly to be located to the shoulder. I have discussed with Tiara his health care proxy the pros, cons, risks, and benefits of going ahead with aspiration of the left shoulder, as he seems too medically unwell to undergo a formal irrigation and debridement in the operating therapy. I have gone ahead and performed this, which revealed 12 mL of light red colored fluid with some evidence of possibly granulation material. I have sent this in two culture bottles for a stat gram stain, C&S, cell count, and other fluid analysis. He will be admitted by the hospitalist service, Dr. Baxter, who I communicated directly about with my findings, as well as Dr. Mckeon the infectious disease specialist who I appreciate greatly for her expert advice and opinion. PROCEDURE NOTE: Spoke with health care proxy Tiara with the nurse, Cherelle, I explained the pros, cons, risks, and benefits of left shoulder subacromial/subdeltoid fluid aspiration at the bedside. Specific risks include, but are not limited to infection, pain, stiffness, bleeding, higher than normal restitute of anticoagulation, as well as acute flare reaction, allergic reaction, pain, and other risks. She wished to go ahead and we 2 person-consent signed the consent form. We performed a preprocedure time-out identifying the patient, the site, and the planned procedure. I had marked the skin at the subacromial space at the posterolateral aspect of the left shoulder. Cleaned the skin with chlorhexidine swab. I used a 25-gauge needle to inject 3 mL of 1% Lidocaine in and around the area. I used an 18-gauge needle with a 30 mL syringe to aspirate 12 mL of light red colored fluid with some small amount of what appeared to be granulation-type material. I this into two culture bottles. I placed a gauze on there and asked the nurse to place a bandage on afterwards. The patient tolerated the procedure well. We will follow-up when the culture have final results. FROYLAN
[2020-06-26 13:34] LABS: BODY FLUID RHEUMATOID SCREEN NEGATIVE (NEGATIVE); MUCIN CLOT TEST 4+ (4+)
[2020-06-26 14:00] VITALS: BP 146/70
--- NOTE | 2020-06-26 17:08 | IPNPDOC ---
Text Note Date of Service The patient was seen on 06/26/20. NOTE Subjective: No any acute events overnight, patient continues to complain of left shoulder pain. Objective: GENERAL APPEARANCE: Demented male HEENT: no scleral icterus, no JVD, EOMI CARDIOVASCULAR: Irregularly irregular LUNGS: Diminished lung sounds bilaterally ABDOMEN: soft & not tender w palpitation MUSCULOSKELETAL: Range of motion of left shoulder and elbow limited, stage III wound with right heel with small amount of pus INTEGUMENT: Multiple petechiae is of both legs, swollen left elbow with erythema, swollen left shoulder NEUROLOGICAL: cranial nerve function from 2-12 intact intact, follows commands, speech not dysarthric Assessment/Plan Patient is 89 years old male with past medical history aortic valve endocarditis, dementia, MSSA, gangrene of toe of left foot, atrial fibrillation, anxiety presented to the hospital with left shoulder and left elbow pain. Fox zhou stated that he developed left shoulder pain with left elbow swelling and pain for past few days. Of note patient completed 6 weeks course of antibiotic therapy for endocarditis, patient was treated with cefazolin. In ER patient was found to have limited shoulder movement with mild swelling and significant left elbow swelling with surrounding erythema. CT of left extremity showed There is a large subacromial subdeltoid bursal effusion with evidence of synovitis.This is nonspecific. Septic bursitis cannot be excluded. There is myofascial edema and subcutaneous edema in the left upper extremity. No abscess or mass lesion is observed. No evidence of venous thrombosis or arterial occlusive disease seen. Problems (1) Septic joint of left shoulder region CT showed a large subacromial subdeltoid bursal effusion with evidence of synovitis orthopedic team consult aspirated fluid from left shoulder joint. Fluid consistent of 68,000 white blood count and cloudy Appreciate/agree with ID consult Vancomycin IV, Zosyn IV. Patient has been treated recently with multiple courses of different antibiotics for endocarditis and he was resident of [facility]. Await MRSA screen IV fluid Blood culture negative (2) History of endocarditis Patient completed 6 weeks course of antibiotics (3) Cellulitis of left upper extremity See above (4) Afib Restarted Eliquis (5) HTN (hypertension) Blood pressures under control Continue home cardioprotective medication (6) Gangrene of left foot Gangrene of 2nd toe due to peripheral vascular disease Last admission patient declined amputation which was recommended by Dr. Carpio Right heel wound stage 3 Appreciated/agree with paint stockman consult VS,Melissa, I+O VS, Melissa, I+O Laboratory Tests 06/26/20 06:12 Vital Signs Date Time Temp Pulse Resp B/P (MAP) Pulse Ox O2 Delivery O2 Flow Rate FiO2 06/26/20 12:00 97.8 65 17 126/58 (80) 94 Room Air I&O- Last 24 Hours up to 6 AM 06/26/20 06:00 Intake Total 980 ml Output Total 750 ml Balance 230 ml KATHY LUI DO Jun 26, 2020 17:08
[2020-06-26] MEDS: DULoxetine 30 MG CAP (CYMBALTA) PO SCH (18:27)
[2020-06-26] MEDS: atenoloL 50 MG TAB PO SCH (18:32)
[2020-06-26 20:00] VITALS: BP 166/70
[2020-06-26] MEDS: TRIAMCINOLONE ACET 0.1% OINTMENT 15 GM TOP SCH (20:26)
[2020-06-26] MEDS: APIXABAN 2.5 MG TAB (ELIQUIS) PO SCH (20:26)
[2020-06-27 04:00] VITALS: BP 155/67
[2020-06-27] MEDS: NS 1,000 ML IV SCH ×4 (04:01→15:51)
[2020-06-27 05:35] LABS: BASO % 0.5 % (0.0-1.0); EOS # 0.8 10^3/uL (0.0-0.5); EOS % 9.3 % (0.0-3.0); HEMATOCRIT 30.2 % (42.0-52.0); HEMOGLOBIN 9.4 g/dl (13.5-17.5); LYMPH # 2.4 10^3/uL (1.5-5.0); LYMPH % 28.4 % (24.0-44.0); MEAN CORPUSCULAR HEMOGLOBIN 29.7 pg (27.0-33.0); MEAN CORPUSCULAR HGB CONC 31.1 g/dl (32.0-36.5); MEAN CORPUSCULAR VOLUME 95.3 fl (80.0-96.0); MONO # 0.8 10^3/uL (0.0-0.8); MONO % 9.9 % (0.0-5.0); NEUTROPHILS # 4.4 10^3/uL (1.5-8.5); NEUTROPHILS % 51.7 % (36.0-66.0); PLATELET COUNT, AUTOMATED 303 10^3/uL (150-450); RED BLOOD COUNT 3.17 10^6/uL (4.30-6.10); WHITE BLOOD COUNT 8.4 10^3/uL (4.0-10.0)
[2020-06-27] MEDS: LEVOTHYROXINE 75MCG TABLET (0.075MG) PO SCH (05:58)
[2020-06-27 06:01] LABS: BLOOD UREA NITROGEN 28 MG/DL (7-18); CALCIUM LEVEL 7.9 MG/DL (8.8-10.2); CARBON DIOXIDE LEVEL 27 MEQ/L (21-32); CHLORIDE LEVEL 105 MEQ/L (98-107); CREATININE FOR GFR 0.97 MG/DL (0.70-1.30); GLOMERULAR FILTRATION RATE > 60.0 (>35); GLUCOSE, FASTING 81 MG/DL (70-100); MAGNESIUM LEVEL 1.6 MG/DL (1.8-2.4); POTASSIUM SERUM 4.4 MEQ/L (3.5-5.1); SODIUM LEVEL 137 MEQ/L (136-145)
[2020-06-27 07:59] VITALS: BP 158/65
[2020-06-27] MEDS: APIXABAN 2.5 MG TAB (ELIQUIS) PO SCH ×2 (09:12→20:35)
[2020-06-27] MEDS: ASPIRIN 81 MG CHEW TABLET PO SCH (09:12)
[2020-06-27] MEDS: VANCOMYCIN HCL 1,000 MG, VIAL MATE ADAPTER 1 EACH in D5W 250 ML IV SCH (09:12)
[2020-06-27] MEDS: COLCHICINE 0.6 MG TABLET PO SCH (09:12)
[2020-06-27] MEDS: TRIAMCINOLONE ACET 0.1% OINTMENT 15 GM TOP SCH ×2 (09:12→20:35)
[2020-06-27] MEDS: MULTIVITAMINS/MINERALS THERAP 1 TAB PO SCH (09:12)
[2020-06-27] MEDS: atenoloL 25 MG TAB PO SCH (09:13)
[2020-06-27 12:32] VITALS: BP 149/67
[2020-06-27] MEDS: DULoxetine 30 MG CAP (CYMBALTA) PO SCH (17:39)
[2020-06-27] MEDS: atenoloL 50 MG TAB PO SCH (17:40)
--- NOTE | 2020-06-27 18:30 | CR ---
CONSULTATION DATE: 06/27/2020 REASON FOR CONSULTATION: Left heel ulceration. HISTORY OF PRESENT ILLNESS: Mr. Jara is an 89-year-old gentleman who was admitted due to left pain and swelling of his shoulder and elbow. 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 On previous admission he had gangrenous toe, for which he declined amputation. The toe has subsequently been removed. Patient is not a great historian and cannot relate when this occurred. MEDICAL HISTORY: 1. Atrial fibrillation. 2. Chronic kidney disease. 3. Hypothyroidism. 4. Hyperlipidemia. 5. Spinal stenosis. 6. History of arthritis. 7. History of endocarditis. 8. Dementia. ALLERGIES: PREDNISONE. SURGICAL HISTORY: Undocumented. SOCIAL HISTORY: Former smoker. Denies alcohol use. REVIEW OF SYSTEMS: Denies fever or chills. VITAL SIGNS: He has remained afebrile. LABORATORY DATA: White blood cell count is 8.4 today. Lower extremity examination: Second toe has been removed on the left side. There is a superficial ulceration on the dorsal foot. There is an ulceration on the left posterior plantar heel with largely granular tissue with a small area of fibrosis. No probe to bone. No purulence of other necrotic tissue. ASSESSMENT: An 89-year-old male with left heel pressure ulceration. TREATMENT: Debridement of the heel was performed at bedside with dermal curette, including subcutaneous tissue in excisional fashion. Start Vashe dressing changes. Continue Optifoam. Continue offloading heel with foam boots. He has outpatient wound care with Dr. Escobedo. He should have followup with him once discharged.
--- NOTE | 2020-06-27 18:51 | IPNPDOC ---
Text Note Date of Service The patient was seen on 06/27/20. NOTE Subjective: No any acute events overnight Objective: GENERAL APPEARANCE: Demented male HEENT: no scleral icterus, no JVD, EOMI CARDIOVASCULAR: Irregularly irregular LUNGS: Diminished lung sounds bilaterally ABDOMEN: soft & not tender w palpitation MUSCULOSKELETAL: Range of motion of left shoulder and elbow limited, stage III wound with right heel with small amount of pus INTEGUMENT: Multiple petechiae is of both legs, swollen left elbow with erythema, swollen left shoulder NEUROLOGICAL: cranial nerve function from 2-12 intact intact, follows commands, speech not dysarthric Assessment/Plan Patient is 89 years old male with past medical history aortic valve endocardit is, dementia, MSSA, gangrene of toe of left foot, atrial fibrillation, anxiety presented to the hospital with left shoulder and left elbow pain. Patient stated that he developed left shoulder pain with left elbow swelling and pain for past few days. Of note patient completed 6 weeks course of antibiotic therapy for endocarditis, patient was treated with cefazolin. In ER patient was found to have limited shoulder movement with mild swelling and significant left elbow swelling with surrounding erythema. CT of left extremity showed There is a large subacromial subdeltoid bursal effusion with evidence of synovitis.This is nonspecific. Septic bursitis cannot be excluded. There is myofascial edema and subcutaneous edema in the left upper extremity. No abscess or mass lesion is observed. No evidence of venous thrombosis or arterial occlusive disease seen. Problems (1) Septic joint of left shoulder region CT showed a large subacromial subdeltoid bursal effusion with evidence of synovitis orthopedic team consult aspirated fluid from left shoulder joint. Fluid consistent of 68,000 white blood count and cloudy Dr Mckeon rec dc Zosyn IV. Vancomycin IV Patient has been treated recently with multiple courses of different antibiotics for endocarditis and [facility]. Blood culture negative, aspiration fluid culture from left shoulder negative (2) History of endocarditis Patient completed 6 weeks course of antibiotics (3) Cellulitis of left upper extremity See above (4) Afib Restarted Eliquis (5) HTN (hypertension) Blood pressures under control Continue home cardioprotective medication (6) Gangrene of left foot Gangrene of 2nd toe due to peripheral vascular disease Last admission patient declined amputation which was recommended by Dr. Carpio Right heel wound stage 3 Debridement of the heel was performed by Dr Carpio at bedside Follow-up with wound care team in the outpatient settings VS,Melissa, I+O VS, Melissa, I+O Laboratory Tests 06/27/20 05:22 Vital Signs Date Time Temp Pulse Resp B/P (MAP) Pulse Ox O2 Delivery O2 Flow Rate FiO2 06/27/20 17:40 67 149/67 06/27/20 12:32 98.7 20 97 Room Air I&O- Last 24 Hours up to 6 AM 06/27/20 06:00 Intake Total 1590 ml Output Total 875 ml Balance 715 ml KATHY LUI DO Jun 27, 2020 18:51
[2020-06-27 20:00] VITALS: BP 131/59
[2020-06-27] MEDS: ACETAMINOPHEN TAB 650MG DOSE (2X325MG) PO PRN (20:35)
[2020-06-27] MEDS ORDERED: MAG SULF 1GM/100ML (MAG RUN) 1 GM in IV 1 EA IV ONE (21:00)
[2020-06-27 21:10] VITALS: BP 128/72
[2020-06-28 02:00] VITALS: BP 133/58
[2020-06-28] MEDS: LEVOTHYROXINE 75MCG TABLET (0.075MG) PO SCH (05:53)
[2020-06-28 06:00] VITALS: BP 136/54
[2020-06-28 06:33] LABS: BASO % 0.5 % (0.0-1.0); EOS # 0.6 10^3/uL (0.0-0.5); EOS % 8.7 % (0.0-3.0); HEMATOCRIT 30.2 % (42.0-52.0); HEMOGLOBIN 9.2 g/dl (13.5-17.5); LYMPH # 2.1 10^3/uL (1.5-5.0); LYMPH % 27.9 % (24.0-44.0); MEAN CORPUSCULAR HEMOGLOBIN 28.8 pg (27.0-33.0); MEAN CORPUSCULAR HGB CONC 30.5 g/dl (32.0-36.5); MEAN CORPUSCULAR VOLUME 94.7 fl (80.0-96.0); MONO # 0.9 10^3/uL (0.0-0.8); MONO % 12.2 % (0.0-5.0); NEUTROPHILS # 3.7 10^3/uL (1.5-8.5); NEUTROPHILS % 50.3 % (36.0-66.0); PLATELET COUNT, AUTOMATED 296 10^3/uL (150-450); RED BLOOD COUNT 3.19 10^6/uL (4.30-6.10); WHITE BLOOD COUNT 7.4 10^3/uL (4.0-10.0)
[2020-06-28 07:03] LABS: BLOOD UREA NITROGEN 26 MG/DL (7-18); CALCIUM LEVEL 8.3 MG/DL (8.8-10.2); CARBON DIOXIDE LEVEL 28 MEQ/L (21-32); CHLORIDE LEVEL 105 MEQ/L (98-107); CREATININE FOR GFR 0.97 MG/DL (0.70-1.30); GLOMERULAR FILTRATION RATE > 60.0 (>35); GLUCOSE, FASTING 83 MG/DL (70-100); MAGNESIUM LEVEL 1.7 MG/DL (1.8-2.4); POTASSIUM SERUM 4.3 MEQ/L (3.5-5.1); SODIUM LEVEL 137 MEQ/L (136-145)
[2020-06-28] MEDS ORDERED: PILL CUTTER 1 EACH XX PRN (09:15)
[2020-06-28] MEDS: VANCOMYCIN HCL 750 MG, VIAL MATE ADAPTER 1 EACH in D5W 250 ML IV SCH ×2 (10:44→22:37)
[2020-06-28] MEDS: TRIAMCINOLONE ACET 0.1% OINTMENT 15 GM TOP SCH ×2 (10:44→20:10)
[2020-06-28] MEDS: ASPIRIN 81 MG CHEW TABLET PO SCH (10:45)
[2020-06-28] MEDS: APIXABAN 2.5 MG TAB (ELIQUIS) PO SCH ×2 (10:45→20:10)
[2020-06-28] MEDS: COLCHICINE 0.6 MG TABLET PO SCH (10:45)
[2020-06-28] MEDS: MULTIVITAMINS/MINERALS THERAP 1 TAB PO SCH (10:45)
[2020-06-28] MEDS: atenoloL 25 MG TAB PO SCH (10:46)
[2020-06-28] MEDS: MAGNESIUM GLUCONATE 500 MG TAB PO SCH (12:15)
[2020-06-28 14:00] VITALS: BP 159/69
--- NOTE | 2020-06-28 15:14 | IPNPDOC ---
Text Note Date of Service The patient was seen on 06/28/20. NOTE Subjective: No any acute events overnight. Objective: GENERAL APPEARANCE: Demented male HEENT: no scleral icterus, no JVD, EOMI CARDIOVASCULAR: Irregularly irregular LUNGS: Diminished lung sounds bilaterally ABDOMEN: soft & not tender w palpitation MUSCULOSKELETAL: Range of motion of left shoulder and elbow limited, stage III wound with right heel with small amount of pus INTEGUMENT: Multiple petechiae is of both legs, swollen left elbow with erythema, swollen left shoulder NEUROLOGICAL: cranial nerve function from 2-12 intact intact, follows commands, speech not dysarthric Assessment/Plan Patient is 89 years old male with past medical history aortic valve endocarditis, dementia, MSSA, gangrene of toe of left foot, atrial fibrillation, anxiety presented to the hospital with left shoulder and left elbow pain. Patient stated that he developed left shoulder pain with left elbow swelling and pain for past few days. Of note patient completed 6 weeks course of antibiotic therapy for endocarditis, patient was treated with cefazolin. In ER patient was found to have limited shoulder movement with mild swelling and significant left elbow swelling with surrounding erythema. CT of left extremity showed There is a large subacromial subdeltoid bursal effusion with evidence of synovitis.This is nonspecific. Septic bursitis cannot be excluded. There is myofascial edema and subcutaneous edema in the left upper extremity. No abscess or mass lesion is observed. No evidence of venous thrombosis or arterial occlusive disease seen. Problems (1) Septic joint of left shoulder region/ cellulitis of left elbow skin CT showed a large subacromial subdeltoid bursal effusion with evidence of synovitis orthopedic team consult aspirated fluid from left shoulder joint. Fluid consistent of 68,000 white blood count and cloudy Dr Mckeon rec dc Zosyn IV. Vancomycin IV Patient has been treated recently with multiple courses of different antibiotics for endocarditis and he was [facility]. Left elbow cellulitis improved Blood culture negative, aspiration fluid culture from left shoulder negative (2) History of endocarditis Patient completed 6 weeks course of antibiotics (3) Cellulitis of left upper extremity See above (4) Afib Restarted Eliquis (5) HTN (hypertension) Blood pressures under control Continue home cardioprotective medication (6) Gangrene of left foot Gangrene of 2nd toe due to peripheral vascular disease Last admission patient declined amputation which was recommended by Dr. Carpio Right heel wound stage 3 Debridement of the heel was performed by Dr Carpio at bedside Follow-up with wound care team in the outpatient settings VS,Melissa, I+O VS, Melissa, I+O Laboratory Tests 06/28/20 06:24 Vital Signs Date Time Temp Pulse Resp B/P (MAP) Pulse Ox O2 Delivery O2 Flow Rate FiO2 06/28/20 14:00 97.4 57 16 159/69 (99) 99 Room Air I&O- Last 24 Hours up to 6 AM 06/28/20 06:00 Intake Total 2120 ml Output Total 850 ml Balance 1270 ml KATHY LUI DO Jun 28, 2020 15:14
--- NOTE | 2020-06-28 16:28 | CR ---
CONSULTATION DATE: 06/26/2020 Asked to consult by Dr. Baxter for evaluation of left upper extremity cellulitis with a shoulder effusion and a history of endocarditis. HISTORY OF PRESENT ILLNESS: Mr. Jara is a pleasant 89-year-old gentleman who was transferred from [facility] for evaluation of left arm pain and redness. The patient was started on intravenous (IV) vancomycin and Zosyn. He was seen in consultation with Dr. Cleveland, who aspirated the subdeltoid bursa and had 68,000 white cells with 97% polymorphonuclear leukocytes (PMNs). Crystals were negative. Cultures are still pending. Patient is doing much better today, but he has always had problems with his left shoulder joint and severe pain. The redness along the arm has decreased. Patient's history dates back to May 08, when the patient was admitted in acute respiratory failure. Was admitted to the intensive care unit (ICU). Had sepsis with bacteremia, methicillin-sensitive Staphylococcus aureus (MSSA), and group A streptococcus positive blood cultures. The patient was found to have endocarditis with a large vegetation on the aortic valve, measuring 1.8 x 0.5 cm with severe focal thickening and calcific deposition of the aortic valve and mild mitral regurgitation, mild aortic stenosis. The patient was critically ill, was not deemed to be a surgical candidate, and therefore was treated with intravenous (IV) antibiotics. The source of infection was felt to be related to skin, either from the rash that he had on his lower extremities or gangrene of his left 2nd toe. He was treated with 6 weeks of IV cefazolin at the senior care, and his end of treatment date was June 22. His peripherally inserted central catheter (PICC) line was removed on June 23, and the patient remained on oral Keflex, as the size of the vegetation was so large that there was concern that he was at very high risk of recurrence. Today he has no nausea, vomiting, or diarrhea. No fever or shortness of breath. He only complains of pain in his left shoulder and itching of his lower extremities. He states that Aveeno helps a lot with the rash. At times he gets very tearful and talks about the [place] war and his brother who . MEDICAL HISTORY: Significant for: 1. Aortic valve endocarditis, diagnosed April 2020 with cultures positive for MSSA and group A streptococcus, 1.8 cm vegetation, treated with IV cefazolin for a total of 6 weeks with end of treatment being 06/22/2020. 2. Gangrene of the left 2nd toe, amputated at Dr. Escobedo's office, doing much better, treated with Iodoform packing. 3. Atrial fibrillation. 4. Anxiety disorder. 5. Chronic left shoulder rotator cuff tear and limited range of motion for years with complete tear of supraspinatus and infraspinatus tendon, and partial tear of the subscapularis tendon. Moderate hypertrophic degenerative changes. Moderate chondromalacia of the glenohumeral joint. Biceps tendon is completely torn. Moderate to large effusion with diffuse fluid and edema surrounding the tissues. That was an MRI done on May 12. 6. Chronic kidney disease. 7. Hypertension. 8. History of Escherichia (E) coli and Klebsiella bacteria September 2019. 9. Mild cognitive impairment. 10. Hypothyroidism. 11. Prostate cancer. 12. Cerebrovascular accident (CVA). 13. Decubitus ulcer of the left heel. 14. Gangrene of the left 2nd toe. SURGICAL HISTORY: 1. Left knee surgery. 2. Left leg angiogram. 3. Posterior tibial and peroneal angioplasty with improved 2-vessel runoff, done by Dr. Moss, of the left foot on 01/03/2020. ALLERGIES: PREDNISONE. MEDICATIONS: - apixaban 2.5 mg by mouth twice a day - vancomycin 1 gram IV every 24 hours - Zosyn 3.375 grams IV every 8 hours - aspirin 81 mg by mouth daily - atenolol 25 mg by mouth daily - colchicine 0.6 mg by mouth daily - metolazone 2.5 mg Monday, Monday, Monday - multivitamin one tablet daily - levothyroxine 75 mcg by mouth daily - Cymbalta 30 mg by mouth daily - atenolol 50 mg by mouth daily - milk of magnesia as needed - Percocet as needed - Tylenol as needed REVIEW OF SYSTEMS: Patient denies any nausea, vomiting, diarrhea, abdominal pain, fever, or chills. He complains of some shoulder pain on the left side. He has some itching but otherwise feels pretty well. LABORATORY DATA: White count is 8.5, hemoglobin 8.8, hematocrit 29.7, platelets 302. ESR more than 140. Sedimentation rate was down to 61 on June 09 and 92 on June 24, so that has increased. CRP 6.23. The lowest CRP was 3.41 on June 09. Sodium 137, potassium 4.7, chloride 105, bicarbonate 28, BUN 38, creatinine 1.04, glucose 73, calcium 7.9, magnesium 1.8. Bilirubin 0.3, AST 25, ALT 8, total protein 6.1, albumin 2.1. IMAGING DATA: Upper extremity CT showed a large subacromial subdeltoid bursal effusion with evidence of synovitis. Nonspecific septic bursitis could not be excluded. Myofascial edema. Subcutaneous edema of the left upper extremity. No abscess or mass lesions. No evidence of venous or arterial thrombosis. PHYSICAL EXAMINATION: He looks well. He is no acute distress. Pleasant, elderly gentleman. Alert and oriented. Temperature is 97.8, pulse 65, respirations 17, blood pressure 126/58, oxygen saturation 94% on room air. HEART: Normal S1, S2 with a holosystolic ejection murmur, 3/6, heard over the whole precordium. Mostly on the left upper sternal border. LUNGS: Clear. No wheezes, rales, or rhonchi. ABDOMEN: Soft, nontender. No hepatosplenomegaly. BACK: No costovertebral angle (CVA) or lumbosacral tenderness. EXTREMITIES: Trace ankle edema bilateral. There is an ulcer anteriorly over the left ankle on the dorsal aspect of the foot measuring 3.2 cm with minimal yellowish discharge. Left heel along the Achilles tendon there is a pressure ulcer, measuring 4 x 3 cm with yellowish discharge. Below the knees bilaterally there are multiple open areas with dry scabs that are measuring less than 0.5 cm, multiple, diffuse, site of previous rash. Multiple areas on his upper extremities that are well healed with scar. MUSCULOSKELETAL: Patient can move right shoulder to 90 degrees without any pain. Left shoulder limited range of motion to 20 degrees. He is able to extend his elbow. There is no redness or evidence of infection along the elbow. The redness that was extending from the biceps area to the arm has decreased. There is no redness along the shoulder joint. IMPRESSION: An 89-year-old gentleman with a history of endocarditis of the aortic valve with methicillin-sensitive Staphylococcus aureus (MSSA) and group A streptococcus who finished 6 weeks of intravenous (IV) cefazolin with end of therapy on June 22, presented with worsening left shoulder pain and left arm cellulitis. He was treated with IV vancomycin and Zosyn and has improved. Dr. Cleveland aspirated the shoulder, and joint analysis is consistent with septic arthritis with a white count of 68,000, 97% PMNs, and no crystals. This could have been infected from previous bacteremia and would remain culture negative after 6 weeks of IV cefazolin. The cellulitis of the arm has improved with IV vancomycin, and therefore methicillin-resistant Staphylococcus aureus (MRSA) could have been also the reason for this infection. PLAN: Discontinue IV Zosyn. I do not see a need for broad-spectrum coverage. Continue IV vancomycin for MRSA coverage. Will continue to follow the joint effusion. If it is positive for bacteria, patient may need surgical intervention, but MRI had been done in April, and the patient has multiple tears and has had a limited range of motion since April.
[2020-06-28] MEDS: DULoxetine 30 MG CAP (CYMBALTA) PO SCH (17:04)
[2020-06-28] MEDS: atenoloL 50 MG TAB PO SCH (17:05)
[2020-06-28 22:00] VITALS: BP 146/67
[2020-06-29] MEDS: LEVOTHYROXINE 75MCG TABLET (0.075MG) PO SCH (05:41)
[2020-06-29 05:59] LABS: BASO % 0.4 % (0.0-1.0); EOS # 0.6 10^3/uL (0.0-0.5); EOS % 7.1 % (0.0-3.0); HEMATOCRIT 29.6 % (42.0-52.0); HEMOGLOBIN 9.3 g/dl (13.5-17.5); LYMPH # 2.5 10^3/uL (1.5-5.0); LYMPH % 31.3 % (24.0-44.0); MEAN CORPUSCULAR HEMOGLOBIN 29.5 pg (27.0-33.0); MEAN CORPUSCULAR HGB CONC 31.4 g/dl (32.0-36.5); MONO % 12.3 % (0.0-5.0); NEUTROPHILS # 3.9 10^3/uL (1.5-8.5); NEUTROPHILS % 48.5 % (36.0-66.0); PLATELET COUNT, AUTOMATED 310 10^3/uL (150-450); RED BLOOD COUNT 3.15 10^6/uL (4.30-6.10); WHITE BLOOD COUNT 8.1 10^3/uL (4.0-10.0)
[2020-06-29 06:00] VITALS: BP 152/70
[2020-06-29 06:20] LABS: ERYTHROCYTE SEDIMENTATION RATE > 140 mm/hr (0-20)
[2020-06-29 06:23] LABS: BLOOD UREA NITROGEN 25 MG/DL (7-18); C REACTIVE PROTEIN QUANTITATIV 8.35 MG/DL (0.00-0.30); CARBON DIOXIDE LEVEL 29 MEQ/L (21-32); CHLORIDE LEVEL 103 MEQ/L (98-107); CREATININE FOR GFR 1.01 MG/DL (0.70-1.30); GLOMERULAR FILTRATION RATE > 60.0 (>35); GLUCOSE, FASTING 86 MG/DL (70-100); MAGNESIUM LEVEL 1.6 MG/DL (1.8-2.4); POTASSIUM SERUM 4.4 MEQ/L (3.5-5.1); SODIUM LEVEL 135 MEQ/L (136-145)
--- NOTE | 2020-06-29 07:39 | ECHO ---
DATE OF PROCEDURE: 06/26/2020 Age: 89 Gender: Male Height: 68 inches Weight: 187 pounds Body surface area: 1.98 m2 PATIENT LOCATION: Inpatient PCU, Room 3230. REFERRING PHYSICIAN: Anastasia Mckeon M.D. INDICATION: Murmur. MEASUREMENTS: 2D Measurements: RV 3.8 cm LV 4.3 cm Septum 1.3 cm Posterior wall 1.3 cm Aortic Root 3.8 cm LA 4.2 cm LVEF 75% Doppler Measurements: AV 2.64 m/s LVOT 0.87 m/s LVOT diameter 2.2 cm Mean AV gradient 14 mmHg Dimensionless index 0.37 MV-E 107, A 111, E/A ratio 1 Early mitral deceleration time 177 msec PV 1.0 m/s Pulmonary artery acceleration time 100 msec RVSP 41 mmHg IVC 1.9 cm COMMENTS: Normal sinus rhythm without intraventricular conduction disturbance. M-mode and two-dimensional echocardiography was performed with pulse, continuous wave, and color flow Doppler. Mild concentric left ventricular hypertrophy with hyperkinetic wall motion. Mildly dilated left atrium with currently normal Doppler assessment of LV diastolic function. Normal right ventricular size and wall motion with Doppler evidence of moderate pulmonary hypertension. Right atrium and IVC upper limits of normal in size with normal respiratory collapse of the inferior vena cava against an elevated central venous pressure. Normal aortic dimensions. Three equal size aortic cusps with asymmetrical thickening and reduced motion of the right coronary cusp with at least mild aortic stenosis. Visible vegetation connected to the right coronary cusp measuring at least 1.2 x 0.5 cm. Associated moderate aortic insufficiency. Moderate degenerative changes of the mitral valve apparatus with adequate leaflet excursion, but at least moderate insufficiency. Normal appearing tricuspid valve with adequate leaflet excursion and moderate insufficiency. No apparent pericardial effusion. Comparing the above test findings with report from 05/09/2020, there did not appear to be a dramatic change. MTDD
[2020-06-29] MEDS: ASPIRIN 81 MG CHEW TABLET PO SCH (09:59)
[2020-06-29] MEDS: COLCHICINE 0.6 MG TABLET PO SCH (09:59)
[2020-06-29] MEDS: APIXABAN 2.5 MG TAB (ELIQUIS) PO SCH (09:59)
[2020-06-29] MEDS: MULTIVITAMINS/MINERALS THERAP 1 TAB PO SCH (09:59)
[2020-06-29] MEDS: MAGNESIUM GLUCONATE 500 MG TAB PO SCH ×2 (09:59→20:16)
[2020-06-29] MEDS: metOLazone 2.5 MG TAB PO SCH (10:00)
[2020-06-29] MEDS: TRIAMCINOLONE ACET 0.1% OINTMENT 15 GM TOP SCH ×2 (10:00→20:16)
[2020-06-29] MEDS: atenoloL 25 MG TAB PO SCH (10:04)
[2020-06-29] MEDS: ACETAMINOPHEN TAB 650MG DOSE (2X325MG) PO PRN (10:09)
[2020-06-29] MEDS: VANCOMYCIN HCL 750 MG, VIAL MATE ADAPTER 1 EACH in D5W 250 ML IV SCH (11:49)
[2020-06-29] MEDS: VANCOMYCIN HCL 500 MG in D5W MINI-BAG PLUS 100 ML IV SCH (13:57)
[2020-06-29 14:00] VITALS: BP 148/64
--- NOTE | 2020-06-29 18:15 | IPNPDOC ---
Text Note Date of Service The patient was seen on 06/29/20. NOTE Subjective: No any acute events overnight. Patient continues to complain of left shoulder pain Objective: GENERAL APPEARANCE: Demented male HEENT: no scleral icterus, no JVD, EOMI CARDIOVASCULAR: Irregularly irregular LUNGS: Diminished lung sounds bilaterally ABDOMEN: soft & not tender w palpitation MUSCULOSKELETAL: Range of motion of left shoulder and elbow limited, stage III wound with right heel with small amount of pus INTEGUMENT: Multiple petechiae is of both legs, swollen left elbow with erythema, swollen left shoulder NEUROLOGICAL: cranial nerve function from 2-12 intact intact, follows commands, speech not dysarthric Assessment/Plan Patient is 89 years old male with past medical history aortic valve endocarditis, dementia, MSSA, gangrene of toe of left foot, atrial fibrillation, anxiety presented to the hospital with left shoulder and left elbow pain. Fox zhou stated that he developed left shoulder pain with left elbow swelling and pain for past few days. Of note patient completed 6 weeks course of antibiotic therapy for endocarditis, patient was treated with cefazolin. In ER patient was found to have limited shoulder movement with mild swelling and significant left elbow swelling with surrounding erythema. CT of left extremity showed There is a large subacromial subdeltoid bursal effusion with evidence of synovitis.This is nonspecific. Septic bursitis cannot be excluded. There is myofascial edema and subcutaneous edema in the left upper extremity. No abscess or mass lesion is observed. No evidence of venous thrombosis or arterial occlusive disease seen. Problems (1) Septic joint of left shoulder region/ cellulitis of left elbow skin CT showed a large subacromial subdeltoid bursal effusion with evidence of synovitis orthopedic team consult aspirated fluid from left shoulder joint. Fluid consistent of 68,000 white blood count and cloudy Dr Mckeon rec dc Zosyn IV. Vancomycin IV Patient has been treated recently with multiple courses of different antibiotics for endocarditis and he was resident of [facility]. Left elbow cellulitis improved Blood culture negative, aspiration fluid culture from left shoulder negative, however inflammatory markers continues to be significantly elevated Dr. Cleveland will do revision of left shoulder tomorrow. 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 Carpio Right heel wound stage 3 Debridement of the heel was performed by Dr Carpio at bedside Follow-up with wound care team in the outpatient settings VS,Fishbone, I+O VS, Fishbone, I+O Laboratory Tests 06/29/20 05:36 Vital Signs Date Time Temp Pulse Resp B/P (MAP) Pulse Ox O2 Delivery O2 Flow Rate FiO2 06/29/20 14:00 97.7 62 24 148/64 (92) 96 Room Air I&O- Last 24 Hours up to 6 AM 06/29/20 06:00 Intake Total 1385 ml Output Total 700 ml Balance 685 ml KATHY LUI DO Jun 29, 2020 18:15
[2020-06-29] MEDS: atenoloL 50 MG TAB PO SCH (18:30)
[2020-06-29] MEDS: DULoxetine 30 MG CAP (CYMBALTA) PO SCH (18:30)
[2020-06-29 22:00] VITALS: BP 137/75
[2020-06-30] MEDS: LEVOTHYROXINE 75MCG TABLET (0.075MG) PO SCH (05:30)
[2020-06-30 06:00] VITALS: BP 130/72
[2020-06-30 06:25] LABS: BASO # 0.1 10^3/uL (0.0-0.2); BASO % 0.7 % (0.0-1.0); EOS # 0.7 10^3/uL (0.0-0.5); EOS % 8.1 % (0.0-3.0); HEMATOCRIT 30.7 % (42.0-52.0); HEMOGLOBIN 10.2 g/dl (13.5-17.5); LYMPH # 2.9 10^3/uL (1.5-5.0); LYMPH % 32.5 % (24.0-44.0); MEAN CORPUSCULAR HGB CONC 33.2 g/dl (32.0-36.5); MEAN CORPUSCULAR VOLUME 93.3 fl (80.0-96.0); MONO # 1.1 10^3/uL (0.0-0.8); MONO % 12.3 % (0.0-5.0); NEUTROPHILS # 4.1 10^3/uL (1.5-8.5); NEUTROPHILS % 46.1 % (36.0-66.0); PLATELET COUNT, AUTOMATED 346 10^3/uL (150-450); RED BLOOD COUNT 3.29 10^6/uL (4.30-6.10); WHITE BLOOD COUNT 8.8 10^3/uL (4.0-10.0)
[2020-06-30 06:53] LABS: BLOOD UREA NITROGEN 28 MG/DL (7-18); CARBON DIOXIDE LEVEL 28 MEQ/L (21-32); CHLORIDE LEVEL 101 MEQ/L (98-107); CREATININE FOR GFR 1.14 MG/DL (0.70-1.30); GLOMERULAR FILTRATION RATE > 60.0 (>35); GLUCOSE, FASTING 81 MG/DL (70-100); MAGNESIUM LEVEL 1.7 MG/DL (1.8-2.4); POTASSIUM SERUM 4.4 MEQ/L (3.5-5.1); SODIUM LEVEL 135 MEQ/L (136-145)
[2020-06-30] MEDS: COLCHICINE 0.6 MG TABLET PO SCH (09:19)
[2020-06-30] MEDS: ASPIRIN 81 MG CHEW TABLET PO SCH (09:19)
[2020-06-30] MEDS: atenoloL 25 MG TAB PO SCH (09:22)
[2020-06-30] MEDS: MULTIVITAMINS/MINERALS THERAP 1 TAB PO SCH (09:22)
[2020-06-30] MEDS: TRIAMCINOLONE ACET 0.1% OINTMENT 15 GM TOP SCH ×2 (09:24→20:09)
[2020-06-30] MEDS: MAGNESIUM GLUCONATE 500 MG TAB PO SCH ×2 (09:24→20:08)
--- NOTE | 2020-06-30 09:36 | IPN ---
PROGRESS NOTE DATE: 06/29/2020 SUBJECTIVE: Hiren is doing well. He is a little confused at times, but otherwise feeling well except for left shoulder pain. He denies any fever or chills. No nausea, vomiting, or diarrhea. His appetite has been great. He has some swelling along the left arm to the elbow, but the pain mostly is localized to the left shoulder. OBJECTIVE: VITAL SIGNS: Temperature 97.7, pulse 62, respirations 24, blood pressure 148/64, O2 sat 96% on room air. HEART: Normal S1, S2 with a holosystolic murmur 2/6 best heard at the left upper sternal border. LUNGS: Clear. No wheezes, rales, or rhonchi. ABDOMEN: Soft and nontender with no hepatosplenomegaly. EXTREMITIES: Trace edema bilaterally. He has multiple scabs below the knees that are circular, less than 0.5 cm, and other erythematous lesions. From the left shoulder to the elbow, there is some erythema and swelling of the biceps. There is tenderness along the AC joint and very limited range of motion to 10 degrees causing severe pain. The left elbow has no redness or tenderness. He has normal range of motion of the elbow on his own. Right second MCP joint is swollen and tender. LABORATORY DATA: White count is 8.1, hemoglobin 9.3, hematocrit 29.6, platelets 310,000. ESR more than 140. Sodium 135, potassium 4.4, chloride 103, bicarb 29, BUN 25, creatinine 1.01, glucose 86, calcium 8, magnesium 1.6, CRP 8.25 increased from 6.23. Microbiology: Blood cultures two sets are no growth after 72 hours. Respiratory panel with negative joint fluid, analysis was negative. Fluid in the left shoulder had 68,432 white cells with 97% PMNs and negative crystals. Echocardiogram done read by Dr. Ricketts done on 06/26, shows a vegetation on the aortic valve measuring 1.2 cm x 0.5 cm associated with moderate aortic insufficiency, moderate degenerative changes in the mitral valve apparatus, but with moderate mitral insufficiency as well. Normal appearing tricuspid valve. MEDICATIONS: - vancomycin 1.25 grams IV q. 24 hours - triamcinolone on both legs below the knees - cholchicine 0.6 mg p.o. daily. IMPRESSION AND PLAN: 1. Aortic valve endocarditis with culture positive for methicillin-sensitive Staphylococcus aureus (MSSA) and group A strep. Patient had finished IV cefazolin for a total of six weeks on 06/22. Persistent vegetation seems to be a little smaller. 2. Left shoulder joint effusion consistent with septic arthritis/subdeltoid bursitis. The patient has very limited range of motion and has persistently increased ESR and CRP, which is somewhat concerning. He does have some erythema of the shoulder into the biceps, which was consistent with cellulitis, but I am more concerned about the septic bursa, whether it needs to be redrained surgically or through IR to follow-up on the cell count and giving him a little more pain relief. Patient is at risk for surgery due to his advanced age and recent history of endocarditis, and this will need to be addressed with his sister, Tiara. I did discuss the case with Dr. Cleveland, who is the orthopedist, on the case regarding my concerns. 3. Rash on both lower extremities. The patient has an appointment to follow-up with dermatology. He has triamcinolone b.i.d. and Lac-Hydrin. His methicillin-resistant Staphylococcus aureus (MRSA) PCR was negative. I will discontinue vancomycin and switch the patient back to cefazolin, as this was the original pathogen MSSA with group A strep. [facility]
[2020-06-30] MEDS: ACETAMINOPHEN TAB 650MG DOSE (2X325MG) PO PRN ×2 (10:01→10:50)
[2020-06-30] MEDS ORDERED: VANCOMYCIN HCL 750 MG, VIAL MATE ADAPTER 1 EACH in D5W 250 ML IV SCH (11:00)
--- NOTE | 2020-06-30 12:36 | IPN ---
PROGRESS NOTE DATE: 06/30/2020 CHIEF COMPLAINT: Left shoulder pain and infection. HISTORY OF PRESENT ILLNESS: This man was seen today on the [id number]. He is having persistent left shoulder pain. He has been treated with IV antibiotics for multiple weeks in the past. Recent aspiration showed increased cell count, but did not grow any organisms. PHYSICAL EXAMINATION: This is a well-appearing 89-year-old man. He has mild warmth to his left shoulder, but no redness or drainage. The cell over the medial aspect of his left elbow seems to be resolving. Hands warm and well-perfused. He has active forward elevation to about 30 degrees of the shoulder and full elbow range of motion. There is some moderate shoulder pain with range of motion testing. LABORATORY DATA: Aspiration of the left shoulder subdeltoid bursa revealed increased cell count to 67,000. No organisms grew. High percentage of PMN and a persistently elevated ESR and CRP. ASSESSMENT AND PLAN: This 89-year-old man has a subdeltoid infection of his left shoulder. I am less concerned that he has an acute septic joint. This may be a chronic issue over a number of weeks being suppressed by his chronic history of intravenous (IV) antibiotics. Upon discussion with Dr. Mckeon, Dr. Baxter, the hospital, and the infectious disease specialist and discussion with his health care proxy, Tiara over the phone, we have decided to go ahead with arthroscopic irrigation and debridement in an attempt to source control for this man's persistent infection and bacteremia. The risks of the procedure were discussed including, but not limited to infection, pain, stiffness, damage to surrounding structures, neurovascular injury, fracture, anesthetic complications, blood clots, , other risks, and the need for further surgery. We will go ahead with the surgery tomorrow morning and make the patient n.p.o. overnight. I have let the operating room know as well and booked the case.
[2020-06-30 14:00] VITALS: BP 109/53
[2020-06-30] MEDS: VANCOMYCIN HCL 500 MG in D5W MINI-BAG PLUS 100 ML IV SCH (14:39)
[2020-06-30] MEDS: SANTYL OINT 30GM TOP SCH (15:32)
--- NOTE | 2020-06-30 17:09 | IPNPDOC ---
Text Note Date of Service The patient was seen on 06/30/20. NOTE Subjective: No any acute events overnight. Patient stated that he is doing be tter today Objective: GENERAL APPEARANCE: Demented male HEENT: no scleral icterus, no JVD, EOMI CARDIOVASCULAR: Irregularly irregular LUNGS: Diminished lung sounds bilaterally ABDOMEN: soft & not tender w palpitation MUSCULOSKELETAL: Range of motion of left shoulder and elbow limited, stage III wound with right heel with small amount of pus INTEGUMENT: Multiple petechiae is of both legs, swollen left elbow with erythema, swollen left shoulder NEUROLOGICAL: cranial nerve function from 2-12 intact intact, follows commands, speech not dysarthric Assessment/Plan Patient is 89 years old male with past medical history aortic valve endocarditis, dementia, MSSA, gangrene of toe of left foot, atrial fibrillation, anxiety presented to the hospital with left shoulder and left elbow pain. Patient stated that he developed left shoulder pain with left elbow swelling and pain for past few days. Of note patient completed 6 weeks course of antibiotic therapy for endocarditis, patient was treated with cefazolin. In ER patient was found to have limited shoulder movement with mild swelling and significant left elbow swelling with surrounding erythema. CT of left extremity showed There is a large subacromial subdeltoid bursal effusion with evidence of synovitis.This is nonspecific. Septic bursitis cannot be excluded. There is myofascial edema and subcutaneous edema in the left upper extremity. No abscess or mass lesion is observed. No evidence of venous thrombosis or arterial occlusive disease seen. Problems (1) Septic joint of left shoulder region/ cellulitis of left elbow skin CT showed a large subacromial subdeltoid bursal effusion with evidence of synovitis orthopedic team consult aspirated fluid from left shoulder joint. Fluid consistent of 68,000 white blood count and cloudy Patient received treatment with vancomycin and Zosyn IV Patient has been treated recently with multiple courses of different antibiotics for endocarditis [facility] Left elbow cellulitis improved Blood culture negative, aspiration fluid culture from left shoulder negative, however inflammatory markers continues to be significantly elevated Dr. Mckeon changed vancomycin to cefazolin IV Dr. Cleveland will do revision of left shoulder tomorrow. 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 Carpio Right heel wound stage 3 Debridement of the heel was performed by Dr Carpio at bedside Follow-up with wound care team in the outpatient settings VS,Fishbone, I+O VS, Fishbone, I+O Laboratory Tests 06/30/20 06:16 Vital Signs Date Time Temp Pulse Resp B/P (MAP) Pulse Ox O2 Delivery O2 Flow Rate FiO2 06/30/20 14:00 98.4 55 18 109/53 (71) 96 Room Air I&O- Last 24 Hours up to 6 AM 06/30/20 06:00 Intake Total 2445 ml Balance 2445 ml KATHY LUI DO Jun 30, 2020 17:09
[2020-06-30] MEDS: ceFAZolin SOD 2 GM in IV 1 EA IV SCH (17:42)
[2020-06-30] MEDS: DULoxetine 30 MG CAP (CYMBALTA) PO SCH (17:45)
[2020-06-30] MEDS: atenoloL 50 MG TAB PO SCH (17:46)
[2020-06-30] MEDS: DIMETHICONE 2% OINTMENT(VANICREAM) 70GM TUBE TOP SCH (20:09)
[2020-06-30 22:00] VITALS: BP 111/70
[2020-07-01] VITALS (8 sets, daily range): BP systolic 108–166; BP diastolic 60–75
[2020-07-01] MEDS: ceFAZolin SOD 2 GM in IV 1 EA IV SCH ×3 (00:51→17:26)
[2020-07-01] MEDS: NS 1,000 ML IV SCH ×2 (03:03→13:51)
[2020-07-01] MEDS: LEVOTHYROXINE 75MCG TABLET (0.075MG) PO SCH (05:37)
[2020-07-01 06:09] LABS: BASO # 0.1 10^3/uL (0.0-0.2); BASO % 0.6 % (0.0-1.0); EOS # 0.9 10^3/uL (0.0-0.5); EOS % 10.4 % (0.0-3.0); HEMATOCRIT 30.6 % (42.0-52.0); HEMOGLOBIN 9.5 g/dl (13.5-17.5); LYMPH # 2.4 10^3/uL (1.5-5.0); LYMPH % 28.5 % (24.0-44.0); MEAN CORPUSCULAR HEMOGLOBIN 29.1 pg (27.0-33.0); MEAN CORPUSCULAR VOLUME 93.6 fl (80.0-96.0); MONO # 0.9 10^3/uL (0.0-0.8); MONO % 10.7 % (0.0-5.0); NEUTROPHILS # 4.1 10^3/uL (1.5-8.5); NEUTROPHILS % 49.3 % (36.0-66.0); PLATELET COUNT, AUTOMATED 352 10^3/uL (150-450); RED BLOOD COUNT 3.27 10^6/uL (4.30-6.10); WHITE BLOOD COUNT 8.3 10^3/uL (4.0-10.0)
[2020-07-01 06:33] LABS: BLOOD UREA NITROGEN 36 MG/DL (7-18); C REACTIVE PROTEIN QUANTITATIV 8.87 MG/DL (0.00-0.30); CALCIUM LEVEL 7.9 MG/DL (8.8-10.2); CARBON DIOXIDE LEVEL 27 MEQ/L (21-32); CHLORIDE LEVEL 102 MEQ/L (98-107); CREATININE FOR GFR 1.14 MG/DL (0.70-1.30); GLOMERULAR FILTRATION RATE > 60.0 (>35); GLUCOSE, FASTING 82 MG/DL (70-100); MAGNESIUM LEVEL 1.7 MG/DL (1.8-2.4); POTASSIUM SERUM 4.5 MEQ/L (3.5-5.1); SODIUM LEVEL 136 MEQ/L (136-145)
[2020-07-01 07:44] LABS: ERYTHROCYTE SEDIMENTATION RATE 97 mm/hr (0-20)
[2020-07-01] MEDS: MULTIVITAMINS/MINERALS THERAP 1 TAB PO SCH (09:00)
[2020-07-01] MEDS: MAGNESIUM GLUCONATE 500 MG TAB PO SCH ×2 (09:00→21:23)
[2020-07-01] MEDS: metOLazone 2.5 MG TAB PO SCH (09:00)
[2020-07-01] MEDS: COLCHICINE 0.6 MG TABLET PO SCH (09:00)
[2020-07-01] MEDS: ASPIRIN 81 MG CHEW TABLET PO SCH (09:00)
[2020-07-01] MEDS: TRIAMCINOLONE ACET 0.1% OINTMENT 15 GM TOP SCH ×2 (09:41→21:27)
[2020-07-01] MEDS: SANTYL OINT 30GM TOP SCH (09:41)
[2020-07-01] MEDS: DIMETHICONE 2% OINTMENT(VANICREAM) 70GM TUBE TOP SCH ×2 (09:42→21:27)
[2020-07-01] MEDS ORDERED: ACETAMINOPHEN 1000MG 100ML IV BTL (OFIRMEV) (J0131 PER 10MG) As Ordered ONE (10:35)
[2020-07-01] MEDS ORDERED: LIDOCAINE 2% 100MG/5ML SDV (FOR ANES.) As Ordered ONE (10:35)
[2020-07-01] MEDS ORDERED: propofoL 200 MG/20 ML VIAL As Ordered ONE (10:35)
[2020-07-01] MEDS ORDERED: ONDANSETRON 4MG/2ML VIAL As Ordered ONE (10:35)
[2020-07-01] MEDS ORDERED: ROCURONIUM BROMIDE 50 MG/5 ML VIAL As Ordered ONE (10:35)
[2020-07-01] MEDS ORDERED: fentaNYL 100 MCG/2 ML INJECTION (J3010) As Ordered ONE (10:36)
[2020-07-01] MEDS ORDERED: MIDAZOLAM INJ 2MG/2ML VIAL (J2250 PER 1MG) As Ordered ONE (10:36)
[2020-07-01] MEDS ORDERED: LACRILUBE (AKWA TEARS) OPHTH OINT 3.5 GM As Ordered ONE (10:39)
[2020-07-01] MEDS ORDERED: EPINEPHrine 1MG/ML INJ 30ML MD-VIAL As Ordered ONE (11:28)
[2020-07-01] MEDS ORDERED: METOPROLOL 5 MG/5 ML VIAL As Ordered ONE (12:52)
[2020-07-01] MEDS ORDERED: SUGAMMADEX SODIUM 500 MG/5 ML VIAL (BRIDION) As Ordered ONE (12:52)
--- NOTE | 2020-07-01 13:51 | IPNPDOC ---
Text Note Date of Service The patient was seen on 07/01/20. NOTE Subjective: No any acute events overnight. Patient denied fever, chills, nausea, vomiting, diarrhea Objective: GENERAL APPEARANCE: Demented male HEENT: no scleral icterus, no JVD, EOMI CARDIOVASCULAR: Irregularly irregular LUNGS: Diminished lung sounds bilaterally ABDOMEN: soft & not tender w palpitation MUSCULOSKELETAL: Range of motion of left shoulder and elbow limited, stage III wound with right heel with small amount of pus INTEGUMENT: Multiple petechiae is of both legs, swollen left elbow with erythema, swollen left shoulder NEUROLOGICAL: cranial nerve function from 2-12 intact intact, follows commands, speech not dysarthric Assessment/Plan Patient is 89 years old male with past medical history aortic valve endocarditis, dementia, MSSA, gangrene of toe of left foot, atrial fibrillation, anxiety presented to the hospital with left shoulder and left elbow pain. Patient stated that he developed left shoulder pain with left elbow swelling and pain for past few days. Of note patient completed 6 weeks course of antibiotic therapy for endocarditis, patient was treated with cefazolin. In ER patient was found to have limited shoulder movement with mild swelling and significant left elbow swelling with surrounding erythema. CT of left extremity showed There is a large subacromial subdeltoid bursal effusion with evidence of synovitis.This is nonspecific. Septic bursitis cannot be excluded. There is myofascial edema and subcutaneous edema in the left upper extremity. No abscess or mass lesion is observed. No evidence of venous thrombosis or arterial occlusive disease seen. Problems (1) Septic joint of left shoulder region/ cellulitis of left elbow skin CT showed a large subacromial subdeltoid bursal effusion with evidence of synovitis orthopedic team consult aspirated fluid from left shoulder joint. Fluid consistent of 68,000 white blood count and cloudy Patient received treatment with vancomycin and Zosyn IV Patient has been treated recently with multiple courses of different antibiotics for endocarditis and he was resident of [facility]. Left elbow cellulitis improved Blood culture negative, aspiration fluid culture from left shoulder negative, however inflammatory markers continues to be significantly elevated Dr. Mckeon changed vancomycin to cefazolin IV Dr. Cleveland will do revision of left shoulder today. 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 Carpio Right heel wound stage 3 Debridement of the heel was performed by Dr Carpio at bedside Follow-up with wound care team Melissa PERSON, I+O VSMelissa, I+O Laboratory Tests 07/01/20 05:56 Vital Signs Date Time Temp Pulse Resp B/P (MAP) Pulse Ox O2 Delivery O2 Flow Rate FiO2 07/01/20 13:36 148/75 (99) 07/01/20 13:29 69 16 99 Room Air 07/01/20 13:16 97.1 I&O- Last 24 Hours up to 6 AM 07/01/20 06:00 Intake Total 855 ml Output Total 125 ml Balance 730 ml KATHY LUI DO Jul 01, 2020 13:51
[2020-07-01] MEDS ORDERED: fentaNYL 100 MCG/2 ML INJECTION (J3010) IV PRN (14:45)
[2020-07-01] MEDS ORDERED: oxyCODONE 5MG TAB PO PRN (14:45)
[2020-07-01] MEDS ORDERED: ONDANSETRON 4MG/2ML VIAL IV PRN (14:45)
[2020-07-01] MEDS ORDERED: LR 1,000 ML IV SCH (14:45)
[2020-07-01] MEDS: LR 1,000 ML IV SCH ×2 (15:09→23:44)
[2020-07-01] MEDS: atenoloL 25 MG TAB PO SCH (16:45)
[2020-07-01] MEDS: DULoxetine 30 MG CAP (CYMBALTA) PO SCH (18:39)
[2020-07-01] MEDS: atenoloL 50 MG TAB PO SCH (18:40)
[2020-07-01] MEDS: ACETAMINOPHEN TAB 650MG DOSE (2X325MG) PO PRN (18:41)
[2020-07-02 02:00] VITALS: BP 169/75
[2020-07-02] MEDS: LEVOTHYROXINE 75MCG TABLET (0.075MG) PO SCH (05:35)
[2020-07-02 06:00] VITALS: BP 162/74
[2020-07-02 06:02] LABS: BASO # 0.1 10^3/uL (0.0-0.2); BASO % 0.6 % (0.0-1.0); EOS # 0.7 10^3/uL (0.0-0.5); EOS % 8.4 % (0.0-3.0); HEMATOCRIT 29.5 % (42.0-52.0); LYMPH # 1.4 10^3/uL (1.5-5.0); LYMPH % 17.3 % (24.0-44.0); MEAN CORPUSCULAR HEMOGLOBIN 29.1 pg (27.0-33.0); MEAN CORPUSCULAR HGB CONC 30.5 g/dl (32.0-36.5); MEAN CORPUSCULAR VOLUME 95.5 fl (80.0-96.0); MONO # 0.8 10^3/uL (0.0-0.8); MONO % 9.5 % (0.0-5.0); NEUTROPHILS # 5.2 10^3/uL (1.5-8.5); NEUTROPHILS % 63.6 % (36.0-66.0); PLATELET COUNT, AUTOMATED 337 10^3/uL (150-450); RED BLOOD COUNT 3.09 10^6/uL (4.30-6.10); WHITE BLOOD COUNT 8.1 10^3/uL (4.0-10.0)
[2020-07-02] MEDS: ceFAZolin SOD 2 GM in IV 1 EA IV SCH ×3 (06:23→22:20)
[2020-07-02 06:37] LABS: BLOOD UREA NITROGEN 31 MG/DL (7-18); CALCIUM LEVEL 8.8 MG/DL (8.8-10.2); CARBON DIOXIDE LEVEL 28 MEQ/L (21-32); CHLORIDE LEVEL 102 MEQ/L (98-107); CREATININE FOR GFR 1.05 MG/DL (0.70-1.30); GLOMERULAR FILTRATION RATE > 60.0 (>35); GLUCOSE, FASTING 60 MG/DL (70-100); MAGNESIUM LEVEL 1.7 MG/DL (1.8-2.4); POTASSIUM SERUM 4.3 MEQ/L (3.5-5.1); SODIUM LEVEL 134 MEQ/L (136-145)
[2020-07-02] MEDS: LR 1,000 ML IV SCH (06:45)
[2020-07-02] MEDS: COLCHICINE 0.6 MG TABLET PO SCH (10:43)
[2020-07-02] MEDS: SANTYL OINT 30GM TOP SCH (10:44)
[2020-07-02] MEDS: MULTIVITAMINS/MINERALS THERAP 1 TAB PO SCH (10:44)
[2020-07-02] MEDS: ASPIRIN 81 MG CHEW TABLET PO SCH (10:44)
[2020-07-02] MEDS: MAGNESIUM GLUCONATE 500 MG TAB PO SCH ×2 (10:44→20:17)
[2020-07-02] MEDS: TRIAMCINOLONE ACET 0.1% OINTMENT 15 GM TOP SCH ×2 (10:45→20:17)
[2020-07-02] MEDS: DIMETHICONE 2% OINTMENT(VANICREAM) 70GM TUBE TOP SCH ×2 (10:45→20:18)
[2020-07-02] MEDS: APIXABAN 2.5 MG TAB (ELIQUIS) PO SCH ×2 (10:45→20:16)
[2020-07-02] MEDS: atenoloL 25 MG TAB PO SCH (10:47)
[2020-07-02 14:00] VITALS: BP 142/56
--- NOTE | 2020-07-02 14:44 | RO ---
OPERATIVE NOTE DATE OF OPERATION: 07/01/2020 PREOPERATIVE DIAGNOSIS: Left shoulder infection. POSTOPERATIVE DIAGNOSIS: Left shoulder infection. PLANNED PROCEDURE: Left shoulder arthroscopic irrigation and debridement and samples. PROCEDURE PERFORMED: Left shoulder arthroscopic irrigation and debridement and samples plus comprehensive debridement. HISTORY OF PRESENT ILLNESS: This 89-year-old man has had persistent bacteremia and shoulder pain. Aspiration showed increased cell counts. No growth due to the antibiotics. After a long discussion with the infectious disease specialist as well as the hospitalist and the patient's health care proxy as well as the patient this morning, we decided to go ahead with irrigation and debridement arthroscopic plus samples and debridement of the left shoulder. I marked the left upper extremity and proceeded to surgery. OPERATIVE SURGEON: Dr. Cleveland. SALES INSPECTOR: Dr. Taj Mckeon. TYPE OF ANESTHETIC: General anesthetic. OPERATIVE REPORT: Patient was brought to the operating theater. Administered general anesthetic. Then placed supine on the beach chair positioner. Wound was prepped and draped in the usual sterile fashion. Antibiotics had been given already, IV Ancef, prior to the start of the case due to chronic long-term need for suppression. The limb was prepped and draped with chlorhexidine prep solution allowing over three minutes prep solution drying time prior to draping. General anesthesia was induced. Patient was sat up at a 45 degree angle. SPIDER positioner was used on patient's left side and the bed turned 90 degrees. Preoperative time out was performed confirming the site, the patient, and surgery. We began by making a standard posterior arthroscopy portal as well as anterior portal and lateral portal in the subacromial space. He had an obvious full thickness supraspinatus tendon tear. This was debrided to stable margins. Infraspinatus appeared intact. 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 The biceps was not encountered, presumably torn. There was a moderate to large amount of subdeltoid bursal tissue that was debrided. This took approximately 15-20 minutes. I completed a very thorough bursectomy. CA ligament was left in place due to the massive supraspinatus tendon tear and risk for anterior and superior escape. Anterior and posterior labrum were moderately gently debrided, and they were also moderately frayed as well. Any small cartilage flaps on the glenoid and humeral side were also debrided to perform a complete debridement of the shoulder from multiple different structures. I sent multiple culture samples from the area around the subdeltoid bursal area, which in my opinion represented mostly the site of infection presumably. These will be sent in formalin for gram stain, culture and sensitivity as well as aerobes and anaerobes. I did try to also obtain a fluid sample at the start of the case, but there was no obvious fluid in the subdeltoid or subacromial space. The case was terminated. The patient woke up from general anesthetic. Skin was cleaned with a wet-to-dry dressing. Steri-Strips were used to close the portal sites. Adaptic, 4 x 8 gauze, ABD dressing, and then over wrapped with cloth tape and patient's upper extremity placed into a sling. Patient was transferred off the operating table and taken to the postanesthetic care unit in stable condition. All sponge count, needle count, and instrument counts were correct. No complications. Estimated blood loss was 50 mL. Plan for patient is to have range of motion and weightbearing as tolerated in the left upper extremity. Sling for comfort. Follow up on tissue samples for culture determination. [facility]
--- NOTE | 2020-07-02 15:41 | IPNPDOC ---
Text Note Date of Service The patient was seen on 07/02/20. NOTE Subjective: Left shoulder arthroscopic irrigation and debridement was done ye day patient tolerates procedure well. Patient denies any fever in the morning Objective: GENERAL APPEARANCE: Demented male HEENT: no scleral icterus, no JVD, EOMI CARDIOVASCULAR: Irregularly irregular LUNGS: Diminished lung sounds bilaterally ABDOMEN: soft & not tender w palpitation MUSCULOSKELETAL: Range of motion of left shoulder and elbow limited, stage III wound with right heel with small amount of pus INTEGUMENT: Multiple petechiae is of both legs, swollen left elbow with erythema, swollen left shoulder NEUROLOGICAL: cranial nerve function from 2-12 intact intact, follows commands, speech not dysarthric Assessment/Plan Patient is 89 years old male with past medical history aortic valve endocarditis, dementia, MSSA, gangrene of toe of left foot, atrial fibrillation, anxiety presented to the hospital with left shoulder and left elbow pain. Patient stated that he developed left shoulder pain with left elbow swelling and pain for past few days. Of note patient completed 6 weeks course of antibiotic therapy for endocarditis, patient was treated with cefazolin. In ER patient was found to have limited shoulder movement with mild swelling and significant left elbow swelling with surrounding erythema. CT of left extremity showed There is a large subacromial subdeltoid bursal effusion with evidence of synovitis.This is nonspecific. Septic bursitis cannot be excluded. There is myofascial edema and subcutaneous edema in the left upper extremity. No abscess or mass lesion is observed. No evidence of venous thrombosis or arterial occlusive disease seen. Problems (1) Septic joint of left shoulder region/ cellulitis of left elbow skin CT showed a large subacromial subdeltoid bursal effusion with evidence of synovitis orthopedic team consult aspirated fluid from left shoulder joint. Fluid consistent of 68,000 white blood count and cloudy Patient received treatment with vancomycin and Zosyn IV Patient has been treated recently with multiple courses of different antibiotics for endocarditis and he was resident of long-term. Left elbow cellulitis improved Blood culture negative, aspiration fluid culture from left shoulder negative, however inflammatory markers continues to be significantly elevated Dr. Mckeon changed vancomycin to cefazolin IV Dr. Cleveland Left shoulder arthroscopic irrigation and debridement on 07/02/20 (2) History of endocarditis Patient completed 6 weeks course of antibiotics (3) Cellulitis of left upper extremity See above (4) Afib Restarted Eliquis (5) HTN (hypertension) Blood pressures under control Continue home cardioprotective medication (6) Gangrene of left foot Gangrene of 2nd toe due to peripheral vascular disease Last admission patient declined amputation which was recommended by Dr. Carpio Right heel wound stage 3 Debridement of the heel was performed by Dr Carpio at bedside Follow-up with wound care team VS,Melissa, I+O VS, Melissa, I+O Laboratory Tests 07/02/20 05:31 Vital Signs Date Time Temp Pulse Resp B/P (MAP) Pulse Ox O2 Delivery O2 Flow Rate FiO2 07/02/20 14:00 97.6 53 142/56 (84) 97 Room Air 07/02/20 06:00 16 I&O- Last 24 Hours up to 6 AM 07/02/20 06:00 Intake Total 1750 ml Output Total 500 ml Balance 1250 ml KATHY LUI Jul 02, 2020 15:41
[2020-07-02] MEDS: atenoloL 50 MG TAB PO SCH ×2 (17:46→17:55)
[2020-07-02] MEDS: DULoxetine 30 MG CAP (CYMBALTA) PO SCH (17:46)
[2020-07-02 17:49] VITALS: BP 117/55
[2020-07-02 18:30] VITALS: BP 132/62
[2020-07-02 22:00] VITALS: BP 133/63
[2020-07-03 05:18] VITALS: BP 136/61
[2020-07-03 06:05] LABS: BASO # 0.1 10^3/uL (0.0-0.2); BASO % 0.7 % (0.0-1.0); EOS # 0.7 10^3/uL (0.0-0.5); EOS % 7.8 % (0.0-3.0); HEMATOCRIT 31.5 % (42.0-52.0); HEMOGLOBIN 9.8 g/dl (13.5-17.5); LYMPH # 2.4 10^3/uL (1.5-5.0); LYMPH % 26.5 % (24.0-44.0); MEAN CORPUSCULAR HEMOGLOBIN 29.4 pg (27.0-33.0); MEAN CORPUSCULAR HGB CONC 31.1 g/dl (32.0-36.5); MEAN CORPUSCULAR VOLUME 94.6 fl (80.0-96.0); MONO # 0.9 10^3/uL (0.0-0.8); NEUTROPHILS # 4.8 10^3/uL (1.5-8.5); NEUTROPHILS % 54.5 % (36.0-66.0); PLATELET COUNT, AUTOMATED 412 10^3/uL (150-450); RED BLOOD COUNT 3.33 10^6/uL (4.30-6.10); WHITE BLOOD COUNT 8.9 10^3/uL (4.0-10.0)
[2020-07-03 06:26] LABS: CALCIUM LEVEL 8.5 MG/DL (8.8-10.2); CREATININE FOR GFR 1.36 MG/DL (0.70-1.30); GLOMERULAR FILTRATION RATE 52.5 (>35); MAGNESIUM LEVEL 1.8 MG/DL (1.8-2.4); POTASSIUM SERUM 3.8 MEQ/L (3.5-5.1)
[2020-07-03] MEDS: LEVOTHYROXINE 75MCG TABLET (0.075MG) PO SCH (06:27)
[2020-07-03] MEDS: ceFAZolin SOD 2 GM in IV 1 EA IV SCH ×3 (06:27→21:30)
[2020-07-03 08:51] LABS: C REACTIVE PROTEIN QUANTITATIV 9.75 MG/DL (0.00-0.30)
--- NOTE | 2020-07-03 10:32 | IPN ---
PROGRESS NOTE DATE: 07/02/2020 SUBJECTIVE: Mr. Jara is eating his supper. He seems in a very good mood. He has no complaint except for shoulder pain. He went to the OR yesterday with Dr. Cleveland who did an I&D of his shoulder. There was evidence of subdeltoid bursitis, so he underwent a bursectomy. There was evidence of a massive supraspinatus tendon tear. The patient has had no fever or chills. He is on IV cefazolin 2 grams every eight hours. He has no complaints today. OBJECTIVE: VITAL SIGNS: Temperature is 98.4, pulse 65, respirations 18, blood pressure 132/62, O2 saturation 95% on room air. HEART: Normal S1, S2 with a systolic ejection murmur 3/6 at the left upper sternal border. LUNGS: Clear. No wheezes, rales, or rhonchi. ABDOMEN: Soft and nontender. EXTREMITIES: No edema. He has a pressure ulcer on the left foot Achilles tendon. He has multiple scabs on the lower extremities, few papular rash on the upper extremities. Left shoulder was in a large bandage and was not examined, but he has limited range of motion and swelling of the arm, forearm, and left elbow. Tender to touch. LABORATORY DATA: White count is 8.1, hemoglobin 9, hematocrit 29.5, platelets 337,000, neutrophils 62%, lymphocytes 17%, monocytes 9%. ESR 97 down from 140. Sodium 134, potassium 4.3, chloride 102, bicarb 28, BUN 31, creatinine 1.05, glucose 60, calcium 8.8, magnesium 1.7, CRP 8.87. Blood cultures on 06/25 x2 sets were negative. A 06/25 fluid aspiration was negative. Shoulder aspiration from debridement had a few white cells and no organisms seen with cultures pending and anaerobic culture is pending as well. IMAGING STUDIES: Upper extremity CT done on 06/25 shows diffuse myofascial edema. Large subacromial/subdeltoid bursal effusion with synovitis. No evidence of thrombosis. IMPRESSION: 1. 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 Finished six weeks of intravenous (IV) cefazolin on 06/22. Clinically from a cardiac standpoint, he is doing well had moderate AI and MR. [facility] outpatient cardiology follow up 2. Left shoulder joint effusion with subdeltoid bursitis. Status post bursectomy and cultures were sent. Aspiration of the joint fluid was suggestive of a septic bursa, but cultures were negative probably due to prolonged antibiotic prior to surgery. 3. Rash on both lower extremities. The patient is supposed to follow-up with dermatology. On the day of discharge, he can have a biopsy done. PLAN: Continue with IV cefazolin 2 grams q. eight hours. We will wait on results of intraoperative cultures to decide on further antibiotic plan, whether he will continue with IV or oral options. FROYLAN
[2020-07-03] MEDS: MULTIVITAMINS/MINERALS THERAP 1 TAB PO SCH (10:35)
[2020-07-03] MEDS: COLCHICINE 0.6 MG TABLET PO SCH (10:35)
[2020-07-03] MEDS: metOLazone 2.5 MG TAB PO SCH (10:35)
[2020-07-03] MEDS: MAGNESIUM GLUCONATE 500 MG TAB PO SCH ×2 (10:35→21:30)
[2020-07-03] MEDS: ASPIRIN 81 MG CHEW TABLET PO SCH (10:36)
[2020-07-03] MEDS: APIXABAN 2.5 MG TAB (ELIQUIS) PO SCH ×2 (10:36→21:30)
[2020-07-03] MEDS: TRIAMCINOLONE ACET 0.1% OINTMENT 15 GM TOP SCH ×2 (10:36→21:31)
[2020-07-03] MEDS: SANTYL OINT 30GM TOP SCH (10:36)
[2020-07-03] MEDS: DIMETHICONE 2% OINTMENT(VANICREAM) 70GM TUBE TOP SCH ×2 (10:37→21:31)
[2020-07-03] MEDS: atenoloL 25 MG TAB PO SCH (10:38)
--- NOTE | 2020-07-03 12:09 | REPVR ---
PROCEDURE INFORMATION: Exam: CT Head Without Contrast Exam date and time: 07/03/2020 11:30 AM Age: 89 years old Clinical indication: Injury or trauma; Fall; Blunt trauma (contusions or hematomas); Other: Lethargy; Additional info: Fall, lethargy TECHNIQUE: Imaging protocol: Computed tomography of the head without contrast. Radiation optimization: All CT scans at this facility use at least one of these dose optimization techniques: automated exposure control; mA and/or kV adjustment per patient size (includes targeted exams where dose is matched to clinical indication); or iterative reconstruction. COMPARISON: CT Head without contrast 05/11/2020 2:41 PM FINDINGS: Brain: There is no acute intracranial abnormality. Moderate small vessel ischemic changes are seen. There is no mass, midline shift, or mass effect. Barfield-white matter differentiation is preserved. There is no evidence of hemorrhage. There is no extra-axial fluid collection. Basal cisterns are patent. Cerebral ventricles: Moderate prominence of ventricles and sulci representing volume loss. Bones/joints: Unremarkable. No acute fracture. Paranasal sinuses: Visualized sinuses are unremarkable. No fluid levels. Mastoid air cells: Visualized mastoid air cells are well aerated. Soft tissues: Unremarkable. IMPRESSION: 1. Moderate volume loss and small vessel ischemic changes. 2. No acute intracranial abnormality. Electronically signed by: Ember Maciel On 07/03/2020 12:09:13 PM
--- NOTE | 2020-07-03 12:37 | IPN ---
PROGRESS NOTE DATE: 07/03/2020 SUBJECTIVE: Hiren was not in a good this morning. He continues to have pain in his left shoulder. No fever or chills. No nausea, vomiting, or diarrhea. No chest pain or shortness of breath. OBJECTIVE: HEART: Normal S1, S2 with a holosystolic murmur 3/6 over the whole precordium. No rubs or gallops. LUNGS: Clear. No wheezes, rales, or rhonchi. ABDOMEN: Soft and nontender. EXTREMITIES: Diffuse rash and some scabs. Amputation of the second toe with yellowish discharge. Ulcer on the dorsal aspect of the foot measuring 2 x 2 cm with yellowish discharge. Left arm swollen around the elbow surgical scar. Shoulder range of motion is limited. The patient did not want to be touched today or examine his joints as they hurt. LABORATORY DATA: White count 8.9, hemoglobin 9.8, hematocrit 31.5, platelets 412,000, neutrophils 54%, lymphocytes 26%, monocytes 10%. ESR 97 down from 138. Potassium 3.8, chloride 103, bicarb 26, BUN 35, creatinine 1.36, glucose 96, calcium 8.5, magnesium 1.8, CRP 9.75. Cultures from the left shoulder are still pending, few white cells and no organisms seem. Anaerobic cultures are pending. MEDICATIONS: IV cefazolin 2 grams q. 8 hours. IMPRESSION: 1. Aortic valve endocarditis, methicillin-sensitive Staphylococcus aureus (MSSA), and group A strep treated with six weeks of cefazolin ended on 06/22 and currently back on cefazolin for septic bursitis. 2. Left shoulder subdeltoid bursitis status post incision and drainage (I&D). Cultures are still pending. CRP slightly increased probably related to surgery. 3. Rash on the lower extremities. The patient needs a follow-up with dermatology. They recommended he get sent to their office before he makes it to the detention On triamcinolone and Lac-Hydrin. I did discuss the case with Dr. Joshua. 4. 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 Continue on Atenolol 25 mg in the morning and 50 mg at night, aspirin 81 mg daily, apixaban 2.5 mg p.o. b.i.d. PLAN: Continue with IV cefazolin until results of culture and then we will decide. If culture negative, I would suggest de-escalating to Keflex 1 gram p.o. t.i.d. Please call dermatology office. I would not discharge him back to the detention until we have results of cultures to make decisions on his antibiotics. I will discuss the case with the charge nurse. The patient also will need follow-up with cardiology regarding endocarditis, aortic and mitral valve regurgitation. FROYLAN
[2020-07-03 14:00] VITALS: BP 135/72
--- NOTE | 2020-07-03 16:55 | IPNPDOC ---
Text Note Date of Service The patient was seen on 07/03/20. NOTE Subjective: Patient developed mechanical fall overnight. CT head was done neg ative for acute bleed. In the morning patient was lethargic and somnolent. Objective: GENERAL APPEARANCE: Demented male HEENT: no scleral icterus, no JVD, EOMI CARDIOVASCULAR: Irregularly irregular LUNGS: Diminished lung sounds bilaterally ABDOMEN: soft & not tender w palpitation MUSCULOSKELETAL: Range of motion of left shoulder and elbow limited, stage III wound with right heel with small amount of pus INTEGUMENT: Multiple petechiae is of both legs, swollen left elbow with erythema, swollen left shoulder NEUROLOGICAL: Somnolent, moves 4 limbs Assessment/Plan Patient is 89 years old male with past medical history aortic valve endocarditis, dementia, MSSA, gangrene of toe of left foot, atrial fibrillation, anxiety presented to the hospital with left shoulder and left elbow pain. Patient stated that he developed left shoulder pain with left elbow swelling and pain for past few days. Of note patient completed 6 weeks course of antibiotic therapy for endocarditis, patient was treated with cefazolin. In ER patient was found to have limited shoulder movement with mild swelling and significant left elbow swelling with surrounding erythema. CT of left extremity showed There is a large subacromial subdeltoid bursal effusion with evidence of synovitis.This is nonspecific. Septic bursitis cannot be excluded. There is myofascial edema and subcutaneous edema in the left upper extremity. No abscess or mass lesion is observed. No evidence of venous thrombosis or arterial occlusive disease seen. Problems (1) Septic joint of left shoulder region/ cellulitis of left elbow skin CT showed a large subacromial subdeltoid bursal effusion with evidence of synovitis orthopedic team consult aspirated fluid from left shoulder joint. Fluid consistent of 68,000 white blood count and cloudy Patient received treatment with vancomycin and Zosyn IV Patient has been treated recently with multiple courses of different antibiotics for endocarditis and he was resident of [facility] living. Left elbow cellulitis improved Blood culture negative, aspiration fluid culture from left shoulder negative, however inflammatory markers continues to be significantly elevated Dr. Mckeon changed vancomycin to cefazolin IV Dr. Cleveland Left shoulder arthroscopic irrigation and debridement on 07/02/20 Shoulder culture negative (2) History of endocarditis Patient completed 6 weeks course of antibiotics Follow-up with framing carpenter in the outpatient settings (3) Cellulitis of left upper extremity See above (4) Afib Restarted Eliquis (5) HTN (hypertension) Blood pressures under control Continue home cardioprotective medication (6) Gangrene of left foot Gangrene of 2nd toe due to peripheral vascular disease Last admission patient declined amputation which was recommended by Dr. Carpio Right heel wound stage 3 Debridement of the heel was performed by Dr Carpio at bedside Follow-up with wound care team Rash On the lower extremities Follow-up with assignment officer in the outpatient settings Continue steroids lotion VS,Fishbone, I+O VS, Fishbone, I+O Laboratory Tests 07/03/20 05:41 Vital Signs Date Time Temp Pulse Resp B/P (MAP) Pulse Ox O2 Delivery O2 Flow Rate FiO2 07/03/20 14:00 97.5 57 17 135/72 (93) 97 Room Air I&O- Last 24 Hours up to 6 AM 07/03/20 06:00 Intake Total 250 ml Output Total 100 ml Balance 150 ml KATHY LUI Jul 03, 2020 16:55
[2020-07-03] MEDS: DULoxetine 30 MG CAP (CYMBALTA) PO SCH (17:10)
[2020-07-03] MEDS: atenoloL 50 MG TAB PO SCH (17:10)
[2020-07-03] MEDS: PERCOCET 5MG/325MG TAB PO PRN (21:36)
[2020-07-03 22:00] VITALS: BP 130/72
[2020-07-04 06:00] VITALS: BP 130/77
[2020-07-04] MEDS: ceFAZolin SOD 2 GM in IV 1 EA IV SCH (06:19)
[2020-07-04] MEDS: LEVOTHYROXINE 75MCG TABLET (0.075MG) PO SCH (06:20)
[2020-07-04] MEDS: MULTIVITAMINS/MINERALS THERAP 1 TAB PO SCH (08:20)
[2020-07-04] MEDS: ASPIRIN 81 MG CHEW TABLET PO SCH (08:20)
[2020-07-04] MEDS: COLCHICINE 0.6 MG TABLET PO SCH (08:20)
[2020-07-04] MEDS: APIXABAN 2.5 MG TAB (ELIQUIS) PO SCH ×2 (08:20→20:08)
[2020-07-04] MEDS: atenoloL 25 MG TAB PO SCH (08:20)
[2020-07-04] MEDS: DIMETHICONE 2% OINTMENT(VANICREAM) 70GM TUBE TOP SCH ×2 (08:21→20:14)
[2020-07-04] MEDS: SANTYL OINT 30GM TOP SCH (08:21)
[2020-07-04] MEDS: TRIAMCINOLONE ACET 0.1% OINTMENT 15 GM TOP SCH ×2 (08:22→20:09)
[2020-07-04] MEDS: MAGNESIUM GLUCONATE 500 MG TAB PO SCH ×2 (08:22→20:08)
[2020-07-04 14:00] VITALS: BP 137/60
--- NOTE | 2020-07-04 14:01 | IPNPDOC ---
Text Note Date of Service The patient was seen on 07/04/20. NOTE Subjective: No any acute events overnight Objective: GENERAL APPEARANCE: Demented male HEENT: no scleral icterus, no JVD, EOMI CARDIOVASCULAR: Irregularly irregular LUNGS: Diminished lung sounds bilaterally ABDOMEN: soft & not tender w palpitation MUSCULOSKELETAL: Range of motion of left shoulder and elbow limited, stage III wound with right heel with small amount of pus INTEGUMENT: Multiple petechiae is of both legs, swollen left elbow with erythema, swollen left shoulder NEUROLOGICAL: Somnolent, moves 4 limbs Assessment/Plan Patient is 89 years old male with past medical history aortic valve endocarditis, dementia, MSSA, gangrene of toe of left foot, atrial fibrillation, anxiety presented to the hospital with left shoulder and left elbow pain. Patient stated that he developed left shoulder pain with left elbow swelling and pain for past few days. Of note patient completed 6 weeks course of antibiotic therapy for endocarditis, patient was treated with cefazolin. In ER patient was found to have limited shoulder movement with mild swelling and significant left elbow swelling with surrounding erythema. CT of left extremity showed There is a large subacromial subdeltoid bursal effusion with evidence of synovitis.This is nonspecific. Septic bursitis cannot be excluded. There is myofascial edema and subcutaneous edema in the left upper extremity. No abscess or mass lesion is observed. No evidence of venous thrombosis or arterial occlusive disease seen. Problems (1) Septic joint of left shoulder region/ cellulitis of left elbow skin CT showed a large subacromial subdeltoid bursal effusion with evidence of synovitis orthopedic team consult aspirated fluid from left shoulder joint. Fluid consistent of 68,000 white blood count and cloudy Patient received treatment with vancomycin and Zosyn IV Patient has been treated recently with multiple courses of different antibiotics for endocarditis and he was resident of care home. Left elbow cellulitis improved Blood culture negative, aspiration fluid culture from left shoulder negative, however inflammatory markers continues to be significantly elevated Dr. Mckeon changed vancomycin to cefazolin IV Dr. Cleveland Left shoulder arthroscopic irrigation and debridement on 07/02/20 Shoulder culture negative I changed IV antibiotics to by mouth Keflex 1 gram t.i.d (2) History of endocarditis Patient completed 6 weeks course of antibiotics Follow-up with loft worker head in the outpatient settings (3) Cellulitis of left upper extremity See above (4) Afib Restarted Eliquis (5) HTN (hypertension) Blood pressures under control Continue home cardioprotective medication (6) Gangrene of left foot Gangrene of 2nd toe due to peripheral vascular disease Last admission patient declined amputation which was recommended by Dr. Carpio Right heel wound stage 3 Debridement of the heel was performed by Dr Carpio at bedside Follow-up with wound care team Rash On the lower extremities Follow-up with market research specialist in the outpatient settings Continue steroids lotion VS,Fishbone, I+O VS, Fishbone, I+O Vital Signs Date Time Temp Pulse Resp B/P (MAP) Pulse Ox O2 Delivery O2 Flow Rate FiO2 07/04/20 08:20 64 136/52 07/04/20 06:00 97.5 17 96 07/03/20 22:00 Room Air I&O- Last 24 Hours up to 6 AM 07/04/20 06:00 Intake Total 1095 ml Balance 1095 ml KATHY LUI DO Jul 04, 2020 14:01
[2020-07-04] MEDS: CEPHALEXIN 500 MG CAP PO SCH (15:10)
[2020-07-04] MEDS: atenoloL 50 MG TAB PO SCH (18:48)
[2020-07-04] MEDS: DULoxetine 30 MG CAP (CYMBALTA) PO SCH (18:48)
[2020-07-04] MEDS: PERCOCET 5MG/325MG TAB PO PRN (20:11)
[2020-07-04 22:00] VITALS: BP 142/66
[2020-07-05] MEDS: CEPHALEXIN 500 MG CAP PO SCH ×4 (01:24→23:15)
[2020-07-05] MEDS: LEVOTHYROXINE 75MCG TABLET (0.075MG) PO SCH (05:54)
[2020-07-05 06:00] VITALS: BP 147/67
[2020-07-05 07:26] LABS: BASO # 0.1 10^3/uL (0.0-0.2); BASO % 0.7 % (0.0-1.0); EOS # 0.7 10^3/uL (0.0-0.5); EOS % 9.7 % (0.0-3.0); HEMOGLOBIN 9.5 g/dl (13.5-17.5); LYMPH # 2.4 10^3/uL (1.5-5.0); LYMPH % 32.5 % (24.0-44.0); MEAN CORPUSCULAR HEMOGLOBIN 28.6 pg (27.0-33.0); MEAN CORPUSCULAR HGB CONC 30.6 g/dl (32.0-36.5); MEAN CORPUSCULAR VOLUME 93.4 fl (80.0-96.0); MONO # 0.7 10^3/uL (0.0-0.8); MONO % 9.1 % (0.0-5.0); NEUTROPHILS # 3.6 10^3/uL (1.5-8.5); NEUTROPHILS % 47.3 % (36.0-66.0); PLATELET COUNT, AUTOMATED 406 10^3/uL (150-450); RED BLOOD COUNT 3.32 10^6/uL (4.30-6.10); WHITE BLOOD COUNT 7.5 10^3/uL (4.0-10.0)
[2020-07-05 08:02] LABS: ALBUMIN 2.2 GM/DL (3.2-5.2); ALT/SGPT 9 U/L (12-78); BILIRUBIN,TOTAL 0.5 MG/DL (0.2-1.0); BLOOD UREA NITROGEN 33 MG/DL (7-18); CALCIUM LEVEL 8.7 MG/DL (8.8-10.2); CARBON DIOXIDE LEVEL 30 MEQ/L (21-32); CHLORIDE LEVEL 101 MEQ/L (98-107); CREATININE FOR GFR 1.16 MG/DL (0.70-1.30); GLOMERULAR FILTRATION RATE > 60.0 (>35); GLUCOSE, FASTING 72 MG/DL (70-100); MAGNESIUM LEVEL 1.7 MG/DL (1.8-2.4); POTASSIUM SERUM 4.4 MEQ/L (3.5-5.1); SODIUM LEVEL 136 MEQ/L (136-145); TOTAL PROTEIN 6.5 GM/DL (6.4-8.2)
[2020-07-05] MEDS: MULTIVITAMINS/MINERALS THERAP 1 TAB PO SCH (09:47)
[2020-07-05] MEDS: MAGNESIUM GLUCONATE 500 MG TAB PO SCH ×2 (09:48→23:15)
[2020-07-05] MEDS: TRIAMCINOLONE ACET 0.1% OINTMENT 15 GM TOP SCH ×2 (09:49→20:13)
[2020-07-05] MEDS: COLCHICINE 0.6 MG TABLET PO SCH (09:49)
[2020-07-05] MEDS: atenoloL 25 MG TAB PO SCH (09:49)
[2020-07-05] MEDS: APIXABAN 2.5 MG TAB (ELIQUIS) PO SCH ×2 (09:49→20:12)
[2020-07-05] MEDS: ASPIRIN 81 MG CHEW TABLET PO SCH (09:49)
[2020-07-05] MEDS: DIMETHICONE 2% OINTMENT(VANICREAM) 70GM TUBE TOP SCH ×2 (09:50→20:12)
[2020-07-05] MEDS: SANTYL OINT 30GM TOP SCH (09:50)
--- NOTE | 2020-07-05 11:00 | IPNPDOC ---
Text Note Date of Service The patient was seen on 07/05/20. NOTE Subjective: No any acute events overnight Objective: GENERAL APPEARANCE: Demented male HEENT: no scleral icterus, no JVD, EOMI CARDIOVASCULAR: Irregularly irregular LUNGS: Diminished lung sounds bilaterally ABDOMEN: soft & not tender w palpitation MUSCULOSKELETAL: Range of motion of left shoulder and elbow limited, stage III wound with right heel with small amount of pus INTEGUMENT: Multiple petechiae is of both legs, swollen left elbow with erythema, swollen left shoulder NEUROLOGICAL: Somnolent, moves 4 limbs Assessment/Plan Patient is 89 years old male with past medical history aortic valve endocarditis, dementia, MSSA, gangrene of toe of left foot, atrial fibrillation, anxiety presented to the hospital with left shoulder and left elbow pain. Patient stated that he developed left shoulder pain with left elbow swelling and pain for past few days. Of note patient completed 6 weeks course of antibiotic therapy for endocarditis, patient was treated with cefazolin. In ER patient was found to have limited shoulder movement with mild swelling and significant left elbow swelling with surrounding erythema. CT of left extremity showed There is a large subacromial subdeltoid bursal effusion with evidence of synovitis.This is nonspecific. Septic bursitis cannot be excluded. There is myofascial edema and subcutaneous edema in the left upper extremity. No abscess or mass lesion is observed. No evidence of venous thrombosis or arterial occlusive disease seen. Problems (1) Septic joint of left shoulder region/ cellulitis of left elbow skin CT showed a large subacromial subdeltoid bursal effusion with evidence of synovitis orthopedic team consult aspirated fluid from left shoulder joint. Fluid consistent of 68,000 white blood count and cloudy Patient received treatment with vancomycin and Zosyn IV Patient has been treated recently with multiple courses of different antibiotics for endocarditis and [facility]. Left elbow cellulitis improved Blood culture negative, aspiration fluid culture from left shoulder negative, however inflammatory markers continues to be significantly elevated Dr. Mckeon changed vancomycin to cefazolin IV Dr. Cleveland Left shoulder arthroscopic irrigation and debridement on 07/02/20 Shoulder culture negative I changed IV antibiotics to by mouth Keflex 1 gram t.i.d (2) History of endocarditis Patient completed 6 weeks course of antibiotics Follow-up with foreclosure clerk in the outpatient settings (3) Cellulitis of left upper extremity See above (4) Afib Restarted Eliquis (5) HTN (hypertension) Blood pressures under control Continue home cardioprotective medication (6) Gangrene of left foot Gangrene of 2nd toe due to peripheral vascular disease Last admission patient declined amputation which was recommended by Dr. Carpio Right heel wound stage 3 Debridement of the heel was performed by Dr Carpio at bedside Follow-up with wound care team Rash On the lower extremities Follow-up with recreational therapist in the outpatient settings Continue steroids lotion Patient transferred to [facility] status VS,Melissa, I+O VSMelissa, I+O Laboratory Tests 07/05/20 05:49 Vital Signs Date Time Temp Pulse Resp B/P (MAP) Pulse Ox O2 Delivery O2 Flow Rate FiO2 07/05/20 09:49 64 137/63 07/05/20 06:00 97.0 17 96 Room Air I&O- Last 24 Hours up to 6 AM 07/05/20 06:00 Intake Total 1895 ml Balance 1895 ml KATHY LUI DO Jul 05, 2020 11:00
[2020-07-05 14:00] VITALS: BP 120/63
[2020-07-05] MEDS: DULoxetine 30 MG CAP (CYMBALTA) PO SCH (17:44)
[2020-07-05] MEDS: atenoloL 50 MG TAB PO SCH (17:44)
[2020-07-06 05:51] LABS: BASO # 0.1 10^3/uL (0.0-0.2); BASO % 0.6 % (0.0-1.0); EOS # 0.7 10^3/uL (0.0-0.5); HEMATOCRIT 33.2 % (42.0-52.0); HEMOGLOBIN 10.1 g/dl (13.5-17.5); LYMPH # 2.3 10^3/uL (1.5-5.0); LYMPH % 27.4 % (24.0-44.0); MEAN CORPUSCULAR HEMOGLOBIN 28.7 pg (27.0-33.0); MEAN CORPUSCULAR HGB CONC 30.4 g/dl (32.0-36.5); MEAN CORPUSCULAR VOLUME 94.3 fl (80.0-96.0); MONO # 0.7 10^3/uL (0.0-0.8); MONO % 8.7 % (0.0-5.0); NEUTROPHILS # 4.7 10^3/uL (1.5-8.5); NEUTROPHILS % 54.8 % (36.0-66.0); PLATELET COUNT, AUTOMATED 435 10^3/uL (150-450); RED BLOOD COUNT 3.52 10^6/uL (4.30-6.10); WHITE BLOOD COUNT 8.5 10^3/uL (4.0-10.0)
[2020-07-06 06:00] VITALS: BP 150/72
[2020-07-06] MEDS: LEVOTHYROXINE 75MCG TABLET (0.075MG) PO SCH (06:13)
[2020-07-06] MEDS: CEPHALEXIN 500 MG CAP PO SCH ×3 (06:13→22:25)
[2020-07-06] MEDS: PERCOCET 5MG/325MG TAB PO PRN (06:18)
[2020-07-06 06:20] LABS: ALBUMIN 2.4 GM/DL (3.2-5.2); BILIRUBIN,TOTAL 0.4 MG/DL (0.2-1.0); CALCIUM LEVEL 8.4 MG/DL (8.8-10.2); CREATININE FOR GFR 1.22 MG/DL (0.70-1.30); GLOMERULAR FILTRATION RATE 59.5 (>35); MAGNESIUM LEVEL 1.6 MG/DL (1.8-2.4); POTASSIUM SERUM 4.5 MEQ/L (3.5-5.1); TOTAL PROTEIN 6.9 GM/DL (6.4-8.2)
[2020-07-06] MEDS: metOLazone 2.5 MG TAB PO SCH (08:55)
[2020-07-06] MEDS: APIXABAN 2.5 MG TAB (ELIQUIS) PO SCH ×2 (08:55→22:25)
[2020-07-06] MEDS: ASPIRIN 81 MG CHEW TABLET PO SCH (08:55)
[2020-07-06] MEDS: atenoloL 25 MG TAB PO SCH (08:55)
[2020-07-06] MEDS: MULTIVITAMINS/MINERALS THERAP 1 TAB PO SCH (08:56)
[2020-07-06] MEDS: TRIAMCINOLONE ACET 0.1% OINTMENT 15 GM TOP SCH ×2 (08:56→22:27)
[2020-07-06] MEDS: DIMETHICONE 2% OINTMENT(VANICREAM) 70GM TUBE TOP SCH ×2 (09:25→22:26)
[2020-07-06] MEDS: COLCHICINE 0.6 MG TABLET PO SCH (09:25)
[2020-07-06] MEDS: SANTYL OINT 30GM TOP SCH (09:25)
[2020-07-06] MEDS: MAGNESIUM GLUCONATE 500 MG TAB PO SCH ×2 (09:25→22:25)
[2020-07-06 16:46] LABS: C REACTIVE PROTEIN QUANTITATIV 3.15 MG/DL (0.00-0.30)
--- NOTE | 2020-07-06 17:46 | IPN ---
PROGRESS NOTE DATE: 07/06/2020 SUBJECTIVE: Hiren is in a good mood today. He states his shoulder does not hurt if he does not move it. He has no fever or chills. No nausea, vomiting, or diarrhea. OBJECTIVE: HEART: Normal S1, S2. Irregularly irregular with a holosystolic murmur 2-3/6. LUNGS: Clear anteriorly. No wheezes, rales, or rhonchi. ABDOMEN: Soft and nontender. EXTREMITIES: Left shoulder incision is well-healed. He still cannot elevate his shoulder over 10 degrees. Left elbow and arm are still swollen and slightly erythematous, but do not seem to be tender. SKIN: Has multiple scabs and scratch carcamo. There are some new lesions that are hyperpigmented. Multiple scabs on the feet. EXTREMITIES: Trace edema. Ulcer on the dorsal aspect of the foot measured 2 x 1 cm healing well. Amputation site of the second toe is healing with no evidence of infection. LABORATORY DATA: White count 8.5, hemoglobin 10.1, hematocrit 33.2, platelets 435,000, neutrophils 55%, lymphocytes 27%, monocytes 8%. Sodium 137, potassium 4.5, chloride 102, bicarb 29, BUN 33, creatinine 1.22, glucose 88, calcium 8.4, magnesium 1.6, AST 20, ALT 10, CRP 3.15, total protein 6.9, albumin 2.4. Culture from the left shoulder aerobic and anaerobic were final negative. Aspiration from the subdeltoid bursa had 68,432 white cells with predominantly neutrophils suggestive of bursitis. IMPRESSION: 1. 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 Finished treatment. From a cardiac standpoint, he is stable, but he has moderate aortic insufficiency and mitral regurgitation that needs to be followed up by cardiology. He is currently on a beta-matt and aspirin, as well as Eliquis. He may benefit from JOSE inhibitor. 2. Left shoulder infection status post incision and drainage (I&D). Aspiration from the bursa was suggestive of infectious process, but culture was negative probably was Staphylococcus aureus that was suppressed by prolonged intravenous (IV) antibiotic prior. His sed rate and CRP have improved. 3. Skin rash. The patient was supposed to follow-up with dermatology for the past three months and it could not be done. The patient could see Dr. Joshua on the day of discharge before he goes back to the group home tomorrow if that is arranged. PLAN: Discontinue IV cefazolin. Continue with Keflex 1000 mg p.o. q. hours if the patient tolerates for a total of three weeks with end of treatment scheduled for 07/29, which would be four weeks from joint aspiration.
[2020-07-06 18:01] VITALS: BP 142/74
[2020-07-06] MEDS: atenoloL 50 MG TAB PO SCH (18:01)
[2020-07-06] MEDS: DULoxetine 30 MG CAP (CYMBALTA) PO SCH (18:01)
[2020-07-07] MEDS: LEVOTHYROXINE 75MCG TABLET (0.075MG) PO SCH (05:32)
[2020-07-07] MEDS: CEPHALEXIN 500 MG CAP PO SCH (05:33)
[2020-07-07 06:39] LABS: BASO # 0.1 10^3/uL (0.0-0.2); BASO % 0.8 % (0.0-1.0); EOS # 0.6 10^3/uL (0.0-0.5); EOS % 7.7 % (0.0-3.0); HEMATOCRIT 33.2 % (42.0-52.0); HEMOGLOBIN 10.3 g/dl (13.5-17.5); LYMPH # 2.5 10^3/uL (1.5-5.0); LYMPH % 32.5 % (24.0-44.0); MEAN CORPUSCULAR VOLUME 93.5 fl (80.0-96.0); MONO # 0.8 10^3/uL (0.0-0.8); MONO % 9.8 % (0.0-5.0); NEUTROPHILS # 3.8 10^3/uL (1.5-8.5); NEUTROPHILS % 48.6 % (36.0-66.0); PLATELET COUNT, AUTOMATED 434 10^3/uL (150-450); RED BLOOD COUNT 3.55 10^6/uL (4.30-6.10); WHITE BLOOD COUNT 7.8 10^3/uL (4.0-10.0)
[2020-07-07 07:05] LABS: ALBUMIN 2.4 GM/DL (3.2-5.2); ALT/SGPT 12 U/L (12-78); BILIRUBIN,TOTAL 0.5 MG/DL (0.2-1.0); BLOOD UREA NITROGEN 34 MG/DL (7-18); CALCIUM LEVEL 8.9 MG/DL (8.8-10.2); CARBON DIOXIDE LEVEL 30 MEQ/L (21-32); CHLORIDE LEVEL 102 MEQ/L (98-107); CREATININE FOR GFR 1.16 MG/DL (0.70-1.30); GLOMERULAR FILTRATION RATE > 60.0 (>35); GLUCOSE, FASTING 76 MG/DL (70-100); MAGNESIUM LEVEL 1.6 MG/DL (1.8-2.4); POTASSIUM SERUM 4.4 MEQ/L (3.5-5.1); SODIUM LEVEL 136 MEQ/L (136-145); TOTAL PROTEIN 6.8 GM/DL (6.4-8.2)
[2020-07-07 08:00] VITALS: BP 128/58
[2020-07-07] MEDS: APIXABAN 2.5 MG TAB (ELIQUIS) PO SCH (08:23)
[2020-07-07] MEDS: atenoloL 25 MG TAB PO SCH (08:23)
[2020-07-07] MEDS: MULTIVITAMINS/MINERALS THERAP 1 TAB PO SCH (08:23)
[2020-07-07] MEDS: ASPIRIN 81 MG CHEW TABLET PO SCH (08:23)
[2020-07-07] MEDS: COLCHICINE 0.6 MG TABLET PO SCH (08:24)
[2020-07-07] MEDS: MAGNESIUM GLUCONATE 500 MG TAB PO SCH (08:24)
[2020-07-07] MEDS: DIMETHICONE 2% OINTMENT(VANICREAM) 70GM TUBE TOP SCH (08:27)
[2020-07-07] MEDS: TRIAMCINOLONE ACET 0.1% OINTMENT 15 GM TOP SCH (08:28)
[2020-07-07] MEDS: SANTYL OINT 30GM TOP SCH (08:28)
[2020-07-07] MEDS ORDERED: TRIA1OI TOP (09:31)
[2020-07-07] MEDS ORDERED: CEPH500C PO (09:31)
--- NOTE | 2020-07-07 19:48 | DS.PDOC ---
Discharge Summary General Date of Admission Jun 25, 2020 at 16:49 Date of Discharge 07/07/20 Discharge Summary PROCEDURES PERFORMED DURING STAY: [None]. ADMITTING DIAGNOSES: Septic joint of left shoulder region/ cellulitis of left elbow skin History of endocarditis Cellulitis of left upper extremity Chronic Afib HTN (hypertension) Gangrene of left foot Right heel wound stage 3 Rash DISCHARGE DIAGNOSES: Septic joint of left shoulder region/ cellulitis of left elbow skin History of endocarditis Cellulitis of left upper extremity Chronic Afib HTN (hypertension) Gangrene of left foot Right heel wound stage 3 Rash COMPLICATIONS/CHIEF COMPLAINT: Cellulitis Of Left Upper Extremity.. HISTORY OF PRESENT ILLNESS: Patient is 89 years old male with past medical history aortic valve endocarditis, dementia, MSSA, gangrene of toe of left foot, atrial fibrillation, anxiety presented to the hospital with left shoulder and left elbow pain. Patient stated that he developed left shoulder pain with left elbow swelling and pain for past few days. Of note patient completed 6 weeks course of antibiotic therapy for endocarditis, patient was treated with cefazolin. In ER patient was found to have limited shoulder movement with mild swelling and significant left elbow swelling with surrounding erythema. CT of left extremity showed There is a large subacromial subdeltoid bursal effusion with evidence of synovitis.This is nonspecific. Septic bursitis cannot be excluded. There is myofascial edema and subcutaneous edema in the left upper extremity. No abscess or mass lesion is observed. No evidence of venous thrombosis or arterial occlusive disease seen. HOSPITAL COURSE: During the hospital stay the following issues addressed (1) Septic joint of left shoulder region/ cellulitis of left elbow skin CT showed a large subacromial subdeltoid bursal effusion with evidence of synovitis orthopedic team consult aspirated fluid from left shoulder joint. Fluid consistent of 68,000 white blood count and cloudy Patient received treatment with vancomycin and Zosyn IV Patient has been treated recently with multiple courses of different antibiotics for endocarditis and he was resident of [facility] care. Left elbow cellulitis improved Blood culture negative, aspiration fluid culture from left shoulder negative, however inflammatory markers continues to be significantly elevated Dr. Mckeon changed vancomycin to cefazolin IV Dr. 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 Carpio Right heel wound stage 3 Debridement of the heel was performed by Dr Carpio at bedside Follow-up with wound care team Rash On the lower extremities Follow-up with hospital medical assistant in the outpatient settings Continue steroids lotion Patient transferred to [facility] status DISCHARGE MEDICATIONS: Please see below. ALLERGIES: Please see below. PHYSICAL EXAMINATION ON DISCHARGE: VITAL SIGNS: Please see below. GENERAL APPEARANCE: Demented male HEENT: no scleral icterus, no JVD, EOMI CARDIOVASCULAR: Irregularly irregular LUNGS: Diminished lung sounds bilaterally ABDOMEN: soft & not tender w palpitation MUSCULOSKELETAL: Range of motion of left shoulder and elbow limited, stage III wound with right heel with small amount of pus INTEGUMENT: Multiple petechiae is of both legs, swollen left elbow with erythema, swollen left shoulder NEUROLOGICAL: Somnolent, moves 4 limbs LABORATORY DATA: Please see below. PROGNOSIS: guarded ACTIVITY: [As tolerated]. DIET: cardiac DISPOSITION: [facility]. ITEMS TO FOLLOWUP ON ON OUTPATIENT: Follow-up with ID, PCP, hospital medical assistant and orthopedic team DISCHARGE CONDITION: [Stable]. TIME SPENT ON DISCHARGE: Greater than40 minutes. Vital Signs/I&Os Vital Signs Date Time Temp Pulse Resp B/P (MAP) Pulse Ox O2 Delivery O2 Flow Rate FiO2 07/07/20 08:00 98.1 54 18 128/58 (81) 99 Room Air I&O- Last 24 Hours up to 6 AM 07/07/20 06:00 Intake Total 1240 ml Output Total 225 ml Balance 1015 ml Laboratory Data Labs 24H Laboratory Tests 2 07/07/20 06:04: Immature Granulocyte % (Auto) 0.6, Neutrophils (%) (Auto) 48.6, Lymphocytes (%) (Auto) 32.5, Monocytes (%) (Auto) 9.8H, Eosinophils (%) (Auto) 7.7H, Basophils (%) (Auto) 0.8, Neutrophils # (Auto) 3.8, Lymphocytes # (Auto) 2.5, Monocytes # (Auto) 0.8, Eosinophils # (Auto) 0.6H, Basophils # (Auto) 0.1, Nucleated Red Blood Cells % (auto) 0.0, Anion Gap 4L, Glomerular Filtration Rate > 60.0, Calcium Level 8.9, Magnesium Level 1.6L, Total Bilirubin 0.5, Aspartate Amino Transf (AST/SGOT) 20, Alanine Aminotransferase (ALT/SGPT) 12, Alkaline Phosphatase 97, Total Protein 6.8, Albumin 2.4L, Albumin/Globulin Ratio 0.5 CBC/BMP Laboratory Tests 07/07/20 06:04 Microbiology Microbiology 07/07/20 Respiratory Virus Panel (PCR) (LINA) - Final, Complete 07/01/20 Gram Stain - Final, Complete 07/01/20 Wound Culture - Final, Complete 07/01/20 Anaerobic Culture - Final, Complete Discharge Medications Scheduled Acetaminophen (Acetaminophen ER) 650 Mg Tablet.er, 650 MG PO Q8H, (Reported) 0500/1300/2100 Apixaban (Eliquis) 2.5 Mg Tablet, 2.5 MG PO BID, (Reported) Arginine/Glutamine/Calcium Bmb (Justice Packet) 1 Each Powd.pack, 1 POW PO BID, (Reported) WITH 8OZ OF LIQUID Aspirin (Aspirin) 81 Mg Tab.chew, 81 MG PO DAILY, (Reported) Atenolol (Atenolol) 50 Mg Tablet, 50 MG PO QPM, (Reported) HOLD IF AP <60 SBP <100 Atenolol (Atenolol) 25 Mg Tablet, 25 MG PO DAILY, (Reported) HOLD IF AP <60 SBP <100 Cephalexin (Cephalexin) 500 Mg Capsule, 1,000 MG PO Q8H Colchicine (Colchicine) 0.6 Mg Tablet, 0.6 MG PO DAILY, (Reported) Duloxetine Hcl (Cymbalta) 30 Mg Capsule.dr, 30 MG PO QPM, (Reported) L.acidoph/L.bulg/B.bif/S.therm (Bacid Caplet) 1 Each Tablet, 1 TAB PO BID, (Reported) Levothyroxine Sodium (Levo-T) 75 Mcg Tablet, 75 MCG PO QAM, (Reported) Magnesium Oxide (Magnesium Oxide) 400 Mg Tablet, 400 MG PO QPM, (Reported) Metolazone (Metolazone) 2.5 Mg Tablet, 2.5 MG PO 3XW, (Reported) MONDAY, MONDAY AND MONDAY AT 0800 Multivitamins (Thera M Plus Tablet) 1 Each Tablet, 1 TAB PO DAILY, (Reported) Triamcinolone Acet (Triamcinolone Acetonide 0.1% Oint) 15 Gm Oint...g., 0 DOSE TOP BID Scheduled PRN Acetaminophen (Tylenol) 325 Mg Tablet, 650 MG PO Q4H PRN for PAIN / FEVER, (Reported) Bisacodyl (Bisacodyl) 10 Mg Supp.rect, 10 MG VT DAILY PRN for CONSTIPATION, (Reported) Magnesium Hydroxide (Milk of Magnesia) 400 Mg/5 Ml Oral.susp, 2,400 MG PO DAILY PRN for CONSTIPATION, (Reported) Methyl Salicylate/Menthol ([place]) 99.2 Gm Oint...g., 1 APLCT TOP BID PRN for PAIN, (Reported) APPLY TO LEFT SHOULDER Oxycodone HCl/Acetaminophen (Oxycodone-Acetaminophen 5-325) 1 Each Tablet, 1 TAB PO BID PRN for SEVERE PAIN (PS 8-10), (Reported) Sodium Phosphate,Polk-Dibasic (Enema Plibb-Uw-Rnr) 399 Ml Enema, 1 JOO VT DAILY PRN for CONSTIPATION, (Reported) Allergies Coded Allergies: prednisone (Verified Allergy, Intermediate, rash, 09/17/19) KATHY LUI DO Jul 07, 2020 19:48
== END 2020-07-07 11:45 | DRG 500 ==
LOC: EDBD 12:23 → M ED 12:23 → M ED INP 16:49 → M PCU 18:50 → M MSPAV 06-27 20:47
PROVIDERS: ADMIT Internal Medicine; ATTEND Internal Medicine
PROC: 0R9K3ZZ Drainage of Left Shoulder Joint, Percutaneous Approach (ICD-10-PCS; 2020-06-25)
PROC: 0JBR3ZZ Excision of Left Foot Subcutaneous Tissue and Fascia, Percutaneous Approach (ICD-10-PCS; 2020-06-27)
PROC: 0R9K3ZX Drainage of Left Shoulder Joint, Percutaneous Approach, Diagnostic (ICD-10-PCS; 2020-07-01)
PROC: 0MB Bursae and Ligaments, Excision (ICD-10-PCS; principal; 2020-07-01 11:15)
DX: M00.9 Pyogenic arthritis, unspecified (principal); L89.613 Pressure ulcer of right heel, stage 3; L89.623 Pressure ulcer of left heel, stage 3; I48.20 Chronic atrial fibrillation, unspecified; L03.116 Cellulitis of left lower limb; I70.244 Atherosclerosis of native arteries of left leg with ulceration of heel and midfoot; M71.112 Other infective bursitis, left shoulder; I12.9 Hypertensive chronic kidney disease with stage 1 through stage 4 chronic kidney disease, or unspecified chronic kidney disease; G31.84 Mild cognitive impairment of uncertain or unknown etiology; F41.9 Anxiety disorder, unspecified; Z66 Do not resuscitate; N18.9 Chronic kidney disease, unspecified; E03.9 Hypothyroidism, unspecified; E55.9 Vitamin D deficiency, unspecified; E78.5 Hyperlipidemia, unspecified; Z85.46 Personal history of malignant neoplasm of prostate; Z87.891 Personal history of nicotine dependence; Z79.01 Long term (current) use of anticoagulants; Z79.82 Long term (current) use of aspirin; Z79.899 Other long term (current) drug therapy; Z88.8 Allergy status to other drugs, medicaments and biological substances; Z89.422 Acquired absence of other left toe(s)

== ENCOUNTER → 2020-06-25 | Outpatient (CLI) | payer MEDICARE, MEDICAID ==
[~2020-06-25] MED LIST changes: +ISOVUE-370 76% 100ML VIAL As Ordered ONE
--- NOTE | 2020-06-25 09:45 | REP ---
INDICATION: LT ARM/SHOULDER PAIN ? CELLULITIS. COMPARISON: Comparison sonography June 23, 2020.. TECHNIQUE: 100 mL of intravenous Isovue 370 is administered. Helical scanning is acquired 3 mm axial images are generated. Coronal and sagittal MPR images are generated. FINDINGS: There is good opacification of the arterial and venous structures in the left upper extremity. There is no evidence of venous thrombosis. No arterial occlusive disease is appreciated. The visualized portions of the left chest show no evidence of infiltrate, mass or effusion. Some vascular calcification is noted. There is a large periarticular fluid collection associated with the left shoulder. This is within the subacromial subdeltoid bursa. Its margin shows contrast enhancement and I cannot exclude septic bursal effusion. There is osteoarthritis at the glenohumeral and acromioclavicular joints with spurring and joint space narrowing. There is chronic tear of the supraspinatus tendon with atrophy of the supraspinatus muscle. There is mild diffuse myofascial edema in the upper arm and moderate subcutaneous edema is seen diffusely in the forearm on the left side consistent with cellulitis. Cortical and medullary bone density are normal. No bony destructive or acute erosive changes appreciated. There is some medial and lateral epicondylar spurring. There is a subcortical cyst in the capitate bone at the wrist and there is arthropathy is so dense associated cyst formation and narrowing in the radio carpal articulation. Some chondrocalcinosis is noted at the wrist. No acute bony abnormality is seen. IMPRESSION: There is a large subacromial subdeltoid bursal effusion with evidence of synovitis. This is nonspecific. Septic bursitis cannot be excluded. There is myofascial edema and subcutaneous edema in the left upper extremity. No abscess or mass lesion is observed. No evidence of venous thrombosis or arterial occlusive disease seen. <Electronically signed by Faisal Wilson > 06/25/20 [id number]
== END ==
LOC: M RAD 08:19
PROVIDERS: ATTEND Physician Assistant
DX: M25.412 Effusion, left shoulder (principal); L03.90 Cellulitis, unspecified; M79.622 Pain in left upper arm

== ENCOUNTER → 2020-06-26 | Outpatient (REF) | payer MEDICARE, MEDICAID ==
[~2020-06-26] MED LIST changes: +ATEN25TA PO; +AUGM500T34 PO; +BACITAB PO; +CEPH500C PO; +DOXY100C PO; +ICYOIN TOP; +LISI40TA PO; -LISI40TA4 PO; +TRIA1OI TOP
--- NOTE | 2020-06-30 13:49 | CR ---
ADVANCED WOUND CARE CONSULTATION VIA TELEMEDICINE DATE: 06/30/2020 CONSULTATION REQUESTED BY: Renard Baxter DO REASON FOR CONSULTATION: Left foot wounds. HISTORY OF PRESENT ILLNESS: 89-year-old non-ambulatory longterm patient admitted for shoulder problems, orthopedic in nature, requiring OR exploration and/or joint cleansing. Patient has been seen by infectious disease and is covered with the appropriate antibiotics for that. The patient is status post open amputation of the left second toe and has a pressure injury involving the left heel. Additionally, there is a wound on the anterior ankle of the left foot. Wound measurements; open amputation site left toe measures 1.0 cm x 0.6 cm with a wound depth of 1.1 cm. There is superficial fibrin slough and underlying superficial necrotic subcutaneous tissue present. By palpation by the nurse at bedside, there does not appear to be palpable bone, although I cannot assessed this completely. There is minimal serous drainage. There is no erythema involving the periwound. Adjacent digits are uninvolved. The patient's left heel has a wound measuring 3.0 cm x 3.3 cm with a wound depth of 0.5 cm. Again, there is superficial fibrin slough and superficial necrotic subcutaneous tissue without deep structures evident. The drainage is minimal, serosanguineous, without odor. Wound edges are open and the periwound shows no erythema, maceration or ischemic change. The anterior ankle shows a wound measuring 0.8 cm x 0.8 cm with a depth of 0.2 cm. This wound shows superficial fibrin slough. No deep structures or tendon is visualized. Wound edges are open and the periwound shows no erythema, maceration or ischemic change. Patient is non-diabetic, nutrition is fair. TREATMENT RECOMMENDATIONS: Nutritional supplement with Ensure and Justice will be ordered and bilateral heel float boots are required. The anterior velcro strap of the heel float boot should be padded underneath the straps with ABD pads. In terms of the amputation site and the anterior ankle wound, should be treated with Santyl, apply a nickel thick to the wound base and covered with foam dressing to be changed on a daily basis. The heel wound will be treated with a Hydrofera Blue Ready to be changed on an every other day basis. No covering dressing is required when using Hydrofera Blue ready. Patient change of position is required to avoid pressure injuries involving the sacrum and coccyx region. When patient has stabilized and is ready for discharge from the hospital, please contact the wound center and we can arrange for follow-up as he has been seen at our clinic before. FROYLAN
== END ==
PROVIDERS: ATTEND Internal Medicine
DX: Z20.822 Contact with and (suspected) exposure to COVID-19 (principal)